=== PATIENT | female | born 1955 | race Caucasian/White ===

== ENCOUNTER → 2019-12-06 14:28 | Outpatient (CLI) | payer MEDICARE, MEDICAID, SELFPAY ==
--- NOTE | ~2019-12-06 | XR_ITS ---
XR lumbar spine 6V w bending DATE: 12/06/2019 15:03 INDICATION: Lower back pain. Muscle strain. TECHNIQUE: Neutral, flexion and extension lateral views. AP, bilateral oblique and coned lateral lumb osacral views. COMPARISON: None FINDINGS: Diffuse osteopenia. Surgical clips, right upper quadrant, consistent with cholecystectomy. There is rotatory dextroscoliosis of the lumbar spine. Left lateral plate and screws, posterior screws and interbody fusion with cage devices at L2-3. Anterior plate and screws and interbody cage devices at L3-4 and L4-5. No fracture or spondylolisthesis is evident. No instability is evident on flexion or extension. The sacroiliac joints appear normal. IMPRESSION: Extensive postoperative changes of the lumbar spine No fracture or spondylolisthesis or flexion/extension instability is demonstrated Rotatory dextroscoliosis Osteopenia Reviewed, dictated and finalized at location B. 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
== END ==
PROVIDERS: PCP Family Medicine; Visit Provider Family Medicine
DX: S39.012A Strain of muscle, fascia and tendon of lower back, initial encounter (principal); X58.XXXA Exposure to other specified factors, initial encounter; M85.88 Other specified disorders of bone density and structure, other site
CPT/HCPCS: 72114

== ENCOUNTER 2020-05-31 16:02 | Emergency (ER) | payer OTHER, MEDICAID, SELFPAY ==
--- NOTE | ~2020-05-31 | XR_ITS ---
XR chest 2V DATE: 05/31/2020 16:39 INDICATION: Cough. History of pneumonia. TECHNIQUE: 2 views COMPARISON: 03/18/2019 2 view chest 03/31/2019 CT pulmonary scan FINDINGS: Bilateral hyperinflation consistent with COPD. No pulmonary infiltrate or consolidation, pl eural effusion or pulmonary vascular congestion or pneumothorax. Cardiomegaly. Aortic calcification and unfolding. No hilar or mediastinal enlargement. Surgical clips overlie the upper right quadrant, consistent with cholecystectomy. Status post lower anterior cervical spine surgical fusion. There is evidence of surgical lumbar spine fusion as well. IMPRESSION: Bilateral hyperinflation suggesting COPD Cardiomegaly Aortic atherosclerosis No active pulmonary disease Reviewed, dictated and finalized at location A.
[2020-05-31 16:16] VITALS: BP 155/88; PULSE 53; RESP 16; TEMP 36.6; O2SAT 98
--- NOTE | 2020-05-31 16:21 | ED.URI ---
HPI - URI/Sore Throat General Chief Complaint: Upper Respiratory Infection Stated Complaint: poss pnuemonia Time Seen by Provider: 05/31/20 16:40 Source: patient and RN notes reviewed Mode of arrival: ambulatory Limitations: no limitations History of Present Illness HPI Narrative: 65-year-old female presents with concern for productive cough, posterior and anterior chest wall pain with coughing. Reports history of emphysema, is a current smoker. Reports 3 days ago she may have coughed up blood, had blood on her pillow when she woke up. Has not had any incidence of haemoptysis since that time. Reports body aches, fatigue, tactile fever. Reports similar symptoms with prior pneumonia. Denies known sick exposures MD elicited complaint: cough Related Data Home Medications Medication Instructions Recorded Confirmed aspirin 81 mg tablet,delayed 81 mg PO DAILY 09/28/19 05/31/20 release cholecalciferol (vitamin D3) 1,250 50,000 unit PO MONTHLY tablet 09/28/19 05/31/20 mcg (50,000 unit) tablet dicyclomine 20 mg tablet 20 mg PO TID 09/28/19 05/31/20 fentanyl 50 mcg/hr transdermal 1 patch TRANSDERM Q72H 09/28/19 05/31/20 patch hydralazine 25 mg tablet 25 mg PO TID 09/28/19 05/31/20 mecobalamin (vitamin B12) 1,000 1,000 mcg SUBLINGUAL DAILY 09/28/19 05/31/20 mcg disintegrating tablet,sublingual metoprolol tartrate 25 mg tablet 25 mg PO BID tablet 09/28/19 05/31/20 nitroglycerin 0.3 mg sublingual 0.3 mg SUBLINGUAL Q5M PRN 11/16/19 05/31/20 tablet gabapentin 300 mg PO QID 05/31/20 05/31/20 hydrocodone-acetaminophen 2 tablet PO Q6H PRN 05/31/20 05/31/20 linaclotide [Linzess] 145 mcg PO DAILY 05/31/20 05/31/20 ondansetron HCl [Zofran] 8 mg PO Q8H PRN 05/31/20 05/31/20 pantoprazole 40 mg PO QAM 05/31/20 05/31/20 Allergies Allergy/AdvReac Type Severity Reaction Status Date / Time dexamethasone Allergy Mild SICK AND Verified 05/31/20 16:38 WEAK atenolol Allergy Unknown DROPPED Verified 05/31/20 16:38 OUT MY HEART RATE clonidine Allergy Unknown LOOKED Verified 05/31/20 16:38 LIKE A LOBSTER TURN RED lisinopril Allergy Unknown LOOK LIKE Verified 05/31/20 16:38 A LOBSTER TURN RED NSAIDS (Non-Steroidal Allergy Unknown STATES Verified 05/31/20 16:38 Anti-Inflamma MAKES HER BLEED prednisone Allergy Unknown COULDN'T Verified 05/31/20 16:38 BREATH ticagrelor Allergy Unknown Dyspnea / Verified 05/31/20 16:38 SOB chlorzoxazone AdvReac Unknown Nausea and Verified 05/31/20 16:38 Vomiting oxymorphone AdvReac Unknown NAUSEA AND Verified 05/31/20 16:38 VOMITING Sulfa (Sulfonamide AdvReac Unknown GIVES PT A Verified 05/31/20 16:38 Antibiotics) YEAST INFECTION tramadol AdvReac Unknown NAUSEA AND Verified 05/31/20 16:38 VOMITING AMLODIPINE BESYLATE Allergy Unknown LOOKED Uncoded 05/31/20 16:38 LIKE A LOBSTER TURNED RED AMOXICILLIN TRIHYDRATE AdvReac Unknown GIVES ME Uncoded 05/31/20 16:38 YEAST INFECTION AND BLEEDS VAGINALLY POTASSIUM CLAVULANATE AdvReac Unknown YEAST Uncoded 05/31/20 16:38 INFECTION Review of Systems Review of Systems: Narrative: CONSTITUTIONAL: Reports malaise, chills, tactile fever. Denies sweats. EYES: Denies visual changes, redness, or discharge. ENT: Reports rhinorrhea. Denies congestion, sinus pain, otalgia and sore throat. CARDIOVASCULAR: Denies chest pain, palpitations, or edema. RESPIRATORY: Reports cough, productive cough, chest wall pain with coughing. Denies dyspnea. GASTROINTESTINAL: Denies abdominal pain, nausea, vomiting, diarrhea SKIN: Denies rash or itching. MUSCULOSKELETAL: Denies myalgia. NEUROLOGIC: Denies headache. All systems reviewed & are unremarkable except as noted in HPI and below PMFSH Social History Social History Smoking packs per day: 0.5 Smoking cigarettes per day: 10.0 Years smoked: 40
== END 2020-05-31 17:02 | disposition home or self-care (01) ==
PROVIDERS: Emergency Provider Nurse Practitioner; PCP Family Medicine
DX: R05 Cough (principal); J43.9 Emphysema, unspecified; F17.210 Nicotine dependence, cigarettes, uncomplicated; I10 Essential (primary) hypertension; G62.9 Polyneuropathy, unspecified
CPT/HCPCS: 71046; 99213; G0463

== ENCOUNTER 2020-11-23 13:39 | Outpatient (CLI) | payer OTHER, MEDICAID, SELFPAY ==
--- NOTE | ~2020-11-23 | XR_ITS ---
XR_[id number]_CR DATE: 11/23/2020 14:09 INDICATION: Fall. Right mid to lower right chest pain TECHNIQUE: PA chest. Multiple views of left and right ribs. COMPARISON: 05/31/2022 view chest FINDINGS: Status post anterior cervical spine surgical fusion at C6-7. There is extensive hardware at the lumbar spine. Diffuse osteopenia. There is a left cervical rib. No left or right rib fracture or bone destruction is evident. Cardiomegaly. Aortic calcification and unfolding. There is mild discoid scarring in the right lung base, present on 05/31/2020. There is minimal atelect asis or scarring at the left lung base. No pulmonary consolidation is evident. No pleural effusion, p ulmonary vascular congestion or pneumothorax. IMPRESSION: Diffuse osteopenia; no apparent left or right rib fracture Left cervical rib Ranjana magna, aortic atherosclerosis Postoperative change of the cervical and lumbar spine Reviewed, dictated and finalized at Location A. Reviewed, dictated and finalized at location B. PRESIDENT OF RECRUITING
--- NOTE | ~2020-11-23 | XR_ITS ---
XR hip RT 1V w AP pelvis DATE: 11/23/2020 14:09 INDICATION: Right hip pain TECHNIQUE: AP pelvis. Lateral view of right hip. COMPARISON: None FINDINGS: There is diffuse osteopenia. There is dextroscoliosis of the lumbar spine. There is extensive hardware of the lumbar spine. The pubic symphysis and sacral iliac joints are intact. No pelvic fracture or bone destruction is ángel dent. No fracture or dislocation, avascular necrosis or bone destruction of the right hip is detected. Righ t hip joint space is symmetric with the left, relatively preserved. IMPRESSION: Dextro scoliosis and extensive postoperative change of the lumbar spine Diffuse osteopenia No pelvic or right hip fracture or dislocation Reviewed, dictated and finalized at location B. 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
== END 2020-11-23 13:40 | disposition home or self-care (01) ==
LOC: ANHBWCIMG 13:43
PROVIDERS: PCP Family Medicine; Visit Provider Family Medicine
DX: M25.551 Pain in right hip (principal); R26.89 Other abnormalities of gait and mobility; R07.89 Other chest pain; W19.XXXA Unspecified fall, initial encounter; Z91.81 History of falling; M85.89 Other specified disorders of bone density and structure, multiple sites; Q76.5 Cervical rib; I70.0 Atherosclerosis of aorta; Z98.890 Other specified postprocedural states; M41.86 Other forms of scoliosis, lumbar region
CPT/HCPCS: 71111; 73501

== ENCOUNTER 2020-12-12 17:34 | Emergency (ER) | payer OTHER, MEDICAID, SELFPAY ==
[2020-12-12 17:45] VITALS: BP 195/101; PULSE 57; RESP 20; TEMP 36.6; O2SAT 100
--- NOTE | 2020-12-12 18:10 | ED.ABDPAIN ---
HPI - Abdominal Pain General Chief Complaint: Abdominal Pain Stated Complaint: L Abdominal Pain Time Seen by Provider: 12/12/20 17:45 Source: patient and RN notes reviewed Mode of arrival: ambulatory Limitations: no limitations History of Present Illness HPI narrative: Patient presents today complaining of 3-day history of sudden onset left-sided abdominal pain and nausea as well as a 2-week history of decreased appetite. States her pain is horrendous . She had much difficulty walking in to express care from her car due to severe pain. History of diverticulitis and diverticulosis. She currently rates her pain 10/10. She has been applying ice and heat. She uses fentanyl and Vicodin for her chronic back pain, which she states helps for short periods for her current abdominal pain, which she states is constant with intermittent spasms. She believes her pain may be due to pulling a muscle while she slept, but is unsure. Denies any specific known injury or trauma. Patient was seen in the ER at [facility] 2 weeks ago for left sided abdominal pain. States CT scan was done at that time and she was placed on Flagyl and an antibiotic which she has finished. She has had a decreased appetite since that time. She has a follow-up appointment with her protein purification scientist in 2 days. Related Data Home Medications Medication Instructions Recorded Confirmed aspirin 81 mg tablet,delayed 81 mg PO DAILY 09/28/19 12/12/20 release cholecalciferol (vitamin D3) 1,250 50,000 unit PO MONTHLY tablet 09/28/19 12/12/20 mcg (50,000 unit) tablet dicyclomine 20 mg tablet 20 mg PO TID 09/28/19 12/12/20 fentanyl 50 mcg/hr transdermal 1 patch TRANSDERM Q72H 09/28/19 12/12/20 patch hydralazine 25 mg tablet 25 mg PO TID 09/28/19 12/12/20 mecobalamin (vitamin B12) 1,000 1,000 mcg SUBLINGUAL DAILY 09/28/19 12/12/20 mcg disintegrating tablet,sublingual metoprolol tartrate 25 mg tablet 25 mg PO BID tablet 09/28/19 12/12/20 nitroglycerin 0.3 mg sublingual 0.3 mg SUBLINGUAL Q5M PRN 11/16/19 12/12/20 tablet gabapentin 600 mg PO TID 05/31/20 12/12/20 linaclotide [Linzess] 145 mcg PO DAILY 05/31/20 12/12/20 pantoprazole 40 mg PO QAM 05/31/20 12/12/20 atorvastatin 20 mg PO DAILY 12/12/20 12/12/20 Allergies Allergy/AdvReac Type Severity Reaction Status Date / Time dexamethasone Allergy Mild SICK AND Verified 12/12/20 17:54 WEAK atenolol Allergy Unknown DROPPED Verified 12/12/20 17:54 OUT MY HEART RATE clonidine Allergy Unknown LOOKED Verified 12/12/20 17:54 LIKE A LOBSTER TURN RED lisinopril Allergy Unknown LOOK LIKE Verified 12/12/20 17:54 A LOBSTER TURN RED NSAIDS (Non-Steroidal Allergy Unknown STATES Verified 12/12/20 17:54 Anti-Inflamma MAKES HER BLEED prednisone Allergy Unknown COULDN'T Verified 12/12/20 17:54 BREATH ticagrelor Allergy Unknown Dyspnea / Verified 12/12/20 17:54 SOB chlorzoxazone AdvReac Unknown Nausea and Verified 12/12/20 17:54 Vomiting oxymorphone AdvReac Unknown NAUSEA AND Verified 12/12/20 17:54 VOMITING Sulfa (Sulfonamide AdvReac Unknown GIVES PT A Verified 12/12/20 17:54 Antibiotics) YEAST INFECTION tramadol AdvReac Unknown NAUSEA AND Verified 12/12/20 17:54 VOMITING AMLODIPINE BESYLATE Allergy Unknown LOOKED Uncoded 12/12/20 17:54 LIKE A LOBSTER TURNED RED AMOXICILLIN TRIHYDRATE AdvReac Unknown GIVES ME Uncoded 12/12/20 17:54 YEAST INFECTION AND BLEEDS VAGINALLY POTASSIUM CLAVULANATE AdvReac Unknown YEAST Uncoded 12/12/20 17:54 INFECTION Review of Systems Review of Systems: Narrative: CONSTITUTIONAL: Denies body aches, fever, chills, or sweats. EYES: Denies visual changes, redness, or discharge. ENT: Denies rhinorrhea, congestion, sore throat, or otalgia. CARDIOVASCULAR: Denies chest pain, palpitations, or edema. RESPIRATORY: Denies cough or dyspnea. GASTROINTESTINAL
[2020-12-12 18:13] VITALS: BP 180/98
== END 2020-12-12 18:19 | disposition left against medical advice (07) ==
PROVIDERS: Emergency Provider Nurse Practitioner; PCP Family Medicine
DX: R10.12 Left upper quadrant pain (principal); F17.210 Nicotine dependence, cigarettes, uncomplicated; M48.00 Spinal stenosis, site unspecified; Z79.82 Long term (current) use of aspirin
CPT/HCPCS: 99211; G0463

== ENCOUNTER 2021-02-08 13:59 | Outpatient (CLI) | payer OTHER, MEDICAID, SELFPAY ==
[2021-02-08 20:18] LABS: Basophils Absolute Auto 0.1 K/mm3 (0.0-0.1); Basophils Percent Auto 1.1 % (0.2-1.2); Eosinophils Absolute Auto 0.2 K/mm3 (0-0.3); Eosinophils Percent Auto 2.9 % (0-4.4); Hematocrit 45.7 % (37.0-47.0); Hemoglobin 14.3 g/dL (12.0-15.0); Immature Granulocyte Absolute 0.01 K/mm3 (0.00-0.031); Immature Granulocyte Percent A 0.1 % (0-0.5); Lymphocytes Absolute Auto 3.36 K/mm3 (0.9-3.2); Lymphocytes Percent Auto 40.3 % (18.3-44.2); Mean Corpuscular HGB Conc 31.3 g/dl (32-36); Mean Corpuscular Volume 99.1 fl (80-100); Mean Platelet Volume 10.1 fl (7.4-10.4); Monocytes Absolute Auto 0.7 K/mm3 (0.1-0.6); Monocytes Percent Auto 7.8 % (2.6-8.5); Neutrophils Percent Auto 47.8 % (45.5-73.1); Platelet Count Result 253 k/mm3 (150-375); Red Blood Count 4.61 M/mm3 (4.2-5.4); Red Cell Distribution Width 13.5 % (11.5-14.5); White Blood Count 8.3 K/mm3 (4.5-10.0)
[2021-02-08 20:25] LABS: Add Urine Microscopic? YES; Appearance Urine Clear (Clear); Bilirubin Urine Negative (Negative); Blood Urine Negative (Negative); Color Urine Amber (Yellow); Glucose Urine UA Negative (Negative); Ketones Urine Negative (Negative); Leukocyte Esterase Ur Negative LEU/UL (NEGATIVE); Nitrate Urine Positive (Negative); Protein Urine 1+ mg/dL (Negative); Specific Grav Ur 1.013 (1.001-1.035); Squamous Epithelial Cell Urine Many /hpf (Few); WBC Urine 0-3 /hpf (0-3)
[2021-02-08 20:28] LABS: Alanine Aminotransferase 10 U/L (4-35); Albumin Level 3.8 g/dL (3.5-5.1); Alkaline Phosphatase 84 U/L (38-126); Anion Gap 4 mmol/L (8-16); Aspartate Amino Transferase 19 U/L (14-36); Bilirubin,Total 0.4 mg/dL (0.2-1.3); Blood Urea Nitrogen 13 mg/dL (7-17); CRP < 0.5 mg/dL (<1.0); Calcium 9.1 mg/dL (8.4-10.2); Carbon Dioxide 34 mmol/L (22-30); Chloride 102 mmol/L (98-107); Estimated Glomerular Filt Rate > 60; Glucose 97 mg/dL (65-105); Potassium 4.2 mmol/L (3.4-5.0); Sodium 140 mmol/L (137-145)
[2021-02-08 20:43] LABS: Vitamin D 25 Hydroxy 32.3 ng/mL
[2021-02-08 21:32] LABS: Folic Acid 4.3 ng/mL (2.76->20)
== END 2021-02-08 14:00 | disposition home or self-care (01) ==
LOC: ANHBWCLAB 14:01
PROVIDERS: PCP Family Medicine; Visit Provider Family Medicine
DX: R10.11 Right upper quadrant pain (principal); R32 Unspecified urinary incontinence; R79.89 Other specified abnormal findings of blood chemistry; Z79.899 Other long term (current) drug therapy; Z92.29 Personal history of other drug therapy; R53.83 Other fatigue
CPT/HCPCS: 36415; 80053; 81001; 82306; 82607; 82746; 85025; 86140; 87086

== ENCOUNTER 2021-03-08 17:30 | Emergency (ER) | payer OTHER, MEDICAID, SELFPAY ==
[2021-03-08 17:36] VITALS: BP 160/82; PULSE 60; RESP 20; TEMP 36.4; O2SAT 98
--- NOTE | 2021-03-08 17:42 | ED.SKABFB ---
HPI - Skin/Abscess/Foreign Bdy General Chief complaint: Skin/Abscess/Foreign Body Stated complaint: Skin Complaint Source: patient Mode of arrival: ambulatory Limitations: no limitations History of Present Illness HPI narrative: Patient is a 65 year old female with complaints of poison surendra . Patient reports pruritic rash x 3 days to bilateral upper extremities. She reports that she completed yard work on Friday. She denies use of new soaps, lotions or detergents. Patient reports using over the counter medications without relief. MD complaint: rash Related Data Home Medications Medication Instructions Recorded Confirmed aspirin 81 mg tablet,delayed 81 mg PO DAILY 09/28/19 03/08/21 release hydralazine 25 mg tablet 25 mg PO TID 09/28/19 03/08/21 mecobalamin (vitamin B12) 1,000 1,000 mcg SUBLINGUAL DAILY 09/28/19 03/08/21 mcg disintegrating tablet,sublingual nitroglycerin 0.3 mg sublingual 0.3 mg SUBLINGUAL Q5M PRN 11/16/19 03/08/21 tablet linaclotide [Linzess] 145 mcg PO DAILY 05/31/20 03/08/21 pantoprazole 40 mg PO QAM 05/31/20 03/08/21 atorvastatin 20 mg PO DAILY 12/12/20 03/08/21 Allergies Allergy/AdvReac Type Severity Reaction Status Date / Time dexamethasone Allergy Mild SICK AND Verified 03/08/21 17:46 WEAK atenolol Allergy Unknown DROPPED Verified 03/08/21 17:46 OUT MY HEART RATE clonidine Allergy Unknown LOOKED Verified 03/08/21 17:46 LIKE A LOBSTER TURN RED lisinopril Allergy Unknown LOOK LIKE Verified 03/08/21 17:46 A LOBSTER TURN RED NSAIDS (Non-Steroidal Allergy Unknown STATES Verified 03/08/21 17:46 Anti-Inflamma MAKES HER BLEED prednisone Allergy Unknown COULDN'T Verified 03/08/21 17:46 BREATH ticagrelor Allergy Unknown Dyspnea / Verified 03/08/21 17:46 SOB chlorzoxazone AdvReac Unknown Nausea and Verified 03/08/21 17:46 Vomiting oxymorphone AdvReac Unknown NAUSEA AND Verified 03/08/21 17:46 VOMITING Sulfa (Sulfonamide AdvReac Unknown GIVES PT A Verified 03/08/21 17:46 Antibiotics) YEAST INFECTION tramadol AdvReac Unknown NAUSEA AND Verified 03/08/21 17:46 VOMITING AMLODIPINE BESYLATE Allergy Unknown LOOKED Uncoded 02/08/21 13:12 LIKE A LOBSTER TURNED RED AMOXICILLIN TRIHYDRATE AdvReac Unknown GIVES ME Uncoded 02/08/21 13:12 YEAST INFECTION AND BLEEDS VAGINALLY POTASSIUM CLAVULANATE AdvReac Unknown YEAST Uncoded 02/08/21 13:12 INFECTION Review of Systems Review of Systems: Narrative: CONSTITUTIONAL: Denies fever, chills, or sweats. EYES: Denies visual changes, redness, or discharge. ENT: Denies rhinorrhea, congestion, sore throat, or otalgia. CARDIOVASCULAR: Denies chest pain, palpitations, or edema. RESPIRATORY: Denies cough or dyspnea. GASTROINTESTINAL: Denies abdominal pain, nausea, vomiting, or diarrhea. GENITOURINARY: Denies dysuria or hematuria. SKIN: Rash to bilateral arms MUSCULOSKELETAL: Denies back pain, joint pain, or myalgia. NEUROLOGIC: Denies headache, numbness, dizziness, or weakness. PSYCHIATRIC: Denies anxiety or depression. [facility] Past Medical History Medical History Diverticulitis Diverticulosis FH: cholecystectomy Knee pain Low back pain Spinal stenosis Family History Family History Father Family history of kidney disease Grandparent Family history of obesity Cerebrovascular accident Family history of coronary artery disease Mother Family history of malignant neoplasm of breast in first degree relative Family history of malignant neoplasm Other Family history of allergic disorder Social History Social History Smoking packs per day: 0.5 Smoking cigarettes per day: 10.0 Years smoked: 40 Smoking pack-years: 20.00 Smoking status: Current every
[2021-03-08 17:48] VITALS: BP 160/82; PULSE 60; RESP 20; TEMP 36.4; O2SAT 98
== END 2021-03-08 18:05 | disposition home or self-care (01) ==
PROVIDERS: Emergency Provider Nurse Practitioner; PCP Family Medicine
DX: L23.7 Allergic contact dermatitis due to plants, except food (principal); F17.210 Nicotine dependence, cigarettes, uncomplicated; M48.00 Spinal stenosis, site unspecified
CPT/HCPCS: 99213; G0463

== ENCOUNTER 2021-05-30 15:30 | Outpatient (CLI) | payer OTHER, MEDICAID, SELFPAY ==
[2021-05-30 19:06] LABS: Hematocrit 47.6 % (37.0-47.0); Hemoglobin 15.5 g/dL (12.0-15.0); Mean Corpuscular HGB Conc 32.6 g/dl (32-36); Mean Corpuscular Volume 98.3 fl (80-100); Mean Platelet Volume 10.3 fl (7.4-10.4); Platelet Count Result 272 k/mm3 (150-375); Red Blood Count 4.84 M/mm3 (4.2-5.4); Red Cell Distribution Width 13.9 % (11.5-14.5); White Blood Count 9.4 K/mm3 (4.5-10.0)
[2021-05-30 19:27] LABS: Anion Gap 9 mmol/L (8-16); Blood Urea Nitrogen 12 mg/dL (7-17); Calcium 9.5 mg/dL (8.4-10.2); Carbon Dioxide 28 mmol/L (22-30); Chloride 103 mmol/L (98-107); Estimated Glomerular Filt Rate > 60; Glucose 97 mg/dL (65-105); Potassium 4.3 mmol/L (3.4-5.0); Sodium 140 mmol/L (137-145)
== END 2021-05-30 15:31 | disposition home or self-care (01) ==
LOC: ANHBWCIMG 15:34 → ANHBWCLAB 15:37
PROVIDERS: PCP Family Medicine
DX: I10 Essential (primary) hypertension (principal); I25.10 Atherosclerotic heart disease of native coronary artery without angina pectoris; I25.118 Atherosclerotic heart disease of native coronary artery with other forms of angina pectoris; I47.1 Supraventricular tachycardia
CPT/HCPCS: 36415; 80048; 85027

== ENCOUNTER 2021-06-18 15:34 | Outpatient (CLI) | payer OTHER, MEDICAID, SELFPAY ==
[2021-06-18 20:19] LABS: Add Urine Microscopic? NO; Appearance Urine Clear (Clear); Bilirubin Urine Negative (Negative); Blood Urine Negative (Negative); Color Urine Yellow (Yellow); Glucose Urine UA Negative (Negative); Ketones Urine Negative (Negative); Leukocyte Esterase Ur Negative LEU/UL (NEGATIVE); Nitrate Urine Negative (Negative); Protein Urine Negative (Negative); Specific Grav Ur 1.014 (1.001-1.035); Urobilinogen Urine Negative mg/dL (<2.0)
== END 2021-06-18 15:35 | disposition home or self-care (01) ==
PROVIDERS: PCP Family Medicine; Visit Provider Family Medicine
DX: R32 Unspecified urinary incontinence (principal)
CPT/HCPCS: 81003; 87086; 87088

== ENCOUNTER 2021-09-18 15:12 | Outpatient (CLI) | payer OTHER, MEDICAID, SELFPAY ==
--- NOTE | ~2021-09-18 | XR_ITS ---
EXAMINATION: XR abdomen obstructive series DATE: 09/18/2021 15:37 INDICATION: Personal history of other diseases of the digestive tract TECHNIQUE: Upright and supine views of the abdomen were obtained. COMPARISON: 05/06/2019 FINDINGS: There is no free intraperitoneal gas or evidence of bowel obstruction. A moderate volume of colonic stool is present. Surgical clips in the right upper quadrant are likely from prior cholecyst ectomy. There is lumbar dextroscoliosis with changes of anterior posterior lumbar fusion. A surgical clip is present in the right pelvis. The visualized lung bases are clear. IMPRESSION: 1. Nonobstructive bowel gas pattern. 2. Constipation. Reviewed, dictated and finalized at location B.
[2021-09-18 18:38] LABS: Basophils Absolute Auto 0.1 K/mm3 (0.0-0.1); Eosinophils Absolute Auto 0.2 K/mm3 (0-0.3); Eosinophils Percent Auto 2.4 % (0-4.4); Hematocrit 43.3 % (37.0-47.0); Hemoglobin 13.9 g/dL (12.0-15.0); Immature Granulocyte Absolute 0.04 K/mm3 (0.00-0.031); Immature Granulocyte Percent A 0.4 % (0-0.5); Lymphocytes Absolute Auto 2.68 K/mm3 (0.9-3.2); Lymphocytes Percent Auto 28.6 % (18.3-44.2); Mean Corpuscular HGB Conc 32.1 g/dl (32-36); Mean Corpuscular Hemoglobin 32.9 pg (26-34); Mean Corpuscular Volume 102.4 fl (80-100); Mean Platelet Volume 10.3 fl (7.4-10.4); Monocytes Absolute Auto 0.7 K/mm3 (0.1-0.6); Monocytes Percent Auto 7.7 % (2.6-8.5); Neutrophils Absolute Auto 5.6 K/mm3 (1.3-6.7); Neutrophils Percent Auto 59.9 % (45.5-73.1); Platelet Count Result 255 k/mm3 (150-375); Red Blood Count 4.23 M/mm3 (4.2-5.4); Red Cell Distribution Width 14.4 % (11.5-14.5); White Blood Count 9.4 K/mm3 (4.5-10.0)
[2021-09-18 18:59] LABS: Lipase 54 U/L (23-300)
== END 2021-09-18 15:13 | disposition home or self-care (01) ==
PROVIDERS: PCP Family Medicine; Visit Provider Family Medicine
DX: R10.31 Right lower quadrant pain (principal); Z87.19 Personal history of other diseases of the digestive system; K59.00 Constipation, unspecified
CPT/HCPCS: 36415; 74019; 83690; 85025

== ENCOUNTER 2022-04-17 18:48 | Emergency (ER) | payer OTHER, MEDICAID, SELFPAY ==
--- NOTE | ~2022-04-17 | XR_ITS ---
EXAMINATION: XR chest 2V DATE: 04/17/2022 19:29 INDICATION: Cough TECHNIQUE: PA and lateral views of the chest are obtained. COMPARISON: 05/31/2020 FINDINGS: The lungs are free of acute opacities. There is no pleural effusion or pneumothorax. The ca rdiomediastinal silhouette is normal. There is moderate thoracic spondylosis. There are surgical brush ges in the lower cervical and upper lumbar lateral spine. Surgical clips in the upper abdomen on the lateral view are likely from prior cholecystectomy. IMPRESSION: 1. No acute cardiopulmonary abnormality. Reviewed, dictated and finalized at location F.
[2022-04-17 18:52] VITALS: BP 136/77; PULSE 86; RESP 20; TEMP 36.6; O2SAT 96
--- NOTE | 2022-04-17 19:11 | ED.URI ---
HPI - URI/Sore Throat General Chief Complaint: Upper Respiratory Infection Stated Complaint: Chest Congestion/Shortness of Breath Time Seen by Provider: 04/17/22 19:31 Source: patient and RN notes reviewed Mode of arrival: ambulatory Limitations: no limitations History of Present Illness HPI Narrative: 67-year-old female presents with concern for 2-week history of chest congestion, cough, shortness of breath, nasal congestion, rhinorrhea. Reports productive cough. Reports history of pneumonia. She reports fatigue. She reports feeling feverish, has not taken her temperature. She reports several sick contacts. MD elicited complaint: cough, rhinorrhea and nasal congestion Related Data Home Medications Medication Instructions Recorded Confirmed aspirin 81 mg tablet,delayed 81 mg PO DAILY 09/28/19 04/17/22 release (Adult Low Dose Aspirin) mecobalamin (vitamin B12) 1,000 1,000 mcg sublingual DAILY 09/28/19 04/17/22 mcg disintegrating tablet,sublingual nitroglycerin 0.3 mg sublingual 0.3 mg sublingual Q5M PRN Chest 11/16/19 04/17/22 tablet Pain linaclotide 145 mcg capsule 145 mcg PO DAILY 05/31/20 04/17/22 (Linzess) pantoprazole 40 mg tablet,delayed 40 mg PO QAM 05/31/20 04/17/22 release atorvastatin 40 mg tablet 40 mg PO DAILY 07/04/21 04/17/22 Allergies Allergy/AdvReac Type Severity Reaction Status Date / Time dexamethasone Allergy Mild SICK AND Verified 04/17/22 19:09 WEAK atenolol Allergy Unknown DROPPED Verified 04/17/22 19:09 OUT MY HEART RATE clonidine Allergy Unknown LOOKED Verified 04/17/22 19:09 LIKE A LOBSTER TURN RED lisinopril Allergy Unknown LOOK LIKE Verified 04/17/22 19:09 A LOBSTER TURN RED NSAIDS (Non-Steroidal Allergy Unknown STATES Verified 04/17/22 19:09 Anti-Inflamma MAKES HER BLEED prednisone Allergy Unknown COULDN'T Verified 04/17/22 19:09 BREATH ticagrelor Allergy Unknown Dyspnea / Verified 04/17/22 19:09 SOB amlodipine [From [facility]] Allergy Unknown Verified 04/17/22 19:09 pseudoephedrine Allergy Unknown Verified 04/17/22 19:09 chlorzoxazone AdvReac Unknown Nausea and Verified 04/17/22 19:09 Vomiting oxymorphone AdvReac Unknown NAUSEA AND Verified 04/17/22 19:09 VOMITING Sulfa (Sulfonamide AdvReac Unknown GIVES PT A Verified 04/17/22 19:09 Antibiotics) YEAST INFECTION tramadol AdvReac Unknown NAUSEA AND Verified 04/17/22 19:09 VOMITING AMLODIPINE BESYLATE Allergy Unknown LOOKED Uncoded 04/17/22 19:09 LIKE A LOBSTER TURNED RED AMOXICILLIN TRIHYDRATE AdvReac Unknown GIVES ME Uncoded 04/17/22 19:09 YEAST INFECTION AND BLEEDS VAGINALLY POTASSIUM CLAVULANATE AdvReac Unknown YEAST Uncoded 04/17/22 19:09 INFECTION Review of Systems Review of Systems: CONSTITUTIONAL: Report malaise, chills, fatigue. Denies sweats, or fever. EYES: Denies visual changes, redness, or discharge. ENT: Reports rhinorrhea, congestion. Denies sinus pain, otalgia and sore throat. CARDIOVASCULAR: Denies chest pain, palpitations, or edema. RESPIRATORY: Reports cough, dyspnea. GASTROINTESTINAL: Denies abdominal pain, nausea, vomiting, diarrhea SKIN: Denies rash or itching. MUSCULOSKELETAL: Reports myalgia. NEUROLOGIC: Denies headache. All systems reviewed & are unremarkable except as noted in HPI and below PMFSH Past Medical History Medical History Diverticulitis Diverticulosis FH: cholecystectomy Knee pain Low back pain Spinal stenosis Surgical History Surgical History History of cardiac cath Family History Family History Father Family history of kidney disease Grandparent Family history of obesity Cerebrovascular accident Family history of coronary artery disease Mother Family history of m
== END 2022-04-17 20:00 | disposition home or self-care (01) ==
PROVIDERS: Emergency Provider Nurse Practitioner
DX: J06.9 Acute upper respiratory infection, unspecified (principal); R05.9 Cough, unspecified; M48.00 Spinal stenosis, site unspecified
CPT/HCPCS: 71046; 99213; G0463

== ENCOUNTER 2022-05-07 15:18 | Emergency (ER) | payer OTHER, MEDICAID, SELFPAY ==
--- NOTE | ~2022-05-07 | XR_ITS ---
XR chest 2V DATE: 05/07/2022 15:50 INDICATION: Cough. Posterior chest pain. TECHNIQUE: PA and lateral views COMPARISON: 04/17/2022 2 view chest FINDINGS: There is bilateral hyperinflation suggesting obstructive airways disease. No pulmonary infi ltrate or consolidation, pleural effusion or pulmonary vascular congestion or pneumothorax. Borderline heart size. Aortic calcification and unfolding. Status post lower anterior cervical spine surgical fusion. Osteopenia. IMPRESSION: Bilateral hyperinflation suggesting COPD Borderline heart size Aortic atherosclerosis No active pulmonary disease Reviewed, dictated and finalized at location A.
[2022-05-07 15:23] VITALS: BP 191/100; PULSE 55; RESP 18; TEMP 36; O2SAT 99
--- NOTE | 2022-05-07 15:23 | ED.URI ---
HPI - URI/Sore Throat General Chief Complaint: Upper Respiratory Infection Stated Complaint: Cough/Back Pain Time Seen by Provider: 05/07/22 15:23 History of Present Illness HPI Narrative: Patient is a 67-year-old female who presents the urgent care with complaints of persistent cough for the last 8 or 9 weeks. Patient has been on azithromycin and doxycycline in the last month. Patient states she has now developed severe right back pain especially with deep breathing. Patient denies any fevers, nausea or vomiting. Denies of any ill exposures but states that several people in her home have had the upper respiratory symptoms. States that she has had negative COVID test. No other acute complaints. No acute distress noted. Patient aware of the plan of care. Some parts of this dictation were generated by voice recognition software and may contain typographical and/or grammatical inaccuracies. Related Data Home Medications Medication Instructions Recorded Confirmed aspirin 81 mg tablet,delayed 81 mg PO DAILY 09/28/19 05/07/22 release (Adult Low Dose Aspirin) mecobalamin (vitamin B12) 1,000 1,000 mcg sublingual DAILY 09/28/19 05/07/22 mcg disintegrating tablet,sublingual nitroglycerin 0.3 mg sublingual 0.3 mg sublingual Q5M PRN Chest 11/16/19 05/07/22 tablet Pain linaclotide 145 mcg capsule 145 mcg PO DAILY 05/31/20 05/07/22 (Linzess) pantoprazole 40 mg tablet,delayed 40 mg PO QAM 05/31/20 05/07/22 release atorvastatin 40 mg tablet 40 mg PO DAILY 07/04/21 05/07/22 Allergies Allergy/AdvReac Type Severity Reaction Status Date / Time dexamethasone Allergy Mild SICK AND Verified 05/07/22 15:35 WEAK atenolol Allergy Unknown DROPPED Verified 05/07/22 15:35 OUT MY HEART RATE clonidine Allergy Unknown LOOKED Verified 05/07/22 15:35 LIKE A LOBSTER TURN RED lisinopril Allergy Unknown LOOK LIKE Verified 05/07/22 15:35 A LOBSTER TURN RED NSAIDS (Non-Steroidal Allergy Unknown STATES Verified 05/07/22 15:35 Anti-Inflamma MAKES HER BLEED prednisone Allergy Unknown COULDN'T Verified 05/07/22 15:35 BREATH ticagrelor Allergy Unknown Dyspnea / Verified 05/07/22 15:35 SOB amlodipine [From [facility]] Allergy Unknown Verified 05/07/22 15:35 pseudoephedrine Allergy Unknown Verified 05/07/22 15:35 chlorzoxazone AdvReac Unknown Nausea and Verified 05/07/22 15:35 Vomiting oxymorphone AdvReac Unknown NAUSEA AND Verified 04/17/22 19:09 VOMITING Sulfa (Sulfonamide AdvReac Unknown GIVES PT A Verified 04/17/22 19:09 Antibiotics) YEAST INFECTION tramadol AdvReac Unknown NAUSEA AND Verified 04/17/22 19:09 VOMITING AMLODIPINE BESYLATE Allergy Unknown LOOKED Uncoded 04/17/22 19:09 LIKE A LOBSTER TURNED RED AMOXICILLIN TRIHYDRATE AdvReac Unknown GIVES ME Uncoded 04/17/22 19:09 YEAST INFECTION AND BLEEDS VAGINALLY POTASSIUM CLAVULANATE AdvReac Unknown YEAST Uncoded 04/17/22 19:09 INFECTION Review of Systems Review of Systems: CONSTITUTIONAL: Denies fever, chills, or sweats. EYES: Denies visual changes, redness, or discharge. ENT: Denies rhinorrhea, congestion, sore throat, or otalgia. CARDIOVASCULAR: Denies chest pain, palpitations, or edema. RESPIRATORY: Reports of nonproductive cough with intermittent dyspnea GASTROINTESTINAL: Denies abdominal pain, nausea, vomiting, or diarrhea. GENITOURINARY: Denies dysuria or hematuria. SKIN: Denies rash or itching. MUSCULOSKELETAL: Denies back pain, joint pain, or myalgia. NEUROLOGIC: Denies headache, numbness, or weakness. All other systems reviewed are negative, except as documented in HPI. [facility] Past Medical History Medical History Diverticulitis Diverticulosis FH: cholecystectomy Knee pain Low back pain Spinal stenosis Surgical History Surgical History (Reviewed 10/16/21 @ 15:22 by Slime Rodney
[2022-05-07 15:30] VITALS: BP 150/90
== END 2022-05-07 16:15 | disposition home or self-care (01) ==
PROVIDERS: Emergency Provider Nurse Practitioner Family
DX: J44.9 Chronic obstructive pulmonary disease, unspecified (principal); M48.00 Spinal stenosis, site unspecified
CPT/HCPCS: 71046; 99213; G0463

== ENCOUNTER 2023-01-02 17:38 | Emergency (ER) | payer OTHER, MEDICAID, SELFPAY ==
[2023-01-02 17:48] VITALS: BP 135/78; PULSE 59; RESP 16; TEMP 36.9; O2SAT 96
--- NOTE | 2023-01-02 18:14 | ED.ABDPAIN ---
HPI - Abdominal Pain General Chief Complaint: Urogenital-Female Stated Complaint: poss kidney infect Source: patient and RN notes reviewed History of Present Illness HPI narrative: 67 yo F presents to ED with complaints of mid to lower back pain, incontinence of urine, and for abdominal pain x1 week. Patient reports ?not feeling well and some dizziness. patient denies any dysuria fevers, chills, chest pain, shortness of breath. 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 Denies any saddle anesthesia or weakness. Denies stool incontinence. patient took a generic Pyridium with minimal relief. Some parts of this dictation were generated by voice recognition software and may contain typographical and/or grammatical inaccuracies. Related Data Home Medications Medication Instructions Recorded Confirmed mecobalamin (vitamin B12) 1,000 1,000 mcg sublingual DAILY 09/28/19 05/07/22 mcg disintegrating tablet,sublingual nitroglycerin 0.3 mg sublingual 0.3 mg sublingual Q5M PRN Chest 11/16/19 05/07/22 tablet Pain linaclotide 145 mcg capsule 145 mcg PO DAILY 05/31/20 05/07/22 (Linzess) diazepam 10 mg tablet mg 01/02/23 dicyclomine 20 mg tablet mg 01/02/23 fentanyl 50 mcg/hr transdermal 01/02/23 patch gabapentin 300 mg capsule mg 01/02/23 hydralazine 25 mg tablet mg 01/02/23 hydrocodone 10 mg-acetaminophen tablet 01/02/23 325 mg tablet isosorbide mononitrate 30 mg mg PO 01/02/23 tablet,extended release 24 hr pantoprazole 40 mg tablet,delayed mg PO 01/02/23 release Allergies Allergy/AdvReac Type Severity Reaction Status Date / Time dexamethasone Allergy Mild SICK AND Verified 05/07/22 15:35 WEAK atenolol Allergy Unknown DROPPED Verified 05/07/22 15:35 OUT MY HEART RATE clonidine Allergy Unknown LOOKED Verified 05/07/22 15:35 LIKE A LOBSTER TURN RED lisinopril Allergy Unknown LOOK LIKE Verified 05/07/22 15:35 A LOBSTER TURN RED NSAIDS (Non-Steroidal Allergy Unknown STATES Verified 05/07/22 15:35 Anti-Inflamma MAKES HER BLEED prednisone Allergy Unknown COULDN'T Verified 05/07/22 15:35 BREATH ticagrelor Allergy Unknown Dyspnea / Verified 05/07/22 15:35 SOB amlodipine [From [facility]] Allergy Unknown Verified 05/07/22 15:35 pseudoephedrine Allergy Unknown Verified 05/07/22 15:35 chlorzoxazone AdvReac Unknown Nausea and Verified 05/07/22 15:35 Vomiting oxymorphone AdvReac Unknown NAUSEA AND Verified 04/17/22 19:09 VOMITING Sulfa (Sulfonamide AdvReac Unknown GIVES PT A Verified 04/17/22 19:09 Antibiotics) YEAST INFECTION tramadol AdvReac Unknown NAUSEA AND Verified 04/17/22 19:09 VOMITING AMLODIPINE BESYLATE Allergy Unknown LOOKED Uncoded 04/17/22 19:09 LIKE A LOBSTER TURNED RED AMOXICILLIN TRIHYDRATE AdvReac Unknown GIVES ME Uncoded 04/17/22 19:09 YEAST INFECTION AND BLEEDS VAGINALLY POTASSIUM CLAVULANATE AdvReac Unknown YEAST Uncoded 04/17/22 19:09 INFECTION Review of Systems Review of Systems: CONSTITUTIONAL: Denies fever, chills, or sweats. EYES: Denies visual changes, redness, or discharge. ENT: Denies otalgia and sore throat CARDIOVASCULAR: Denies chest pain, palpitations, or edema. RESPIRATORY: Denies cough or dyspnea. GASTROINTESTINAL: Reports lower abdominal pain GENITOURINARY: Denies dysuria or hematuria. Reports urinary incontinence SKIN: Denies rash or itching. MUSCULOSKELETAL: Reports lower back pain NEUROLOGIC: Denies headache, numbness, or weakness. [facility] Past Medical History Medical History Diverticulitis Diverticulosis FH: cholecystectomy Knee pain Low back pain Spinal stenosis Surgical History Surgical History History of cardiac cath Family History Family History (Reviewed 10/16/21 @
== END 2023-01-02 18:40 | disposition left against medical advice (07) ==
PROVIDERS: Emergency Provider Nurse Practitioner Family
DX: R32 Unspecified urinary incontinence (principal); R10.9 Unspecified abdominal pain; Z87.891 Personal history of nicotine dependence; M48.00 Spinal stenosis, site unspecified
CPT/HCPCS: 81003; 99212; G0463

== ENCOUNTER 2023-01-22 15:15 | Outpatient (CLI) | payer OTHER, MEDICAID, SELFPAY ==
--- NOTE | ~2023-01-22 | XR_ITS ---
XR chest 2V DATE: 01/22/2023 15:36 INDICATION: Chronic cough TECHNIQUE: PA and lateral views COMPARISON: 05/07/2022 PA and lateral chest FINDINGS: Moderate bilateral hyperinflation. No pulmonary infiltrate or consolidation, pleural effusi on or pulmonary vascular congestion or pneumothorax. Heart size is within normal range. Is aortic hannah cification and unfolding. No hilar or mediastinal enlargement. Status post lower anterior cervical spine surgical fusion. Diffuse osteopenia. Plate and screws are noted in the upper lumbar area the lower margin of the radiograph. Status post cholecystectomy. IMPRESSION: Moderate bilateral hyperinflation suggesting obstructive airways disease Aortic atherosclerosis Postoperative changes of the lower cervical spine and lumbar spine Osteopenia Reviewed, dictated and finalized at location B. STRIPPER IMPRESSION: Moderate bilateral hyperinflation suggesting obstructive airways di sease Aortic atherosclerosis Postoperative changes of the lower cervical spine and lumbar spine Osteopenia
== END 2023-01-22 15:16 | disposition home or self-care (01) ==
LOC: ANHBWCLAB 15:21 → ANHBWCIMG 15:29
PROVIDERS: PCP Internal Medicine; Visit Provider Internal Medicine
DX: R05.3 Chronic cough (principal); Z79.891 Long term (current) use of opiate analgesic; R91.8 Other nonspecific abnormal finding of lung field; I70.0 Atherosclerosis of aorta; M85.88 Other specified disorders of bone density and structure, other site
CPT/HCPCS: 71046

== ENCOUNTER 2023-05-15 19:14 | Emergency (ER) | payer OTHER, MEDICAID, SELFPAY ==
[2023-05-15 19:30] VITALS: BP 180/108; PULSE 70; RESP 16; TEMP 36.8; O2SAT 98
--- NOTE | 2023-05-15 19:50 | ED.CHESTPAIN ---
HPI - Chest Pain General Chief Complaint: Chest Pain Stated Complaint: Rib Pain Source: patient and RN notes reviewed Limitations: no limitations History of Present Illness HPI narrative: Patient is a 68-year-old female who presents to the [facility] with complaints of left rib pain. Patient states that the pain started at 1 a.m. this morning. Patient states that she is unable to say how she injured her ribs. When asked a 2nd time, she continued to refuse. patient reports constant aching and sharp pain to the left-sided ribs. States that the pain worsens with breathing. She reports some mild shortness of breath due to the pain. Her respirations are unlabored. Related Data Home Medications Medication Instructions Recorded Confirmed mecobalamin (vitamin B12) 1,000 1,000 mcg sublingual DAILY 09/28/19 05/07/22 mcg disintegrating tablet,sublingual nitroglycerin 0.3 mg sublingual 0.3 mg sublingual Q5M PRN Chest 11/16/19 05/07/22 tablet Pain linaclotide 145 mcg capsule 145 mcg PO DAILY 05/31/20 05/07/22 (Linzess) diazepam 10 mg tablet 10 mg PO BID 01/02/23 dicyclomine 20 mg tablet 20 mg PO DAILY 01/02/23 fentanyl 50 mcg/hr transdermal 01/02/23 patch gabapentin 300 mg capsule mg 01/02/23 hydralazine 25 mg tablet mg 01/02/23 hydrocodone 10 mg-acetaminophen tablet 01/02/23 325 mg tablet isosorbide mononitrate 30 mg mg PO 01/02/23 tablet,extended release 24 hr pantoprazole 40 mg tablet,delayed mg PO 01/02/23 release atorvastatin 40 mg tablet mg 05/15/23 ondansetron 4 mg disintegrating 4 mg PO Q6-8H PRN Nausea 05/15/23 05/15/23 tablet Allergies Allergy/AdvReac Type Severity Reaction Status Date / Time dexamethasone Allergy Mild SICK AND Verified 05/15/23 19:30 WEAK atenolol Allergy Unknown DROPPED Verified 05/15/23 19:30 OUT MY HEART RATE clonidine Allergy Unknown LOOKED Verified 05/15/23 19:30 LIKE A LOBSTER TURN RED lisinopril Allergy Unknown LOOK LIKE Verified 05/15/23 19:30 A LOBSTER TURN RED NSAIDS (Non-Steroidal Allergy Unknown STATES Verified 05/15/23 19:30 Anti-Inflamma MAKES HER BLEED prednisone Allergy Unknown COULDN'T Verified 05/15/23 19:30 BREATH ticagrelor Allergy Unknown Dyspnea / Verified 05/15/23 19:30 SOB amlodipine [From [facility]] Allergy Unknown Verified 05/15/23 19:30 pseudoephedrine Allergy Unknown Verified 05/15/23 19:30 chlorzoxazone AdvReac Unknown Nausea and Verified 05/15/23 19:30 Vomiting oxymorphone AdvReac Unknown NAUSEA AND Verified 05/15/23 19:30 VOMITING Sulfa (Sulfonamide AdvReac Unknown GIVES PT A Verified 05/15/23 19:30 Antibiotics) YEAST INFECTION tramadol AdvReac Unknown NAUSEA AND Verified 05/15/23 19:30 VOMITING AMLODIPINE BESYLATE Allergy Unknown LOOKED Uncoded 05/15/23 19:30 LIKE A LOBSTER TURNED RED AMOXICILLIN TRIHYDRATE AdvReac Unknown GIVES ME Uncoded 05/15/23 19:30 YEAST INFECTION AND BLEEDS VAGINALLY POTASSIUM CLAVULANATE AdvReac Unknown YEAST Uncoded 05/15/23 19:30 INFECTION Review of Systems Review of Systems: CONSTITUTIONAL: Denies fever, chills, or sweats. EYES: Denies visual changes, redness, or discharge. ENT: Denies otalgia and sore throat CARDIOVASCULAR: Reports left rib pain. Denies palpitations or edema. RESPIRATORY: Denies cough but reports dyspnea. GASTROINTESTINAL: Denies abdominal pain, nausea, vomiting, or diarrhea. GENITOURINARY: Denies dysuria or hematuria. SKIN: Denies rash or itching. MUSCULOSKELETAL: Denies back pain, joint pain, or myalgia. NEUROLOGIC: Denies headache, numbness, or weakness. Pertinent positives per HPI. [facility] Past Medical History Medical History Diverticulitis Diverticulosis FH: cholecystectomy Knee pain Low back pain Spinal stenosis Surgical History Surgical History (Reviewed 05/15/23 @
== END 2023-05-15 19:43 | disposition short-term general hospital (02) ==
PROVIDERS: Emergency Provider Nurse Practitioner; PCP Hospitalist
DX: R07.81 Pleurodynia (principal); Z87.891 Personal history of nicotine dependence; M48.00 Spinal stenosis, site unspecified
CPT/HCPCS: 99212; G0463

== ENCOUNTER 2023-06-24 15:46 | Emergency (ER) | payer OTHER, MEDICAID, SELFPAY ==
--- NOTE | ~2023-06-24 | XR_ITS ---
EXAMINATION: XR chest 2V DATE: 06/24/2023 16:59 INDICATION: Cough. Smoker. TECHNIQUE: Frontal and lateral views of the chest were obtained. COMPARISON: Chest 2 views 01/22/2023, chest CT 03/31/2019 FINDINGS: There are lucencies in the lungs, consistent with emphysema. Calcified right lung nodules a nd calcified right hilar lymph nodes are consistent with old granulomatous disease. No pleural effusi on or pneumothorax. The heart size is normal. There are prominent paracardial fat pads. There are arnol nges of anterior fusion procedure in cervical spine. IMPRESSION: 1. Emphysema. Reviewed, dictated and finalized at location A. IMPRESSION: 1. Emphysema.
[2023-06-24 15:58] VITALS: BP 150/83; PULSE 70; RESP 16; TEMP 36.8; O2SAT 97
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
== END 2023-06-24 17:18 | disposition home or self-care (01) ==
PROVIDERS: Emergency Provider Nurse Practitioner Family; PCP Hospitalist
DX: R07.81 Pleurodynia (principal); Z87.891 Personal history of nicotine dependence; M48.00 Spinal stenosis, site unspecified
CPT/HCPCS: 71046; 99213; G0463

== ENCOUNTER 2025-01-04 13:01 | Outpatient (CLI) | payer OTHER, MEDICAID, SELFPAY ==
--- NOTE | ~2025-01-04 | XR_ITS ---
EXAMINATION: XR_RIBSBI DATE: 01/04/2025 13:30 INDICATION: Chest pain after fall. TECHNIQUE: 2 views of the right ribs on 3 radiographs and 2 views of the left ribs on 3 radiographs w ere obtained. COMPARISON: Chest 2 views 06/24/2023 FINDINGS: There is mild atelectasis at left lung base. Calcified right lung nodules and calcified rig ht hilar lymph nodes are consistent with old granulomatous disease. No pleural effusion or pneumothor ax. Cardiomegaly is noted. There are changes of anterior fusion procedure in cervical spine. There ar e old healed bilateral clavicle fractures. There is an old healed fracture of left fourth rib. There are changes of anterior fusion procedures in lumbar spine. IMPRESSION: 1. No acute rib fracture. 2. Mild atelectasis at left lung base. 3. Cardiomegaly. Reviewed, dictated and finalized at location A. TABLE ATTENDANT
--- OUTSIDE RECORDS SUMMARY | 2025-01-04 13:14 | XMS_ITS | Clinical Summary ---
Author Organization [facility] Address [address] [place] [address] Phone Care Team Providers Care Biomedical Instrument Technician Name Role Phone CHAU PETERS Primary Care Provider [phone] Reason for Visit and Chief Complaint [facility] CENTER CHECK UP Problems Includes: Problems addressed during this encounter and other active Problems All Visits Onset Date Resolved Date Provider Condition S tatus Chronic Obstructive Pulmonary Disease 05/09/2014 CATALINO QUIÑONES MD Active Last Documented On 4 2:47PM ; [facility] Chronic Pain 01/01/2012 CATALINO QUIÑONES MD A ctive Last Documented On 2 10:57PM ; [facility] Depression 02/15/2011 CATALINO QUIÑONES MD Act horacio Last Documented On 1 3:25PM ; [facility] Adrenal Neoplasm 04/09/2010 CATALINO QUIÑONES MD Active Last Documented On 0 11:06PM ; [facility] Note: Unchanged Lumbago 04/09/2010 CATALINO QUIÑONES MD Act horacio Last Documented On 0 3:39PM ; [facility] Backache 12/14/2009 CATALINO QUIÑONES MD Act horacio Last Documented On 1 4:28PM ; [facility] Essential Hypertension Benign 12/14/2009 CATALINO QUIÑONES MD Active Last Documented On 1 11:14PM ; [facility] Peripheral Neuropathy 12/14/2009 CATALINO FRANKEL MD Active Last Documented On 0 12:48PM ; [facility] Note: Unchanged Smoking Cigarettes 12/14/2009 CATALINO Pineda MD Active Last Documented On 0 12:48PM ; [facility] Note: Unchanged Parox Atrial Tachycardia 03/10/2009 CATALINO MENA MD Active Last Documented On 9 1:03PM ; [facility] Plan of Treatment No Plan of Treatment Recorded Assessments Includes: Assessments from this encounter No Assessments Recorded Medical Equipment - Implanted Devices Includes: Current Devices No Medical Equipment Recorded Medications Includes: Medications discussed during this encounter and other current Medications Current Medications (continue as prescribed) Valium 5 MG Oral Tablet 09/28/2020 Provider: Diagnosis: Last Documented On 0 2:46PM By SEBAS JOHNSON ; [facility] Linzess 145 MCG Oral Capsule 09/28/2020 Provider: Diagnosis: Last Documented On 0 2:42PM By SEBAS JOHNSON ; [facility] Aspirin 81 MG Oral Tablet Delayed Release 09/28/2020 Provider: Diagnosis: Last Documented On 0 2:43PM By SEBAS JOHNSON ; [facility] Suspended Medications Robaxin-750 750 MG Tablet 02/15/2015 - 04/16/2015 Prov ider: CATALINO QUIÑONES MD Diagnosis: One tablet four times a day [phone] Last Documented On 5 12:54PM By ONEL NATARAJAN PA-C ; [facility] Medications Administered Includes: Administered Medications from this encounter No Administered Medications Recorded Results Includes: Results discussed during this encounter No Results Recorded For Specified Dates History of Present Illness Includes: History of Present Illness from this encounter No History of Present Illness Recorded Social History No Social History Recorded - Smoking Status Unknown Medical History Includes: Medical History addressed during this encounter No Medical History Recorded Family History Includes: Family History addressed during this encounter No Family History Recorded Review of Systems Includes: Review of Systems from this encounter No Review of Systems Recorded Mental Status Includes: Mental Status from this encounter No Mental Status Recorded Functional Status Includes: Functional Status from this encounter No Functional Status Recorded Physical Exam Includes: Physical Exam from this encounter No Physical Exam Recorded Allergies Includes: Active Allergies Substance Type Reaction Onset Date Resolved Date Statu s Sulfa Antibiotics Allergy 03/10/2009 A ctive Last Documented On 5 4:12PM ; [facility] predniSONE Allergy 03/10/2009 Active Last Documented On 03/16/2015 4:12PM ; [facility] Note: JUST PILLS NOT SHOT Norvasc Allergy Skin Rashes / Er uption of skin, Hives / Urticaria 09/17/2011 Active Last Documented On 5 4:12PM ; [facility] Lyrica Allergy SWELLING AND NAUSEA 11/19/2010 Active Last Documented On 5 4:12PM ; [facility] Lisinopril Allergy 03/10/2009 Active Last Documented On 5 4:12PM ; [facility] Clonidine Allergy Skin Rashes / Er uption of skin, Hives / Urticaria 09/17/2011 Active Last Documented On 5 4:12PM ; [facility] Benzodiazepines Allergy 03/10/2009 Act horacio Last Documented On 5 4:12PM ; [facility] Amitriptyline HCl Allergy BRAIN FOGGY 01/01/2012 Active Last Documented On 5 4:12PM ; [facility] Encounters Encounter Provider Location Date Check-In Time Check- Out Time Diagnosis HEART CENTER CHECK UP VU MARAVILLA MD [facility] 4 2:31PM 3:12PM Insurance Includes: Active Insurance Policies Plan Name Member ID Group # Subscriber Relationship Effect horacio Dates 1 - [facility]/MEDICARE ADV/AARP [id number] RASHEED Tijerina 2 - MED[place] MEDICARE SECOND [id number] RASHEED Tijerina Clinical Notes Includes: Clinical Notes from this encounter No Clinical Notes Recorded
--- OUTSIDE RECORDS SUMMARY | 2025-01-04 13:14 | XMS_ITS | Clinical Summary ---
Author Organization [facility] Address [address] [place] [address] Phone Care Team Providers Care Board Turner Name Role Phone CHAU PETERS Primary Care Provider [phone] Reason for Visit and Chief Complaint HOLTOR MONITOR Problems Includes: Problems addressed during this encounter and other active Problems All Visits Onset Date Resolved Date Provider Condition S tatus Chronic Obstructive Pulmonary Disease 05/09/2014 CATALINO QUIÑONES MD Active Last Documented On 4 2:47PM ; [facility] Chronic Pain 01/01/2012 CATALINO QUIÑONES MD A ctive Last Documented On 2 10:57PM ; [facility] Depression 02/15/2011 CATALINO QUIÑONES MD Act horacio Last Documented On 1 3:25PM ; [facility] Adrenal Neoplasm 04/09/2010 CATALINO QUIÑONES MD Active Last Documented On 0 11:06PM ; [facility] Note: Unchanged Lumbago 04/09/2010 CATALINO QUIÑONES MD Act horacio Last Documented On 0 3:39PM ; [facility] Backache 12/14/2009 CATALINO QUIÑONES MD Act horacio Last Documented On 1 4:28PM ; [facility] Essential Hypertension Benign 12/14/2009 CATALINO QUIÑONES MD Active Last Documented On 1 11:14PM ; [facility] Peripheral Neuropathy 12/14/2009 CATALINO FRANKEL MD Active Last Documented On 0 12:48PM ; [facility] Note: Unchanged Smoking Cigarettes 12/14/2009 CATALINO Pineda MD Active Last Documented On 0 12:48PM ; [facility] Note: Unchanged Parox Atrial Tachycardia 03/10/2009 CATALINO MENA MD Active Last Documented On 9 1:03PM ; [facility] Plan of Treatment No Plan of Treatment Recorded Assessments Includes: Assessments from this encounter No Assessments Recorded Medical Equipment - Implanted Devices Includes: Current Devices No Medical Equipment Recorded Medications Includes: Medications discussed during this encounter and other current Medications Current Medications (continue as prescribed) Valium 5 MG Oral Tablet 09/28/2020 Provider: Diagnosis: Last Documented On 0 2:46PM By SEBAS JOHNSON ; [facility] Linzess 145 MCG Oral Capsule 09/28/2020 Provider: Diagnosis: Last Documented On 0 2:42PM By SEBAS JOHNSON ; [facility] Aspirin 81 MG Oral Tablet Delayed Release 09/28/2020 Provider: Diagnosis: Last Documented On 0 2:43PM By SEBAS JOHNSON ; [facility] Suspended Medications Robaxin-750 750 MG Tablet 02/15/2015 - 04/16/2015 Prov ider: CATALINO QUIÑONES MD Diagnosis: One tablet four times a day [phone] Last Documented On 5 12:54PM By ONEL NATARAJAN PA-C ; [facility] Medications Administered Includes: Administered Medications from this [...] ctive Last Documented On 5 4:12PM ; [facility] predniSONE Allergy 03/10/2009 Active Last Documented On 03/16/2015 4:12PM ; [facility] Note: JUST PILLS NOT SHOT Norvasc Allergy Skin Rashes / Er uption of skin, Hives / Urticaria 09/17/2011 Active Last Documented On 5 4:12PM ; [facility] Lyrica Allergy SWELLING AND NAUSEA 11/19/2010 Active Last Documented On 5 4:12PM ; [facility] Lisinopril Allergy 03/10/2009 Active Last Documented On 5 4:12PM ; [facility] Clonidine Allergy Skin Rashes / Er uption of skin, Hives / Urticaria 09/17/2011 Active Last Documented On 5 4:12PM ; [facility] Benzodiazepines Allergy 03/10/2009 Act horacio Last Documented On 5 4:12PM ; [facility] Amitriptyline HCl Allergy BRAIN FOGGY 01/01/2012 Active Last Documented On 5 4:12PM ; [facility] Encounters Encounter Provider Location Date Check-In Time Check-Out Time Diagnosis HOLTOR MONITOR [facility] 05/05/2024 3:30PM 3:31PM Insurance Includes: Active Insurance Policies Plan Name Member ID Group # Subscriber Relationship Effect horacio Dates 1 - [facility]/MEDICARE ADV/AARP [id number] RASHEED Tijerina 2 - [place] MEDICARE SECOND [id number] RASHEED Tijerina Clinical Notes Includes: Clinical Notes from this encounter No Clinical Notes Recorded
--- OUTSIDE RECORDS SUMMARY | 2025-01-04 13:14 | XMS_ITS | Clinical Summary ---
Author Organization [facility] Address [address] [place] [address] Phone Care Team Providers Care Insurance Claims Processor Name Role Phone JUANCHAU DOZIER Primary Care Provider [phone] Reason for Visit and Chief Complaint [facility] C[facility] FOLLOW UP Problems Includes: Problems addressed during this encounter and other active Problems All Visits Onset Date Resolved Date Provider Condition S tatus Chronic Obstructive Pulmonary Disease 05/09/2014 CATALINO QUIÑONES MD Active Last Documented On 4 2:47PM ; [facility] Chronic Pain 01/01/2012 CATALINO QUIÑONES MD A ctive Last Documented On 2 10:57PM ; [facility] Depression 02/15/2011 CATALINO QUIÑONES MD Act horacio Last Documented On 1 3:25PM ; [facility] Adrenal Neoplasm 04/09/2010 CATALINO QUIÑONES MD Active Last Documented On 0 11:06PM ; [facility] Note: Unchanged Lumbago 04/09/2010 CATALINO QUIÑONES MD Act horacio Last Documented On 0 3:39PM ; [facility] Backache 12/14/2009 CATALINO QUIÑONES MD Act horacio Last Documented On 1 4:28PM ; [facility] Essential Hypertension Benign 12/14/2009 CATALINO QUIÑONES MD Active Last Documented On 1 11:14PM ; [facility] Peripheral Neuropathy 12/14/2009 CATALINO FRANKEL MD Active Last Documented On 0 12:48PM ; [facility] Note: Unchanged Smoking Cigarettes 12/14/2009 CATALINO Pineda MD Active Last Documented On 0 12:48PM ; [facility] Note: Unchanged Parox Atrial Tachycardia 03/10/2009 CATALINO MENA MD Active Last Documented On 9 1:03PM ; [facility] Plan of Treatment No Plan of Treatment Recorded Assessments Includes: Assessments from this encounter No Assessments Recorded Medical Equipment - Implanted Devices Includes: Current Devices No Medical Equipment Recorded Medications Includes: Medications discussed during this encounter and other current Medications Current Medications (continue as prescribed) Valium 5 MG Oral Tablet 09/28/2020 Provider: Diagnosis: Last Documented On 0 2:46PM By SEBAS JOHNSON ; [facility] Linzess 145 MCG Oral Capsule 09/28/2020 Provider: Diagnosis: Last Documented On 0 2:42PM By SEBAS JOHNSON ; [facility] Aspirin 81 MG Oral Tablet Delayed Release 09/28/2020 Provider: Diagnosis: Last Documented On 0 2:43PM By SEBAS JOHNSON ; [facility] Suspended Medications Robaxin-750 750 MG Tablet 02/15/2015 - 04/16/2015 Prov ider: CATALINO QUIÑONES MD Diagnosis: One tablet four times a day [phone] Last Documented On 5 12:54PM By ONEL NATARAJAN PA-C ; [facility] Medications Administered Includes: Administered Medications from this encounter No Administered Medications Recorded Results Includes: Results discussed during this encounter No Results Recorded For Specified Dates History of Present Illness Includes: History of Present Illness from this encounter No History of Present Illness Recorded Social History No Social History Recorded - Smoking Status Unknown Procedures and Surgical History Includes: Procedures from this encounter Procedures Code Diagnosis Performing Provider Service Location Service Date ELECTROCARDIAGRAM READING FEE (EKG) 93758 [place] heart disease [place] coronary artery w/o ang pctrs VINICIUS LAUREN MD [facility] 01/29/2024 Last Documented On 4 1:17PM ; [facility] FEE (Signi/Sep Eval & Man) G0367 [place] heart disease of [place] coronary artery w/o ang pctrs, Unspecified atrial fibrillation, Mixed hyperlipidemia, Essential (primary) hypertension YOUSEF TASHI CRESPOBI MD [facility] 01/29/2024 Last Documented On 4 1:18PM ; [facility] ELECTROCARDIOGRAM TRACING 18843 Athscl heart disease [place] coronary artery w/o ang pctrs VINICIUS LAUREN MD [facility] 01/29/2024 Last Documented On 4 1:18PM ; [facility] Medical History Includes: Medical History addressed during [...] ctive Last Documented On 5 4:12PM ; [facility] predniSONE Allergy 03/10/2009 Active Last Documented On 03/16/2015 4:12PM ; [facility] Note: JUST PILLS NOT SHOT Norvasc Allergy Skin Rashes / Er uption of skin, Hives / Urticaria 09/17/2011 Active Last Documented On 5 4:12PM ; [facility] Lyrica Allergy SWELLING AND NAUSEA 11/19/2010 Active Last Documented On 5 4:12PM ; [facility] Lisinopril Allergy 03/10/2009 Active Last Documented On 5 4:12PM ; [facility] Clonidine Allergy Skin Rashes / Er uption of skin, Hives / Urticaria 09/17/2011 Active Last Documented On 5 4:12PM ; [facility] Benzodiazepines Allergy 03/10/2009 Act horacio Last Documented On 5 4:12PM ; [facility] Amitriptyline HCl Allergy BRAIN FOGGY 01/01/2012 Active Last Documented On 5 4:12PM ; [facility] Encounters Encounter Provider Location Date Check-In Time Check-Out Time Diagnosis [facility] CENTER FOLLOW UP VINICIUS LAUREN MD [facility] 4 1:56PM 3:10PM Insurance Includes: Active Insurance Policies Plan Name Member ID Group # Subscriber Relationship Effect horacio Dates 1 - [facility]/MEDICARE ADV/AARP [id number] RASHEED Tijerina 2 - [place] MED[place] SECOND [id number] RASHEED Tijerina Clinical Notes Includes: Clinical Notes from this encounter No Clinical Notes Recorded
--- OUTSIDE RECORDS SUMMARY | 2025-01-04 13:14 | XMS_ITS | Clinical Summary ---
Author Organization [facility] Address [address] [place] [address] Phone Care Team Providers Care Hog Scalder Name Role Phone ShahbazSurendra altamirano Primary Care Provider [phone] Allergies Active Allergy Reactions Criticality Noted Date Comments Amitriptyline Other (see Comments) 01/02/2017 makes brain go Ticagrelor Anaphylaxis High 12/11/2018 Chlorzoxazone Vomiting 08/13/2019 Clonidine Anaphylaxis,Swelling High 01/02/2017 Iodinated Contrast Media Hives,Swelling High 02/03/2019 made my legs swell up Dexamethasone Nausea,Vomiting 12/11/2018 Ibuprofen Other (see Comments) 02/03/2019 Causes bleeding Lisinopril Other (see Comments) 01/22/2019 flushing Pregabalin Swelling 02/03/2019 Legs swell Methadone Vomiting 02/03/2019 Amlodipine Besylate Swelling 01/02/2017 and flushing, heart dr said to not take Oxymorphone Hcl Nausea 01/02/2017 Prednisone Anaphylaxis 12/11/2018 Pills only Atenolol Other (see Comments) 01/22/2019 Drops heart rate Tramadol Nausea,Vomiting 01/07/2018 Medications HYDROcodone-acet aminophen (NORCO) 10-325 MG Tablet Take 2 Tabs by mouth every 6 hours. Active gabapentin (NEURONTIN) 600 MG Tablet Take 600 mg by mouth 4 times daily. Active hydrALAZINE 25 MG Tablet Take 25 mg by mouth 2 times daily. Active promethazine (PHENERGAN) 25 MG Tablet Take 25 mg by mouth every 6 hours as needed for Nausea. Active isosorbide mononitrate (IMDUR) 30 MG TABLET SR 24 HR Take 30 mg by mouth every morning. Active atorvastatin (LIPITOR) 10 MG Tablet Take 10 mg by mouth nightly. Active Aspirin 81 MG Tablet Take 81 mg by mouth every morning. Active fentaNYL (DURAGESIC) 75 MCG/HR PATCH 72 HR 1 Patch by Transdermal route every 72 hours. Upon removal, safely discard used patch by immediately folding the sticky sides together and flushing patch down the toilet. Active ondansetron (ZOFRAN-ODT) 4 MG TABLET DISPERSIBLE Take 1 Tab by mouth every 6 hours as needed. 10 Tab 8 Active metoprolol tartrate (LOPRESSOR) 25 MG Tablet Take 0.5 Tabs by mouth 2 times daily. 180 Tab 8 Active Additional Information Patient taking differently:12.5 mg OralDAILY, Reported on 07/28/2019 diphenhydrAMINE HCl (BENADRYL PO) Take 25 mg by mouth as needed. Active rivaroxaban (XARELTO) 20 MG Tablet Take 20 mg by mouth daily (with dinner). Take with food. Active Cyanocobalamin (VITAMIN B 12 PO) Take 1 Tab by mouth every morning. Active ACETAMINOPHEN PO Take 500 mg by mouth Daily as needed. Active ALBUTEROL IN take 2 Puffs by inhalation as needed (Rescue inhaler). Active Cholecalciferol (VITAMIN D3) 40390 units Tablet Take 1 Tab by mouth every 30 days. Active furosemide (LASIX) 20 MG Tablet Take 20 mg by mouth Daily as needed. Active omeprazole (PRILOSEC) 20 MG CAPSULE DELAYED RELEASE Take 1 Cap by mouth 2 times daily. 90 Cap 3 9 Active ondansetron (ZOFRAN) 4 MG Tablet Take 1 Tab by mouth every 8 hours as needed for Nausea - 1st line. 15 Tab 9 Active Additional Information Patient not taking.Reported on 01/19/2020 hyoscyamine (LEVSIN) 0.125 MG Tablet Take 1 Tab by mouth 3 times daily. 120 Tab 3 9 Active lactulose (CHRONULAC) 10 GM/15ML Solution TAKE 30ML BY MOUTH THREE TIMES A DAY 946 mL 3 0 Active Active Problems Problem Noted Date Diagnosed Date Sepsis 01/07/2018 Diverticulitis 01/07/2018 UTI (urinary tract infection) 01/07/2018 GI bleed 01/07/2018 Coronary artery disease 01/07/2018 Family History Medical History Relation Name Comments Cancer Daughter cervical Heart Disease Daughter Hypertension Father Renal Failure Father Cancer Mother breast Relation Name Status Comments Daughter Alive Father Mother Alive Social History Tobacco Use Types Packs/Day Years Used Date Smoking Tobacco: Every Day Cigarettes 0.3 35 Smokeless Tobacco: Never Tobacco Cessation:Ready to Q uit: Yes Alcohol Use Standard Drinks/Week Comments No 0 (1 standard drink = 0.6 oz pur e alcohol) Sexually Active Control Partners Comments Not Currently Comments No Sex and Gender Information Value Date Recorded Sex Assigned at Not on file Legal Sex Female 9:12 PM CDT Gender Identity Not on file Sexual Orientation Not on file Occupation Industry Job Start Date Job End Date disabled Not on file Not on file 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 file Not on file Not on file Last Filed Vital Signs Vital Sign Reading Time Taken Comments Blood Pressure 155/88 09/19/2019 10:03 PM 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 Pulse 60 09/19/2019 10:03 PM 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 Temperature 36.8 C (98.3 F) 09/19/2019 10:03 PM 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 Respiratory Rate 16 09/19/2019 10:03 PM 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 Oxygen Saturation 97% 09/19/2019 10:03 PM 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 Inhaled Oxygen Concentration - - Weight 90.7 kg (200 lb) 01/19/2020 1:00 PM 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 Height 170.2 cm (5' 7 ) 01/19/2020 1:00 PM 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 Body Mass Index 31.32 01/19/2020 1:00 PM 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 Plan of Treatment Health Maintenance Due Date Last Done Comments DEXA Bone Density 1955 Hepatitis C Virus (HCV) Screening 1955 Colonoscopy 2001 Cologuard 2006 Mammogram 2006 Zoster Immunization (1 of 2) 2006 Respiratory Syncytial Virus (RSV) Immunization (Adult) (1 - Risk 60-74 years 1-dose series) 2016 Colorectal Cancer Screening 01/08/2018 Pneumococcal Immunization (5 0+ years) (2 of 2 - PPSV23) 11/17/2018 11/17/2017 Immunochemical Fecal Occult Blood 01/07/2019 01/07/2018 Influenza Immunization (#1) 2024 SARS-COV-2 Immunization ( season) 2024 DTaP/Tdap/Td Immunization Discontinued 2014, 07/11/2000 TdaP Immunization Completed 05/02/2015 Pneumococcal Immunization Combined Discontinued 11/17/2017 Hepatitis B Immunization Aged Out No longer eligible based on patient's age to complete this topic Meningococcal Immunization (ACWY) Aged Out No longer eligible based on patient's age to complete this topic Rotavirus Immunization Aged Out No lo nger eligible based on patient's age to complete this topic Procedures Procedure Name Priority Date/Time Associated Diagnosis Comments STOOL, OCCULT BLOOD, DIAGNOSTIC, VIA GUAIAC STAT 01/07/2018 12:11 AM 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 from Last 3 Months or Most Recently Relevant to Health Maintenance Results * (ABNORMAL) Stool Occult Blood - Diagnostic (01/07/2018 12:11 AM 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) OCCULT BLOOD DIAG, GI BLEED Positive(A ) Negative 01/07/2018 12:44 AM 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 [facility] Stool specimen (specimen) Non-Phlebotomy Collection / Unknown 01/07/2018 12:11 AM 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 01/07/2018 12:29 AM 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 Tommie Alcantar MD BODY FLUIDS & STOOLS ORDER BELINDA Final Result [facility] [address] [place] [address] from Last 3 Months or Most Recently Relevant to Health Maintenance Insurance [place] MEDICARE C [facility] [place] Advance Directives Documents on File Type Date Recorded Patient Mri Manager Expl anation Power of Reel Hooker for Health Care 01/15/2018 1:21 PM POA-HC Power of Reel Hooker for Health Care 01/12/2018 11:37 AM POA-HC Power of Reel Hooker for Health Care 01/12/2018 11:37 AM MIKEL Power of Reel Hooker for Health Care 01/12/2018 11:35 AM POA-HC Power of Reel Hooker for Health Care 01/12/2018 11:35 AM POA Other Advance Directive 01/12/2018 11:27 AM MIKEL Power of Reel Hooker for Health Care 01/12/2018 11:27 AM POA-HC Power of Reel Hooker for Health Care 01/12/2018 11:27 AM POA * Full Code (Latest Code Status on File) Date Activated Date Inactivated Comments 01/07/2018 11:41 AM 01/12/2018 8:02 PM CPR-Full Tr eatment: FULL ARREST: Attempt Resuscitation/CPR wit intubation and mechanical ventilation. PRE-ARREST: Use entire range of life support measures to stabilize the patient. Care Teams Hog Scalder Relationship Specialty Start Date End Date Surendra Burton DO [address] [place] [address] PCP - General Family Medicine 12/19/17
--- OUTSIDE RECORDS SUMMARY | 2025-01-04 13:14 | XMS_ITS | Patient Health Record ---
Author Organization [employer] Address [address] [place]. [address] [place] [address] Support Name Relationship Address Phone Ashia Muñoz Emergency Contact [address] [place] [address] Roberta Bruner Guarantor Unknown Allergies Allergen (clinical drug ingredient) Drug/Non Drug Allergy documented on EMR Reaction Allergy Type Onset Date Status Dye Dye (uncoded) Unknown Allergy Active amlodipine Norvasc Unknown Drug Allergy Active atenolol Tenormin Unknown Drug Allergy Active rivaroxaban Xarelto Unknown Drug Allergy Activ e prednisone Prednisone Unknown Drug Allergy Activ e dexamethasone Dexamethasone Unknown Drug Allergy Active Reason For Referral No Information Medications Medication SIG (Take, Route, Fr equency, Duration) Notes Start Date End Date Status fentaNYL 25 MCG/HR 1 patch to skin Transdermal Active Valium 5 MG 1 tablet as needed O rally Once a day Active OTC/Vitamins Vit B12 Active Vicodin Active Levaquin 500 MG 1 tablet Orally Once a day for 7 days 11/08/2021 Active Dicyclomine HCl 20 MG TAKE 1 TABLET BY M OUTH THREE TIMES A DAY FOR 30 DAYS for 90 R10.11 Active metroNIDAZOLE 500 MG 1 tablet Orally Thr ee times a day for 7 days 11/08/2021 Active Hydralazine-HCTZ Act horacio Social History Tobacco Use: Social History Observation Description Date Details (start date - stop date) Current Smoker NA - NA Tobacco Use/Smoking Question Answer Notes Are you a current smoker Problems Problem Type SNOMED Code ICD Code Onset Dates Problem Status W/U Status Risk Notes Problem [id number] Generalized abdominal pain (R10.84) Active confirmed Plan Of Treatment Pending Test Test Name Order Date Upper Endoscopy 01/30/2022 LIPASE 01/15/2022 LIPASE 01/30/2022 CMP: COMPLETE METABOLIC PANEL 01/30/2022 CMP: COMPLETE METABOLIC PANEL 01/15/2022 CBC With Differential/Platelet 2 CBC With Differential/Platelet 2 CRP 01/30/2022 CRP 01/15/2022 Insurance Providers Payer Name Payer Address Payer Phone Subscriber Number Group Number Insured Name Patient Relationship to Insured Coverage Start Date Coverage End Date [facility] [address] [place] [address] [id number] Roberta Bruner Self - patient is the insured Medical (General) History Medical History History ICD Code Colon Polyps Diverticulosis Pernicious Anemia Abdominal Aoritc Aneurysm Hypertension Asthma Chronic Pain Surgical History Surgery Date(Month/Year) Endoscopy 02/2022 Colonoscopy 2020 Cholecystectomy ERCP Back x3 Cages x4 Appendectomy Ankle Hospitalization History Reason Date(Month/Year) GI Bleed Diverticulitis
--- OUTSIDE RECORDS SUMMARY | 2025-01-04 13:14 | XMS_ITS | Clinical Summary ---
Author Organization [facility] Address [address] [place] [address] Phone Care Team Providers Care Crop Or Grain Farmworker Name Role Phone JUANCHAU DOZIER Primary Care Provider [phone] Reason for Visit and Chief Complaint [facility] CENTER FOLLOW UP Problems Includes: Problems addressed during this encounter and other active Problems All Visits Onset Date Resolved Date Provider Condition S tatus Chronic Obstructive Pulmonary Disease 05/09/2014 CATALINO QUIÑONES MD Active Last Documented On 4 2:47PM ; [facility] Chronic Pain 01/01/2012 CATALINO QUIÑONES MD A ctive Last Documented On 2 10:57PM ; [facility] Depression 02/15/2011 CATALINO QUIÑONES MD Act horacio Last Documented On 1 3:25PM ; [facility] Adrenal Neoplasm 04/09/2010 CATALINO QUIÑONES MD Active Last Documented On 0 11:06PM ; [facility] Note: Unchanged Lumbago 04/09/2010 CATALINO QUIÑONES MD Act horacio Last Documented On 0 3:39PM ; [facility] Backache 12/14/2009 CATALINO QUIÑONES MD Act horacio Last Documented On 1 4:28PM ; [facility] Essential Hypertension Benign 12/14/2009 CATALINO QUIÑONES MD Active Last Documented On 1 11:14PM ; [facility] Peripheral Neuropathy 12/14/2009 CATALINO FRANKEL MD Active Last Documented On 0 12:48PM ; [facility] Note: Unchanged Smoking Cigarettes 12/14/2009 CATALINO Pineda MD Active Last Documented On 0 12:48PM ; [facility] Note: Unchanged Parox Atrial Tachycardia 03/10/2009 CATALINO MENA MD Active Last Documented On 9 1:03PM ; [facility] Plan of Treatment No Plan of Treatment Recorded Assessments Includes: Assessments from this encounter No Assessments Recorded Medical Equipment - Implanted Devices Includes: Current Devices No Medical Equipment Recorded Medications Includes: Medications discussed during this encounter and other current Medications Current Medications (continue as prescribed) Valium 5 MG Oral Tablet 09/28/2020 Provider: Diagnosis: Last Documented On 0 2:46PM By SEBAS JOHNSON ; [facility] Linzess 145 MCG Oral Capsule 09/28/2020 Provider: Diagnosis: Last Documented On 0 2:42PM By SEBAS JOHNSON ; [facility] Aspirin 81 MG Oral Tablet Delayed Release 09/28/2020 Provider: Diagnosis: Last Documented On 0 2:43PM By SEBAS JOHNSON ; [facility] Suspended Medications Robaxin-750 750 MG Tablet 02/15/2015 - 04/16/2015 Prov ider: CATALINO QUIÑONES MD Diagnosis: One tablet four times a day [phone] Last Documented On 5 12:54PM By ONEL NATARAJAN PA-C ; [facility] Medications Administered Includes: Administered Medications from this [...] ctive Last Documented On 5 4:12PM ; [facility] predniSONE Allergy 03/10/2009 Active Last Documented On 03/16/2015 4:12PM ; [facility] Note: JUST PILLS NOT SHOT Norvasc Allergy Skin Rashes / Er uption of skin, Hives / Urticaria 09/17/2011 Active Last Documented On 5 4:12PM ; [facility] Lyrica Allergy SWELLING AND NAUSEA 11/19/2010 Active Last Documented On 5 4:12PM ; [facility] Lisinopril Allergy 03/10/2009 Active Last Documented On 5 4:12PM ; [facility] Clonidine Allergy Skin Rashes / Er uption of skin, Hives / Urticaria 09/17/2011 Active Last Documented On 5 4:12PM ; [facility] Benzodiazepines Allergy 03/10/2009 Act horacio Last Documented On 5 4:12PM ; [facility] Amitriptyline HCl Allergy BRAIN FOGGY 01/01/2012 Active Last Documented On 5 4:12PM ; [facility] Insurance Includes: Active Insurance Policies Plan Name Member ID Group # Subscriber Relationship Effect horacio Dates 1 - [facility]/MEDICARE ADV/AARP [id number] RASHEED LEYVA Self 2 - MED[place] MEDICARE SECOND [id number] RASHEED LEYVA Self Clinical Notes Includes: Clinical Notes from this encounter No Clinical Notes Recorded
--- OUTSIDE RECORDS SUMMARY | 2025-01-04 13:14 | XMS_ITS | Clinical Summary ---
Author Organization [facility] Address [address] [place] [address] Phone Care Team Providers Care Upper Shaper Name Role Phone Surendra Burton DO Primary Care Provider Hailey vailable Medications No known medications Active Problems Problem Noted Date Diagnosed Date Postlaminectomy syndrome, lumbar region 02/08/20 21 Cigarette smoker 02/07/2021 Other spondylosis with radiculopathy, lumbar reg ion 02/07/2021 Social History Tobacco Use Types Packs/Day Years Used Date Smoking Tobacco: Never Assessed Comments Unknown Sex and Gender Information Value Date Recorded Sex Assigned at Not on file Legal Sex Female 5:58 AM 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 Gender Identity Not on file Sexual Orientation Not on file Plan of Treatment Health Maintenance Due Date Last Done Comments BREAST CANCER SCREENING 1996 COLORECTAL SCREENING 2001 Colorectal Cancer Screening 2001 FIT-DNA Q 3 years 2001 FIT/FOBT Q 1 year 2001 Flex Sig/CT Colonography Q 5 years 2001 ZOSTER VACCINE (1 of 2) 2006 RSV VACCINE (60+ or ) (1 - Risk 60-74 years 1-dose series) 2016 PNEUMOCOCCAL VACCINE 65+ YEARS (2 of 2 - PPSV23) 01/1211/17/2017 OSTEOPOROSIS SCREENING 2021 INFLUENZA VACCINE (#1) 2024 DTAP/TDAP/TD VACCINES (2 - Td or Tdap) 05/02/2025 Insurance [facility] MCR Care Teams Upper Shaper Relationship Specialty Start Date End Date Surendra Burton DO NO ADDRESS ON FILE PCP - General Family Practice 08/22/20
--- OUTSIDE RECORDS SUMMARY | 2025-01-04 13:15 | XMS_ITS ---
Author Organization [facility] Address [address] [place] [address] Phone Care Team Providers Care Database Engineer Name Role Phone CHAU PETERS Primary Care Provider [phone] Problems Includes: Active, inactive, and resolved Problems All Visits Onset Date Resolved Date Provider Condition S tatus Chronic Obstructive Pulmonary Disease 05/09/2014 CATALINO QUIÑONES MD Active Last Documented On 4 2:47PM ; [facility] Chronic Pain 01/01/2012 CATALINO QUIÑONES MD A ctive Last Documented On 2 10:57PM ; [facility] Depression 02/15/2011 CATALINO QUIÑONES MD Act horacio Last Documented On 1 3:25PM ; [facility] Adrenal Neoplasm 04/09/2010 CATALINO QUIÑONES MD Active Last Documented On 0 11:06PM ; [facility] Note: Unchanged Lumbago 04/09/2010 CATALINO QUIÑONES MD Act horacio Last Documented On 0 3:39PM ; [facility] Backache 12/14/2009 CATALINO QUIÑONES MD Act horacio Last Documented On 1 4:28PM ; [facility] Essential Hypertension Benign 12/14/2009 CATALINO QUIÑONES MD Active Last Documented On 1 11:14PM ; [facility] Peripheral Neuropathy 12/14/2009 CATALINO FRANKEL MD Active Last Documented On 0 12:48PM ; [facility] Note: Unchanged Smoking Cigarettes 12/14/2009 CATALINO Pineda MD Active Last Documented On 0 12:48PM ; [facility] Note: Unchanged Parox Atrial Tachycardia 03/10/2009 CATALINO MENA MD Active Last Documented On 9 1:03PM ; [facility] Plan of Treatment Findings Encounter Date Trigger point injection with steroid. PROCEDURE: A mixture of 1ml of depomedrol (80mg) with 4ml of 2% lidocaine with epinephrine and 5ml of 0.5% bupivicaine without epinephrine is used to inject the area that the paitient identifies as tender. This relieved the pain and she was grateful. Will return if the pain returns CONSULTATION with RASHEEDA LAO DO 09/28/2020 Last Documented On 0 3:31PM ; [facility] Ordered Clinical summary pro vided to patient . Plan discussed and patient/parent/caregiver states understanding 1 MONTH CHECK with ONEL NATARAJAN PA-C 04/12/2015 Last Documented On 5 8:50AM ; [facility] Ordered follow-up visit as n eeded with an office visit. Continue current meds. Local ice/heat--whichever feels better. Muscle creams, TENS unit. Call if symptoms worsen 1 MONTH CHECK with ONEL NATARAJAN PA-C 04/12/2015 Last Documented On 5 8:50AM ; [facility] Ordered Clinical summary pro vided to patient . Plan discussed and patient/parent/caregiver states understanding PROBLEM VISIT with ONEL NATARAJAN PA-C 03/16/2015 Last Documented On 5 5:03PM ; [facility] Ordered follow-up visit in 3 weeks with an office visit (appt already established). Start daily Eligen Oral b12 (#25 given). Transfer Rxs to [place] Can to Depo Medrol injections monthly. Call sooner if symptoms worsen PROBLEM VISIT with ONEL NATARAJAN PA-C 03/16/2015 Last Documented On 5 5:03PM ; [facility] Ordered Clinical summary pro vided to patient . Plan discussed and patient/parent/caregiver states understanding PROBLEM VISIT with OENL NATARAJAN PA-C 03/08/2015 Last Documented On 5 11:53AM ; [facility] Ordered follow-up visit in 3 weeks with an office visit with PCP. Labs today. Written Rx for #[id number] Hendricks 10-325 given ([facility] would only pay for 180 tabs and needing Rx to get rest of Rx) Restart B12 after labs done. Low dose cymbalta to avoid GI upset. Get pelvic U/S to check fibroids. Call sooner if needed PROBLEM VISIT with ONEL NATARAJAN PA-C 03/08/2015 Last Documented On 5 11:53AM ; [facility] Ordered Clinical summary pro vided to patient . Plan discussed and patient/parent/caregiver states understanding SICK VISIT with ONEL NATARAJAN PA-C 02/18/2015 Last Documented On 5 11:23AM ; [facility] Ordered follow-up visit as n eeded with an office visit. Recommended making appt with PCP within the next few weeks for checkup--KWAME w/ PCP 04/2014. Push fluids, hot steamy showers, vicks. Salt water gargles, throat lozenges. Claritin or zyrtec as needed. Needs to follow up with PCP to discuss pain meds and blood pressure meds. Patient states she has seen [place] in Jul--no records in chart. Also has not been diagnosed with DM or hypoglyemia--pt has diagnosed herself SICK VISIT with ONEL NATARAJAN PA-C 02/18/2015 Last Documented On 5 11:23AM ; [facility] Ordered Clinical summary pro vided to patient . Plan discussed and patient/parent/caregiver states understanding PROBLEM VISIT with ONEL NATARAJAN PA-C 2014 Last Documented On 4 1:06PM ; [facility] Ordered follow-up visit as n eeded with an office visit. GET LABS TODAY. WILL TRY STERIOD SHOT AND SEE IF THAT HELPS. CALL IF SYMPTOMS WORSEN/PERSIST. SPENT 30MIN FTF WITH THIS PATIENT PROBLEM VISIT with ONEL NATARAJAN PA-C 2014 Last Documented On 4 1:06PM ; [facility] Ordered Clinical summary pro vided to patient . Plan discussed and patient understands CHECK UP with ONEL NATARAJAN PA-C 09/17/2013 Last Documented On 3 2:44PM ; [facility] Ordered follow-up visit as n eeded with an office visit. Get fasting labs and will fill rest of paperwork out and fax. CHECK UP with ONEL NATARAJAN PA-C 09/17/2013 Last Documented On 3 2:44PM ; [facility] Ordered moist heat USE HER T ENS UNIT 1 MONTH CHECK with CATALINO QUIÑONES MD 01/01/2012 Last Documented On 2 11:02PM ; [facility] Ordered follow-up visit as n eeded with an office visit.. Encouraged patient to report Friday if sx are not improving. Consider ultrasound on Friday if sx are not improving. Patientt encouraged to get mammogram, but patient refuses at this time (has never had one). If lump persists in 2 weeks then ultrasound recommended it still refuses mammogram HOSPITAL FOLLOW UP EXAM with ELDA MCLEAN PA-C 10/31/2010 Last Documented On 0 12:15PM ; [facility] Referrals To Diagnosis Orthopedic [facility] [address] [facility] [address] [place] [id number] - Note: NOT DSURE IF SHE NEEDS NEUROSURG OR ORTHO, WHOULD START WITH ORTHO AND SHE NEEDS TO GO TO [place], SEE NOTE WITH THIS NOTE...MAY HAVE TO WORK ON THIS ONE NEXT WEEK Last Documented On 0 3:22PM ; [facility] General Surgery Note: PT HAD ADRENAL TUMOR A ND MAY NEED IT OUT, WE SENT HER TO [facility] WHO SAID SHE NEEDS ENDOCRINE, ENDOCRINE DOES NOT DUE SURGERY, SO MAYBE HE MEANSA SURGEON WHO SPECIALIZES IN ENDOCRINE SURGERY..SO THIS IS THE LADY WHO NEEDS THE MRI SO BE LOOKING FOR SURGEON SINCE THAT WILL BE NEXT PROBABLY AFTER WE GET THE MRI Last Documented On 0 11:05AM ; [facility] General Surgery MITCH SAMPSON M.D. ABDMNAL PAIN LT LWR QUAD Note: DR BLAKE SHE HAS SEE N HIM BEFORE A LONG TIME AGO Last Documented On 0 9:42AM ; [facility] General Surgery Note: DR SHERMAN, LEFT LQ PAIN ... Last Documented On 0 9:05AM ; [facility] ENT Specialist DIZZINESS AND GI DDINESS Note: ENT IN [place] SET UP FO R NO EARLIER THAN THE MIDDLE OF NOVEMBER Last Documented On 1 8:59AM ; [facility] Pain Management [facility] [place] [id number] BACKACHE NOS Note: DR DELCID Last Documented On 2 9:30AM ; [facility] Neurologist CATALINO QUIÑONES MD Headache Note: NEEL MORTENSEN Last Documented On 4 9:42AM ; [facility] Back Tender Fourdrinier MIN STOREY M.D. POSTMENOPAUSA L BLEEDING Note: 04/05/15 @ 2:15 Last Documented On 6 2:19PM ; [facility] Instructions to patient Return to the clinic if cond ition worsens or new symptoms arise Last Documented On 2 12:53AM ; [facility] Return to the clinic if cond ition worsens or new symptoms arise Last Documented On 1 11:21PM ; [facility] Return to the clinic if cond ition worsens or new symptoms arise Last Documented On 1 11:06PM ; [facility] Return to the clinic if cond ition worsens or new symptoms arise Last Documented On 1 10:54PM ; [facility] Return to the clinic if cond ition worsens or new symptoms arise Last Documented On 1 11:03PM ; [facility] Return to the clinic if cond ition worsens or new symptoms arise Last Documented On 1 10:38PM ; [facility] Return to the clinic if cond ition worsens or new symptoms arise Last Documented On 0 9:31PM ; [facility] Education and Decision Aids were provided during visit for: Parent education about medic ation use Last Documented On 0 11:05PM ; [facility] Parent education about medic ation use SAVELLA Last Documented On 0 11:04PM ; [facility] Parent education about medic ation use Last Documented On 0 9:31PM ; [facility] Assessments Includes: Assessments for all patient encounters Findings Encounter Date POST OP VISIT s/p injection of a subcostal nerve. Relief for a short period of time but the pain returned. Wants to have it done again. Discussed a pain clinic referral. The painful spot was identified and marked. The skin was cleansed. A syringe was filled with 3ml of 0.5% marcaine plain, 2ml of 2% lidocaine with epinephrine and 0.5ml of depomedrol (20mg). The area was injected and the patient expressed that the injection helped. Will F/U: PRN PROBLEM VISIT with RASHEEDA LAO DO 10/18/2020 Last Documented On 0 2:54PM ; [facility] Nerve entrapment/hypersensitivity CONSULTATION w antoinette RASHEEDA LAO DO 09/28/2020 Last Documented On 0 3:31PM ; [facility] Lumbago 1 MONTH CHECK with ONEL E JENK INS PA-C 04/12/2015 Last Documented On 5 8:50AM ; [facility] Postmenopausal bleeding [Patient Encounter] with ONEL Marcos NATARAJAN PA-C 03/21/2015 Last Documented On 5 1:51PM ; [facility] Chronic pain PROBLEM VISIT with ONEL E JENK INS PA-C 03/16/2015 Last Documented On 5 5:03PM ; [facility] Fatigue PROBLEM VISIT with ONEL E JENK INS PA-C 03/16/2015 Last Documented On 5 5:03PM ; [facility] Vitamin B12 deficiency PROBLEM VISIT with ONEL E NATARAJAN PA-C 03/16/2015 Last Documented On 5 5:03PM ; [facility] Backache PROBLEM VISIT with ONEL E JENK INS PA-C 03/08/2015 Last Documented On 5 11:53AM ; [facility] Chronic pain PROBLEM VISIT with ONEL E JENK INS PA-C 03/08/2015 Last Documented On 5 11:53AM ; [facility] Depression PROBLEM VISIT with ONEL E JENK INS PA-C 03/08/2015 Last Documented On 5 11:53AM ; [facility] Fatigue PROBLEM VISIT with ONEL E JENK INS PA-C 03/08/2015 Last Documented On 5 11:53AM ; [facility] Hypoglycemia ? PROBLEM VISIT with ONEL E JENK INS PA-C 03/08/2015 Last Documented On 5 11:53AM ; [facility] Postmenopausal bleeding PROBLEM VISIT with YSABEL ROBERTSON-C 03/08/2015 Last Documented On 5 11:53AM ; [facility] Acute sinusitis SICK VISIT with ONEL ROBERTSON-C 02/18/2015 Last Documented On 5 11:23AM ; [facility] Chronic obstructive pulmonary disease SI CK VISIT with ONEL ROBERTSON-C 02/18/2015 Last Documented On 5 11:23AM ; [facility] Asthma HOSPITAL FOLLOW UP EXAM with RYAN QUIÑONES MD 05/09/2014 Last Documented On 4 6:23PM ; [facility] Chronic obstructive pulmonary disease HO SPITAL FOLLOW UP EXAM with CATALINO QUIÑONES MD 05/09/2014 Last Documented On 4 6:23PM ; [facility] Oral thrush HOSPITAL FOLLOW UP EXAM with RYAN QUIÑONES MD 05/09/2014 Last Documented On 4 6:23PM ; [facility] Sinus bradycardia HOSPITAL FOLLOW UP EXAM with Ashly QUIÑONES MD 05/09/2014 Last Documented On 4 6:23PM ; [facility] Chronic pain PROBLEM VISIT with ONEL ROBERTSON-C 2014 Last Documented On 4 1:06PM ; [facility] Lumbago PROBLEM VISIT with ONEL ROBERTSON-C 2014 Last Documented On 4 1:06PM ; [facility] Myalgia and myositis PROBLEM VISIT with ONEL ROBERTSON-C 2014 Last Documented On 4 1:06PM ; [facility] Backache 1 MONTH CHECK with CATALINO VAIL MD 11/01/2013 Last Documented On 3 11:03PM ; [facility] Benign essential hypertension 1 MONTH CHECK with CATALINO QUIÑONES MD 11/01/2013 Last Documented On 3 11:03PM ; [facility] Chronic pain 1 MONTH CHECK with CATALINO VAIL MD 11/01/2013 Last Documented On 3 11:03PM ; [facility] Chronic pain EMERGENCY ROOM FOLLOW UP with JOURDAN QUIÑONES MD 10/12/2013 Last Documented On 3 7:36AM ; [facility] Headache syndromes EMERGENCY ROOM FOLLOW UP with CATALINO QUIÑONES MD 10/12/2013 Last Documented On 3 7:36AM ; [facility] Lumbago EMERGENCY ROOM FOLLOW UP with JOURDAN QUIÑONES MD 10/12/2013 Last Documented On 3 7:36AM ; [facility] Trapezius muscle strain EMERGENCY ROOM F OLLOW UP with CATALINO QUIÑONES MD 10/12/2013 Last Documented On 3 7:36AM ; [facility] Assessment of cough CHECK UP with ONEL ROBERTSON-Ashly 09/17/2013 Last Documented On 3 2:44PM ; [facility] Hyperlipidemia CHECK UP with ONEL Schwartz-Ashly 09/17/2013 Last Documented On 3 2:44PM ; [facility] Work Physical --preventative exam for insurance CHECK UP with ONEL NATARAJAN PA-C 09/17/2013 Last Documented On 3 2:44PM ; [facility] Assessment of cigarette smoking MED CHECK with Ashyl QUIÑONES MD 06/01/2013 Last Documented On 3 10:29PM ; [facility] Backache MED CHECK with CATALINO Pineda MD 06/01/2013 Last Documented On 3 10:29PM ; [facility] Benign essential hypertension MED CHECK with RYAN QUIÑONES MD 06/01/2013 Last Documented On 3 10:29PM ; [facility] Chronic pain MED CHECK with CATALINO Pineda MD 06/01/2013 Last Documented On 3 10:29PM ; [facility] Edema MED CHECK with CATALINO Pineda MD 06/01/2013 Last Documented On 3 10:29PM ; [facility] Paroxysmal atrial tachycardia MED CHECK with RYAN QUIÑONES MD 06/01/2013 Last Documented On 3 10:29PM ; [facility] Peripheral neuropathy MED CHECK with CATALINO MENA MD 06/01/2013 Last Documented On 3 10:29PM ; [facility] Chronic pain HOSPITAL FOLLOW UP EXAM with RYAN QUIÑONES MD 02/11/2013 Last Documented On 3 7:56PM ; [facility] Depression HOSPITAL FOLLOW UP EXAM with RYAN QUIÑONES MD 02/11/2013 Last Documented On 3 7:56PM ; [facility] Menopause HOSPITAL FOLLOW UP EXAM with RYAN QUIÑONES MD 02/11/2013 Last Documented On 3 7:56PM ; [facility] Backache CHECK UP with CATALINO QUIÑONES MD 09/09/2012 Last Documented On 2 8:50AM ; [facility] Postmenopausal bleeding CHECK UP with CATALINO BOX MD 09/09/2012 Last Documented On 2 8:50AM ; [facility] 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 RT CHECK UP with CATALINO QUIÑONES MD 09/09/2012 Last Documented On 2 8:50AM ; [facility] Upper respiratory infection CHECK UP with CATALINO QUIÑONES MD 09/09/2012 Last Documented On 2 8:50AM ; [facility] Backache GENERAL OFFICE VISIT with CATALINO QUIÑONES MD 06/08/2012 Last Documented On 2 9:11PM ; [facility] Chronic pain GENERAL OFFICE VISIT with CATALINO QUIÑONES MD 06/08/2012 Last Documented On 2 9:11PM ; [facility] Acute bronchitis CHECK UP with CATALINO Pineda MD 04/01/2012 Last Documented On 2 12:33AM ; [facility] Benign essential hypertension CHECK UP with RORY QUIÑONES MD 04/01/2012 Last Documented On 2 12:33AM ; [facility] Chronic pain CHECK UP with CATALINO QUIÑONES MD 04/01/2012 Last Documented On 2 12:33AM ; [facility] Backache 1 MONTH CHECK with CATALINO VAIL MD 02/05/2012 Last Documented On 2 9:29PM ; [facility] Backache 1 MONTH CHECK with CATALINO VAIL MD 01/01/2012 Last Documented On 2 11:02PM ; [facility] Benign essential hypertension 1 MONTH CHECK with CATALINO QUIÑONES MD 01/01/2012 Last Documented On 2 11:02PM ; [facility] Chronic pain 1 MONTH CHECK with CATALINO VAIL MD 01/01/2012 Last Documented On 2 11:02PM ; [facility] Depression 1 MONTH CHECK with CATALINO VAIL MD 01/01/2012 Last Documented On 2 11:02PM ; [facility] Acute rhinitis 1 MONTH CHECK with CATALINO VAIL MD 12/04/2011 Last Documented On 2 12:54AM ; [facility] Backache 1 MONTH CHECK with CATALINO VAIL MD 12/04/2011 Last Documented On 2 12:54AM ; [facility] Depression 1 MONTH CHECK with CATALINO VAIL MD 12/04/2011 Last Documented On 2 12:54AM ; [facility] Backache 1 MONTH CHECK with CATALINO VAIL MD 10/30/2011 Last Documented On 1 11:25PM ; [facility] Benign essential hypertension 1 MONTH CHECK with CATALINO QUIÑONES MD 10/30/2011 Last Documented On 1 11:25PM ; [facility] Vertigo 1 MONTH CHECK with CATALINO VAIL MD 10/30/2011 Last Documented On 1 11:25PM ; [facility] Pain in limb 1 MONTH CHECK with CATALINO VAIL MD 09/17/2011 Last Documented On 1 11:07PM ; [facility] Vertigo 1 MONTH CHECK with CATALINO VAIL MD 09/17/2011 Last Documented On 1 11:07PM ; [facility] Arthralgias in multiple sites 3 WK CK-UP with JOURDAN QUIÑONES MD 08/19/2011 Last Documented On 1 10:57PM ; [facility] Backache 3 WK CK-UP with CATALINO MCKEON MD 08/19/2011 Last Documented On 1 10:57PM ; [facility] Malaise 3 WK CK-UP with CATALINO MCKEON MD 08/19/2011 Last Documented On 1 10:57PM ; [facility] Myalgia and myositis 3 WK CK-UP with CATALINO MENA MD 08/19/2011 Last Documented On 1 10:57PM ; [facility] Backache 1 MONTH CHECK with CATALINO VAIL MD 07/15/2011 Last Documented On 1 10:32PM ; [facility] Colitis 1 MONTH CHECK with CATALINO VAIL MD 07/15/2011 Last Documented On 1 10:32PM ; [facility] Primary insomnia 1 MONTH CHECK with CATALINO KHAN MD 07/15/2011 Last Documented On 1 10:32PM ; [facility] Depression 1 MONTH CHECK with CATALINO VAIL MD 03/15/2011 Last Documented On 1 11:16PM ; [facility] Pain in limb 1 MONTH CHECK with CATALINO VAIL MD 03/15/2011 Last Documented On 1 11:16PM ; [facility] Backache GENERAL OFFICE VISIT with CATALINO QUIÑONES MD 02/15/2011 Last Documented On 1 11:28PM ; [facility] Depression GENERAL OFFICE VISIT with CATALINO QUIÑONES MD 02/15/2011 Last Documented On 1 11:28PM ; [facility] Dysuria GENERAL OFFICE VISIT with CATALINO QUIÑONES MD 02/15/2011 Last Documented On 1 11:28PM ; [facility] Peripheral neuropathy GENERAL OFFICE VISIT with CATALINO QUIÑONES MD 02/15/2011 Last Documented On 1 11:28PM ; [facility] Acute sinusitis 1 MONTH CHECK with CATALINO VAIL MD 12/31/2010 Last Documented On 1 10:38PM ; [facility] Backache 1 MONTH CHECK with CATALINO VAIL MD 12/31/2010 Last Documented On 1 10:38PM ; [facility] Abdominal pain--LLQ 1 MONTH CHECK with CATALINO GALAN MD 11/19/2010 Last Documented On 1 10:10PM ; [facility] Lumbago 1 MONTH CHECK with CATALINO VAIL MD 11/19/2010 Last Documented On 1 10:10PM ; [facility] Peripheral neuropathy 1 MONTH CHECK with CATALINO QUIÑONES MD 11/19/2010 Last Documented On 1 10:10PM ; [facility] Cellulitis R breast HOSPITAL FOLLOW UP EXAM with ELDA MCLEAN PA-C 10/31/2010 Last Documented On 0 12:15PM ; [facility] Depression HOSPITAL FOLLOW UP EXAM with JOHN MCLEAN PA-C 10/31/2010 Last Documented On 0 12:15PM ; [facility] Vitamin B12 deficiency HOSPITAL FOLLOW UP EXAM w ith ELDA MCLEAN PA-C 10/31/2010 Last Documented On 0 12:15PM ; [facility] Abdominal pain--LLQ PROBLEM VISIT with CATALINO GALAN MD 10/02/2010 Last Documented On 0 11:07PM ; [facility] Anemia PROBLEM VISIT with CATALINO VAIL MD 10/02/2010 Last Documented On 0 11:07PM ; [facility] Assessment of headache PROBLEM VISIT with CATALINO QUIÑONES MD 10/02/2010 Last Documented On 0 11:07PM ; [facility] Lumbago PROBLEM VISIT with CATALINO VAIL MD 10/02/2010 Last Documented On 0 11:07PM ; [facility] Nausea PROBLEM VISIT with CATALINO VAIL MD 10/02/2010 Last Documented On 0 11:07PM ; [facility] Abdominal pain--LLQ 1 MONTH CHECK with CATALINO GALAN MD 07/02/2010 Last Documented On 0 12:26AM ; [facility] Assessment of headache 1 MONTH CHECK with CATALINO QUIÑONES MD 07/02/2010 Last Documented On 0 12:26AM ; [facility] Peripheral neuropathy 1 MONTH CHECK with CATALINO QUIÑONES MD 07/02/2010 Last Documented On 0 12:26AM ; [facility] Abdominal pain--LLQ PROBLEM VISIT with CATALINO GALAN MD 06/04/2010 Last Documented On 0 3:37PM ; [facility] Anemia PROBLEM VISIT with CATALINO VAIL MD 06/04/2010 Last Documented On 0 3:37PM ; [facility] Backache PROBLEM VISIT with CATALINO VAIL MD 06/04/2010 Last Documented On 0 3:37PM ; [facility] Benign skin neoplasm PROBLEM VISIT with CATALINO SANTOS MD 06/04/2010 Last Documented On 0 3:37PM ; [facility] Urinary tract infection PROBLEM VISIT with FABRIZIO QUIÑONES MD 06/04/2010 Last Documented On 0 3:37PM ; [facility] Abdominal pain--LLQ PROBLEM VISIT with KAILYN CONN PA-C 05/03/2010 Last Documented On 0 4:47PM ; [facility] Peripheral neuropathy PROBLEM VISIT with KAILYN MCKEON PA-C 05/03/2010 Last Documented On 0 4:47PM ; [facility] Backache 3 WK CK-UP with CATALINO MCKEON MD 04/09/2010 Last Documented On 0 11:06PM ; [facility] Neoplasm of the adrenal gland 3 WK CK-UP with JOURDAN QUIÑONES MD 04/09/2010 Last Documented On 0 11:06PM ; [facility] Peripheral neuropathy 3 WK CK-UP with CATALINO BOX MD 04/09/2010 Last Documented On 0 11:06PM ; [facility] Abdominal pain--LLQ 3 WK CK-UP with CATALINO KHAN MD 03/12/2010 Last Documented On 0 9:34PM ; [facility] Depression 3 WK CK-UP with CATALINO MCKEON MD 03/12/2010 Last Documented On 0 9:34PM ; [facility] Iliac crest spur 3 WK CK-UP with CATALINO VILLA MD 03/12/2010 Last Documented On 0 9:34PM ; [facility] Peripheral neuropathy 3 WK CK-UP with CATALINO BOX MD 03/12/2010 Last Documented On 0 9:34PM ; [facility] Abdominal pain--LLQ 1 MONTH CHECK with CATALINO GALAN MD 02/19/2010 Last Documented On 0 10:23PM ; [facility] Iliac crest spur 1 MONTH CHECK with CATALINO KHAN MD 02/19/2010 Last Documented On 0 10:23PM ; [facility] Peripheral neuropathy 1 MONTH CHECK with CATALINO QUIÑONES MD 02/19/2010 Last Documented On 0 10:23PM ; [facility] Backache 1 MONTH CHECK with CATALINO VAIL MD 01/15/2010 Last Documented On 0 6:59PM ; [facility] Peripheral neuropathy 1 MONTH CHECK with CATALINO QUIÑONES MD 01/15/2010 Last Documented On 0 6:59PM ; [facility] Backache RECHECK with CATALINO QUIÑONES MD 12/14/2009 Last Documented On 0 12:52PM ; [facility] Benign essential hypertension RECHECK with FABRIZIO QUIÑONES MD 12/14/2009 Last Documented On 0 12:52PM ; [facility] Peripheral neuropathy RECHECK with CATALINO VAIL MD 12/14/2009 Last Documented On 0 12:52PM ; [facility] Abdominal pain PROBLEM VISIT with CATALINO VAIL MD 11/14/2009 Last Documented On 9 9:27PM ; [facility] Backache PROBLEM VISIT with CATALINO VAIL MD 11/14/2009 Last Documented On 9 9:27PM ; [facility] Constipation PROBLEM VISIT with CATALINO VAIL MD 11/14/2009 Last Documented On 9 9:27PM ; [facility] Nausea PROBLEM VISIT with CATALINO VAIL MD 11/14/2009 Last Documented On 9 9:27PM ; [facility] Contusion with intact skin surface PREOP EXAM wi th CATALINO QUIÑONES MD 07/17/2009 Last Documented On 9 7:44PM ; [facility] Herniated lumbar disc PREOP EXAM with CATALINO BOX MD 07/17/2009 Last Documented On 9 7:44PM ; [facility] Depression CHECK UP with CATALINO QUIÑONES MD 05/08/2009 Last Documented On 9 8:37PM ; [facility] Low back pain CHECK UP with CATALINO QUIÑONES MD 05/08/2009 Last Documented On 9 8:37PM ; [facility] Myalgia and myositis CHECK UP with CATALINO VAIL MD 05/08/2009 Last Documented On 9 8:37PM ; [facility] Nausea CHECK UP with CATALINO QUIÑONES MD 05/08/2009 Last Documented On 9 8:37PM ; [facility] Instructions Includes: Instructions for all patient encounters Instructions to patient Return to the clinic if cond ition worsens or new symptoms arise Last Documented On 2 12:53AM ; [facility] Return to the clinic if cond ition worsens or new symptoms arise Last Documented On 1 11:21PM ; [facility] Return to the clinic if cond ition worsens or new symptoms arise Last Documented On 1 11:06PM ; [facility] Return to the clinic if cond ition worsens or new symptoms arise Last Documented On 1 10:54PM ; [facility] Return to the clinic if cond ition worsens or new symptoms arise Last Documented On 1 11:03PM ; [facility] Return to the clinic if cond ition worsens or new symptoms arise Last Documented On 1 10:38PM ; [facility] Return to the clinic if cond ition worsens or new symptoms arise Last Documented On 0 9:31PM ; [facility] Education and Decision Aids were provided during visit for: Parent education about medic ation use Last Documented On 0 11:05PM ; [facility] Parent education about medic ation use ONELIALLA Last Documented On 0 11:04PM ; [facility] Parent education about medic ation use Last Documented On 0 9:31PM ; [facility] Medical Equipment - Implanted Devices Includes: Current and historical Devices No Medical Equipment Recorded Medications Includes: Current and historical Medications Current Medications (continue as prescribed) Valium 5 MG Oral Tablet 09/28/2020 Provider: Diagnosis: Last Documented On 0 2:46PM By SEBAS JOHNSON ; [facility] Linzess 145 MCG Oral Capsule 09/28/2020 Provider: Diagnosis: Last Documented On 0 2:42PM By SEBAS JOHNSON ; [facility] Aspirin 81 MG Oral Tablet Delayed Release 09/28/2020 Provider: Diagnosis: Last Documented On 0 2:43PM By SEBAS JOHNSON ; [facility] Suspended Medications Robaxin-750 750 MG Tablet 02/15/2015 - 04/16/2015 Prov ider: CATALINO QUIÑONES MD Diagnosis: One tablet four times a day [phone] Last Documented On 5 12:54PM By ONEL NATARAJAN PA-C ; [facility] Past Medications on file Vitamin B 12 500 MCG Oral Tablet 09/28/2020 - 10/28/20 20 Provider: Diagnosis: two qd Last Documented On 0 2:43PM By SEBAS JOHNSON ; [facility] Isosorbide Dinitrate 30 MG Oral Tablet 09/28/2020 - Provider: Diagnosis: Last Documented On 0 2:44PM By SEBAS JOHNSON ; [facility] hydrALAZINE HCl 25 MG Oral Tablet 09/28/2020 - 020 Provider: Diagnosis: Last Documented On 0 2:44PM By SEBAS JOHNSON ; [facility] HYDROcodone-Acetaminophen 10-325 MG Oral Tablet 09/28/2020 - 10/28/2020 Provider: Diagnosis: q 6 hours Last Documented On 0 2:41PM By SEBAS JOHNSON ; [facility] fentaNYL 50 MCG/HR Transdermal Patch 72 Hour 0 - 10/01/2020 Provider: Diagnosis: Last Documented On 0 2:42PM By SEBAS JOHNSON ; [facility] Diazepam 5 MG Tablet 04/24/2015 - 09/28/2020 Provider: ONEL NATARAJAN PA-C Diagnosis: One tablet four times a day PRN FILL WHEN DUE WM Last Documented On 0 2:30PM By SEBAS JOHNSON ; [facility] FentaNYL 75 MCG/HR Patch 72 Hour 04/14/2015 - 09/28/2020 Provider: ONEL NATARAJAN PA-C Diagnosis: Chronic Pain NEC CHANGE EVERY 72 HOURS Last Documented On 0 2:39PM By SEBAS JOHNSON ; [facility] Cymbalta 30 MG Capsule, delayed-release particles 04/14/2015 - 09/28/2020 Provider: ONEL NATARAJAN PA-C Diagnosis: DEPRESSIVE DISOR ANTHONY NEC 1 cap PO qd x 4 days then in crease to 2 caps qd. Generic. Last Documented On 0 2:39PM By SEBAS JOHNSON ; [facility] Hydrocodone-Acetaminophen 10 -325 MG Tablet 04/14/2015 - 09/28/2020 Provider: ONEL NATARAJAN PA-C Diagnosis: 1-2 Q 6 HRS PRN MAX 8 PER DAY. Last Documented On 0 2:39PM By SEBAS JOHNSON ; [facility] Cymbalta 30 MG Capsule, delayed-release particles 03/16/2015 - 04/12/2015 Provider: ONEL NATARAJAN PA-C Diagnosis: DEPRESSIVE DISOR ANTHONY NEC 1 cap PO qd x 4 days then in crease to 2 caps qd. Generic. Last Documented On 5 8:48AM By ONEL NATARAJAN PA-C ; [facility] Diazepam 5 MG Tablet 03/16/2015 - 04/24/2015 Provider: ONEL NATARAJAN PA-C Diagnosis: One tablet four times a day PRN FILL WHEN DUE MUST LAST 30 DAYS WM Last Documented On 5 4:58PM By ONEL NATARAJAN PA-C ; [facility] Robaxin-750 750 MG Tablet 03/16/2015 - 09/28/2020 Prov ider: ONEL NATARAJAN PA-C Diagnosis: 1 tab QID and 2 tabs q HS. Fill when due. WM Last Documented On 0 2:39PM By SEBAS JOHNSON ; [facility] Vitamin D (Ergocalciferol) 47269 UNIT Capsule, conventional 03/16/2015 - 09/28/2020 Provider: ONEL NATARAJAN PA-C Diagnosis: as directed 1 Q WEEK X 6 WEEKS THEN 1 Q OTHER WE EK Last Documented On 0 2:39PM By SEBAS JOHNSON ; [facility] Hydrocodone-Acetaminophen 10 -325 MG Tablet 03/16/2015 - 04/14/2015 Provider: ONEL NATARAJAN PA-C Diagnosis: 1-2 Q 6 HRS PRN MAX 8 PER DAY. Last Documented On 5 8:49AM By ONEL NATARAJAN PA-C ; [facility] FentaNYL 75 MCG/HR Patch 72 Hour 03/16/2015 - 04/14/2015 Provider: ONEL NATARAJAN PA-C Diagnosis: Chronic Pain NEC CHANGE EVERY 72 HOURS Last Documented On 5 8:49AM By ONEL NATARAJAN PA-C ; [facility] Cymbalta 30 MG Capsule, delayed-release particles 03/08/2015 - 03/16/2015 Provider: ONEL NATARAJAN PA-C Diagnosis: DEPRESSIVE DISOR ANTHONY NEC 1 cap PO qd x 4 days then in crease to 2 caps qd. Generic. Last Documented On 5 4:26PM By ONEL NATARAJAN PA-C ; [facility] vitamin B12 1000mcg/ml Injection (not specified) 03/08/2015 - 09/28/2020 Provider: ONEL NATARAJAN PA-C Diagnosis: MALAISE AND FATI ALEJANDRA NEC 1 injection IM q wk x 4 wks then 1 injection monthly. Please include syringes and needles. Rx shop Last Documented On 0 2:39PM By SEBAS JOHNSON ; [facility] Hydrocodone-Acetaminophen 10 -325 MG Tablet 03/08/2015 - 03/16/2015 Provider: ONEL NATARAJAN PA-C Diagnosis: 1-2 Q 6 HRS PRN MAX 8 PER DA Y; pharmacy only give #180 of #240 that [employer] covered. Last Documented On 5 4:35PM By ONEL NATARAJAN PA-C ; [facility] Lasix 40 MG Tablet 02/18/2015 - 03/08/2015 Provider: ONEL NATARAJAN PA-C Diagnosis: MENIERE'S DISEAS E NOS One tablet daily PRN swelling. Last Documented On 5 9:39AM By ONEL NATARAJAN PA-C ; [facility] Amoxicillin 500 MG Capsule, conventional 02/18/2015 - 09/28/2020 Provider: ONEL NATARAJAN PA-C Diagnosis: ACUTE SINUSITIS NOS three times a day Last Documented On 0 2:39PM By SEBAS JOHNSON ; [facility] Lasix 40 MG Tablet 02/18/2015 - 09/28/2020 Provider: ONEL NATARAJAN PA-C Diagnosis: MENIERE'S DISEAS E NOS 1 daily PRN SWELLING Last Documented On 0 2:39PM By SEBAS JOHNSON ; [facility] Symbicort 160-4.5 MCG/ACT Aerosol 02/18/2015 - 09/28/2020 Provider: ONEL NATARAJAN PA-C Diagnosis: COPD 1 puff BID. Last Documented On 0 2:39PM By SEBAS JOHNSON ; [facility] Robaxin-750 750 MG Tablet 02/16/2015 - 03/16/2015 Prov ider: CATALINO QUIÑONES MD Diagnosis: One tablet four times a day Last Documented On 5 4:31PM By ONEL NATARAJAN PA-C ; [facility] Hydrocodone-Acetaminophen 10 -325 MG Tablet 02/15/2015 - 03/08/2015 Provider: CATALINO QUIÑONES MD Diagnosis: 1-2 Q 6 HRS PRN MAX 8 PER DAY Last Documented On 5 12:04PM By ONEL NATARAJAN PA-C ; [facility] Phenergan 25 mg Tablet 02/15/2015 - 09/28/2020 Provide r: CATALINO QUIÑONES MD Diagnosis: 1 every 4 - 6 hours as needed med shop Last Documented On 0 2:39PM By SEBAS JOHNSON ; [facility] Vitamin D (Ergocalciferol) 43171 UNIT Capsule, conventional 02/15/2015 - 03/16/2015 Provider: CATALINO MCKEON MD Diagnosis: as directed 1 Q WEEK X 6 WEEKS THEN 1 Q OTHER WE EK Last Documented On 5 4:33PM By ONEL NATARAJAN PA-C ; [facility] Diazepam 5 MG Tablet 01/23/2015 - 03/16/2015 Provider: CATALINO QUIÑONES MD Diagnosis: One tablet four times a day PRN FILL WHEN DUE MUST LAST 30 DAYS MED SHOP Last Documented On 5 4:29PM By ONEL NATARAJAN PA-C ; [facility] fentaNYL 75 MCG/HR TD PT72 01/20/2015 - 03/16/2015 Provider: CATALINO MCKEON MD Diagnosis: Chronic Pain NEC Last Documented On 5 4:38PM By ONEL NATARAJAN PA-C ; [facility] HYDROcodone-Acetaminophen 10 -325 MG OR TABS 01/11/2015 - 02/15/2015 Provider: CATALINO QUIÑONES MD Diagnosis: 1-2 Q 6 HRS PRN MAX 8 PER DAY Last Documented On 02/15/2015 2:36PM By Wanda JOHNSON ; [facility] diazePAM 5 MG OR TABS 12/27/2014 - 01/23/2015 Provider : CATALINO QUIÑONES MD Diagnosis: PRN FILL WHEN DUE MUST LAST 30 DAYS MED SHOP Last Documented On 01/23/2015 2:42PM By Wanda JOHNSON ; [facility] HYDROcodone-Acetaminophen 10 -325 MG OR TABS 12/23/2014 - 12/26/2014 Provider: CATALINO QUIÑONES MD Diagnosis: 1-2 Q 6 HOURS MAX 8 A DAY FILL DATE THE 5TH Last Documented On 5 8:04AM By CATALINO QUIÑONES MD ; [facility] diazePAM 5 MG OR TABS 12/23/2014 - 12/27/2014 Provider : CATALINO QUIÑONES MD Diagnosis: PRN FILL WHEN DUE MUST LAST 30 DAYS ASHLEY Last Documented On 12/27/2014 4:58PM By Wanda JOHNSON ; [facility] fentaNYL 75 MCG/HR TD PT72 12/23/2014 - 01/20/2015 Provider: CATALINO MCKEON MD Diagnosis: Chronic Pain NEC Last Documented On 01/20/2015 2:16PM By Wanda JOHNSON ; [facility] HYDROcodone-Acetaminophen 10 -325 MG OR TABS 11/21/2014 - 12/23/2014 Provider: CATALINO QUIÑONES MD Diagnosis: 1-2 Q 6 HOURS MAX 8 A DAY FILL DATE THE 5TH Last Documented On 12/23/2014 9:02AM By Wanda JOHNSON ; [facility] fentaNYL 75 MCG/HR TD PT72 11/21/2014 - 12/23/2014 Provider: CATALINO MCKEON MD Diagnosis: Chronic Pain NEC Last Documented On 12/23/2014 9:02AM By Wanda JOHNSON ; [facility] diazePAM 5 MG OR TABS 11/21/2014 - 12/23/2014 Provider : CATALINO QUIÑONES MD Diagnosis: PRN FILL WHEN DUE MUST LAST 30 DAYS ASHLEY Last Documented On 12/23/2014 9:01AM By Wanda JOHNSON ; [facility] Robaxin-750 750 MG OR TABS 10/25/2014 - 02/15/2015 Pro vider: CATALINO QUIÑONES MD Diagnosis: [phone] Last Documented On 5 11:47AM By ONEL NATARAJAN PA-C ; [facility] fentaNYL 75 MCG/HR TD PT72 10/21/2014 - 11/21/2014 Provider: CATALINO MCKEON MD Diagnosis: Chronic Pain NEC Last Documented On 11/21/2014 1:34PM By Wanda JOHNSON ; [facility] HYDROcodone-Acetaminophen 10 -325 MG OR TABS 10/21/2014 - 11/21/2014 Provider: CATALINO QUIÑONES MD Diagnosis: 1-2 Q 6 HOURS MAX 8 A DAY FILL DATE THE 5TH Last Documented On 11/21/2014 1:35PM By Wanda JOHNSON ; [facility] Phenergan 25 mg OR TABS 10/21/2014 - 02/15/2015 Provid er: CATALINO QUIÑONES MD Diagnosis: med shop Last Documented On 5 11:53AM By ONEL NATARAJAN PA-C ; [facility] diazePAM 5 MG OR TABS 10/19/2014 - 11/21/2014 Provider : CATALINO QUIÑONES MD Diagnosis: PRN FILL WHEN DUE MUST LAST 30 DAYS ASHLEY Last Documented On 11/21/2014 1:34PM By Wanda JOHNSON ; [facility] HYDROcodone-Acetaminophen 10 -325 MG OR TABS 09/21/2014 - 10/21/2014 Provider: CATALINO QUIÑONES MD Diagnosis: 1-2 Q 6 HOURS MAX 8 A DAY FILL DATE THE 5TH Last Documented On 10/21/2014 11:00AM By Wanda JOHNSON ; [facility] fentaNYL 75 MCG/HR TD PT72 09/21/2014 - 10/21/2014 Provider: CATALINO MCKEON MD Diagnosis: Chronic Pain NEC Last Documented On 10/21/2014 11:00AM By Wanda JOHNSON ; [facility] fentaNYL 75 MCG/HR TD PT72 08/23/2014 - 09/21/2014 Provider: CATALINO MCKEON MD Diagnosis: Chronic Pain NEC Last Documented On 09/21/2014 2:48PM By Wanda JOHNSON ; [facility] Robaxin-750 750 MG OR TABS 08/23/2014 - 10/25/2014 Pro vider: CATALINO QUIÑONES MD Diagnosis: [phone] Last Documented On 10/25/2014 12:08PM By Wanda JOHNSON ; [facility] fentaNYL 75 MCG/HR TD PT72 07/25/2014 - 08/23/2014 Provider: CATALINO MCKEON MD Diagnosis: Chronic Pain NEC Last Documented On 08/23/2014 1:59PM By Wanda JONHSON ; [facility] HYDROcodone-Acetaminophen 10 -325 MG OR TABS 06/17/2014 - 09/21/2014 Provider: CATALINO QUIÑONES MD Diagnosis: 1-2 Q 6 HOURS MAX [address] LAST 30 DAYS FILL WHEN DUE ASHLEY Last Documented On 09/21/2014 2:48PM By Wanda JOHNSON ; [facility] fentaNYL 75 MCG/HR TD PT72 06/17/2014 - 07/25/2014 Provider: CATALINO MCKEON MD Diagnosis: Chronic Pain NEC Last Documented On 07/25/2014 1:34PM By Wanda JOHNSON ; [facility] Robaxin-750 750 MG OR TABS 05/17/2014 - 08/23/2014 Pro vider: CATALINO QUIÑONES MD Diagnosis: [phone] Last Documented On 08/23/2014 1:59PM By Wanda JOHNSON ; [facility] Gabapentin 300 MG OR CAPS 05/13/2014 - 09/28/2020 Prov ider: CATALINO QUIÑONES MD Diagnosis: TAKE 2 CAPSULES BY MOUTH FOUR TIMES DAILY Last Documented On 0 2:40PM By SEBAS JOHNSON ; [facility] diazePAM 5 MG OR TABS 05/12/2014 - 10/19/2014 Provider : CATALINO QUIÑONES MD Diagnosis: PRN FILL WHEN DUE MUST LAST 30 DAYS ASHLEY Last Documented On 10/19/2014 4:38PM By Wanda JOHNSON ; [facility] Nystatin [id number] UNIT/ML MT SUSP 05/09/2014 - 09/28/2020 Provider: CATALINO MCKEON MD Diagnosis: 5 ML SWISH AND SWALLOW QID UNTIL GONE Last Documented On 0 2:40PM By SEBAS JOHNSON ; [facility] Diflucan 150 MG OR TABS 05/09/2014 - 09/28/2020 Provid er: CATALINO QUIÑONES MD Diagnosis: 1 NOW AND 1 IN 3 DAYS Last Documented On 0 2:40PM By SEBAS JOHNSON ; [facility] fentaNYL 75 MCG/HR TD PT72 05/09/2014 - 06/17/2014 Provider: CATALINO MCKEON MD Diagnosis: Chronic Pain NEC Last Documented On 4 1:43PM By CATALINO QUIÑONES MD ; [facility] Amoxicillin 500 MG OR TABS 04/27/2014 - 09/28/2020 Pro vider: CATALINO QUIÑONES MD Diagnosis: Last Documented On 0 2:40PM By SEBAS JOHNSON ; [facility] fentaNYL 75 MCG/HR TD PT72 04/18/2014 - 05/09/2014 Provider: MAHENDRA WADDELL D.O. Diagnosis: Chronic Pain NEC Last Documented On 05/09/2014 3:08PM By Wanda JOHNSON ; [facility] diazePAM 5 MG OR TABS 04/15/2014 - 05/12/2014 Provider : CATALINO QUIÑONES MD Diagnosis: PRN FILL WHEN DUE MUST LAST 30 DAYS ASHLEY Last Documented On 05/12/2014 8:39AM By Wanda JOHNSON ; [facility] HYDROcodone-Acetaminophen 10 -325 MG OR TABS 04/15/2014 - 06/17/2014 Provider: CATALINO QUIÑONES MD Diagnosis: 1-2 Q 6 HOURS MAX [address] LAST 30 DAYS FILL WHEN DUE ASHLEY Last Documented On 06/17/2014 2:13PM By Wanda JOHNSON ; [facility] Vitamin D (Ergocalciferol) 1.25 MG (31884 UT) OR CAPS 03/25/2014 - 02/15/2015 Provider: CATALINO GALAN MD Diagnosis: 1 Q WEEK X 6 WEEKS THEN 1 Q OTHER WEEK Last Documented On 11:38AM By ONEL NATARAJAN PA-C ; [facility] fentaNYL 75 MCG/HR TD PT72 2014 - 04/18/2014 Provider: CATALINO MCKEON MD Diagnosis: Chronic Pain NEC Last Documented On 04/18/2014 4:54PM By MAHENDRA WADDELL DO ; [facility] diazePAM 5 MG OR TABS 03/17/2014 - 04/15/2014 Provider : CATALINO QUIÑONES MD Diagnosis: PRN FILL WHEN DUE ASHLEY Last Documented On 04/15/2014 10:23AM By Wanda JOHNSON ; [facility] fentaNYL 50 MCG/HR TD PT72 02/18/2014 - 04/18/2014 Pro vider: CATALINO QUIÑONES MD Diagnosis: Last Documented On 04/18/2014 3:31PM By Wanda JOHNSON ; [facility] HYDROcodone-Acetaminophen 10 -325 MG OR TABS 02/18/2014 - 04/15/2014 Provider: CATALINO QUIÑONES MD Diagnosis: 1-2 Q 6 HOURS MAX 8 A DAY ASHLEY Last Documented On 04/15/2014 10:23AM By Wanda JOHNSON ; [facility] fentaNYL 75 MCG/HR TD PT72 01/26/2014 - 2014 Provider: CATALINO MCKEON MD Diagnosis: Chronic Pain NEC Last Documented On 2014 3:40PM By Wanda JOHNSON ; [facility] diazePAM 5 MG OR TABS 01/14/2014 - 03/17/2014 Provider : CATALINO QUIÑONES MD Diagnosis: PRN FILL WHEN DUE ASHLEY Last Documented On 03/17/2014 3:34PM By Wanda JOHNSON ; [facility] Phenergan 25 mg OR TABS 01/12/2014 - 10/21/2014 Provid er: CATALINO QUIÑONES MD Diagnosis: AHSLEY Last Documented On 10/21/2014 4:39PM By Wanda JOHNSON ; [facility] Metoprolol Tartrate 50 MG OR TABS 01/12/2014 - 02/18/2015 Provider: CATALINO MCKEON MD Diagnosis: Last Documented On 11:03AM By ONEL NATARAJAN PA-C ; [facility] Robaxin-750 750 MG OR TABS 01/10/2014 - 05/17/2014 Pro vider: CATALINO QUIÑONES MD Diagnosis: [phone] Last Documented On 05/17/2014 11:38AM By Wanda JOHNSON ; [facility] diazePAM 5 MG OR TABS 12/20/2013 - 01/14/2014 Provider : ONEL NATARAJAN PA-C Diagnosis: PRN ASHLEY Last Documented On 01/14/2014 10:16AM By Wanda JOHNSON ; [facility] HYDROcodone-Acetaminophen 10 -325 MG OR TABS 12/20/2013 - 02/18/2014 Provider: ONEL NATARAJAN PA-C Diagnosis: 1-2 Q 6 HOURS MAX 8 A DAY ASHLEY Last Documented On 02/18/2014 11:59AM By Wanda JOHNSON ; [facility] fentaNYL 75 MCG/HR TD PT72 12/15/2013 - 01/26/2014 Provider: CATALINO MCKEON MD Diagnosis: Chronic Pain NEC Last Documented On 01/26/2014 1:33PM By Wanda JOHNSON ; [facility] fentaNYL 75 MCG/HR TD PT72 11/19/2013 - 12/15/2013 Provider: CATALINO MCKEON MD Diagnosis: Chronic Pain NEC Last Documented On 12/15/2013 1:15PM By Wanda JOHNSON ; [facility] diazePAM 5 MG OR TABS 11/18/2013 - 12/20/2013 Provider : CATALINO QUIÑONES MD Diagnosis: SUSANA RAMIREZ Last Documented On 12/20/2013 11:52AM By Wanda JOHNSON ; [facility] Cymbalta 60 MG OR CPEP 11/02/2013 - 03/17/2014 Provide r: CATALINO QUIÑONES MD Diagnosis: Last Documented On 4 11:27AM By HAYLIE DEVINE MA ; [facility] Cymbalta 30 MG OR CPEP 11/02/2013 - 03/16/2014 Provide r: CATALINO QUIÑONES MD Diagnosis: 2 ONCE A DAY FOR 60MG Last Documented On 03/16/2014 4:15PM By HAYLIE DEVINE MA ; [facility] Symbicort 160-4.5 MCG/ACT IN AERO 11/02/2013 - 03/17/2014 Provider: CATALINO MCKEON MD Diagnosis: Last Documented On 4 11:27AM By HAYLIE DEVINE MA ; [facility] HYDROcodone-Acetaminophen 10 -325 MG OR TABS 10/19/2013 - 12/20/2013 Provider: CATALINO QUIÑONES MD Diagnosis: 1-2 Q 6 HOURS MAX 8 A DAY ASHLEY Last Documented On 12/20/2013 11:52AM By Wanda JOHNSON ; [facility] [facility] Cymbalta 60 MG OR CPEP 10/12/2013 - 11/02/2013 Provide r: CATALINO QUIÑONES MD Diagnosis: Last Documented On 11/02/2013 8:15AM By Wanda JOHNSON ; [facility] fentaNYL 75 MCG/HR TD PT72 10/12/2013 - 11/19/2013 Provider: CATALINO MCKEON MD Diagnosis: Chronic Pain NEC Last Documented On 11/19/2013 8:45AM By Wanda JOHNSON ; [facility] fentaNYL 50 MCG/HR TD PT72 09/20/2013 - 11/01/2013 Pro vider: CATALINO QUIÑONES MD Diagnosis: Last Documented On 3 3:45PM By BRIDGER JOHNSON ; [facility] Metoprolol Tartrate 50 MG OR TABS 09/17/2013 - 01/12/2014 Provider: CATALINO MCKEON MD Diagnosis: Last Documented On 01/12/2014 4:29PM By Wanda JOHNSON ; [facility] diazePAM 5 MG OR TABS 09/06/2013 - 11/18/2013 Provider : CATALINO QUIÑONES MD Diagnosis: PRJay RAMIREZ Last Documented On 11/18/2013 1:56PM By Wanda JOHNSON ; [facility] fentaNYL 50 MCG/HR TD PT72 08/25/2013 - 09/20/2013 Pro vider: CATALINO QUIÑONES MD Diagnosis: Last Documented On 09/20/2013 10:11AM By Wanda JOHNSON ; [facility] HYDROcodone-Acetaminophen 10 -325 MG OR TABS 08/16/2013 - 10/19/2013 Provider: CATALINO QUIÑONES MD Diagnosis: 1-2 Q 6 HOURS MAX 8 A DAY ASHLEY Last Documented On 10/19/2013 11:17AM By Wanda JOHNSON ; [facility] diazePAM 5 MG OR TABS 07/29/2013 - 09/06/2013 Provider : CATALINO QUIÑONES MD Diagnosis: PRJay RAMIREZ Last Documented On 09/06/2013 4:14PM By Wanda JOHNSON ; [facility] Robaxin-750 750 MG OR TABS 07/25/2013 - 01/10/2014 Pro vider: CATALINO QUIÑONES MD Diagnosis: [phone] Last Documented On 01/10/2014 1:18PM By Wanda JOHNSON ; [facility] HYDROcodone-Acetaminophen 10 -325 MG OR TABS 06/11/2013 - 08/16/2013 Provider: CATALINO QUIÑONES MD Diagnosis: 1-2 Q 6 HOURS MAX 8 A DAY ASHLEY Last Documented On 08/16/2013 5:32PM By Wanda JOHNSON ; [facility] Gabapentin 300 MG OR CAPS 06/03/2013 - 05/13/2014 Prov ider: CATALINO QUIÑONES MD Diagnosis: TAKE 2 CAPSULES BY MOUTH FOUR TIMES DAILY Last Documented On 05/13/2014 2:09PM By Wanda JOHNSON ; [facility] diazePAM 5 MG OR TABS 06/02/2013 - 07/29/2013 Provider : CATALINO QUIÑONES MD Diagnosis: PRN ASHLEY Last Documented On 07/29/2013 2:10PM By HAYLIE DEVINE MA ; [facility] fentaNYL 50 MCG/HR TD PT72 06/01/2013 - 08/25/2013 Pro vider: CATALINO QUIÑONES MD Diagnosis: Last Documented On 08/25/2013 9:37AM By HAYLIE DEVINE MA ; [facility] Robaxin-750 750 MG OR TABS 06/01/2013 - 10/12/2013 Pro vider: Diagnosis: [phone] Last Documented On 3 2:49PM By BRIDGER LAROSE Efren ; [facility] diazePAM 5 MG OR TABS 06/01/2013 - 09/17/2013 Provider : Diagnosis: PRN Last Documented On 09/17/2013 8:23AM By HAYLIE DEVINE MA ; [facility] Potassium Chloride 20 MEQ OR PACK 06/01/2013 - 09/28/2020 Provider: CATALINO MCKEON MD Diagnosis: BACKACHE NOS 1-2 QD PRN Last Documented On 0 2:40PM By SEBAS JOHNSON ; [facility] Lasix 40 MG OR TABS 06/01/2013 - 02/18/2015 Provider: CATALINO QUIÑONES MD Diagnosis: BACKACHE NOS PRN SWELLING Last Documented On 5 11:03AM By ONEL NATARAJAN PA-C ; [facility] fentaNYL 50 MCG/HR TD PT72 05/10/2013 - 06/01/2013 Pro vider: CATALINO QUIÑONES MD Diagnosis: Last Documented On 3 3:59PM By CATALINO QUIÑONES MD ; [facility] HYDROcodone-Acetaminophen 10 -325 MG OR TABS 04/14/2013 - 06/11/2013 Provider: CATALINO QUIÑONES MD Diagnosis: 1-2 Q 6 HOURS MAX 8 A DAY ASHLEY Last Documented On 06/11/2013 10:55AM By Wanda JOHNSON ; [facility] HYDROcodone-Acetaminophen 10 -325 MG OR TABS 04/13/2013 - 04/14/2013 Provider: CATALINO QUIÑONES MD Diagnosis: 1-2 Q 6 HOURS MAX 8 A DAY ASHLEY Last Documented On 04/14/2013 3:39PM By Wanda JOHNSON ; [facility] fentaNYL 50 MCG/HR TD PT72 03/12/2013 - 05/10/2013 Pro vider: CATALINO QUIÑONES MD Diagnosis: Last Documented On 05/10/2013 5:10PM By Wanda OJHNSON ; [facility] Amoxicillin 500 MG OR TABS 03/01/2013 - 04/13/2013 Pro vider: CATALINO QUIÑONES MD Diagnosis: Last Documented On 3 11:50AM By HAYLIE DEVINE MA ; [facility] Robaxin-750 750 MG OR TABS 02/18/2013 - 10/12/2013 Pro vider: CATALINO QUIÑONES MD Diagnosis: [phone] Last Documented On 3 2:49PM By BRIDGER JOHNSON ; [facility] CeleXA 20 MG OR TABS 02/18/2013 - 06/01/2013 Provider: CATALINO QUIÑONES MD Diagnosis: Sympt Fem [place] WITH THE CYMBAL[place] FOR HOT FLASHES Last Documented On 06/01/2013 3:01PM By Wanda JOHNSON ; [facility] fentaNYL 50 MCG/HR TD PT72 02/08/2013 - 03/12/2013 Pro vider: CATALINO QUIÑONES MD Diagnosis: Last Documented On 03/12/2013 2:06PM By Wanda JOHNSON ; [facility] Metoprolol Tartrate 50 MG OR TABS 02/05/2013 - 09/17/2013 Provider: CATALINO MCKEON MD Diagnosis: Last Documented On 09/17/2013 1:45PM By Wanda JOHNSON ; [facility] Metoprolol Tartrate 50 MG OR TABS 01/11/2013 - 02/05/2013 Provider: ONEL NATARAJAN PA-C Diagnosis: Last Documented On 02/05/2013 4:52PM By Wanda JOHNSON ; [facility] Keflex 250 MG OR CAPS 12/25/2012 - 02/09/2013 Provider : CATALINO QUIÑONES MD Diagnosis: Last Documented On 3 11:36AM By HAYLIE DEVINE MA ; [facility] HYDROcodone-Acetaminophen 10 -325 MG OR TABS 12/18/2012 - 04/13/2013 Provider: CATALINO QUIÑONES MD Diagnosis: 1-2 Q 6 HOURS MAX 8 A DAY ASHLEY Last Documented On 04/13/2013 12:00PM By Wanda JOHNSON ; [facility] fentaNYL 50 MCG/HR TD PT72 12/02/2012 - 02/08/2013 Pro vider: CATALINO QUIÑONES MD Diagnosis: Last Documented On 3 10:51AM By HAYLIE DEVINE MA ; [facility] Dilaudid 2 MG OR TABS 10/13/2012 - 09/17/2013 Provider : CATALINO QUIÑONES MD Diagnosis: FOR PAIN UNTIL YOU CAN GET PATCHES AGAIN Last Documented On 09/17/2013 8:23AM By HAYLIE DEVINE MA ; [facility] Cymbalta 60 MG OR CPEP 10/05/2012 - 10/12/2013 Provide r: CATALINO QUIÑONES MD Diagnosis: 1 TAB QD ALONG WITH 30MG Last Documented On 10/12/2013 3:37PM By Wanda JOHNSON ; [facility] Cymbalta 30 MG OR CPEP 10/05/2012 - 11/01/2013 Provide r: CATALINO QUIÑONES MD Diagnosis: ALONG WITH 60MG 1 QD Last Documented On 3 3:46PM By BRIDGER JOHNSON ; [facility] Gabapentin 300 MG OR CAPS 10/05/2012 - 06/03/2013 Prov ider: CATALINO QUIÑONES MD Diagnosis: TAKE 2 CAPSULES BY MOUTH FOUR TIMES DAILY Last Documented On 06/03/2013 10:04AM By Wanda JOHNSON ; [facility] Cymbalta 30 MG OR CPEP 10/05/2012 - 10/05/2012 Provide r: CATALINO QUIÑONES MD Diagnosis: ALONG WITH 60MG 1 QD Last Documented On 10/05/2012 5:26PM By HAYLIE DEVINE MA ; [facility] Cymbalta 60 MG OR CPEP 10/05/2012 - 10/05/2012 Provide r: CATALINO QUIÑONES MD Diagnosis: 1 TAB QD ALONG WITH 30MG Last Documented On 10/05/2012 5:27PM By HAYLIE DEVINE MA ; [facility] Dilaudid 2 MG OR TABS 10/05/2012 - 10/13/2012 Provider : CATALINO QUIÑONES MD Diagnosis: FOR PAIN UNTIL YOU CAN GET PATCHES AGAIN Last Documented On 10/13/2012 4:45PM By HAYLIE DEVINE MA ; [facility] Dilaudid 2 MG OR TABS 10/05/2012 - 10/05/2012 Provider : CATALINO QUIÑONES MD Diagnosis: FOR PAIN UNTIL YOU CAN GET PATCHES AGAIN Last Documented On 10/05/2012 8:23AM By HAYLIE DEVINE MA ; [facility] HYDROcodone-Acetaminophen 10 -325 MG OR TABS 09/30/2012 - 12/18/2012 Provider: CATAILNO QUIÑONES MD Diagnosis: 1-2 Q 6 HOURS MAX 8 A DAY BRIGHTONDUE 10/02/12 Last Documented On 12/18/2012 3:46PM By Wanda JOHNSON ; [facility] diazePAM 5 MG OR TABS 09/28/2012 - 10/12/2013 Provider : CATALINO QUIÑONES MD Diagnosis: PRN FILL WHEN DUE, MUST LAST 30 DAYS, NO EARLY F ILLS. Last Documented On 3 2:48PM By BRIDGER JOHNSON ; [facility] fentaNYL 50 MCG/HR TD PT72 09/09/2012 - 12/02/2012 Pro vider: CATALINO QUIÑONES MD Diagnosis: Last Documented On 12/02/2012 3:51PM By HAYLIE DEVINE MA ; [facility] Triston Low Dose 81 MG OR TBEC 09/09/2012 - 03/16/2014 Provider: CATALINO MCKEON MD Diagnosis: ACUTE URI NOS Last Documented On 03/16/2014 4:16PM By HAYLIE DEVINE MA ; [facility] Suprax 400 MG OR TABS 09/09/2012 - 02/11/2013 Provider : CATALINO QUIÑONES MD Diagnosis: ACUTE URI NOS Last Documented On 3 3:11PM By CATALINO QUIÑONES MD ; [facility] Cymbalta 60 MG OR CPEP 09/09/2012 - 10/05/2012 Provide r: CATALINO QUIÑONES MD Diagnosis: 1 TAB QD ALONG WITH 30MG Last Documented On 10/05/2012 5:04PM By HAYLIE DEVINE MA ; [facility] Cymbalta 30 MG OR CPEP 09/09/2012 - 10/05/2012 Provide r: CATALINO QUIÑONES MD Diagnosis: ALONG WITH 60MG 1 QD Last Documented On 10/05/2012 5:06PM By HAYLIE DEVINE MA ; [facility] Cymbalta 30 MG OR CPEP 09/09/2012 - 09/09/2012 Provide r: Diagnosis: ALONG WITH 60MG 1 QD Last Documented On 2 4:31PM By CATALINO QUIÑONES MD ; [facility] Cymbalta 60 MG OR CPEP 09/09/2012 - 09/09/2012 Provide r: Diagnosis: 1 TAB QD ALONG WITH 30MG Last Documented On 2 4:31PM By CATALINO QUIÑONES MD ; [facility] HYDROcodone-Acetaminophen 10 -325 MG OR TABS 08/03/2012 - 09/30/2012 Provider: CATALINO QUIÑONES MD Diagnosis: 1-2 Q 6 HOURS MAX 8 A DAY ASHLEY Last Documented On 2 10:34AM By HAYLIE DEVINE MA ; [facility] Amoxicillin 500 MG OR CAPS 07/15/2012 - 09/09/2012 Pro vider: CATALINO UQIÑONES MD Diagnosis: Last Documented On 2 4:18PM By CATALINO QUIÑONES MD ; [facility] Vimovo 500-20 MG OR TBEC 06/08/2012 - 02/11/2013 Provi anthony: CATALINO QUIÑONES MD Diagnosis: BACKACHE NOS Last Documented On 3 3:11PM By CATALINO QUIÑONES MD ; [facility] fentaNYL 50 MCG/HR TD PT72 06/08/2012 - 09/09/2012 Pro vider: CATALINO QUIÑONES MD Diagnosis: Last Documented On 2 4:34PM By CATALINO QUIÑONES MD ; [facility] HYDROcodone-Acetaminophen 10 -325 MG OR TABS 06/03/2012 - 08/03/2012 Provider: CATALINO QUIÑONES MD Diagnosis: 1-2 Q 6 HOURS MAX 8 A DAY ASHLEY Last Documented On 08/03/2012 6:02PM By HAYLIE DEVINE MA ; [facility] Amoxicillin 500 MG OR CAPS 04/29/2012 - 06/08/2012 Provider: CATALINO QUIÑONES MD Diagnosis: ACUTE SINUSITIS NOS Last Documented On 2 5:41PM By CATALINO QUIÑONES MD ; [facility] Levaquin 500 MG OR TABS 04/01/2012 - 06/08/2012 Provider: CATALINO MCKEON MD Diagnosis: Chronic Pain NEC TO REPLACVE AVELOX Last Documented On 2 5:41PM By CATALINO QUIÑONES MD ; [facility] diazePAM 5 MG OR TABS 04/01/2012 - 09/28/2012 Provider : CATALINO QUIÑONES MD Diagnosis: PRN FILL WHEN DUE, MUST LAST 30 DAYS, NO EARLY F ILLS. Last Documented On 09/28/2012 1:03PM By HAYLIE DEVINE MA ; [facility] fentaNYL 50 MCG/HR TD PT72 04/01/2012 - 06/08/2012 Pro vider: CATALINO QUIÑONES MD Diagnosis: Last Documented On 06/08/2012 6:39PM By Wanda JOHNSON ; [facility] Avelox 400 MG OR TABS 04/01/2012 - 06/08/2012 Provider : CATALINO QUIÑONES MD Diagnosis: Chronic Pain NEC Last Documented On 2 5:41PM By CATALINO QUIÑONES MD ; [facility] CeleBREX 200 MG OR CAPS 04/01/2012 - 09/09/2012 Provider: CATALINO MCKEON MD Diagnosis: Chronic Pain NEC PRN Last Documented On 09/09/2012 3:53PM By HAYLIE DEVINE MA ; [facility] Avelox 400 MG OR TABS 04/01/2012 - 06/08/2012 Provider : CATALINO QUIÑONES MD Diagnosis: Last Documented On 2 5:41PM By CATALINO QUIÑONES MD ; [facility] Metoprolol Tartrate 50 MG OR TABS 04/01/2012 - 09/17/2013 Provider: CATALINO MCKEON MD Diagnosis: TAKE ONE TABLET BY MOUTH TWICE DAILY Last Documented On 09/17/2013 8:23AM By HAYLIE DEVINE MA ; [facility] Gabapentin 300 MG OR CAPS 04/01/2012 - 10/05/2012 Prov ider: CATALINO QUIÑONES MD Diagnosis: TAKE 2 CAPSULES BY MOUTH FOUR TIMES DAILY Last Documented On 10/05/2012 5:07PM By HAYLIE DEVINE MA ; [facility] Lidoderm 5% EX PTCH 03/31/2012 - 09/09/2012 Provider: CATALINO QUIÑONES MD Diagnosis: BACKACHE NOS Last Documented On 09/09/2012 3:53PM By HAYLIE DEVINE MA ; [facility] Lidoderm 5% EX PTCH 03/10/2012 - 03/31/2012 Provider: CATALINO QUIÑONES MD Diagnosis: BACKACHE NOS Last Documented On 03/31/2012 4:22PM By Wanda JOHNSON ; [facility] fentaNYL 50 MCG/HR TD PT72 03/05/2012 - 04/01/2012 Pro vider: CATALINO QUIÑONES MD Diagnosis: Last Documented On 2 2:12PM By CATALINO QUIÑONES MD ; [facility] HYDROcodone-Acetaminophen 10 -325 MG OR TABS 03/04/2012 - 06/03/2012 Provider: CATALINO QUIÑONES MD Diagnosis: 1-2 Q 6 HOURS MAX 8 A DAY ASHLEY Last Documented On 06/03/2012 4:19PM By HAYLIE DEVINE MA ; [facility] Lasix 20 MG OR TABS 03/04/2012 - 09/02/2012 Provider: CATALINO MCKEON MD Diagnosis: DIZZINESS AND GIDDINESS Last Documented On 2 11:33AM By HAYLIE DEVINE MA ; [facility] Gabapentin 300 MG OR CAPS 03/04/2012 - 04/01/2012 Prov ider: CATALINO QUIÑONES MD Diagnosis: TAKE 2 CAPSULES BY MOUTH FOUR TIMES DAILY Last Documented On 2 2:12PM By CATALINO QUIÑONES MD ; [facility] CeleBREX 200 MG OR CAPS 02/12/2012 - 06/08/2012 Provid er: CATALINO QUIÑONES MD Diagnosis: BACKACHE NOS Last Documented On 2 5:41PM By CATALINO QUIÑONES MD ; [facility] Lidoderm 5% EX PTCH 02/05/2012 - 03/10/2012 Provider: CATALINO QUIÑONES MD Diagnosis: BACKACHE NOS Last Documented On 03/10/2012 4:23PM By Wanda JOHNSON ; [facility] diazePAM 5 MG OR TABS 02/05/2012 - 04/01/2012 Provider : CATALINO QUIÑONES MD Diagnosis: PRN FILL WHEN DUE, MUST LAST 30 DAYS, NO EARLY F ILLS. Last Documented On 2 2:12PM By CATALINO QUIÑONES MD ; [facility] fentaNYL 50 MCG/HR TD PT72 02/05/2012 - 03/05/2012 Pro vider: CATALINO QUIÑONES MD Diagnosis: Last Documented On 03/05/2012 11:25AM By Wanda JOHNSON ; [facility] CeleBREX 200 MG OR CAPS 02/05/2012 - 02/12/2012 Provid er: CATALINO QUIÑONES MD Diagnosis: BACKACHE NOS Last Documented On 02/12/2012 4:29PM By Wanda JOHNSON ; [facility] Cymbalta 60 MG OR CPEP 01/01/2012 - 09/02/2012 Provider: CATALINO QUIÑONES MD Diagnosis: DEPRESSIVE DISOR ANTHONY NEC Last Documented On 2 11:33AM By HAYLIE DEVINE MA ; [facility] diazePAM 5 MG OR TABS 01/01/2012 - 02/05/2012 Provider : CATALINO QUIÑONES MD Diagnosis: PRN FILL WHEN DUE, MUST LAST 30 DAYS, NO EARLY F ILLS. Last Documented On 2 4:30PM By CATALINO QUIÑONES MD ; [facility] HYDROcodone-Acetaminophen 10 -325 MG OR TABS 01/01/2012 - 03/04/2012 Provider: CATALINO QUIÑONES MD Diagnosis: 1-2 Q 6 HOURS MAX 8 A DAY Last Documented On 03/04/2012 4:35PM By Wanda JOHNSON ; [facility] fentaNYL 50 MCG/HR TD PT72 01/01/2012 - 02/05/2012 Pro vider: CATALINO QUIÑONES MD Diagnosis: Last Documented On 2 4:30PM By CATALINO QUIÑONES MD ; [facility] Cymbalta 30 MG OR CPEP 12/04/2011 - 09/02/2012 Provide r: CATALINO QUIÑONES MD Diagnosis: TAKE WITH THE 60MG TAB Last Documented On 2 11:33AM By HAYLIE DEVINE MA ; [facility] HYDROcodone-Acetaminophen 10 -325 MG OR TABS 12/04/2011 - 01/01/2012 Provider: CATALINO QUIÑONES MD Diagnosis: 1-2 Q 6 HOURS MAX 8 A DAY WG Last Documented On 2 4:43PM By CATALINO QUIÑONES MD ; [facility] fentaNYL 50 MCG/HR TD PT72 12/04/2011 - 01/01/2012 Pro vider: CATALINO QUIÑONES MD Diagnosis: Last Documented On 2 4:43PM By CATALINO QIUÑONES MD ; [facility] Metoprolol Tartrate 50 MG OR TABS 10/31/2011 - 04/01/2012 Provider: CATALINO MCKEON MD Diagnosis: TAKE ONE TABLET BY MOUTH TWICE DAILY Last Documented On 2 2:12PM By CATALINO QUIÑONES MD ; [facility] Triston Aspirin EC Low Dose 81 MG OR TBEC 10/31/2011 - 09/02/2012 Provider: CATALINO MCKEON MD Diagnosis: Last Documented On 2 11:33AM By HAYLIE DEVINE MA ; [facility] Cymbalta 60 MG OR CPEP 10/31/2011 - 01/01/2012 Provider: CATALINO QUIÑONES MD Diagnosis: DEPRESSIVE DISOR ANTHONY NEC Last Documented On 2 11:01PM By CATALINO QUIÑONES MD ; [facility] Lasix 20 MG OR TABS 10/30/2011 - 03/04/2012 Provider: CATALINO MCKEON MD Diagnosis: DIZZINESS AND GIDDINESS Last Documented On 03/04/2012 4:28PM By Wanda JOHNSON ; [facility] Potassium Chloride 20 MEQ OR PACK 10/30/2011 - 09/02/2012 Provider: CATALINO QUIÑONES MD Diagnosis: DIZZINESS AND GIDDINESS WITH LASIX Last Documented On 2 11:34AM By HAYLIE DEVINE MA ; [facility] Robaxin-750 750 MG OR TABS 10/30/2011 - 09/02/2012 Pro vider: CATALINO QUIÑONES MD Diagnosis: TAKE 1 TABLET BY MOUTH FOUR TIMES DAILY NEEDED. FILL WHEN DUE WG JV Last Documented On 2 11:34AM By HAYLIE DEVINE MA ; [facility] diazePAM 5 MG OR TABS 10/30/2011 - 01/01/2012 Provider : CATALINO QUIÑONES MD Diagnosis: PRN FILL WHEN DUE, MUST LAST 30 DAYS, NO EARLY FILLS. WG JV Last Documented On 01/01/2012 4:57PM By Wanda JOHNSON ; [facility] Hydrocodone-Acetaminophen 10 -500 MG OR TABS 10/30/2011 - 09/02/2012 Provider: CATALINO QUIÑONES MD Diagnosis: MAX IS 8 TABS A DAY, MUST LAST 30 DAYS WG JV Last Documented On 2 11:34AM By HAYLIE DEVINE MA ; [facility] fentaNYL 25 MCG/HR TD PT72 10/30/2011 - 09/02/2012 Pro vider: CATALINO QUIÑONES MD Diagnosis: Last Documented On 2 11:34AM By HAYLIE DEVINE MA ; [facility] Meclizine HCl 25 MG OR TABS 10/09/2011 - 09/02/2012 Pr ovider: CATALINO QUIÑONES MD Diagnosis: TAKE 1 TABLET BY MOUTH EVERY 6 HOURS NEEDED Last Documented On 2 11:34AM By HAYLIE DEVINE MA ; [facility] Meclizine HCl 25 MG OR TABS 09/30/2011 - 10/09/2011 Pr ovider: CATALINO QUIÑONES MD Diagnosis: TAKE 1 TABLET BY MOUTH EVERY 6 HOURS NEEDED Last Documented On 1 4:35PM By CATALINO QUIÑONES MD ; [facility] fentaNYL 25 MCG/HR TD PT72 09/17/2011 - 10/30/2011 Pro vider: CATALINO QUIÑONES MD Diagnosis: Last Documented On 1 5:03PM By CATALINO QUIÑONES MD ; [facility] Phenylephrine HCl 10 MG OR TABS 09/17/2011 - 09/02/2012 Provider: CATALINO QUIÑONES MD Diagnosis: DIZZINESS AND GIDDINESS 4 WEEKS Last Documented On 2 11:34AM By HAYLIE DEVINE MA ; [facility] Avelox 400 MG OR TABS 09/17/2011 - 09/02/2012 Provider: CATALINO MCKEON MD Diagnosis: DIZZINESS AND GIDDINESS Last Documented On 2 11:34AM By HAYLIE DEVINE MA ; [facility] Zithromax Z-Gómez 250 MG OR TABS 08/29/2011 - 09/02/2012 Provider: KAILYN MCKEON PA-C Diagnosis: Last Documented On 2 11:34AM By HAYLIE DEVINE MA ; [facility] Meclizine HCl 25 MG OR TABS 08/29/2011 - 09/30/2011 Pr ovider: KAILYN MCKEON PA-C Diagnosis: for dizziness Last Documented On 09/30/2011 4:35PM By KAILYN MCKEON PA-C ; [facility] Gabapentin 300 MG OR CAPS 08/22/2011 - 03/04/2012 Prov ider: CATALINO QUIÑONES MD Diagnosis: TAKE 2 CAPSULES BY MOUTH FOUR TIMES DAILY Last Documented On 03/04/2012 4:28PM By Wanda JOHNSON ; [facility] Cymbalta 60 MG OR CPEP 08/20/2011 - 10/31/2011 Provider: CATALINO QUIÑONES MD Diagnosis: DEPRESSIVE DISOR ANTHONY NEC Last Documented On 10/31/2011 8:26AM By Wanda JOHNSON ; [facility] Triston Aspirin EC Low Dose 81 MG OR TBEC 08/20/2011 - 10/31/2011 Provider: CATALINO MCKEON MD Diagnosis: Last Documented On 10/31/2011 8:27AM By Wanda JOHNSON ; [facility] Hydrocodone-Acetaminophen 10 -500 MG OR TABS 08/19/2011 - 10/30/2011 Provider: CATALINO QUIÑONES MD Diagnosis: THIS IS AN INCREASED AMOUNT OF ACETAMINOPHEN, MAX IS 8 TABS A DAY, MUST LAST 30 DAYS WG JV Last Documented On 1 5:02PM By CATALINO QUIÑONES MD ; [facility] hydroCHLOROthiazide 25 MG TABS 1 - 09/17/2013 Provider: CATALINO QUIÑONES MD Diagnosis: Last Documented On 09/17/2013 8:23AM By HAYLIE DEVINE MA ; [facility] fentaNYL 25 MCG/HR TD PT72 08/19/2011 - 09/17/2011 Pro vider: CATALINO QUIÑONES MD Diagnosis: Last Documented On 1 3:08PM By CATALINO QUIÑONES MD ; [facility] Lasix 40 MG OR TABS 08/19/2011 - 09/02/2012 Provider: CATALINO QUIÑONES MD Diagnosis: PRN FOR SWELLING Last Documented On 2 11:35AM By HAYLIE DEVINE MA ; [facility] Neurontin 300 MG OR CAPS 08/19/2011 - 04/01/2012 Provi anthony: Diagnosis: 2 TABS QID Last Documented On 2 2:03PM By CATALINO QUIÑONES MD ; [facility] Robaxin-750 750 MG OR TABS 08/19/2011 - 10/30/2011 Pro vider: CATALINO QUIÑONES MD Diagnosis: TAKE 1 TABLET BY MOUTH FOUR TIMES DAILY NEEDED. FILL WHEN DUE WG JV Last Documented On 1 5:02PM By CATALINO QUIÑONES MD ; [facility] diazePAM 5 MG OR TABS 08/19/2011 - 10/30/2011 Provider : CATALINO QUIÑONES MD Diagnosis: PRN FILL WHEN DUE, MUST LAST 30 DAYS, NO EARLY FILLS. WG JV THIS IS AN INCREASE Last Documented On 1 5:02PM By CATALINO QUIÑONES MD ; [facility] hydroCHLOROthiazide 25 MG TABS 07/15/2011 - 08/19/2011 Provider: Diagnosis: Last Documented On 1 5:11PM By CATALINO QUIÑONES MD ; [facility] Vistaril 25 MG OR CAPS 07/15/2011 - 09/02/2012 Provider: CATALINO QUIÑONES MD Diagnosis: PERSISTENT INSOM CLARA Last Documented On 2 11:34AM By HAYLIE DEVINE MA ; [facility] Bentyl 10 MG OR CAPS 07/15/2011 - 09/02/2012 Provider: CATALINO QUIÑONES MD Diagnosis: NONINF GASTROENT ERIT NEC AC AND HS Last Documented On 2 11:34AM By HAYLIE DEVINE MA ; [facility] Valium 5 MG OR TABS 07/12/2011 - 09/02/2012 Provider: CATALINO QUIÑONES MD Diagnosis: MYALGIA AND MYOS ITIS NOS WG Last Documented On 2 11:34AM By HAYLIE DEVINE MA ; [facility] Hydrocodone-Acetaminophen 10 -500 MG OR TABS 07/12/2011 - 08/19/2011 Provider: CATALINO QUIÑONES MD Diagnosis: THIS IS AN INCREASED AMOUNT OF ACETAMINOPHEN, MAX IS 8 TABS A DAY, MUST LAST 30 DAYS WG Last Documented On 1 5:18PM By CATALINO QUIÑONES MD ; [facility] Phenergan 25 MG/ML IJ SOLN 07/11/2011 - 09/02/2012 Provider: CATALINO QUIÑONES MD Diagnosis: MYALGIA AND MYOS ITIS NOS TABLETS Last Documented On 2 11:34AM By HAYLIE DEVINE MA ; [facility] Neurontin 600 MG OR TABS 07/11/2011 - 08/19/2011 Provi anthony: CATALINO QUIÑONES MD Diagnosis: Last Documented On 1 5:16PM By CATALINO QUIÑONES MD ; [facility] Robaxin-750 750 MG OR TABS 07/11/2011 - 08/19/2011 Pro vider: CATALINO QUIÑONES MD Diagnosis: TAKE 1 TABLET BY MOUTH FOUR TIMES DAILY NEEDED. FILL WHEN DUE Last Documented On 1 5:15PM By CATALINO QUIÑONES MD ; [facility] Cymbalta 60 MG OR CPEP 06/28/2011 - 08/20/2011 Provider: CATALINO QUIÑONES MD Diagnosis: DEPRESSIVE DISOR ANTHONY NEC Last Documented On 08/20/2011 5:35PM By Wanda JOHNSON ; [facility] Neurontin 600 MG OR TABS 06/10/2011 - 07/11/2011 Provi anthony: CATALINO QUIÑONES MD Diagnosis: Last Documented On 07/11/2011 4:53PM By Wanda JOHNSON ; [facility] Robaxin-750 750 MG OR TABS 06/10/2011 - 07/11/2011 Pro vider: CATALINO QUIÑONES MD Diagnosis: TAKE 1 TABLET BY MOUTH FOUR TIMES DAILY NEEDED. FILL WHEN DUE Last Documented On 07/11/2011 4:53PM By Wanda JOHNSON ; [facility] Valium 5 MG OR TABS 06/10/2011 - 07/12/2011 Provider: CATALINO QUIÑONES MD Diagnosis: MYALGIA AND MYOS ITIS NOS WG Last Documented On 07/12/2011 5:21PM By Wanda JOHNSON ; [facility] Hydrocodone-Acetaminophen 10 -500 MG OR TABS 06/10/2011 - 07/12/2011 Provider: CATALINO QUIÑONES MD Diagnosis: THIS IS AN INCREASED AMOUNT OF ACETAMINOPHEN, MAX IS 8 TABS A DAY, MUST LAST 30 DAYS WG Last Documented On 07/12/2011 5:21PM By Wanda JOHNSON ; [facility] Hydrocodone-Acetaminophen 10 -500 MG OR TABS 05/09/2011 - 06/10/2011 Provider: CATALINO QUIÑONES MD Diagnosis: THIS IS AN INCREASED AMOUNT OF ACETAMINOPHEN SO MAX IS 8 TABS A DAY, MUST LAST 30 DAYS Last Documented On 06/10/2011 2:03PM By Wanda JOHNSON ; [facility] HYDROcodone-Acetaminophen 10 -325 MG OR TABS 04/19/2011 - 12/04/2011 Provider: CATALINO QUIÑONES MD Diagnosis: 1-2 Q 6 HOURS MAX 8 A DAY WG Last Documented On 2 4:41PM By CATALINO QUIÑONES MD ; [facility] Valium 5 MG OR TABS 03/28/2011 - 06/10/2011 Provider: CATALINO QUIÑONES MD Diagnosis: MYALGIA AND MYOS ITIS NOS Last Documented On 06/10/2011 2:02PM By Wanda JOHNSON ; [facility] Robaxin-750 750 MG OR TABS 03/28/2011 - 06/10/2011 Pro vider: CATALINO QUIÑONES MD Diagnosis: TAKE 1 TABLET BY MOUTH FOUR TIMES DAILY NEEDED. FILL WHEN DUE Last Documented On 06/10/2011 2:02PM By Wanda JOHNSON ; [facility] Neurontin 600 MG OR TABS 03/28/2011 - 06/10/2011 Provi anthony: CATALINO QUIÑONES MD Diagnosis: Last Documented On 06/10/2011 2:02PM By Wanda JOHNSON ; [facility] Cymbalta 60 MG OR CPEP 03/15/2011 - 06/28/2011 Provider: CATALINO QUIÑONES MD Diagnosis: DEPRESSIVE DISOR ANTHONY NEC Last Documented On 06/28/2011 5:16PM By Wanda JOHNSON ; [facility] Cymbalta 30 MG OR CPEP 03/13/2011 - 06/28/2011 Provider: CATALINO QUIÑONES MD Diagnosis: DEPRESSIVE DISOR ANTHONY NEC WITH 60 MG FOR TOTAL OF 90 MG Last Documented On 06/28/2011 5:15PM By Wanda JOHNSON ; [facility] Gabapentin 300 MG OR CAPS 01/30/2011 - 08/22/2011 Prov ider: CATALINO QUIÑONES MD Diagnosis: TAKE 2 CAPSULES BY MOUTH THREE TIMES DAILY Last Documented On 08/22/2011 9:32AM By Wanda JOHNSON ; [facility] fentaNYL 25 MCG/HR TD PT72 01/24/2011 - 07/15/2011 Pro vider: Diagnosis: RX BY DR WINTERS ONLY!!! Last Documented On 1 3:43PM By CATALINO QUIÑONES MD ; [facility] Percocet 5-325 MG OR TABS 01/24/2011 - 07/15/2011 Prov ider: Diagnosis: RX BY DR WINTERS ONLY!!! Last Documented On 1 3:45PM By CATALINO QUIÑONES MD ; [facility] Methocarbamol 750 MG OR TABS 01/09/2011 - 09/02/2012 Ronel ponceder: CATALINO FRANKEL MD Diagnosis: TAKE ONE TABLET BY MOUTH FOUR TIMES DAILY NEE DED Last Documented On 2 11:34AM By HAYLIE DEVINE MA ; [facility] Promethazine HCl 25 MG OR TABS 01/09/2011 - 09/02/2012 Provider: CATALINO MCKEON MD Diagnosis: TAKE 1 TABLET BY MOUTH EVERY 4 TO 6 HOURS NEE DED Last Documented On 2 11:34AM By HAYLIE DEVINE MA ; [facility] Cipro 250 MG OR TABS 01/01/2011 - 09/02/2012 Provider: CATALINO QUIÑONES MD Diagnosis: Last Documented On 2 11:34AM By HAYLIE DEVINE MA ; [facility] Cymbalta 60 MG OR CPEP 12/31/2010 - 09/02/2012 Provide r: CATALINO QUIÑONES MD Diagnosis: BACKACHE NOS Last Documented On 2 11:34AM By HAYLIE DEVINE MA ; [facility] Symbicort 160-4.5 MCG/ACT IN AERO 12/31/2010 - 09/02/2012 Provider: CATALINO QUIÑONES MD Diagnosis: ACUTE SINUSITIS NOS Last Documented On 2 11:34AM By HAYLIE DEVINE MA ; [facility] Proventil HFA 108 (90 Base) MCG/ACT IN AERS 12/31/2010 - 09/17/2013 Provider: CATALINO MCKEON MD Diagnosis: Last Documented On 09/17/2013 8:23AM By HAYLIE DEVINE MA ; [facility] Amoxicillin 500 MG OR CAPS 12/31/2010 - 04/28/2012 Provider: CATALINO QUIÑONES MD Diagnosis: ACUTE SINUSITIS NOS Last Documented On 2 11:06PM By CATALINO QUIÑONES MD ; [facility] diazePAM 5 MG OR TABS 12/11/2010 - 08/19/2011 Provider : CATALINO QUIÑONES MD Diagnosis: PRN FILL WHEN DUE, MUST LAST 30 DAYS, NO EARLY FILLS. [place] [phone] Last Documented On 1 5:14PM By CATALINO QUIÑONES MD ; [facility] Promethazine HCl 25 MG OR TABS 11/27/2010 - 01/09/2011 Provider: CATALINO MCKEON MD Diagnosis: TAKE 1 TABLET BY MOUTH EVERY 4 TO 6 HOURS NEE DED Last Documented On 01/09/2011 10:46AM By Wanda JOHNSON ; [facility] Cymbalta 60 MG OR CPEP 11/20/2010 - 03/15/2011 Provider: CATALINO QUIÑONES MD Diagnosis: DEPRESSIVE DISOR ANTHONY NEC Last Documented On 1 11:05PM By CATALINO QUIÑONES MD ; [facility] Robaxin-750 750 MG OR TABS 11/19/2010 - 03/28/2011 Pro vider: CATALINO QUIÑONES MD Diagnosis: TAKE 1 TABLET BY MOUTH FOUR TIMES DAILY NEEDED. FILL WHEN DUE Last Documented On 03/28/2011 8:37AM By Wanda JOHNSON ; [facility] Neurontin 600 MG OR TABS 11/19/2010 - 07/15/2011 Provi anthony: Diagnosis: Last Documented On 1 3:45PM By CATALINO QUIÑONES MD ; [facility] Cymbalta 60 MG OR CPEP 10/31/2010 - 11/20/2010 Provider: ELDA Limon Diagnosis: DEPRESSIVE DISOR ANTHONY NEC Last Documented On 11/20/2010 8:59AM By Wanda JOHNSON ; [facility] Cymbalta 30 MG OR CPEP 10/31/2010 - 03/13/2011 Provider: ELDA Limon Diagnosis: DEPRESSIVE DISOR ANTHONY NEC one tablet po QD x 1week Last Documented On 03/13/2011 11:42AM By Wanda JOHNSON ; [facility] Clindamycin HCl 300 MG OR CAPS 10/31/2010 - 09/02/2012 Provider: ELDA Limon Diagnosis: Cellulitis NOS Last Documented On 2 11:34AM By HAYLIE DEVINE MA ; [facility] Robaxin-750 750 MG OR TABS 10/25/2010 - 11/19/2010 Pro vider: CATALINO QUIÑONES MD Diagnosis: TAKE 1 TABLET BY MOUTH FOUR TIMES DAILY NEEDED. FILL WHEN DUE Last Documented On 1 4:06PM By CATALINO QUIÑONES MD ; [facility] HYDROcodone-Acetaminophen 10 -325 MG OR TABS 10/02/2010 - 01/24/2011 Provider: CATALINO QUIÑONES MD Diagnosis: 1-2 Q 6 HRS PRN WG Last Documented On 01/24/2011 2:42PM By Wanda JOHNSON ; [facility] Metoprolol Tartrate 50 MG OR TABS 10/02/2010 - 012 Provider: BILLY ELIZONDO MD Diagnosis: Last Documented On 09/09/2012 3:52PM By HAYLIE DEVINE MA ; [facility] diazePAM 5 MG OR TABS 09/19/2010 - 12/11/2010 Provider : CATALINO QUIÑONES MD Diagnosis: PRN WG ORESTES [phone] Last Documented On 12/11/2010 3:11PM By Wanda JOHNSON ; [facility] Promethazine HCl 25 MG OR TABS 09/19/2010 - 11/27/2010 Provider: CATALINO MCKEON MD Diagnosis: TAKE 1 TABLET BY MOUTH EVERY 4 TO 6 HOURS NEE DED Last Documented On 11/27/2010 3:00PM By Wanda JOHNSON ; [facility] Amoxicillin 500 MG OR CAPS 09/14/2010 - 12/31/2010 Pro vider: CATALINO QUIÑONES MD Diagnosis: Last Documented On 1 4:28PM By CATALINO QUIÑONES MD ; [facility] Cymbalta 60 MG OR CPEP 09/07/2010 - 09/02/2012 Provider: CATALINO QUIÑONES MD Diagnosis: Idio Periph Neur pthy NOS Last Documented On 2 11:34AM By HAYLIE DEVINE MA ; [facility] Robaxin-750 750 MG OR TABS 08/29/2010 - 10/25/2010 Pro vider: CATALINO QUIÑONES MD Diagnosis: TAKE 1 TABLET BY MOUTH FOUR TIMES DAILY NEEDE D Last Documented On 0 3:07PM By CATALINO QUIÑONES MD ; [facility] Cymbalta 60 MG OR CPEP 07/30/2010 - 09/07/2010 Provider: CATALINO QUIÑONES MD Diagnosis: Idio Periph Neur pthy NOS Last Documented On 09/07/2010 5:05PM By Wanad JOHNSON ; [facility] HYDROcodone-Acetaminophen 10 -325 MG OR TABS 07/02/2010 - 10/02/2010 Provider: CATALINO QUIÑONES MD Diagnosis: 1-2 Q 6 HRS PRN Last Documented On 0 4:16PM By CATALINO QUIÑONES MD ; [facility] Promethazine HCl 25 MG OR TABS 06/18/2010 - 09/19/2010 Provider: CATALINO MCKEON MD Diagnosis: TAKE 1 TABLET BY MOUTH EVERY 4 TO 6 HOURS NEE DED Last Documented On 0 5:45PM By CATALINO QUIÑONES MD ; [facility] Levaquin 250 MG OR TABS 06/04/2010 - 09/02/2012 Provider: CATALINO QUIÑONES MD Diagnosis: URIN TRACT INFEC TION NOS Last Documented On 2 11:34AM By HAYLIE DEVINE MA ; [facility] Phenergan 25 MG/ML IJ SOLN 06/04/2010 - 07/11/2011 Provider: CATALINO QUIÑONES MD Diagnosis: MYALGIA AND MYOS ITIS NOS TABLETS Last Documented On 07/11/2011 4:53PM By Wanda JOHNSON ; [facility] Robaxin-750 750 MG OR TABS 06/04/2010 - 08/29/2010 Pro vider: CATALINO QUIÑONES MD Diagnosis: Last Documented On 0 6:11PM By CATALINO QUIÑONES MD ; [facility] HYDROcodone-Acetaminophen 10 -325 MG OR TABS 06/04/2010 - 07/02/2010 Provider: CATALINO QUIÑONES MD Diagnosis: 1-2 Q 6 HRS PRN Last Documented On 0 5:05PM By CATALINO QUIÑONES MD ; [facility] Nystatin [id number] UNIT/GM EX POWD 06/04/2010 - 06/01/2013 Provider: CATALINO MCKEON MD Diagnosis: Last Documented On 06/01/2013 3:01PM By Wanda JOHNSON ; [facility] diazePAM 5 MG OR TABS 05/15/2010 - 09/19/2010 Provider : CATALINO QUIÑONES MD Diagnosis: PRN Last Documented On 09/19/2010 6:04PM By Wanda JOHNSON ; [facility] Methocarbamol 750 MG OR TABS 05/15/2010 - 09/02/2012 P rovider: CATALINO FRANKEL MD Diagnosis: TAKE 1 TABLET BY MOUTH FOUR TIMES DAILY PRN Last Documented On 2 11:35AM By HAYLIE DEVINE MA ; [facility] Savella 50 MG OR TABS 05/03/2010 - 09/02/2012 Provider : KAILYN MCKEON PA-C Diagnosis: ABDMNAL PAIN LT LWR QUAD 2 tabs po bid Last Documented On 2 11:35AM By HAYLIE DEVINE MA ; [facility] Cymbalta 60 MG OR CPEP 05/03/2010 - 07/30/2010 Provide r: KAILYN MCKEON PA-C Diagnosis: Idio Periph Neur pthy NOS Last Documented On 07/30/2010 4:05PM By Wanda JOHNSON ; [facility] Robaxin-750 750 MG OR TABS 05/03/2010 - 06/04/2010 Pro vider: KAILYN MCKEON PA-C Diagnosis: Last Documented On 0 2:45PM By CATALINO QUIÑONES MD ; [facility] Cymbalta 60 MG OR CPEP 04/09/2010 - 09/02/2012 Provider: CATALINO QUIÑONES MD Diagnosis: DEPRESSIVE DISOR ANTHONY NEC Last Documented On 2 11:35AM By HAYLIE DEVINE MA ; [facility] Savella Titration Pack 12.5 & 25 & 50 MG OR MISC 04/09/2010 - 09/02/2012 Provider: CATALINO BOX MD Diagnosis: BACKACHE NOS 2 PK GIVEN Last Documented On 2 11:35AM By HAYLIE DEVINE MA ; [facility] HYDROcodone-Acetaminophen 10 -325 MG OR TABS 03/28/2010 - 06/04/2010 Provider: CATALINO QUIÑONES MD Diagnosis: 1-2 Q 6 HRS PRN Last Documented On 0 2:45PM By CATALINO QUIÑONES MD ; [facility] Promethazine HCl 25 MG OR TABS 03/28/2010 - 09/02/2012 Provider: CATALINO MCKEON MD Diagnosis: 1 Q 4-6 HRS PRN Last Documented On 2 11:35AM By HAYLIE DEVINE MA ; [facility] Valium 5 MG OR TABS 03/26/2010 - 03/28/2011 Provider: CATALINO QUIÑONES MD Diagnosis: MYALGIA AND MYOS ITIS NOS Last Documented On 03/28/2011 2:56PM By Wanda JOHNSON ; [facility] Cymbalta 30 MG OR CPEP 03/12/2010 - 09/02/2012 Provider: CATALINO QUIÑONES MD Diagnosis: DEPRESSIVE DISOR ANTHONY NEC Last Documented On 2 11:35AM By HAYLIE DEVINE MA ; [facility] Cymbalta 60 MG OR CPEP 03/12/2010 - 04/09/2010 Provider: CATALINO QUIÑONES MD Diagnosis: DEPRESSIVE DISOR ANTHONY NEC AFTER FINISH THE 30MG Last Documented On 04/09/2010 11:38AM By Wanda JOHNSON ; [facility] Lexapro 10 MG OR TABS 02/19/2010 - 04/09/2010 Provider : CATALINO JUAREZ M.D. Diagnosis: Last Documented On 04/09/2010 11:38AM By Wanda JOHNSON ; [facility] Robaxin-750 750 MG OR TABS 02/19/2010 - 05/03/2010 Pro vider: CATALINO QUIÑONES MD Diagnosis: Last Documented On 05/03/2010 1:50PM By KAILYN MCKEON PA-C ; [facility] Valium 5 MG OR TABS 02/19/2010 - 03/26/2010 Provider: CATALINO QUIÑONES MD Diagnosis: MYALGIA AND MYOS ITIS NOS Last Documented On 0 10:46PM By CATALINO QUIÑONES MD ; [facility] Tessalon Perles 100 MG OR CAPS 02/12/2010 - 09/02/2012 Provider: ELDA MCLEAN PA-C Diagnosis: Last Documented On 2 11:35AM By HAYLIE DEVINE MA ; [facility] Amoxicillin 500 MG OR CAPS 02/08/2010 - 09/14/2010 Pro vider: CATALINO QUIÑONES MD Diagnosis: Last Documented On 0 6:15PM By CATALINO QUIÑONES MD ; [facility] Phenergan 25 MG/ML IJ SOLN 01/15/2010 - 06/04/2010 Provider: CATALINO QUIÑONES MD Diagnosis: MYALGIA AND MYOS ITIS NOS TABLETS Last Documented On 0 2:46PM By CATALINO QUIÑONES MD ; [facility] Neurontin 600 MG OR TABS 01/15/2010 - 11/19/2010 Provi anthony: CATALINO QUIÑONES MD Diagnosis: Last Documented On 1 4:02PM By CATALINO QUIÑONES MD ; [facility] Doxepin HCl 25 MG OR CAPS 01/15/2010 - 09/02/2012 Provider: CATALINO QUIÑONES MD Diagnosis: Idio Periph Neur pthy NOS Last Documented On 2 11:35AM By HAYLIE DEVINE MA ; [facility] Hendricks 10-325 MG OR TABS 01/15/2010 - 03/28/2011 Provid er: CATALINO QUIÑONES MD Diagnosis: BACKACHE NOS 1-2 Q 6 HOURS PRN Last Documented On 03/28/2011 8:37AM By Wanda JOHNSON ; [facility] Valium 5 MG OR TABS 01/15/2010 - 02/19/2010 Provider: CATALINO QUIÑONES MD Diagnosis: MYALGIA AND MYOS ITIS NOS Last Documented On 0 5:00PM By CATALINO QUIÑONES MD ; [facility] Tessalon Perles 100 MG OR CAPS 01/15/2010 - 02/12/2010 Provider: CATALINO MCKEON MD Diagnosis: Last Documented On 02/12/2010 5:06PM By ELDA MCLEAN PA-C ; [facility] Lexapro 10 MG OR TABS 01/15/2010 - 09/02/2012 Provider : CATALINO QUIÑONES MD Diagnosis: Last Documented On 2 11:35AM By HAYILE DEVINE MA ; [facility] Valium 5 MG OR TABS 12/14/2009 - 01/15/2010 Provider: CATALINO QUIÑONES MD Diagnosis: MYALGIA AND MYOS ITIS NOS Last Documented On 0 3:23PM By CATALINO QUIÑONES MD ; [facility] Lortab 10-500 MG OR TABS 12/14/2009 - 09/02/2012 Provi anthony: CATALINO QUIÑONES MD Diagnosis: Last Documented On 2 11:35AM By HAYLIE DEVINE MA ; [facility] Robaxin-750 750 MG OR TABS 12/14/2009 - 02/19/2010 Pro vider: CATALINO QUIÑONES MD Diagnosis: Last Documented On 0 5:00PM By CATALINO QUIÑONES MD ; [facility] Lexapro 10 MG OR TABS 12/14/2009 - 01/15/2010 Provider : CATALINO QUIÑONES MD Diagnosis: Last Documented On 0 3:35PM By CATALINO QUIÑONES MD ; [facility] Phenergan 25 MG/ML IJ SOLN 12/14/2009 - 01/15/2010 Provider: CATALINO QUIÑONES MD Diagnosis: MYALGIA AND MYOS ITIS NOS TABLETS Last Documented On 0 3:24PM By CATALINO QUIÑONES MD ; [facility] Phenergan 25 MG/ML IJ SOLN 11/14/2009 - 12/14/2009 Provider: CATALINO QUIÑONES MD Diagnosis: MYALGIA AND MYOS ITIS NOS TABLETS Last Documented On 0 12:22PM By CATALINO QUIÑONES MD ; [facility] Lortab 10-500 MG OR TABS 11/14/2009 - 12/14/2009 Provi anthony: CATALINO QUIÑONES MD Diagnosis: Last Documented On 0 12:10PM By CATALINO QUIÑONES MD ; [facility] Robaxin-750 750 MG OR TABS 11/14/2009 - 12/14/2009 Pro vider: CATALINO QUIÑONES MD Diagnosis: Last Documented On 0 12:10PM By CATALINO QUIÑONES MD ; [facility] Valium 5 MG OR TABS 11/14/2009 - 12/14/2009 Provider: CATALINO QUIÑONES MD Diagnosis: MYALGIA AND MYOS ITIS NOS Last Documented On 0 12:10PM By CATALINO QUIÑONES MD ; [facility] Lexapro 10 MG OR TABS 11/14/2009 - 12/14/2009 Provider : CATALINO QUIÑONES MD Diagnosis: Last Documented On 0 12:52PM By CATALINO QUIÑONES MD ; [facility] MiraLax 17 GM OR PACK 11/14/2009 - 02/19/2010 Provider : CATALINO QUIÑONES MD Diagnosis: CONSTIPATION NOS one qd Last Documented On 02/19/2010 3:50PM By Wanda JOHNSON ; [facility] Tessalon Perles 100 MG OR CAPS 10/06/2009 - 01/15/2010 Provider: CATALINO MCKEON MD Diagnosis: Last Documented On 0 3:25PM By CATALINO QUIÑONES MD ; [facility] Lexapro 10 MG OR TABS 10/02/2009 - 11/14/2009 Provider : ELDA MCLEAN PA-C Diagnosis: Last Documented On 9 3:02PM By CATALINO QUIÑONES MD ; [facility] Phenergan 25 MG/ML IJ SOLN 09/28/2009 - 11/14/2009 Provider: CATALINO QUIÑONES MD Diagnosis: MYALGIA AND MYOS ITIS NOS TABLETS Last Documented On 9 3:01PM By CATALINO QUIÑONES MD ; [facility] Valium 5 MG OR TABS 09/28/2009 - 11/14/2009 Provider: CATALINO QUIÑONES MD Diagnosis: MYALGIA AND MYOS ITIS NOS Last Documented On 9 2:59PM By CATALINO QUIÑONES MD ; [facility] Opana 10 MG OR TABS 09/15/2009 - 02/19/2010 Provider: CATALINO QUIÑONES MD Diagnosis: LUMBAR DISC DISP LACEMENT Last Documented On 02/19/2010 3:50PM By Wanda JOHNSON ; [facility] Nystatin [id number] UNIT/ML MT SUSP 08/25/2009 - 02/19/2010 Provider: CATALINO MCKEON MD Diagnosis: SWISH AND SWALLOW 5ML QID Last Documented On 02/19/2010 3:50PM By Wanda JOHNSON ; [facility] Valium 5 MG OR TABS 08/23/2009 - 09/28/2009 Provider: CATALINO QUIÑONES MD Diagnosis: MYALGIA AND MYOS ITIS NOS Last Documented On 9 10:55PM By CATALINO QUIÑONES MD ; [facility] Proventil HFA 108 (90 Base) MCG/ACT IN AERS 08/16/2009 - 12/31/2010 Provider: CATALINO CMKEON MD Diagnosis: Last Documented On 1 4:33PM By CATALINO QUIÑONES MD ; [facility] Proventil HFA 108 (90 Base) MCG/ACT IN AERS 08/09/2009 - 08/16/2009 Provider: CATALINO MCKEON MD Diagnosis: Last Documented On 9 5:30PM By CATALINO QUIÑONES MD ; [facility] Tessalon Perles 100 MG OR CAPS 08/09/2009 - 10/06/2009 Provider: CATALINO MCKEON MD Diagnosis: Last Documented On 9 8:19AM By CATALINO QUIÑONES MD ; [facility] Opana 10 MG OR TABS 07/17/2009 - 07/17/2009 Provider: Diagnosis: Last Documented On 9 3:57PM By CATALINO QUIÑONES MD ; [facility] Opana 10 MG OR TABS 07/17/2009 - 07/17/2009 Provider: Diagnosis: Last Documented On 9 3:56PM By CATALINO QUIÑONES MD ; [facility] Lexapro 10 MG OR TABS 07/17/2009 - 02/19/2010 Provider : CATALINO JUAREZ M.D. Diagnosis: Last Documented On 02/19/2010 3:50PM By Wanda JOHNSON ; [facility] Robaxin-750 750 MG OR TABS 07/17/2009 - 11/14/2009 Pro vider: CATALINO JUAREZ M.D. Diagnosis: Last Documented On 9 2:59PM By CATALINO QUIÑONES MD ; [facility] Opana ER 20 MG OR TB12 07/17/2009 - 07/17/2009 Provide r: CATALINO JUAREZ M.D. Diagnosis: Last Documented On 9 3:56PM By CATALINO QUIÑONES MD ; [facility] Opana ER 10 MG OR TB12 07/17/2009 - 07/17/2009 Provide r: CATALINO JUAREZ M.D. Diagnosis: Last Documented On 9 3:55PM By CATALINO QUIÑONES MD ; [facility] Opana 10 MG OR TABS 07/17/2009 - 09/15/2009 Provider: CATALINO QUIÑONES MD Diagnosis: LUMBAR DISC DISP LACEMENT Last Documented On 9 12:53PM By CATALINO QUIÑONES MD ; [facility] Opana ER 20 MG OR TB12 07/17/2009 - 02/19/2010 Provider: CATALINO QUIÑONES MD Diagnosis: LUMBAR DISC DISP LACEMENT Last Documented On 02/19/2010 3:50PM By Wanda JOHNSON ; [facility] Valium 5 MG OR TABS 06/22/2009 - 08/23/2009 Provider: CATALINO QUIÑONES MD Diagnosis: MYALGIA AND MYOS ITIS NOS Last Documented On 9 3:34PM By CATALINO QUIÑONES MD ; [facility] Lexapro 10 MG OR TABS 05/08/2009 - 02/19/2010 Provider : CATALINO QUIÑONES MD Diagnosis: Last Documented On 02/19/2010 3:50PM By Wanda JOHNSON ; [facility] Valium 5 MG OR TABS 05/08/2009 - 06/22/2009 Provider: CATALINO QUIÑONES MD Diagnosis: MYALGIA AND MYOS ITIS NOS Last Documented On 9 3:04AM By CATALINO QUIÑONES MD ; [facility] Phenergan 25 MG/ML IJ SOLN 05/08/2009 - 09/28/2009 Provider: CATALINO QUIÑONES MD Diagnosis: MYALGIA AND MYOS ITIS NOS TABLETS Last Documented On 9 10:55PM By CATALINO QUIÑONES MD ; [facility] Robaxin-750 750 MG OR TABS 05/08/2009 - 07/17/2009 Pro vider: Diagnosis: Last Documented On 07/17/2009 3:03PM By Wanda JOHNSON ; [facility] Vicodin HP 10-660 MG OR TABS 05/08/2009 - 07/17/2009 P rovider: Diagnosis: Last Documented On 07/17/2009 3:05PM By Wanda JOHNSON ; [facility] Neurontin 600 MG OR TABS 05/08/2009 - 01/15/2010 Provi anthony: Diagnosis: Last Documented On 0 3:24PM By CATALINO QUIÑONES MD ; [facility] Lexapro 10 MG OR TABS 05/08/2009 - 05/08/2009 Provider : Diagnosis: Last Documented On 9 6:32PM By CATALINO QUIÑONES MD ; [facility] Savella starter pack OR TABS 05/08/2009 - 02/19/2010 Provider: CATALINO QUIÑONES MD Diagnosis: MYALGIA AND MYOS ITIS NOS Last Documented On 02/19/2010 3:50PM By Wanda JOHNSON ; [facility] Hydralazine-HCTZ 25-25 MG OR CAPS 03/13/2009 - 07/15/2011 Provider: CATALINO MCKEON MD Diagnosis: Last Documented On 1 3:25PM By CATALINO QUIÑONES MD ; [facility] Lexapro 10 MG OR TABS 03/10/2009 - 05/08/2009 Provider : Diagnosis: Last Documented On 9 6:08PM By CATALINO QUIÑONES MD ; [facility] Xanax 0.25 MG OR TABS 02/27/2009 - 07/17/2009 Provider : Diagnosis: Last Documented On 07/17/2009 3:05PM By Wanda JOHNSON ; [facility] Hydralazine-HCTZ 25-25 MG OR CAPS 02/09/2009 - 010 Provider: Diagnosis: Last Documented On 02/19/2010 3:50PM By Wanda JOHNSON ; [facility] Naproxen 500 MG OR TABS 02/09/2009 - 05/08/2009 Provid er: Diagnosis: Last Documented On 9 6:10PM By CAATLINO QUIÑONES MD ; [facility] Medications Administered Includes: Administered Medications in patient's chart Medications Administered Diagnosis Date Pro vider Ketorolac Tromethamine 30 MG/ML IJ SOLN 1 12/12/2012 CATALINO QUIÑONES MD Last Documented On 3 3:28PM By BRIDGER JOHNSON ; [facility] Cyanocobalamin 1000 MCG/ML IJ SOLN 2009 Last Documented On 0 2:17PM By SEBAS JOHNSON ; [facility] DEPO-Medrol 80 MG/ML IJ SUSP 04/12/2015 ONEL NATARAJAN PA-C Trigger point injection in LT paraspinus near L2/L3 Last Documented On 5 3:15PM By ONEL NATARAJAN PA-C ; [facility] Ketorolac Tromethamine 30 MG/ML IM SOLN 0 03/16/2015 ONEL NATARAJAN PA-C Last Documented On 5 4:49PM By LILLIE GARCIA MA ; [facility] Ketorolac Tromethamine 30 MG/ML IM SOLN 0 03/08/2015 ONEL NATARAJAN PA-C Last Documented On 5 11:12AM By LILLIE GARCIA MA ; [facility] Results Includes: Results from 01/04/2024 through 01/04/2025 No Results Recorded For Specified Dates History of Present Illness History of Present Illness not supported for this document type No History of Present Illness Recorded Social History Description Last Updated Non-smoker 10/18/2020 Last Documented On 0 2:54PM ; [facility] Smoking status : Current everyday smoker 02/18/2015 Last Documented On 5 11:23AM ; [facility] 09-14-08 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 YUKO [place]PA[place] 05/09/2014 Last Documented On 4 6:23PM ; [facility] Procedures and Surgical History Includes: Procedures from 01/04/2024 through 01/04/2025 Procedures Code Diagnosis Performing Provider Service Location Service Date ELECTROCARDIAGRAM READING FEE (EKG) 30525 [place]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 YOUJOS LAUREN MD [facility] 01/29/2024 Last Documented On 4 1:17PM ; [facility] FEE (Signi/Sep Eval & Man) 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, Unspecified atrial fibrillation, Mixed hyperlipidemia, Essential (primary) hypertension YOUJOS LAUREN MD [facility] 01/29/2024 Last Documented On 4 1:18PM ; [facility] ELECTROCARDIOGRAM TRACING 22962 [place]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 YOUJOS LAUREN MD [facility]- HRT 01/29/2024 Last Documented On 4 1:18PM ; [facility] Medical History Includes: Medical History in patient's chart Description Last Updated Home blood sugar check performed 015 Last Documented On 5 11:53AM ; [facility] Surgery 1999 NECK / METAL PL ATES ~LAMINECTOMY 02-17-08 ~LAMI 07-26 THEN BOLT 08-25 ~GI BLEED 10-23 ~RT ANKLE FX, 3 PLACES 01-10-11 02/15/2011 Last Documented On 1 11:28PM ; [facility] Family History Includes: Family History in patient's chart Description Last Updated Paternal history of father HEAR T FAILURE 03/08/2015 Last Documented On 5 11:53AM ; [facility] Father HEART FAILURE 03/10/2009 Last Documented On 9 1:05PM ; [facility] Review of Systems Review of Systems not supported for this document type No Review of Systems Recorded Mental Status No Mental Status Recorded Functional Status No Functional Status Recorded Physical Exam Physical Exam not supported for this document type No Physical Exam Recorded Allergies Includes: Active, inactive, and resolved Allergies Substance Type Reaction Onset Date Resolved Date Statu s Sulfa Antibiotics Allergy 03/10/2009 A ctive Last Documented On 5 4:12PM ; [facility] predniSONE Allergy 03/10/2009 Active Last Documented On 03/16/2015 4:12PM ; [facility] Note: JUST PILLS NOT SHOT Norvasc Allergy Skin Rashes / Er uption of skin, Hives / Urticaria 09/17/2011 Active Last Documented On 5 4:12PM ; [facility] Lyrica Allergy SWELLING AND NAUSEA 11/19/2010 Active Last Documented On 5 4:12PM ; [facility] Lisinopril Allergy 03/10/2009 Active Last Documented On 5 4:12PM ; [facility] Clonidine Allergy Skin Rashes / Er uption of skin, Hives / Urticaria 09/17/2011 Active Last Documented On 5 4:12PM ; [facility] Benzodiazepines Allergy 03/10/2009 Act horacio Last Documented On 5 4:12PM ; [facility] Amitriptyline HCl Allergy BRAIN FOGGY 01/01/2012 Active Last Documented On 5 4:12PM ; [facility] Encounters Includes: Encounters from 01/04/2024 through 01/04/2025 Encounter Provider Location Date Check-In Time Check-Out Time Diagnosis HOLTOR MONITOR [facility]- 4 3:30PM 3:31PM HEART [facility] CHECK UP VU MARAVILLA MD [facility]- 4 2:31PM 3:12PM HEART CENTER FOLLOW UP VINICIUS LAUREN MD [facility]- 4 1:56PM 3:10PM Insurance Includes: Active Insurance Policies Plan Name Member ID Group # Subscriber Relationship Effect horacio Dates 1 - [facility]/MEDICARE ADV/[employer] [id number] RASHEED Tijerina 2 - MEDICA[employer] OF [place] MEDICARE SECOND [id number] RASHEED Tijerina Clinical Notes Includes: Signed Clinical Notes starting from 12/06/2022 No Clinical Notes Recorded
--- OUTSIDE RECORDS SUMMARY | 2025-01-04 13:15 | XMS_ITS ---
Care Plan - [facility] Created on: January 04, 2025 RASHEED LEYVA : 1955 Sex: Female Author Organization [facility] Address [address] [place] [address] Phone Care Team Providers Care Straw Baler Name Role Phone CHAU PETERS Primary Care Provider [phone]
--- OUTSIDE RECORDS SUMMARY | 2025-01-04 13:16 | XMS_ITS | Clinical Summary ---
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 all the time, needed after RSV infection Continue oxygen therapy as needed Continue to work complete cessation Continue DuoNebs and Breztri Aerosphere Assessment & Plan (10/17/2024 4:23 PM ASSOCIATE PROFESSOR): No major improvement in breathing, continues to work on smoking cessation Continue albuterol p.r.n., Breztri Aerosphere; DuoNebs p.r.n. Assessment & Plan (07/08/2024 4:27 PM CDT): Reason for hospitalization after oxygen equipment failure. Resolved. Recent follow up with pulmonology. Appreciate recommendations. Plan: Recommend smoking cessation. Continue O2 with ambulation. Wean O2 as tolerated. Continue follow up with pulmonology. Continue Breztri 2 puffs b.i.d.. Continue p.r.n. Albuterol and p.r.n. DuoNebs. Assessment & Plan (05/19/2024 3:24 PM CDT): Chronic Currently on oxygen when performing ADLs Oxygen at 2L via [place] Pulmonology appt upcoming Assessment & Plan (02/23/2024 12:18 PM CDT): Chronic, generally controlled Continues to smoke Upcoming appt with Pulmonology 04/01 Continue Duo-neb and albuterol as needed Assessment & Plan (01/26/2024 3:58 PM CDT): Stable, generally controlled She is cutting back on smoking Appt with pulmonology in March Assessment & Plan (12/18/2023 4:47 PM ASSOCIATE PROFESSOR): Stable, generally well controlled, no dyspnea; continues to have cough Patient is stops smoking Lungs are clear to auscultation Continue DuoNebs p.r.n. Assessment & Plan (11/14/2023 4:22 PM ASSOCIATE PROFESSOR): Not currently well controlled Duoneb nebulizers as needed Assessment & Plan (08/06/2023 11:32 AM CDT): Currently stable Albuterol inhaler prn Chronic pain 01/01/2012 Depression 02/15/2011 Adrenal neoplasm 04/09/2010 Overview (08/08/2022): Note: Unchanged Lumbago 04/09/2010 Primary hypertension 12/14/2009 Assessment & Plan (11/02/2024 4:18 PM ASSOCIATE PROFESSOR): Stable, well controlled, blood pressure at goal Continue carvedilol 6.25 mg b.i.d. Assessment & Plan (07/08/2024 4:36 PM CDT): Chronic. Blood pressure well controlled today. Plan: Continue spironolactone 50 mg daily. Assessment & Plan (05/19/2024 3:18 PM CDT): Chronic, stable, well controlled BP at goal at visit; 104/68 Assessment & Plan (06/30/2023 4:49 PM CDT): Hydralazine 50 mg t.i.d. Monitor blood pressures at home, log given Follow up in 1 month Patient was only taking hydralazine once daily rather than t.i.d. Discussed need to follow medication regimen due to hypertension BP at appointment today 164/102 Cigarette smoker 12/14/2009 Assessment & Plan (07/08/2024 4:28 PM CDT): Minimal use. Chronic. Plan: Recommend cessation. Assessment & Plan (05/19/2024 3:22 PM CDT): Continues to smoke 1 cigarette per day Discussed importance of complete smoking cessation Patient on oxygen Assessment & Plan (03/25/2023 2:16 PM CDT): Not well controlled, continues to smoke about 1/2 pack per day; patient reports previous attempts to quit, but having increased stress due to changing pain medication Will continue to manage pain, then address tobacco use Peripheral neuropathy 12/14/2009 Paroxysmal supraventricular tachycardia 03/10/20 09 Resolved Problems Problem Noted Date Diagnosed Date Resolved Date Acute cystitis 11/13/2024 11/15/2024 Pneumonia due to infectious organism, unspecified laterality, unspecified part of lung 11/12/2024 11/15/2024 Mild malnutrition 12/11/2023 03/15/2024 Right upper quadrant pain 09/20/2020 Overview (09/20/2020): Added automatically from request for surgery [id number] BMI 33.0-33.9,adult 04/24/2020 05/19/20 24 Sepsis 01/07/2018 01/02/2024 UTI (urinary tract infection) 01/07/2018 01/02/2024 Well adult 04/24/2015 01/02/2024 Overview (02/20/2017): Healthy adult Encounters Date Type Department Care Team Description 01/04/2025 11:15 AM ASSOCIATE PROFESSOR Office Visit [facility] [address] [phone] Sekou Trevino MD Rib pain on left side (Primary Dx); Anxiety; Chronic back pain greater than 3 months duration; Postlaminectomy syndrome, lumbar; Radiculopathy, lumbosacral region; Spinal stenosis of lumbar region with neurogenic claudication 12/29/2024 Telephone [facility] [address] [phone] Sekou Trevino MD Med Refill 12/23/2024 5:45 PM ASSOCIATE PROFESSOR Office Visit [facility] [address] [place] [phone] Cristela Doll NP COPD exacerbation (HCC) (Primary Dx); Viral URI with cough 12/23/2024 Nurse Triage [facility] [address] [phone] Sekou Treivno MD 12/22/2024 1:00 PM ASSOCIATE PROFESSOR Therapy [facility] [address] [place] [address] Jose Loco, PT Recurrent falls; Muscular deconditioning 12/22/2024 Plan of Care Documentation [facility] [place] [address] [place] [address] 12/01/2024 Telephone [facility] [address] [phone] Sekou Trevino MD Appointment (Care Strain Technician contacted patient regarding recent ED visit at [facility] on 11/29 for COPD exacerbation.) 12/01/2024 [facility] ED Outreach [facility] Care Organization [address] [place] [address] Elizabeth Ortiz MA 11/30/2024 Telephone [facility] [address] [phone] Sekou Trevino MD Appointment Request 11/29/2024 7:56 PM ASSOCIATE PROFESSOR - 11/30/2024 12:32 AM ASSOCIATE PROFESSOR Emergency [facility] Emergency Department [address] [place] [address] COPD exacerbation (HCC) (Primary Dx) Discharge Disposition: Discharge to home or self care 11/29/2024 Telephone [facility] [address] [phone] Sekou Trevino MD 11/25/2024 2:30 PM ASSOCIATE PROFESSOR Office Visit [facility] [address] [phone] Sekou Trevino MD Chronic respiratory failure with hypoxia (CMS/HCC) (HCC) (Primary Dx); Recurrent falls; Muscular deconditioning; Chest pain, unspecified type; Paroxysmal atrial fibrillation (CMS/HCC) (HCC); Atypical chest pain 11/18/2024 Telephone [facility] [address] [phone] Sekou Trevino MD 11/16/2024 Telephone [facility] [address] [phone] Sekou Trevino MD 11/12/2024 11:12 AM ASSOCIATE PROFESSOR - 11/16/2024 4:04 PM ASSOCIATE PROFESSOR Hospital Encounter [facility] IMU [address] [place] [address] Pancho Javier MD Nations, DO Teresa Guzman John Albert Jr., MD Bross, Enedina Khan MD Pneumonia due to infectious organism, unspecified laterality, unspecified part of lung (Primary Dx); COPD exacerbation (HCC); Acute respiratory failure with hypoxia and hypercarbia (CMS/HCC) (HCC); Atypical chest pain; Chronic diastolic CHF (congestive heart failure) (CMS/HCC) (HCC); Persistent atrial fibrillation (HCC); Coronary artery disease involving [place] coronary artery of [place] heart without angina pectoris; Primary hypertension; Anxiety; Mixed hyperlipidemia; Postlaminectomy syndrome, lumbar; Chronic pain syndrome; Cigarette smoker Discharge Disposition: Discharge to home or self care 11/12/2024 11:00 AM ASSOCIATE PROFESSOR - 11/12/2024 11:59 PM ASSOCIATE PROFESSOR Hospital Encounter [facility]ILL[facility] Emergency, Room R Discharge Disposition: Discharge to home or self care 11/05/2024 [facility] ED Outreach [address] [address] Elizabeth Ortiz MA 11/04/2024 2:00 PM ASSOCIATE PROFESSOR Office Visit [facility] at [address] [place] [phone] Jarrett Marrero MD Chronic diastolic heart failure (HCC) (Primary Dx); COPD exacerbation (HCC); Pulmonary hypertension (HCC); Chronic respiratory failure with hypoxia (CMS/HCC) (HCC); Nicotine dependence, cigarettes, uncomplicated 11/03/2024 Telephone [facility] at [address] [place] [phone] Mara Reddy MA testing (PFT) 11/03/2024 [facility] Outreach [address] [address] Elizabeth Ortiz MA 11/02/2024 6:03 PM ASSOCIATE PROFESSOR - 11/02/2024 7:23 PM ASSOCIATE PROFESSOR Emergency [facility] Emergency Department [address] [place] [address] Gabriel Enciso MD COPD exacerbation (HCC) (Primary Dx) Discharge Disposition: Discharge to home or self care 11/02/2024 Home Care Visit [place] [address] [address] [place] [address] Ita Aparicio, [employer] CASE COMMUNICATION 11/02/2024 Home Care Visit [place] [address] [address] [place] [address] Sarai Hi, PT PT VIRTUAL OASIS DISCHARGE 10/31/2024 Home Care Visit [place] [address] [address] [place] [address] Angela Lorenzana, [facility] CASE COMMUNICATION 10/28/2024 Telephone [facility] [address] [phone] Sekou Trevino MD Wheelchair 10/27/2024 4:00 PM ASSOCIATE PROFESSOR Office Visit [facility] [address] [phone] Sekou Trevino MD Medicare annual wellness visit, subsequent (Primary Dx); Other spondylosis with radiculopathy, lumbar region; Impaired mobility and activities of daily living; Radiculopathy, lumbosacral region; Scoliosis of thoracolumbar spine, unspecified scoliosis type; Gastroesophageal reflux disease without esophagitis; Centrilobular emphysema (HCC); Benign essential hypertension; Persistent atrial fibrillation (HCC); Chronic idiopathic constipation 10/27/2024 12:15 PM ASSOCIATE PROFESSOR Home Care Visit [place] [address] [address] [place] [address] Sarai Hi, PT PT OASIS RESUMPTION OF CARE 10/27/2024 Plan of Care Documentation [place] [address] [address] [place] [address] 10/22/2024 Telephone [facility] [address] [phone] Shanell Mota RN Medical Question/Miscellane ous 10/20/2024 6:53 PM ASSOCIATE PROFESSOR - 10/22/2024 1:46 PM ASSOCIATE PROFESSOR Hospital Encounter [facility] Acute Medicine [address] [place] [address] Gabriel Enciso MD Petters, Ekanga Sunday, MD Kim, Eileen H., MD Abdominal pain (Primary Dx); Colitis; Acute on chronic diastolic heart failure (CMS/HCC) (HCC) Discharge Disposition: Discharge to home or self care 10/20/2024 12:00 PM ASSOCIATE PROFESSOR Home Care Visit [address] [place] [address] Angela Lorenzana LCSW [employer] INITIAL EVAL 10/20/2024 Home Care Visit [place] [address] [address] [place] [address] Angela Lorenzana LCSW [employer] PARKER DISCIPLINE DISCHARGE 10/20/2024 Home Care Visit [place] [address] [address] [place] [address] Sarai Hi, PT PT OASIS TRANSFER W/OUT DC 10/20/2024 Telephone [facility] G[facility]enterology at [address] [place] [phone] Ayla Boucher MA 10/19/2024 Home Care Visit [place] [address] [address] [place] [address] Sarai Hi, PT CARE CONFERENCE 10/18/2024 Home Care Visit [place] [address] [address] [place], [place] [id number] Grisel Garzon, [place] NURSE MED RECON FOR THERAPY 10/18/2024 Telephone [facility] G[facility] at [address] [place] [phone] Betty Lewis MA 10/16/2024 Home Care Visit [place] [address] [address] [place] [address] Grisel Garzon, [place] NURSE MED RECON FOR THERAPY 10/15/2024 2:25 PM ASSOCIATE PROFESSOR - 10/15/2024 4:47 PM ASSOCIATE PROFESSOR Emergency [facility] Emergency Department [address] [place] [address] Gabriel Enciso MD Abdominal pain (Primary Dx); Diverticulitis of large intestine without perforation or abscess without bleeding Discharge Disposition: Discharge to home or self care 10/15/2024 Home Care Visit [address] [place] [address] Gayathri Bueno RN NURSE MED RECON FOR THERAPY 10/14/2024 Home Care Visit [address] [place] [address] Lia Haddad RN NURSE MED RECON FOR THERAPY 10/14/2024 Plan of Care Documentation [address] [place] [address] 10/13/2024 1:30 PM ASSOCIATE PROFESSOR Home Care Visit [place] [address] [address] [place] [address] Ingrid Shane, PT PT OASIS START OF CARE 10/13/2024 Telephone [facility] [address] [phone] Sekou Trevino MD 10/13/2024 ACO Quality [facility] Organization [address] [place] [address] Randa Morris, [place] 10/12/2024 Nurse Triage [facility] [address] [phone] Sekou Trevino MD 10/12/2024 Home Care Visit [address] [place] [address] Ingrid Quezada, PT TELEPHONE ENCOUNTER 10/08/2024 Telephone [facility] [address] [place] [address] Antonieta Comer, RN 10/08/2024 Telephone [facility] [address] [place] [address] Antonieta Comer, RN 10/08/2024 Telephone [facility] [address] [place] [address] Antonieta Comer, RN 10/08/2024 Telephone [facility] [address] [place] [address] Antonieta Comer, RN 10/08/2024 Telephone [facility] [address] [place] [address] Antonieta Comer, RN 10/08/2024 Telephone [facility] [address] [place] [address] Antonieta Comer, RN 10/08/2024 Telephone [facility] [address] [place] [address] Antonieta Comer, RN 10/08/2024 Telephone [facility] [address] [place] [address] Antonieta Comer, RN 10/07/2024 [facility] [address] [phone] Sekou Trevino MD Medical Question/Miscellane ous 10/07/2024 Telephone [facility] [address] [place] [address] Antonieta Comer, RN 10/07/2024 Telephone [facility] [address] [place] [address] Antonieta Comer, RN 10/06/2024 Telephone [facility] [address] [place] [address] Antonieta Comer, RN 10/06/2024 Telephone [facility] [address] [place] [address] Antonieta Comer, RN 10/06/2024 Telephone [facility] [address] [place] [address] Antonieta Comer RN 10/05/2024 9:15 AM ASSOCIATE PROFESSOR Office Visit [facility] [address] [phone] Sekou Trevino MD Recurrent falls while walking (Primary Dx); Gait abnormality; COPD exacerbation (HCC); Other spondylosis with radiculopathy, lumbar region from Last 3 Months Immunizations Immunization Administration Dates Next Due Hep A, Adult 10/23/2001,04/10/2001 Influenza, Unspecified 11/25/2024(Deferr ed: Patient Refused),11/18/2024(Deferred: Patient Refused),10/27/2024(Deferred: Patient Refused),10/05/2024(Deferred: Patient Refused),02/16/2024(Deferred: Patient Refused),09/18/2023(Deferred: Patient Refused),09/12/2023(Deferred: Patient Refused),09/12/2023(Deferred: Patient Refused),08/25/2023(Deferred: Patient Refused),09/12/2022(Deferred: Patient Refused),08/17/2022(Deferred: Patient Refused),07/18/2022(Deferred: Patient Refused) MMR 05/10/2015,05/02/2015,04/10/2001 Pneumococcal Conjugate PCV 13 11/17/2017 Pneumococcal Conjugate Pcv20 05/19/2024 Pneumococcal Polysaccharide PPV23 11/27/2017 Td, adsorbed 07/11/2000 Tdap 05/02/2015 Surgical History Surgery Date Site/Laterality Comments CARDIAC STENT PLACEMENT CHOLECYSTECTOMY APPENDECTOMY SPINE SURGERY 2007, 2008, 2008 due to crushed discs NECK SURGERY ANKLE SURGERY KNEE SURGERY DILATION AND CURETTAGE, DIAGNOSTIC / THERAPEUTIC EXPLORATORY LAPAROTOMY ERCP COLONOSCOPY 11/17/2010 - 11/16/2011 CARDIAC SURGERY Medical History Medical History Date Comments Hyperlipidemia GI (gastrointestinal bleed) Hypertension Bradycardia SVT (supraventricular tachycardia) (HCC) Chronic constipation Dysphagia Coronary artery disease Asthma seasonal Aneurysm of abdominal aorta (HCC) Pulmonary emboli (HCC) GERD (gastroesophageal reflux disease) COPD (chronic obstructive pulmonary disease) (HC C) Colitis 10/2024 [facility] Family History Medical History Relation Name Comments Atrial fibrillation Daughter Cancer Daughter Diabetes Father Hypertension Father Kidney disease Father Heart disease Maternal Grandmother Cancer Mother Breast Hypertension Mother Stroke Mother Stroke Paternal Grandfather Heart disease Paternal Grandmother Asthma Son Relation Name Status Comments Daughter Alive Father Maternal Grandmother Mother Paternal Grandfather Paternal Grandmother Son Alive Social History Tobacco Use Types Packs/Day Years Used Date Smoking Tobacco: Every Day Cigarettes 0.2 53.1 Started: 1970 Smokeless Tobacco: Never Tobacco Cessation:Ready to Q uit: Not Asked; Counseling Given: Not Answered Comments:07/06/24 Smokes 1-2 cigarettes a day Alcohol Use Standard Drinks/Week Comments Not Currently 0 (1 standard drink = 0.6 oz pur e alcohol) OASIS D0700: Social Isolation Answer Da te Recorded Frequency of experiencing loneliness or isolatio n Never 11/02/2024 OASIS A1250: Transportation Answer Date Recorded Lack of Transportation (Medical) No 11/02/2024 Lack of Transportation (Non-Medical) No 11/02/2024 Patient Unable or Declines to Respond No 11/02/2024 OASIS B1300: Health Literacy Answer Anil e Recorded Frequency of needing help to read materials from doctor or pharmacy Often 11/02/2024 [facility] Utilities Answer Date Recorded In the past 12 months has [employer], gas, oil, or water [employer] threatened to shut off services in your home? No 10/21/2024 Social Connection and Isolat ion Panel [NHANES] Answer Date Recorded In a typical week, how many times do you talk on the phone with family, friends, or neighbors? Twice a week 10/21/2024 How often do you get togethe r with friends or relatives? Twice a week 10/21/2024 How often do you attend chur ch or buddhism services? More than 4 times per year 10/21/2024 Do you belong to any clubs o r organizations such as buddhism groups, unions, fraternal or athletic groups, or school groups? No 10/21/2024 How often do you attend meet ings of the clubs or organizations you belong to? Never 10/21/2024 Are you , , di vorced, , never , or living with a partner? 10/21/2024 AUDIT-C Answer Date Recorded Q1: How often do you have a drink containing alc ohol? Never 03/14/2024 Average Number of Drinks Not on file 024 Frequency of Binge Drinking Not on file 02/16 Overall Financial Resource Strain (CARDIA) Answe r Date Recorded How hard is it for you to pa y for the very basics like food, housing, medical care, and heating? Not hard at all 10/21/2024 PHQ-2 Answer Date Recorded PHQ-2 Total Score (If total score is 3 or more points, staff should administer the PHQ-9) 2 10/27/2024 Hunger Vital Sign Answer Date Recorded Within the past 12 months, y ou worried that your food would run out before you got the money to buy more. Never true 10/21/20 24 Within the past 12 months, t he food you bought just didn't last and you didn't have money to get more. Never true 10/21/2024 PRAPARE - Transportation Answer Date Re corded In the past 12 months, has l ack of transportation kept you from medical appointments or from getting medications? No 03/2024 In the past 12 months, has l ack of transportation kept you from meetings, work, or from getting things needed for daily living? No 10/21/2024 Housing Stability Vital Sign Answer Anil e Recorded In the last 12 months, was t here a time when you were not able to pay the mortgage or rent on time? No 03/15/2024 In the last 12 months, how many places have you lived? 1 03/15/2024 In the last 12 months, was t here a time when you did not have a steady place to sleep or slept in a intermediate (including now)? No 03/15/2024 Housing Stability Vital Sign Answer Anil e Recorded In the last 12 months, was t here a time when you were not able to pay the mortgage or rent on time? No 10/21/2024 In the past 12 months, how m any times have you moved where you were living? 0 10/21/2024 At any time in the past 12 m [facility], were you homeless or living in a intermediate (including now)? No 10/21/2024 Personal Safety Answer Date Recorded Have you ever been in or are you currently in a harmful physical or emotional relationship or is someone making you feel afraid or unsafe? Denies 11/29/2024 Education Answer Date Recorded What is the highest level of school you have completed or the highest degree you have received? 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 Not on file Not on file N ot on file Obstetrics History Para Term AB IAB SAB Ectopic Multiple Livin g Live Births 4 2 2 2 Date Outcome GA Total Labor Labor/2nd/3rd Weight Sex Type Anes PTL Carmen A1 A5 Name Clin Para Para SAB SAB Last Filed Vital Signs Vital Sign Reading Time Taken Comments Blood Pressure 122/74 01/04/2025 11:16 AM ASSOCIATE PROFESSOR Pulse 85 01/04/2025 11:16 AM ASSOCIATE PROFESSOR Temperature 36.5 C (97.7 F) 01/04/2025 11:16 AM ASSOCIATE PROFESSOR Respiratory Rate 24 01/04/2025 11:16 AM ASSOCIATE PROFESSOR Oxygen Saturation 98% 01/04/2025 11:16 AM ASSOCIATE PROFESSOR Inhaled Oxygen Concentration - - Weight 79.8 kg (176 lb) 01/04/2025 11:16 AM ASSOCIATE PROFESSOR Height 167.6 cm (5' 6 ) 01/04/2025 11:16 AM ASSOCIATE PROFESSOR Body Mass Index 28.41 01/04/2025 11:16 AM ASSOCIATE PROFESSOR Plan of Treatment Health Maintenance Due Date Last Done Comments Breast Cancer Screening-Mammogram 1955 Hepatitis C Screening 1955 Osteoporosis Screening-Bone Density Scan 1955 Hepatitis B Screening 1974 Influenza Vaccine (#1) 2024 Colon Cancer Screening-Colonoscopy 09/10/2024 09/10/2021 DTaP/Tdap/Td Vaccine (2 - Td or Tdap) 05/02/2025 05/02/2015, 07/11/2000 Depression Screening 10/27/2025 10/27/2024, 10/05/2024, 10/05/2024, Additional history exists Well Visit 65+ 10/27/2025 10/27/2024, 07/28/2023 Fall Risk Assessment 11/16/2025 11/16/2024, 10/27/2024, 10/05/2024, Additional history exists Zoster Vaccine (1 of 2) 11/18/2025 Post poned from 2006 (Patient declined, but will receive in the future) Colon Cancer Screening-CT Colonography Discontinued 09/10/2021, 06/12/2011 Colon Cancer Screening-DNA Stool Discontinued 09/10/2021, 06/12/2011 Colon Cancer Screening-FIT Discontinued 09/10/2021, Colon Cancer Screening-Sigmoidoscopy Discontinued 09/10/2021, 06/12/2011 Pneumococcal vaccine 65+ Completed 024, 11/27/2017, 11/17/2017 Medical Devices Explanted Type Area Echometer Engineer Device Identifier Shelf Expiration Date Model / Serial / Lot [employer] 6572 Pineda Flexi-Stent 7fr 5cm Small Pigtail Flexible .035in Stent - [id number] Implanted:Qty : 1 on 10/18/2019 by Manuel Ingram MD at [facility] Explanted:Qty : 1 on 10/20/2019 by Manuel Ingram MD at [facility] Stent N/A: Pancreas [employer] 08/16/2024 [id number] / / [id number] [employer] [id number] Welch Viabil 10mm 8.5fr 6cm 200cm Fully Covered Self Expand Pull - [id number] - [id number] Implanted:Qty : 1 on 10/18/2019 by Manuel Ingram MD at [facility] Explanted:Qty : 1 on 10/20/2019 by Manuel Ingram MD at [facility] Stent N/A: Bile Duct [employer] 06/15/2022 [id number] / [id number] / Procedures Procedure Name Priority Date/Time Associated Diagnosis Comments POCT RAPID RSV Routine 12/23/2024 4:51 PM ASSOCIATE PROFESSOR Viral URI with cough POC INFLUENZA A/B, COVID-19 ANTIGEN Routine 12/23/2024 4:51 PM ASSOCIATE PROFESSOR Viral URI with cough MT ECG ROUTINE ECG W/LEAST 12 LDS W/I&R Routine 12/02/2024 2:23 PM ASSOCIATE PROFESSOR Atypical chest pain BLOOD GAS, VENOUS STAT 11/29/2024 9:3 2 PM ASSOCIATE PROFESSOR TROPONIN T HIGH-SENSITIVITY 6-HOUR Timed 11/29/2024 9:32 PM ASSOCIATE PROFESSOR PRO B-TYPE NATRIURETIC PEPTIDE STAT 11/29/2024 8:41 PM ASSOCIATE PROFESSOR TROPONIN T HIGH-SENSITIVITY 4-HR Timed 11/29/2024 8:41 PM ASSOCIATE PROFESSOR EGFR STAT 11/29/2024 4:10 PM ASSOCIATE PROFESSOR DIFFERENTIAL AUTO STAT 11/29/2024 4:1 0 PM ASSOCIATE PROFESSOR TROPONIN T HIGH-SENSITIVITY SERIES (BASELINE, 2HR, 4HR, 6HR) STAT 11/29/2024 4:10 PM ASSOCIATE PROFESSOR CBC WITH AUTO DIFFERENTIAL STAT 11/29/2024 4:10 PM ASSOCIATE PROFESSOR COMPREHENSIVE METABOLIC PANEL STAT 11/29/2024 4:10 PM ASSOCIATE PROFESSOR INFLUENZA A/B, RSV, AND COVID-19 PCR Routine 11/29/2024 4:10 PM ASSOCIATE PROFESSOR XR CHEST 1 VIEW ED 11/29/2024 3:17 PM ASSOCIATE PROFESSOR ECG 12-LEAD STAT 11/29/2024 2:55 PM ASSOCIATE PROFESSOR ECG 12-LEAD Routine 11/25/2024 2:24 PM ASSOCIATE PROFESSOR Chest pain, unspecified type EGFR Routine 11/16/2024 9:10 AM ASSOCIATE PROFESSOR MANUAL DIFFERENTIAL Routine 11/16/2024 9 :10 AM ASSOCIATE PROFESSOR BASIC METABOLIC PANEL Routine 11/16/2024 9:10 AM ASSOCIATE PROFESSOR MAGNESIUM Routine 11/16/2024 9:10 AM ASSOCIATE PROFESSOR CBC WITH AUTO DIFFERENTIAL Routine 11/16/2024 9:10 AM ASSOCIATE PROFESSOR TROPONIN T HIGH-SENSITIVITY 6-HOUR Timed 11/15/2024 9:36 PM ASSOCIATE PROFESSOR TROPONIN T HIGH-SENSITIVITY 4-HR Timed 11/15/2024 7:53 PM ASSOCIATE PROFESSOR TROPONIN T HIGH-SENSITIVITY 2-HOUR Timed 11/15/2024 5:45 PM ASSOCIATE PROFESSOR TROPONIN T HIGH-SENSITIVITY SERIES (BASELINE, 2HR, 4HR, 6HR) STAT 11/15/2024 3:31 PM ASSOCIATE PROFESSOR ECG 12-LEAD Routine 11/15/2024 2:42 PM ASSOCIATE PROFESSOR XR CHEST 1 VIEW IP Routine 11/15/2024 2:15 PM ASSOCIATE PROFESSOR EGFR Routine 11/15/2024 7:15 AM ASSOCIATE PROFESSOR DIFFERENTIAL AUTO Routine 11/15/2024 7:1 5 AM ASSOCIATE PROFESSOR BASIC METABOLIC PANEL Routine 11/15/2024 7:15 AM ASSOCIATE PROFESSOR MAGNESIUM Routine 11/15/2024 7:15 AM ASSOCIATE PROFESSOR CBC WITH AUTO DIFFERENTIAL Routine 11/15/2024 7:15 AM ASSOCIATE PROFESSOR CARBOXYHEMOGLOBIN, VENOUS Routine 11/14/2024 11:00 AM ASSOCIATE PROFESSOR EGFR STAT 11/14/2024 8:36 AM ASSOCIATE PROFESSOR PRO B-TYPE NATRIURETIC PEPTIDE Routine 11/14/2024 8:36 AM ASSOCIATE PROFESSOR DIFFERENTIAL AUTO Routine 11/14/2024 8:3 6 AM ASSOCIATE PROFESSOR BASIC METABOLIC PANEL STAT 11/14/2024 8:36 AM ASSOCIATE PROFESSOR MAGNESIUM Routine 11/14/2024 8:36 AM ASSOCIATE PROFESSOR CBC WITH AUTO DIFFERENTIAL Routine 11/14/2024 8:36 AM ASSOCIATE PROFESSOR FENTANYL CONFIRMATION, MS URINE Routine 11/13/2024 11:48 PM ASSOCIATE PROFESSOR DRUGS OF ABUSE SCREEN, URINE WITH REFLEX CONFIRMATION Routine 11/13/2024 11:48 PM ASSOCIATE PROFESSOR TROPONIN T HIGH-SENSITIVITY Routine 11/13/2024 6:17 PM ASSOCIATE PROFESSOR XR CHEST 1 VIEW IP Routine 11/13/2024 5:09 PM ASSOCIATE PROFESSOR ECG 12-LEAD Routine 11/13/2024 4:54 PM ASSOCIATE PROFESSOR BLOOD GAS, ARTERIAL STAT 11/13/2024 4 :52 PM ASSOCIATE PROFESSOR PROCALCITONIN Routine 11/13/2024 12:36 PM ASSOCIATE PROFESSOR BLOOD CULTURE Routine 11/13/2024 8:15 AM ASSOCIATE PROFESSOR BLOOD CULTURE Routine 11/13/2024 8:14 AM ASSOCIATE PROFESSOR EGFR Routine 11/13/2024 3:50 AM ASSOCIATE PROFESSOR DIFFERENTIAL AUTO Routine 11/13/2024 3:5 0 AM ASSOCIATE PROFESSOR MAGNESIUM Routine 11/13/2024 3:50 AM ASSOCIATE PROFESSOR COMPREHENSIVE METABOLIC PANEL Routine 11/13/2024 3:50 AM ASSOCIATE PROFESSOR CBC WITH AUTO DIFFERENTIAL Routine 11/13/2024 3:50 AM ASSOCIATE PROFESSOR PROCALCITONIN Routine 11/13/2024 3:50 AM ASSOCIATE PROFESSOR LEGIONELLA ANTIGEN, URINE Routine 11/13/2024 3:25 AM ASSOCIATE PROFESSOR STREP PNEUMONIAE AG, URINE Routine 11/13/2024 3:25 AM ASSOCIATE PROFESSOR TROPONIN T HIGH-SENSITIVITY 6-HOUR Timed 11/12/2024 5:33 PM ASSOCIATE PROFESSOR TROPONIN T HIGH-SENSITIVITY 4-HR Timed 11/12/2024 3:13 PM ASSOCIATE PROFESSOR URINALYSIS, MICROSCOPIC ONLY STAT 11/12/2024 2:08 PM ASSOCIATE PROFESSOR URINE CULTURE STAT 11/12/2024 2:08 PM ASSOCIATE PROFESSOR URINALYSIS AND REFLEX TO MICROSCOPIC AND CULTURE STAT 11/12/2024 2:08 PM ASSOCIATE PROFESSOR MT CRITICAL CARE ILL/INJURED PATIENT INIT 30-74 MIN Routine 11/12/2024 1:57 PM ASSOCIATE PROFESSOR BLOOD GAS, VENOUS STAT 11/12/2024 1:1 4 PM ASSOCIATE PROFESSOR TROPONIN T HIGH-SENSITIVITY 2-HOUR Timed 11/12/2024 12:56 PM ASSOCIATE PROFESSOR BLOOD CULTURE STAT 11/12/2024 12:11 PM ASSOCIATE PROFESSOR BLOOD CULTURE STAT 11/12/2024 12:11 PM ASSOCIATE PROFESSOR XR CHEST 1 VIEW ED 11/12/2024 11:30 AM ASSOCIATE PROFESSOR EGFR STAT 11/12/2024 11:23 AM ASSOCIATE PROFESSOR DIFFERENTIAL AUTO STAT 11/12/2024 11: 23 AM ASSOCIATE PROFESSOR BLOOD GAS, VENOUS STAT 11/12/2024 11: 23 AM ASSOCIATE PROFESSOR SEPSIS LACTATE WITH REFLEX STAT 11/12/2024 11:23 AM ASSOCIATE PROFESSOR TROPONIN T HIGH-SENSITIVITY SERIES (BASELINE, 2HR, 4HR, 6HR) Routine 11/12/2024 11:23 AM ASSOCIATE PROFESSOR PROTIME-INR STAT 11/12/2024 11:23 AM ASSOCIATE PROFESSOR PRO B-TYPE NATRIURETIC PEPTIDE STAT 11/12/2024 11:23 AM ASSOCIATE PROFESSOR MAGNESIUM Routine 11/12/2024 11:23 AM ASSOCIATE PROFESSOR APTT STAT 11/12/2024 11:23 AM ASSOCIATE PROFESSOR COMPREHENSIVE METABOLIC PANEL STAT 11/12/2024 11:23 AM ASSOCIATE PROFESSOR CBC WITH AUTO DIFFERENTIAL STAT 11/12/2024 11:23 AM ASSOCIATE PROFESSOR INFLUENZA A/B, RSV, AND COVID-19 PCR Routine 11/12/2024 11:23 AM ASSOCIATE PROFESSOR ECG 12-LEAD Routine 11/12/2024 11:18 AM ASSOCIATE PROFESSOR TROPONIN T HIGH-SENSITIVITY 2-HOUR Timed 11/02/2024 6:33 PM ASSOCIATE PROFESSOR EGFR STAT 11/02/2024 4:10 PM ASSOCIATE PROFESSOR DIFFERENTIAL AUTO STAT 11/02/2024 4:1 0 PM ASSOCIATE PROFESSOR TROPONIN T HIGH-SENSITIVITY SERIES (BASELINE, 2HR, 4HR, 6HR) STAT 11/02/2024 4:10 PM ASSOCIATE PROFESSOR CBC WITH AUTO DIFFERENTIAL STAT 11/02/2024 4:10 PM ASSOCIATE PROFESSOR COMPREHENSIVE METABOLIC PANEL STAT 11/02/2024 4:10 PM ASSOCIATE PROFESSOR XR CHEST 1 VIEW ED 11/02/2024 2:48 PM ASSOCIATE PROFESSOR ECG 12-LEAD STAT 11/02/2024 2:43 PM ASSOCIATE PROFESSOR EGFR Routine 10/22/2024 3:08 AM ASSOCIATE PROFESSOR DIFFERENTIAL AUTO Routine 10/22/2024 3:0 8 AM ASSOCIATE PROFESSOR PHOSPHORUS Routine 10/22/2024 3:08 AM ASSOCIATE PROFESSOR MAGNESIUM Routine 10/22/2024 3:08 AM ASSOCIATE PROFESSOR BASIC METABOLIC PANEL Routine 10/22/2024 3:08 AM ASSOCIATE PROFESSOR CBC WITH AUTO DIFFERENTIAL Routine 10/22/2024 3:08 AM ASSOCIATE PROFESSOR EGFR Routine 10/21/2024 6:38 AM ASSOCIATE PROFESSOR DIFFERENTIAL AUTO Routine 10/21/2024 6:3 8 AM ASSOCIATE PROFESSOR CBC WITH AUTO DIFFERENTIAL Routine 10/21/2024 6:38 AM ASSOCIATE PROFESSOR BASIC METABOLIC PANEL Routine 10/21/2024 6:38 AM ASSOCIATE PROFESSOR INFLUENZA A/B, RSV, AND COVID-19 PCR Routine 10/20/2024 9:[address] ABDOMEN PELVIS WO CONTRAST ED 10/20/2024 8:06 PM ASSOCIATE PROFESSOR URINALYSIS, MICROSCOPIC ONLY STAT 10/20/2024 7:46 PM ASSOCIATE PROFESSOR URINALYSIS AND REFLEX TO MICROSCOPIC AND CULTURE STAT 10/20/2024 7:46 PM ASSOCIATE PROFESSOR EGFR STAT 10/20/2024 5:43 PM ASSOCIATE PROFESSOR DIFFERENTIAL AUTO STAT 10/20/2024 5:4 3 PM ASSOCIATE PROFESSOR LIPASE STAT 10/20/2024 5:43 PM ASSOCIATE PROFESSOR COMPREHENSIVE METABOLIC PANEL STAT 10/20/2024 5:43 PM ASSOCIATE PROFESSOR CBC WITH AUTO DIFFERENTIAL STAT 10/20/2024 5:43 PM ASSOCIATE PROFESSOR EGFR STAT 10/15/2024 3:33 PM ASSOCIATE PROFESSOR DIFFERENTIAL AUTO STAT 10/15/2024 3:3 3 PM ASSOCIATE PROFESSOR CBC WITH AUTO DIFFERENTIAL STAT 10/15/2024 3:33 PM ASSOCIATE PROFESSOR COMPREHENSIVE METABOLIC PANEL STAT 10/15/2024 3:[address] ABDOMEN PELVIS WO CONTRAST ED 10/15/2024 3:07 PM ASSOCIATE PROFESSOR COLONOSCOPY 09/10/2021 1:54 PM CDT from Last 3 Months or Most Recently Relevant to Health Maintenance Results * POC Influenza A/B, COVID-19 antigen (12/23/2024 4:51 PM ASSOCIATE PROFESSOR) [facility] Influenza A Ag, POC Negative Negative [facility] Influenza B Ag, POC Negative Negative [facility] COVID-19 Ag POC Presumptive Negative Presumptive Negative, Invalid [facility] Nasal 12/23/2024 4:51 PM ASSOCIATE PROFESSOR Cristela Doll FUR DRESSER POINT OF CARE TEST ORDERABLES Final Result Performing Organization Address City/State/[facility] Co de Phone Number [facility] [address] [place] [address] * POCT rapid RSV (12/23/2024 4:51 PM ASSOCIATE PROFESSOR) [facility] Rapid RSV, POC Negative Negative Lot Number [id number] QC Control Line Acceptable Swab 12/23/2024 4:51 PM ASSOCIATE PROFESSOR us Cristela Doll FUR DRESSER POINT OF CARE TEST ORDERABLES Final Result * MT ECG ROUTINE ECG W/LEAST 12 LDS W/I&R (12/02/2024 2:23 PM ASSOCIATE PROFESSOR) Narrative Sekou Trevino MD - 12/02/2024 2:23 PM ASSOCIATE PROFESSOR Sekou Trevino MD 12/02/2024 2:25 PM EKG 12 lead office performed Date/Time: 12/02/2024 2:23 PM Performed by: Sekou Trevino MD Authorized by: Sekou Trevino MD Procedure Type: Global Compared with previous ECG: Yes Previous ECG date: 11/15/2024 Similar to previous ECG Rhythm: atrial fibrillation Rate: normal QRS axis: Right Conduction: Normal ST Segment: Normal T Wave Inverted: V1 and V2 Other Findings: No other findings Clinical impression: abnormal ECG us Sekou Trevino MD ECG ORDERABLES Final Res ult * Troponin T high-sensitivity 6-hour (11/29/2024 9:32 PM ASSOCIATE PROFESSOR) Trop T hs 14 <=14 ng/L Comment: Interpretive Data For further hscTnT resources including the diagnostic algorithm and an aid in interpretation, copy and paste this link: https://nrl.testcatalog.org/show/hsTrop Current Interpretive Data last revised 2020. Trop T hs delta -2 ng/L [facility] ([place]) Trop T hs interp Insignificant [facility] ([place]) Blood 11/29/2024 9:32 PM ASSOCIATE PROFESSOR 11/29/2024 9:35 PM ASSOCIATE PROFESSOR us Demetris Ocampo MD LAB BLOOD ORDERABLES Final R esult [facility] ([place]) 1 [facility] [place], [place] [id number] * (ABNORMAL) Blood gas, venous (11/29/2024 9:32 PM ASSOCIATE PROFESSOR) pH, Venous 7.38 7.32 - 7.43 PCO2, Venous 51(H) 40 - 50 mmHg [facility] ([place]) PO2, Venous 41 mmHg [facility] ([place]) HCO3 Venous, Calculated 29 20 - 30 mmol/L [facility] ([place]) BE, venous 4 mmol/L [facility] ([place]) Comment: Interpretive Data No Reference Range Established Current Interpretive Data was last revised on 2018. Blood 11/29/2024 9:32 PM ASSOCIATE PROFESSOR 11/29/2024 9:35 PM ASSOCIATE PROFESSOR Alice ROBERTSON LAB BLOOD ORDERABLES Jaquelin l Result Performing Organization Address City/[facility]/ZIP Co de Phone Number ADA TREVINO ([place]) 1 [facility] [place] [address] * Troponin T high-sensitivity 4-hour (11/29/2024 8:41 PM ASSOCIATE PROFESSOR) Trop T hs 12 <=14 ng/L Comment: Interpretive Data For further hscTnT resources including the diagnostic algorithm and an aid in interpretation, copy and paste this link: https://nrl.testcatalog.org/show/hsTrop Current Interpretive Data last revised 2020. Trop T hs delta -4 ng/L [facility] ([place]) Trop T hs interp Insignificant [facility] ([place]) Blood 11/29/2024 8:41 PM ASSOCIATE PROFESSOR 11/29/2024 9:28 PM ASSOCIATE PROFESSOR us Demetris Ocampo MD LAB BLOOD ORDERABLES Final R esult Performing Organization Address [facility] Co de Phone Number ADA TRE[facility] ([place]) 1 [facility] [place] [address] * (ABNORMAL) Pro B-type natriuretic peptide (11/29/2024 8:41 PM ASSOCIATE PROFESSOR) NT-proBNP 3,550(H) <=300 pg/mL Comment: Interpretive Comments: A. Dyspnea in Acute Care Setting All Ages: < 300 pg/ml, acute heart failure unlikely. < 50 yrs: 300 - 450 pg/ml, further investigation warranted. > 450 pg/ml, acute heart failure likely. 50 - 74 yrs: 300 - 900 pg/ml, further investigation warranted. > 900 pg/ml, acute heart failure likely . > or = 75 yrs: 450 - 1800 pg/ml, further investigation warranted. > 1800 pg/ml, acute heart failure likely. B. Non-acute Setting < 75 yrs < 125 pg/ml, rules out heart failure. > or = 125 pg/ml, further investigation warranted. > or = 75 yrs < 450 pg/ml, rules out heart failure. > or = 450 pg/ml, further investigation warranted. - Knowledge of each individual patient's NT-proBNP range may be more useful than using similar cut-points for every patient. Please note that marked elevations in NT-proBNP levels may be observed in state other than Left Ventricular Congestive Failure, including: acute coronary syndromes, right heart strain/failure (including pulmonary embolism and cor pulmonale), critical illness, renal failure, as well as advanced age. - References: 1. Meyrl PARKINSON et.al. Eur Heart J. 2006:27:330-337. 2. Lonnie RW, Teresa TRUJILLO. J. AM Denisse Cardiol: Cardiovasc Imag. 2009;2: 216- 225. Interpretive Data Last Revised Date: 2018. Blood 11/29/2024 8:41 PM ASSOCIATE PROFESSOR 11/29/2024 9:28 PM ASSOCIATE PROFESSOR Alice ROBERTSON LAB BLOOD ORDERABLES Jaquelin vazquez Result [facility] [place] [facility] [place] [address] * (ABNORMAL) Troponin T high-sensitivity series (baseline, 2hr, 4hr, 6hr) (11/29/2024 4:10 PM ASSOCIATE PROFESSOR) Trop T hs 16(H) <=14 ng/L Comment: Interpretive Data For further hscTnT resources including the diagnostic algorithm and an aid in interpretation, copy and paste this link: https://nrl.testcatalog.org/show/hsTrop Current Interpretive Data last revised 2020. Blood 11/29/2024 4:10 PM ASSOCIATE PROFESSOR 11/29/2024 4:20 PM ASSOCIATE PROFESSOR Demetris Ocampo MD LAB BLOOD ORDERABLES Final R esult Performing Organization Address City/[facility]/ZIP Co de Phone Number ADA [place]ney[place]) 1 [facility] [place] [address] * Influenza A/B, RSV, and COVID-19 PCR Nasopharyngeal (11/29/2024 4:10 PM ASSOCIATE PROFESSOR) Pathologist [facility] COVID-19 RNA Negative Negative Influenza A RNA Negative Negative [facility] ([place]) Influenza B RNA Negative Negative [facility] ([place]) RSV RNA Negative Negative [facility] ([place]) Comment: Interpretive data: Testing performed by [facility]. This test is performed using the [employer] Xpert Xpress CoV-2/Flu/RSV plus assay. This is a multiplex, real- time reverse transcriptase PCR assay intended for the qualitative detection of nucleic acid from SARS-CoV-2, influenza A, influenza B, and respiratory syncytial virus. This assay has been cleared by the [place] Food and Drug administration. The performance characteristics have been verified by the [facility]. Results must be considered in the clinical context, and a negative result does not rule out infection. Interpretive Data last revised 2023 Nasopharyngeal 11/29/2024 4: 10 PM ASSOCIATE PROFESSOR 11/29/2024 4:20 PM ASSOCIATE PROFESSOR Narrative [facility] - 11/29/2024 5:11 PM ASSOCIATE PROFESSOR Is the Patient experiencing symptoms consistent with COVID?->Yes Demetris Ocampo MD LAB MICROBIOLOGY - GENERAL O RDERABLES Final Result ADA [facility]RE[facility] ([place]) 1 [facility] [place] [address] * eGFR (11/29/2024 4:10 PM ASSOCIATE PROFESSOR) [facility] eGFR >90 >=60 mL/min/1. 73 m2 Comment: Interpretive Data Reference Interval Normal >/= 90 mL/min/1.73m2 Mildly decreased* 60 - 89 mL/min/1.73m2 Mildly to moderately decreased 45 - 59 mL/min/1.73m2 Moderately to severely decreased 30 - 44 mL/min/1.73m2 Severely decreased 15 - 29 mL/min/1.73m2 Kidney Failure < 15 mL/min/1.73m2 *Relative to young adult level Estimated glomerular filtration rate is determined by the 2020 CKD-EPI equation recommended by the National Kidney Foundation (A Unifying Approach to GFR Estimation: Recommendations of the NKF-ASK Task Force on Reassessing the Inclusion of Race in Diagnosing Kidney Disease, JASN 202). The CKD-EPI equation should not be used for patients with unstable renal function and has not been validated in children and those over 70. Current interpretive data was last reviewed 2021. Blood 11/29/2024 4:10 PM ASSOCIATE PROFESSOR 11/29/2024 4:20 PM ASSOCIATE PROFESSOR us Demetris Ocampo MD LAB BLOOD ORDERABLES Final R esult [facility] ([place]) 1 [facility] [place] [address] * (ABNORMAL) Differential, auto (11/29/2024 4:10 PM ASSOCIATE PROFESSOR) Neutrophil abs 8.8(H) 1.5 - 6.5 K/cumm Imm gran abs 0.1 0.0 - 0.1 K/cumm [facility] ([place]) Lymphocyte abs 1.3 0.8 - 3.3 K/cumm [facility] ([place]) Monocyte abs 0.7 0.2 - 0.8 K/cumm [facility] ([place]) Eosinophil abs 0.1 0.0 - 0.5 K/cumm [facility] ([place]) Basophil abs 0.1 0.0 - 0.1 K/cumm [facility] ([place]) Neutrophil pct 79.6 % [facility] ([place]) Comment: Interpretive Data Percent cell count reference ranges are not reported, since discordance with absolute values may lead to misinterpretation of CBC data. Current Interpretive Data was last revised on 2018. Imm gran pct 0.5 % [facility] ([place]) Comment: Interpretive Data Percent cell count reference ranges are not reported, since discordance with absolute values may lead to misinterpretation of CBC data. Current Interpretive Data was last revised on 2018. Lymphocyte pct 11.9 % [facility] ([place]) Comment: Interpretive Data Percent cell count reference ranges are not reported, since discordance with absolute values may lead to misinterpretation of CBC data. Current Interpretive Data was last revised on 2018. Monocyte pct 6.7 % [facility] ([place]) Comment: Interpretive Data Percent cell count reference ranges are not reported, since discordance with absolute values may lead to misinterpretation of CBC data. Current Interpretive Data was last revised on 2018. Eosinophil pct 0.8 % [facility] ([place]) Comment: Interpretive Data Percent cell count reference ranges are not reported, since discordance with absolute values may lead to misinterpretation of CBC data. Current Interpretive Data was last revised on 2018. Basophil pct 0.5 % [facility] ([place]) Comment: Interpretive Data Percent cell count reference ranges are not reported, since discordance with absolute values may lead to misinterpretation of CBC data. Current Interpretive Data was last revised on 2018. Blood 11/29/2024 4:10 PM ASSOCIATE PROFESSOR 11/29/2024 4:20 PM ASSOCIATE PROFESSOR us Demetris Ocampo MD LAB BLOOD ORDERABLES Final R esult ADA [facility] ([place]) 1 [facility] [place] [address] * (ABNORMAL) CBC with auto differential (11/29/2024 4:10 PM ASSOCIATE PROFESSOR) WBC 11.1(H) 3.8 - 9.9 K/cumm Hgb 13.4 11.9 - 15.5 g/dL [facility] ([place]) Hct 42.0 35.6 - 45.5 % [facility] ([place]) Plt 242 150 - 400 K/cumm [facility] ([place]) MPV 9.4 9.1 - 12.3 fL [facility] ([place]) RBC 4.09 3.90 - 5.20 M/cumm [facility] ([place]) MCV 102.7(H) 81.3 - 96.4 fL [facility] ([place]) MCH 32.8 27.1 - 33.3 pg [facility] ([place]) MCHC 31.9(L) 32.3 - 35.7 g/dL [facility] ([place]) RDW CV 14.9 11.1 - 14.9 % [facility] ([place]) RDW SD 56.5(H) 35.7 - 48.1 fL [facility] NRBC abs 0.00 0.00 - 0.01 K/cumm [facility] ([place]) Blood 11/29/2024 4:10 PM ASSOCIATE PROFESSOR 11/29/2024 4:20 PM ASSOCIATE PROFESSOR Demetris Ocampo MD LAB BLOOD ORDERABLES Final R esult [facility] ([place] 1 [facility] [place] [address] * (ABNORMAL) Comprehensive metabolic panel (11/29/2024 4:10 PM ASSOCIATE PROFESSOR) Sodium 140 135 - 145 mmol/L Potassium, pl 4.8 3.3 - 4.9 mmol/L [facility] ([place]) Comment:Slightly Hemolyzed S pecimen. Results may be affected. Chloride 102 97 - 110 mmol/L [facility] ([place]) CO2 27 22 - 32 mmol/L [facility] ([place] Anion gap 11 2 - 15 mmol/L [facility] ([place] BUN 11 6 - 25 mg/dL [facility] ([place]) Creatinine 0.69 0.60 - 1.10 mg/dL [facility] ([place]) Glucose 97 70 - 199 mg/dL [facility] ([place]) Comment: Interpretive Data Fasting glucose >/= 126 mg/dl is diagnostic for diabetes. Fasting is defined as no caloric intake for at least 8 hours. Fasting glucose between 100 mg/dl to 125 mg/dl is diagnostic of prediabetes. In a patient with classic symptoms of hyperglycemia or hyperglycemic crisis, a random glucose >/= 200 mg/dl is diagnostic for diabetes. In the absence of unequivocal hyperglycemia, results should be confirmed by repeat testing. The classification and Diagnosis of Diabetes Diabetes Care 2021; 46: S19-S40. Current interpretive data was last revised 2022. Calcium 9.0 8.5 - 10.3 mg/dL [facility] ([place]) Bilirubin, total 0.6 0.1 - 1.2 mg/dL [facility] ([place]) Protein, pl 6.4(L) 6.5 - 8.5 g/dL [facility] ([place]) Albumin 3.6 3.5 - 5.0 g/dL [facility] ([place]) Alk phos 84 40 - 130 Units/L [facility] ([place]) ALT 14 7 - 45 Units/L [facility] ([place]) Comment:Hemolysis present. R esults may be affected. AST 18 10 - 45 Units/L [facility] ([place]) Comment: Hemolysis present. Results may be affected. Slightly Hemolyzed Specimen Blood 11/29/2024 4:10 PM ASSOCIATE PROFESSOR 11/29/2024 4:20 PM ASSOCIATE PROFESSOR us Demetris Ocampo MD LAB BLOOD ORDERABLES Final R esult ADA [facility] ([place]) 1 [facility] [place] [address] * XR Chest 1 Vw Portable (if patient condition/safety warrant portable) (11/29/2024 3:17 PM ASSOCIATE PROFESSOR) Anatomical Region Laterality Modality Body, Chest N/A Computed Radiogr aphy 11/29/2024 3:33 PM ASSOCIATE PROFESSOR Narrative 11/29/2024 3:35 PM ASSOCIATE PROFESSOR EXAM DESCRIPTION: XR CHEST 1 VIEW REASON FOR STUDY: Shortness of breath Pt has had shortness of breath since this morning. Pt on 3L NC, usually wears 2. Current smoker Hx of HTN, asthma, COPD, CAD, and SVT Hx of cardiac surgery with stent placement No hx of cancer TECHNIQUE: 1 radiographic view(s) of the chest. COMPARISON: 11/15/2024 FINDINGS: LUNGS: No focal opacity, pleural effusion, or pneumothorax. HEART/MEDIASTINUM: Cardiac silhouette is enlarged, unchanged.. Mediastinal and hilar contours appear normal. LINES/TUBES: None. BONES: No acute osseous abnormality. IMPRESSION: Stable cardiomegaly. No acute pulmonary findings. THIS IS AN ELECTRONICALLY VERIFIED FINAL REPORT 11/29/2024 3:35 PM - Electronically signed by Francis Reno M.D. KR: PINA Report ID: [id number] Reading Location: [id number] Procedure Note Francis Reno MD - 11/29/2024 EXAM DESCRIPTION: XR CHEST 1 VIEW REASON FOR STUDY: Shortness of breath Pt has had shortness of breath since this morning. Pt on 3L NC, usuallywears 2. Current smoker Hx of HTN, asthma, COPD, CAD, and SVT Hx of cardiac surgery with stent placement No hx of cancer TECHNIQUE: 1 radiographic view(s) of the chest. COMPARISON: 11/15/2024 FINDINGS: LUNGS: No focal opacity, pleural effusion, or pneumothorax. HEART/MEDIASTINUM: Cardiac silhouette is enlarged, unchanged..Mediastinal and hilar contours appear normal. LINES/TUBES: None. BONES: No acute osseous abnormality. IMPRESSION: Stable cardiomegaly. No acute pulmonary findings. THIS IS AN ELECTRONICALLY VERIFIED FINAL REPORT 11/29/2024 3:35 PM - Electronically signed by Francis Reno M.D. KR: PINA Report ID: [id number] Reading Location: [place] [address] Demetris Ocampo MD IMG XR PROCEDURES Final Resu lt * ECG 12 lead (11/29/2024 2:55 PM ASSOCIATE PROFESSOR) 11/29/2024 2:55 PM ASSOCIATE PROFESSOR Narrative [facility] - 11/29/2024 3:30 PM ASSOCIATE PROFESSOR Vent Rate: 66 bpm RR Interval: 900 msec MT Interval: 0 msec QRS Duration: 77 msec QT Interval: 371 msec QTC Interval: 385 msec P-R-T [place]: [id number] - 79 - 36 degrees IMPRESSION: ATRIAL FIBRILLATION ANTEROSEPTAL MYOCARDIAL INFARCTION , OF INDETERMINATE AGE [40+ ms Q WAVE IN V1- V4] ABNORMAL ECG NO CHANGE FROM PREVIOUS TRACING NOTED Electronically Signed By: Myles Madrigal MD us Demetris Ocampo MD ECG ORDERABLES Final Result Performing Organization Address City/State/[facility] Co de Phone Number [facility] * ECG 12 lead (11/25/2024 2:24 PM ASSOCIATE PROFESSOR) us Sekou Trevino MD ECG ORDERABLES Final Res ult * eGFR (11/16/2024 9:10 AM ASSOCIATE PROFESSOR) eGFR >90 >=60 mL/min/1. 73 m2 Comment: Interpretive Data Reference Interval Normal >/= 90 mL/min/1.73m2 Mildly decreased* 60 - 89 mL/min/1.73m2 Mildly to moderately decreased 45 - 59 mL/min/1.73m2 Moderately to severely decreased 30 - 44 mL/min/1.73m2 Severely decreased 15 - 29 mL/min/1.73m2 Kidney Failure < 15 mL/min/1.73m2 *Relative to young adult level Estimated glomerular filtration rate is determined by the 2020 CKD-EPI equation recommended by the National Kidney Foundation (A Unifying Approach to GFR Estimation: Recommendations of the NKF-ASK Task Force on Reassessing the Inclusion of Race in Diagnosing Kidney Disease, JASN 2020). The CKD-EPI equation should not be used for patients with unstable renal function and has not been validated in children and those over 70. Current interpretive data was last reviewed 2021. Blood 11/16/2024 9:10 AM ASSOCIATE PROFESSOR 11/16/2024 10:13 AM ASSOCIATE PROFESSOR us Rahul Moore Jr., MD LAB BLOOD ORDERABLE S Final Result ADA [facility] ([place]) 1 [facility] [place] [address] * (ABNORMAL) CBC with auto differential (11/16/2024 9:10 AM ASSOCIATE PROFESSOR) [facility] WBC 16.2(H) 3.8 - 9.9 K/cumm Hgb 16.4(H) 11.9 - 15.5 g/dL [facility] Hct 49.6(H) 35.6 - 45.5 % [facility] Plt 275 150 - 400 K/cumm [facility] MPV 9.9 9.1 - 12.3 fL [facility]) RBC 5.07 3.90 - 5.20 M/cumm [facility]) MCV 97.8(H) 81.3 - 96.4 fL [facility] MCH 32.3 27.1 - 33.3 pg [facility]) MCHC 33.1 32.3 - 35.7 g/dL [facility]) RDW CV 13.6 11.1 - 14.9 % [facility] RDW SD 49.2(H) 35.7 - 48.1 fL [facility]) NRBC abs 0.00 0.00 - 0.01 K/cumm [facility] ([place]) Blood 11/16/2024 9:10 AM ASSOCIATE PROFESSOR 11/16/2024 10:13 AM ASSOCIATE PROFESSOR us Luis Cho MD LAB BLOOD ORDERABLES Final Resu lt [facility] ([place]) 1 [facility] [place] [address] * (ABNORMAL) Manual Differential (11/16/2024 9:10 AM ASSOCIATE PROFESSOR) [facility] Differential Manual Cells Counted 100 [facility] ([place]) Neutrophil abs 13.0(H) 1.5 - 6.5 K/cumm [facility]) Lymphocyte abs 1.5 0.8 - 3.3 K/cumm [facility]) Monocyte abs 1.6(H) 0.2 - 0.8 K/cumm [facility]) Eosinophil abs 0.2 0.0 - 0.5 K/cumm [facility]) Neutrophil pct 78.0 % [facility] ([place]) Comment: Interpretive Data Percent cell count reference ranges are not reported, since discordance with absolute values may lead to misinterpretation of CBC data. Current Interpretive Data was last revised on 2018. Lymphocyte pct 4.0 % [facility] ([place]) Comment: Interpretive Data Percent cell count reference ranges are not reported, since discordance with absolute values may lead to misinterpretation of CBC data. Current Interpretive Data was last revised on 2018. Monocyte pct 10.0 % [facility] ([place]) Comment: Interpretive Data Percent cell count reference ranges are not reported, since discordance with absolute values may lead to misinterpretation of CBC data. Current Interpretive Data was last revised on 2018. Eosinophil pct 1.0 % [facility] ([place]) Comment: Interpretive Data Percent cell count reference ranges are not reported, since discordance with absolute values may lead to misinterpretation of CBC data. Current Interpretive Data was last revised on 2018. Band Neutrophil pct 2.0 0.0 - 5.0 % [facility]) Variant lymph pct 5.0(H) 0.0 - 0.0 % [facility] RBC morphology Consistent with RBC Indicies [facility]) Platelet estimate Adequate [facility] ([place]) Blood 11/16/2024 9:10 AM ASSOCIATE PROFESSOR 11/16/2024 10:13 AM ASSOCIATE PROFESSOR us Luis Cho MD LAB BLOOD ORDERABLES Final Resu lt [facility] ([place]) 1 [facility] [place] [address] * Magnesium (11/16/2024 9:10 AM ASSOCIATE PROFESSOR) Magnesium 2.3 1.4 - 2.5 mg/dL Blood 11/16/2024 9:10 AM ASSOCIATE PROFESSOR 11/16/2024 10:13 AM ASSOCIATE PROFESSOR us Luis Cho MD LAB BLOOD ORDERABLES Final Resu lt ADA [facility]RE[facility] ([place]) 1 [facility] [place] [address] * (ABNORMAL) Basic metabolic panel (11/16/2024 9:10 AM ASSOCIATE PROFESSOR) Sodium 136 135 - 145 mmol/L Potassium, pl 4.2 3.3 - 4.9 mmol/L [facility]) Chloride 93(L) 97 - 110 mmol/L [facility]) CO2 30 22 - 32 mmol/L [facility]) Anion gap 13 2 - 15 mmol/L [facility]) BUN 21 6 - 25 mg/dL [facility]) Creatinine 0.72 0.60 - 1.10 mg/dL [facility]) Glucose 189 70 - 199 mg/dL [facility]) Comment: Interpretive Data Fasting glucose >/= 126 mg/dl is diagnostic for diabetes. Fasting is defined as no caloric intake for at least 8 hours. Fasting glucose between 100 mg/dl to 125 mg/dl is diagnostic of prediabetes. In a patient with classic symptoms of hyperglycemia or hyperglycemic crisis, a random glucose >/= 200 mg/dl is diagnostic for diabetes. In the absence of unequivocal hyperglycemia, results should be confirmed by repeat testing. The classification and Diagnosis of Diabetes Diabetes Care 202; 46: S19-S40. Current interpretive data was last revised 2022. Calcium 8.9 8.5 - 10.3 mg/dL [facility]) Blood 11/16/2024 9:10 AM ASSOCIATE PROFESSOR 11/16/2024 10:13 AM ASSOCIATE PROFESSOR us Rahul Moore Jr., MD LAB BLOOD ORDERABLE S Final Result ADA [facility] ([place]) 1 [facility] [place] [address] * Troponin T high-sensitivity 6-hour (11/15/2024 9:36 PM ASSOCIATE PROFESSOR) Trop T hs 14 <=14 ng/L Comment: Interpretive Data For further hscTnT resources including the diagnostic algorithm and an aid in interpretation, copy and paste this link: https://nrl.LOFTY.org/show/hsTrop Current Interpretive Data last revised 2020. Trop T hs delta -3 ng/L [facility] ([place]) Trop T hs interp Insignificant [facility] ([place]) Blood 11/15/2024 9:36 PM ASSOCIATE PROFESSOR 11/15/2024 9:38 PM ASSOCIATE PROFESSOR us Rahul Moore Jr., MD LAB BLOOD ORDERABLE S Final Result Performing Organization Address [facility] Co de Phone Number ADA [facility] ([place]) [address] [place] [address] [place] [address] * Troponin T high-sensitivity 4-hour (11/15/2024 7:53 PM ASSOCIATE PROFESSOR) Trop T hs 13 <=14 ng/L Comment: Interpretive Data For further hscTnT resources including the diagnostic algorithm and an aid in interpretation, copy and paste this link: https://nrl.LOFTY.org/show/hsTrop Current Interpretive Data last revised 2020. Trop T hs delta -4 ng/L [facility] ([place]) Trop T hs interp Insignificant [facility] ([place]) Blood 11/15/2024 7:53 PM ASSOCIATE PROFESSOR 11/15/2024 8:01 PM ASSOCIATE PROFESSOR us Rahul Moore Jr., MD LAB BLOOD ORDERABLE S Final Result Performing Organization Address City/[facility]/ZIP Co de Phone Number ADA [facility] ([place]) 1 [facility] [place] [address] * (ABNORMAL) Troponin T high-sensitivity 2-hour (11/15/2024 5:45 PM ASSOCIATE PROFESSOR) Trop T hs 15(H) <=14 ng/L Comment: Interpretive Data For further hscTnT resources including the diagnostic algorithm and an aid in interpretation, copy and paste this link: https://nrl.LOFTY.org/show/hsTrop Current Interpretive Data last revised 2020. Trop T hs delta -2 ng/L [facility]) Trop T hs interp Insignificant [facility] ([place]) Blood 11/15/2024 5:45 PM ASSOCIATE PROFESSOR 11/15/2024 7:13 PM ASSOCIATE PROFESSOR us Rahul Moore Jr., MD LAB BLOOD ORDERABLE S Final Result Performing Organization Address [facility] Co de Phone Number ADA [facility]RE[facility] ([place]) 1 [facility] [place] [address] * (ABNORMAL) Troponin T high-sensitivity series (baseline, 2hr, 4hr, 6hr) (11/15/2024 3:31 PM ASSOCIATE PROFESSOR) Trop T hs 17(H) <=14 ng/L Comment: Interpretive Data For further hscTnT resources including the diagnostic algorithm and an aid in interpretation, copy and paste this link: https://nrl.LOFTY.org/show/hsTrop Current Interpretive Data last revised 2020. Blood 11/15/2024 3:31 PM ASSOCIATE PROFESSOR 11/15/2024 4:29 PM ASSOCIATE PROFESSOR us Rahul Moore Jr., MD LAB BLOOD ORDERABLE S Final Result Performing Organization Address City/[facility]/ZIP Co de Phone Number ADA [facility] ([place]) 1 [facility] [place] [address] * ECG 12 lead (11/15/2024 2:42 PM ASSOCIATE PROFESSOR) 11/15/2024 2:42 PM ASSOCIATE PROFESSOR Narrative [facility] - 11/15/2024 3:51 PM ASSOCIATE PROFESSOR Vent Rate: 69 bpm RR Interval: 864 msec MT Interval: 0 msec QRS Duration: 101 msec QT Interval: 391 msec QTC Interval: 410 msec P-R-T [place]: [id number] - 69 - 26 degrees IMPRESSION: ATRIAL FIBRILLATION ABNORMAL RHYTHM ECG NO CHANGE FROM PREVIOUS TRACING NOTED Electronically Signed By: Myles Madrigal MD Rahul Moore Jr., MD ECG ORDERABLES Fin al Result [facility] * XR CHEST 1 VIEW PORTABLE (11/15/2024 2:15 PM ASSOCIATE PROFESSOR) Anatomical Region Laterality Modality Body, Chest N/A Computed Radiogr aphy 11/15/2024 4:50 PM ASSOCIATE PROFESSOR Narrative 11/15/2024 4:53 PM ASSOCIATE PROFESSOR EXAM DESCRIPTION: XR CHEST 1 VIEW REASON FOR STUDY: pain SOB, pain TECHNIQUE: 1 radiographic view(s) of the chest. COMPARISON: 11/13/2024 FINDINGS: LUNGS: Bandlike atelectasis in the right lung base. No focal consolidation. No pneumothorax or pleural effusion. HEART/MEDIASTINUM: Cardiac silhouette is enlarged, unchanged. Mediastinal and hilar contours appear normal. LINES/TUBES: None. BONES: No acute osseous abnormality. IMPRESSION: No acute cardiopulmonary abnormality. THIS IS AN ELECTRONICALLY VERIFIED FINAL REPORT 11/15/2024 4:53 PM - Electronically signed by Francis Reno M.D. KR: KR Report ID: [id number] Reading Location: [id number] Procedure Note Francis Reno MD - 11/15/2024 EXAM DESCRIPTION: XR CHEST 1 VIEW REASON FOR STUDY: pain SOB, pain TECHNIQUE: 1 radiographic view(s) of the chest. COMPARISON: 11/13/2024 FINDINGS: LUNGS: Bandlike atelectasis in the right lung base. No focalconsolidation. No pneumothorax or pleural effusion. HEART/MEDIASTINUM: Cardiac silhouette is enlarged, unchanged.Mediastinal and hilar contours appear normal. LINES/TUBES: None. BONES: No acute osseous abnormality. IMPRESSION: No acute cardiopulmonary abnormality. THIS IS AN ELECTRONICALLY VERIFIED FINAL REPORT 11/15/2024 4:53 PM - Electronically signed by Francis Reno M.D. KR: KR Report ID: [id number] Reading Location: [place] [address] us Rahul Moore Jr., MD IMG XR PROCEDURES F inal Result * eGFR (11/15/2024 7:15 AM ASSOCIATE PROFESSOR) eGFR >90 >=60 mL/min/1. 73 m2 Comment: Interpretive Data Reference Interval Normal >/= 90 mL/min/1.73m2 Mildly decreased* 60 - 89 mL/min/1.73m2 Mildly to moderately decreased 45 - 59 mL/min/1.73m2 Moderately to severely decreased 30 - 44 mL/min/1.73m2 Severely decreased 15 - 29 mL/min/1.73m2 Kidney Failure < 15 mL/min/1.73m2 *Relative to young adult level Estimated glomerular filtration rate is determined by the 2020 CKD-EPI equation recommended by the National Kidney Foundation (A Unifying Approach to GFR Estimation: Recommendations of the NKF-ASK Task Force on Reassessing the Inclusion of Race in Diagnosing Kidney Disease, JASN 2020). The CKD-EPI equation should not be used for patients with unstable renal function and has not been validated in children and those over 70. Current interpretive data was last reviewed 2021. Blood 11/15/2024 7:15 AM ASSOCIATE PROFESSOR 11/15/2024 8:13 AM ASSOCIATE PROFESSOR us Rahul Moore Jr., MD LAB BLOOD ORDERABLE S Final Result [facility] [place]) 1 [facility] [place] [address] * (ABNORMAL) Differential, auto (11/15/2024 7:15 AM ASSOCIATE PROFESSOR) Neutrophil abs 18.0(H) 1.5 - 6.5 K/cumm Imm gran abs 0.2(H) 0.0 - 0.1 K/cumm [facility] ([place]) Lymphocyte abs 1.6 0.8 - 3.3 K/cumm [facility] ([place]) Monocyte abs 0.9(H) 0.2 - 0.8 K/cumm [facility] ([place]) Eosinophil abs 0.0 0.0 - 0.5 K/cumm [facility] ([place]) Basophil abs 0.0 0.0 - 0.1 K/cumm [facility] ([place]) Neutrophil pct 87.1 % [facility] ([place]) Comment: Interpretive Data Percent cell count reference ranges are not reported, since discordance with absolute values may lead to misinterpretation of CBC data. Current Interpretive Data was last revised on 2018. Imm gran pct 0.9 % [facility] ([place]) Comment: Interpretive Data Percent cell count reference ranges are not reported, since discordance with absolute values may lead to misinterpretation of CBC data. Current Interpretive Data was last revised on 2018. Lymphocyte pct 7.7 % [facility] ([place]) Comment: Interpretive Data Percent cell count reference ranges are not reported, since discordance with absolute values may lead to misinterpretation of CBC data. Current Interpretive Data was last revised on 2018. Monocyte pct 4.2 % [facility] ([place]) Comment: Interpretive Data Percent cell count reference ranges are not reported, since discordance with absolute values may lead to misinterpretation of CBC data. Current Interpretive Data was last revised on 2018. Eosinophil pct 0.0 % [facility] ([place]) Comment: Interpretive Data Percent cell count reference ranges are not reported, since discordance with absolute values may lead to misinterpretation of CBC data. Current Interpretive Data was last revised on 2018. Basophil pct 0.1 % [facility] ([place]) Comment: Interpretive Data Percent cell count reference ranges are not reported, since discordance with absolute values may lead to misinterpretation of CBC data. Current Interpretive Data was last revised on 2018. Blood 11/15/2024 7:15 AM ASSOCIATE PROFESSOR 11/15/2024 8:13 AM ASSOCIATE PROFESSOR Luis Cho MD LAB BLOOD ORDERABLES Final Resu lt [facility] ([place]) 1 [facility] [place] [address] * (ABNORMAL) CBC with auto differential (11/15/2024 7:15 AM ASSOCIATE PROFESSOR) WBC 20.7(H) 3.8 - 9.9 K/cumm Hgb 15.8(H) 11.9 - 15.5 g/dL [facility] ([place]) Hct 48.6(H) 35.6 - 45.5 % [facility] ([place]) Plt 300 150 - 400 K/cumm [facility] ([place]) MPV 10.0 9.1 - 12.3 fL [facility]) RBC 4.92 3.90 - 5.20 M/cumm [facility] ([place]) MCV 98.8(H) 81.3 - 96.4 fL [facility] ([place]) MCH 32.1 27.1 - 33.3 pg [facility] ([place]) MCHC 32.5 32.3 - 35.7 g/dL [facility] ([place]) RDW CV 14.1 11.1 - 14.9 % [facility] ([place]) RDW SD 51.5(H) 35.7 - 48.1 fL [facility] ([place]) NRBC abs 0.00 0.00 - 0.01 K/cumm [facility] ([place]) Blood 11/15/2024 7:15 AM ASSOCIATE PROFESSOR 11/15/2024 8:13 AM ASSOCIATE PROFESSOR Luis Cho MD LAB BLOOD ORDERABLES Final Resu lt [facility] ([place]) 1 [facility] [place] [address] * Magnesium (11/15/2024 7:15 AM ASSOCIATE PROFESSOR) Magnesium 2.2 1.4 - 2.5 mg/dL Blood 11/15/2024 7:15 AM ASSOCIATE PROFESSOR 11/15/2024 8:13 AM ASSOCIATE PROFESSOR us Luis Cho MD LAB BLOOD ORDERABLES Final Resu lt [facility] ([place]) 1 [facility] [place] [id number] * (ABNORMAL) Basic metabolic panel (11/15/2024 7:15 AM ASSOCIATE PROFESSOR) Sodium 136 135 - 145 mmol/L Potassium, pl 4.0 3.3 - 4.9 mmol/L [facility] ([place]) Chloride 94(L) 97 - 110 mmol/L [facility]) CO2 30 22 - 32 mmol/L [facility]) Anion gap 12 2 - 15 mmol/L [facility] ([place]) BUN 22 6 - 25 mg/dL [facility]) Creatinine 0.71 0.60 - 1.10 mg/dL [facility] ([place]) Glucose 131 70 - 199 mg/dL [facility] ([place]) Comment: Interpretive Data Fasting glucose >/= 126 mg/dl is diagnostic for diabetes. Fasting is defined as no caloric intake for at least 8 hours. Fasting glucose between 100 mg/dl to 125 mg/dl is diagnostic of prediabetes. In a patient with classic symptoms of hyperglycemia or hyperglycemic crisis, a random glucose >/= 200 mg/dl is diagnostic for diabetes. In the absence of unequivocal hyperglycemia, results should be confirmed by repeat testing. The classification and Diagnosis of Diabetes Diabetes Care 202; 46: S19-S40. Current interpretive data was last revised 2022. Calcium 9.0 8.5 - 10.3 mg/dL [facility] ([place]) Blood 11/15/2024 7:15 AM ASSOCIATE PROFESSOR 11/15/2024 8:13 AM ASSOCIATE PROFESSOR us Rahul Moore Jr., MD LAB BLOOD ORDERABLE S Final Result ADA [facility]INO [place]) 1 [facility] [place] [address] * Carboxyhemoglobin, venous (11/14/2024 11:00 AM ASSOCIATE PROFESSOR) Carboxyhemoglob in, venous 2.0 0.0 - 2.9 % Comment:Non-Smokers: <3.0%; Smokers <9.0% Blood 11/14/2024 11:0 0 AM ASSOCIATE PROFESSOR 11/14/2024 11:15 AM ASSOCIATE PROFESSOR us Rahul Moore Jr., MD LAB BLOOD ORDERABLE S Final Result Performing Organization Address City/[facility] Co de Phone Number ADA [facility] ([place]) 1 [facility] [place] [address] * eGFR (11/14/2024 8:36 AM ASSOCIATE PROFESSOR) eGFR >90 >=60 mL/min/1. 73 m2 Comment: Interpretive Data Reference Interval Normal >/= 90 mL/min/1.73m2 Mildly decreased* 60 - 89 mL/min/1.73m2 Mildly to moderately decreased 45 - 59 mL/min/1.73m2 Moderately to severely decreased 30 - 44 mL/min/1.73m2 Severely decreased 15 - 29 mL/min/1.73m2 Kidney Failure < 15 mL/min/1.73m2 *Relative to young adult level Estimated glomerular filtration rate is determined by the 2020 CKD-EPI equation recommended by the National Kidney Foundation (A Unifying Approach to GFR Estimation: Recommendations of the NKF-ASK Task Force on Reassessing the Inclusion of Race in Diagnosing Kidney Disease, JASN 2020). The CKD-EPI equation should not be used for patients with unstable renal function and has not been validated in children and those over 70. Current interpretive data was last reviewed 2021. Blood 11/14/2024 8:36 AM ASSOCIATE PROFESSOR 11/14/2024 9:23 AM ASSOCIATE PROFESSOR us Rahul Moore Jr., MD LAB BLOOD ORDERABLE S Final Result ADA [facility] ([place]) 1 [facility] [place] [address] * (ABNORMAL) Differential, auto (11/14/2024 8:36 AM ASSOCIATE PROFESSOR) Neutrophil abs 20.1(H) 1.5 - 6.5 K/cumm Imm gran abs 0.1 0.0 - 0.1 K/cumm [facility] ([place]) Lymphocyte abs 1.3 0.8 - 3.3 K/cumm [facility] ([place]) Monocyte abs 0.7 0.2 - 0.8 K/cumm [facility] ([place]) Eosinophil abs 0.0 0.0 - 0.5 K/cumm [facility] ([place]) Basophil abs 0.0 0.0 - 0.1 K/cumm [facility] ([place]) Neutrophil pct 90.6 % [facility] ([place]) Comment: Interpretive Data Percent cell count reference ranges are not reported, since discordance with absolute values may lead to misinterpretation of CBC data. Current Interpretive Data was last revised on 2018. Imm gran pct 0.6 % [facility] ([place]) Comment: Interpretive Data Percent cell count reference ranges are not reported, since discordance with absolute values may lead to misinterpretation of CBC data. Current Interpretive Data was last revised on 2018. Lymphocyte pct 5.7 % [facility] ([place]) Comment: Interpretive Data Percent cell count reference ranges are not reported, since discordance with absolute values may lead to misinterpretation of CBC data. Current Interpretive Data was last revised on 2018. Monocyte pct 3.0 % [facility] ([place]) Comment: Interpretive Data Percent cell count reference ranges are not reported, since discordance with absolute values may lead to misinterpretation of CBC data. Current Interpretive Data was last revised on 2018. Eosinophil pct 0.0 % [facility] ([place]) Comment: Interpretive Data Percent cell count reference ranges are not reported, since discordance with absolute values may lead to misinterpretation of CBC data. Current Interpretive Data was last revised on 2018. Basophil pct 0.1 % [facility] ([place]) Comment: Interpretive Data Percent cell count reference ranges are not reported, since discordance with absolute values may lead to misinterpretation of CBC data. Current Interpretive Data was last revised on 2018. Blood 11/14/2024 8:36 AM ASSOCIATE PROFESSOR 11/14/2024 9:23 AM ASSOCIATE PROFESSOR us Luis Cho MD LAB BLOOD ORDERABLES Final Resu lt ADA [facility] ([place]) 1 [facility] [place] [address] * (ABNORMAL) Pro B-type natriuretic peptide (11/14/2024 8:36 AM ASSOCIATE PROFESSOR) NT-proBNP 4,002(H) <=300 pg/mL Comment: Interpretive Comments: A. Dyspnea in Acute Care Setting All Ages: < 300 pg/ml, acute heart failure unlikely. < 50 yrs: 300 - 450 pg/ml, further investigation warranted. > 450 pg/ml, acute heart failure likely. 50 - 74 yrs: 300 - 900 pg/ml, further investigation warranted. > 900 pg/ml, acute heart failure likely . > or = 75 yrs: 450 - 1800 pg/ml, further investigation warranted. > 1800 pg/ml, acute heart failure likely. B. Non-acute Setting < 75 yrs < 125 pg/ml, rules out heart failure. > or = 125 pg/ml, further investigation warranted. > or = 75 yrs < 450 pg/ml, rules out heart failure. > or = 450 pg/ml, further investigation warranted. - Knowledge of each individual patient's NT-proBNP range may be more useful than using similar cut-points for every patient. Please note that marked elevations in NT-proBNP levels may be observed in state other than Left Ventricular Congestive Failure, including: acute coronary syndromes, right heart strain/failure (including pulmonary embolism and cor pulmonale), critical illness, renal failure, as well as advanced age. - References: 1. Meryl PARKINSON et.al. Eur Heart J. 2006:27:330-337. 2. Lonnie RW, Teresa AM. J. AM Denisse Cardiol: Cardiovasc Imag. 2009;2: 216- 225. Interpretive Data Last Revised Date: 2018. Blood 11/14/2024 8:36 AM ASSOCIATE PROFESSOR 11/14/2024 10:33 AM ASSOCIATE PROFESSOR us Rahul Moore Jr., MD LAB BLOOD ORDERABLE S Final Result [facility] ([place]) 1 [facility] [place] [address] * (ABNORMAL) CBC with auto differential (11/14/2024 8:36 AM ASSOCIATE PROFESSOR) WBC 22.2(H) 3.8 - 9.9 K/cumm Hgb 14.7 11.9 - 15.5 g/dL [facility] ([place]) Hct 44.1 35.6 - 45.5 % [facility] ([place]) Plt 281 150 - 400 K/cumm [facility] ([place]) MPV 10.0 9.1 - 12.3 fL [facility] ([place]) RBC 4.50 3.90 - 5.20 M/cumm [facility] ([place]) MCV 98.0(H) 81.3 - 96.4 fL [facility] ([place]) MCH 32.7 27.1 - 33.3 pg [facility] ([place]) MCHC 33.3 32.3 - 35.7 g/dL [facility] ([place]) RDW CV 14.2 11.1 - 14.9 % [facility] ([place]) RDW SD 51.6(H) 35.7 - 48.1 fL [facility] ([place]) NRBC abs 0.00 0.00 - 0.01 K/cumm [facility] ([place]) Blood 11/14/2024 8:36 AM ASSOCIATE PROFESSOR 11/14/2024 9:23 AM ASSOCIATE PROFESSOR us Luis Cho MD LAB BLOOD ORDERABLES Final Resu lt [facility] ([place]) 1 [facility] [place] [address] * Magnesium (11/14/2024 8:36 AM ASSOCIATE PROFESSOR) Magnesium 2.2 1.4 - 2.5 mg/dL Blood 11/14/2024 8:36 AM ASSOCIATE PROFESSOR 11/14/2024 9:23 AM ASSOCIATE PROFESSOR us Luis Cho MD LAB BLOOD ORDERABLES Final Resu lt [facility] ([place]) 1 [facility] [place] [address] * Basic metabolic panel (11/14/2024 8:36 AM ASSOCIATE PROFESSOR) Sodium 138 135 - 145 mmol/L Potassium, pl 3.7 3.3 - 4.9 mmol/L [facility] ([place]) Chloride 97 97 - 110 mmol/L [facility] ([place]) CO2 30 22 - 32 mmol/L [facility] ([place]) Anion gap 11 2 - 15 mmol/L [facility]) BUN 20 6 - 25 mg/[facility] Creatinine 0.69 0.60 - 1.10 mg/dL [facility] ([place]) Glucose 148 70 - 199 mg/dL [facility] ([place] Comment: Interpretive Data Fasting glucose >/= 126 mg/dl is diagnostic for diabetes. Fasting is defined as no caloric intake for at least 8 hours. Fasting glucose between 100 mg/dl to 125 mg/dl is diagnostic of prediabetes. In a patient with classic symptoms of hyperglycemia or hyperglycemic crisis, a random glucose >/= 200 mg/dl is diagnostic for diabetes. In the absence of unequivocal hyperglycemia, results should be confirmed by repeat testing. The classification and Diagnosis of Diabetes Diabetes Care 202; 46: S19-S40. Current interpretive data was last revised 2022. Calcium 9.1 8.5 - 10.3 mg/dL [facility] ([place]) Blood 11/14/2024 8:36 AM ASSOCIATE PROFESSOR 11/14/2024 9:23 AM ASSOCIATE PROFESSOR us Rahul Moore Jr., MD LAB BLOOD ORDERABLE S Final Result [facility] ([place]) 1 [facility] [place] [address] * (ABNORMAL) Fentanyl Confirmation, Urine (11/13/2024 11:48 PM ASSOCIATE PROFESSOR) Fentanyl Conf, Ur Confirmed Positive(A) Cutoff 0.3ng/mL Comment:Testing performed by : [facility], [address] [place]., [address] Acetylfentanyl Conf, Ur Does Not Confirm Cutoff 1 ng/mL [facility] ([place]) Comment:Testing performed by : [facility], [address] [place]., [address] Acrylfentanyl Conf, Ur Does Not Confirm Cutoff 1 ng/mL [facility] ([place]) Comment:Testing performed by : [facility], [address] [place]., [address] Furanylfentanyl Conf, Ur Does Not Confirm Cutoff 1 ng/mL [facility] ([place]) Comment:Testing performed by : [facility], [address] [place]., [address] Fentanyl Metabolite (Norfentanyl) Conf, Ur Confirmed Positive(A) CutOff 5 ng/mL [facility] ([place]) Comment:Testing performed by : [facility], [address] [place]., [address] Xylazine MS Does Not Confirm Cutoff 1 ng/mL [facility] ([place]) Comment: Interpretive Data This test detects the presence or absence of drug compounds using LC Tandem mass spectrometry and is not intended to assess compliance with prescribed medications. While this test is highly specific, false positive and false negative results may occur in very rare circumstances. Contact the laboratory for consultation, if needed. Performance characteristics were determined by the [facility] in a manner consistent with CLIA requirement and has not been cleared or approved by the U.S. Food and Drug Administration. Current interpretive data was last revised 2021. Testing performed by: [facility], [address] [facility], [place]., [address] Urine 11/13/2024 11:4 8 PM ASSOCIATE PROFESSOR 11/14/2024 7:45 PM ASSOCIATE PROFESSOR us Rahul Moore Jr., MD LAB URINE ORDERABLE S Final Result [facility] ([place]) 1 [facility] [place] [address] * (ABNORMAL) Drugs of Abuse Screen, Urine with Reflex Confirmation (11/13/2024 11:48 PM ASSOCIATE PROFESSOR) Amphetamine, ur Not Detected CutOff 500ng/mL Comment: Interpretive Data - Amphetamines: Samples containing greater than 500 ng/mL d-methamphetamine or other cross-reacting amphetamine compounds are reported as positive. Amphetamine immunoassays are subject to significant false positive rates due to cross-reactivity of non-amphetamine drugs. Confirmatory testing required for definitive results. Current Interpretive Data was last reviewed 2023. Barbiturates, ur Not Detected CutOff 200ng/mL [facility] ([place]) Comment: Interpretive Data - Barbiturates: Samples containing greater than 200 ng/mL secobarbital or other cross-reacting barbiturate compounds are reported as positive. False positive and false negative results are possible. Confirmatory testing required for definitive results. Current Interpretive Data was last reviewed 2023. Benzodiazepines, ur Screen Positive, presumptive (A) CutOff 100ng/mL [facility] ([place]) Comment: Interpretive Data - Benzodiazepines: Samples containing greater than 100 ng/mL nordiazepam or other cross-reacting compounds are reported as positive. False positive and false negative results are possible. Confirmatory testing required for definitive results. Current Interpretive Data was last reviewed 2023. Cannabinoids, ur Not Detected CutOff 50 ng/mL [facility] ([place]) Comment: Interpretive Data - Cannabinoids: Samples containing greater than 50 ng/mL delta-9 THC -COOH or other cross- reacting compounds are reported as positive. False positive and false negative results are possible. Confirmatory testing required for definitive results. Current Interpretive Data was last reviewed 2023. Cocaine, ur Not Detected CutOff 150ng/mL [facility] ([place]) Comment: Interpretive Data - Cocaine: Samples containing greater than 150 ng/mL benzoylecgonine or other cross- reacting compounds are reported as positive. False positive and false negative results are possible. Confirmatory testing required for definitive results. Current Interpretive Data was last reviewed 2023. Fentanyl, Ur Screen Positive, presumptive (A) CutOff 5 ng/mL [facility] ([place]) Comment: Interpretive Data - Fentanyl: Samples containing greater than 5 ng/mL norfentanyl, fentanyl, or other cross-reacting fentanyl compounds are reported as positive. False positive and false negative results are possible. Confirmatory testing required for definitive results. Current Interpretive Data was last reviewed 2023. Methadone, ur Not Detected CutOff 300ng/mL [facility] ([place]) Comment: Interpretive Data - Methadone: Samples containing greater than 300 ng/mL d,l-methadone or other cross-reacting compounds are reported as positive. False positive and false negative results are possible. Confirmatory testing required for definitive results. Current Interpretive Data was last reviewed 2023. Opiates, ur Not Detected CutOff 300ng/mL [facility] ([place]) Comment: Interpretive Data - Opiates: Samples containing greater than 300 ng/mL morphine or other cross-reacting compounds are reported as positive. False positive and false negative results are possible. Confirmatory testing required for definitive results. Current Interpretive Data was last reviewed 2023. Oxycodone, ur Not Detected CutOff 100ng/mL [facility] ([place]) Comment: Interpretive Data - Oxycodone: Samples containing greater than 100 ng/mL oxycodone or other cross-reacting compounds are reported as positive. False positive and false negative results are possible. Confirmatory testing required for definitive results. Current Interpretive Data was last reviewed 2023. Phencyclidine, ur Not Detected CutOff 25 ng/mL [facility] ([place]) Comment: Interpretive Data - Phencyclidine: Samples containing greater than 25 ng/mL phencyclidine or other cross-reacting compounds are reported as positive. False positive and false negative results are possible. Confirmatory testing required for definitive results. Current Interpretive Data was last reviewed 2023. Urine Creatinine 18 mg/dL [facility] ([place]) Comment: Interpretive Data Urine Creatinine: < 10 mg/dL is extremely dilute = or > 10 but < 20 mg/dL is dilute = or > 20 mg/dL is normal Current Interpretive Data was last revised on 2018. Urine 11/13/2024 11:4 8 PM ASSOCIATE PROFESSOR 11/14/2024 12:08 AM ASSOCIATE PROFESSOR Narrative ADA [facility] ([place]) - 11/14/2024 12:29 AM ASSOCIATE PROFESSOR Drug of Abuse screening is performed by immunoassay for medical purposes only. This is not to be used for Pain Management purposes. If Detected, confirmation testing will be performed for Amphetamines, Cocaine, Fentanyl, Methadone, Opiates, Oxycodone or Phencyclidine. Rahul Moore Jr., MD LAB URINE ORDERABLE S Final Result Performing Organization Address City/[facility]/ZIP Co de Phone Number [facility] ([place]) 1 [facility] [place] [address] * (ABNORMAL) Troponin T high-sensitivity (11/13/2024 6:17 PM ASSOCIATE PROFESSOR) Trop T hs 16(H) <=14 ng/L Comment: Interpretive Data For further hscTnT resources including the diagnostic algorithm and an aid in interpretation, copy and paste this link: https://nrl.testcatalog.org/show/hsTrop Current Interpretive Data last revised 2020. Blood 11/13/2024 6:17 PM ASSOCIATE PROFESSOR 11/13/2024 7:15 PM ASSOCIATE PROFESSOR us Rahul Moore Jr., MD LAB BLOOD ORDERABLE S Final Result Performing Organization Address City/[facility]/ZIP Co de Phone Number [facility] ([place]) 1 [facility] [place] [address] * XR CHEST 1 VIEW PORTABLE (11/13/2024 5:09 PM ASSOCIATE PROFESSOR) Anatomical Region Laterality Modality Body, Chest N/A Computed Radiogr aphy 11/13/2024 6:58 PM ASSOCIATE PROFESSOR Narrative 11/13/2024 7:00 PM ASSOCIATE PROFESSOR EXAM DESCRIPTION: XR CHEST 1 VIEW REASON FOR STUDY: sob SOB Tonight. Smoker TECHNIQUE: 1 radiographic view(s) of the chest. COMPARISON: 11/12/2024 FINDINGS: LUNGS: No focal opacity, pleural effusion, or pneumothorax. Emphysema. Discoid atelectasis right lung base. HEART/MEDIASTINUM: Stable cardiomegaly. Thoracic aorta is minimally calcified and ectatic. LINES/TUBES: None. BONES: No acute osseous abnormality. Postoperative changes of prior fusion in the visualized lower cervical spine. IMPRESSION: No acute cardiopulmonary abnormality. THIS IS AN ELECTRONICALLY VERIFIED FINAL REPORT 11/13/2024 7:00 PM - Electronically signed by Francis Deleon M.D. KT: MENG Report ID: [id number] Reading Location: [place] [address] Procedure Note Francis Deleon MD - 11/13/2024 EXAM DESCRIPTION: XR CHEST 1 VIEW REASON FOR STUDY: sob SOB Tonight. Smoker TECHNIQUE: 1 radiographic view(s) of the chest. COMPARISON: 11/12/2024 FINDINGS: LUNGS: No focal opacity, pleural effusion, or pneumothorax. Emphysema. Discoid atelectasis right lung base. HEART/MEDIASTINUM: Stable cardiomegaly. Thoracic aorta is minimally calcified and ectatic. LINES/TUBES: None. BONES: No acute osseous abnormality. Postoperative changes of priorfusion in the visualized lower cervical spine. IMPRESSION: No acute cardiopulmonary abnormality. THIS IS AN ELECTRONICALLY VERIFIED FINAL REPORT 11/13/2024 7:00 PM - Electronically signed by Francis Deleon M.D. KT: MENG Report ID: [id number] Reading Location: [place] [address] Rahul Moore Jr., MD IM XR PROCEDURES F inal Result * ECG 12 lead (11/13/2024 4:54 PM ASSOCIATE PROFESSOR) 11/13/2024 4:54 PM ASSOCIATE PROFESSOR Narrative [facility] - 11/15/2024 10:04 AM ASSOCIATE PROFESSOR Vent Rate: 87 bpm RR Interval: 687 msec MT Interval: 0 msec QRS Duration: 108 msec QT Interval: 387 msec QTC Interval: 431 msec P-R-T [place]: [id number] - 36 - 33 degrees IMPRESSION: ATRIAL FIBRILLATION ABNORMAL RHYTHM ECG Compared to prior EKG heart rate decreased Electronically Signed By: Soren Strickland MD [facility] Rahul Moore Jr., MD ECG ORDERABLES Fin al Result Performing Organization Address [facility] de Phone Number [facility] [employer] [facility] * (ABNORMAL) Blood gas, arterial (11/13/2024 4:52 PM ASSOCIATE PROFESSOR) pH, Art 7.51(H) 7.35 - 7.45 PCO2, Arterial 40 35 - 45 mmHg [facility] ([place]) PO2, Arterial 71(L) 83 - 108 mmHg [facility] ([place]) HCO3 Art (Calculated) 32(H) 20 - 30 mmol/L [facility] ([place]) BE, art 8 mmol/L [facility] ([place]) Comment: Interpretive Data No Reference Range Established Current Interpretive Data was last revised on 2017 O2 Sat Art (Measured) 95 90 - 95 % [facility] ([place]) Blood 11/13/2024 4:52 PM ASSOCIATE PROFESSOR 11/13/2024 4:57 PM ASSOCIATE PROFESSOR Devika Mullins MD LAB BLOOD ORDERABLES Jaquelin l Result Performing Organization Address [facility] Co de Phone Number [facility] ([place]) 1 [facility] [place] [address] * Procalcitonin (11/13/2024 12:36 PM ASSOCIATE PROFESSOR) Procalcitonin 0.05 <=0.25 ng/mL Comment:Testing performed by : [facility], [facility] [facility], [place]., [address] Blood 11/13/2024 12:3 6 PM ASSOCIATE PROFESSOR 11/13/2024 7:33 PM ASSOCIATE PROFESSOR us Rahul Moore Jr., MD LAB BLOOD ORDERABLE S Final Result [facility] ([place]) 1 [facility] [place] [address] * Blood culture Blood (11/13/2024 8:15 AM ASSOCIATE PROFESSOR) Report Final Report: No growth Comment:Testing performed by : [facility], [address] [facility], [place]., [address] Blood 11/13/2024 8:15 AM ASSOCIATE PROFESSOR 11/13/2024 12:31 PM ASSOCIATE PROFESSOR Narrative [facility] ([place]) - 11/17/2024 4:00 PM ASSOCIATE PROFESSOR From a different site than #1. Collection->Peripheral 1. Blood cultures are incubated for 4 days on a continuously monitored blood culture system. The first report of a negative culture is issued within 24 hours of receipt of the specimen in the laboratory. 2. Positive culture results are reported as soon as they are detected. 3. The most important factor for detection of microbes in the setting of bloodstream infection is the volume of blood submitted for culture. Failure to collect an optimal blood volume can result in false negative blood cultures. 4. For pediatric patients, the recommended blood volume to collect follows a weight based strategy. See the electronic test catalog for collection instructions. 5. For positive blood cultures, a rapid molecular test may be performed for organism identification using the michael ePlex blood culture identification panel for gram positive (BCID-GP) and gram negative (BCID-GN) organisms. This nucleic acid amplification test detects microbial DNA in positive blood culture broth. This assay has been cleared by the [place] Food and Drug Administration and its performance characteristics have been verified by the [facility]. For questions about this culture, contact the Microbiology Laboratory at [phone]. Interpretive data was last revised on 24. us Luis Cho MD LAB MICROBIOLOGY - GENERAL [place] Final Result [facility] ([place]) 1 [facility] [place] [address] * Blood culture Blood (11/13/2024 8:14 AM ASSOCIATE PROFESSOR) Report Final Report: No growth Comment:Testing performed by : [facility], [address] [facility], [place]., [address] Blood 11/13/2024 8:14 AM ASSOCIATE PROFESSOR 11/13/2024 12:31 PM ASSOCIATE PROFESSOR Narrative [facility] ([place]) - 11/17/2024 4:00 PM ASSOCIATE PROFESSOR Collection->Peripheral 1. Blood cultures are incubated for 4 days on a continuously monitored blood culture system. The first report of a negative culture is issued within 24 hours of receipt of the specimen in the laboratory. 2. Positive culture results are reported as soon as they are detected. 3. The most important factor for detection of microbes in the setting of bloodstream infection is the volume of blood submitted for culture. Failure to collect an optimal blood volume can result in false negative blood cultures. 4. For pediatric patients, the recommended blood volume to collect follows a weight based strategy. See the electronic test catalog for collection instructions. 5. For positive blood cultures, a rapid molecular test may be performed for organism identification using the michael ePlex blood culture identification panel for gram positive (BCID-GP) and gram negative (BCID-GN) organisms. This nucleic acid amplification test detects microbial DNA in positive blood culture broth. This assay has been cleared by the [place] Food and Drug Administration and its performance characteristics have been verified by the [facility]. For questions about this culture, contact the Microbiology Laboratory at [phone]. Interpretive data was last revised on 24. Luis Cho MD LAB MICROBIOLOGY - GENERAL [place] Final Result [facility] ([place]) 1 [facility] [place] [address] * eGFR (11/13/2024 3:50 AM ASSOCIATE PROFESSOR) eGFR >90 >=60 mL/min/1. 73 m2 Comment: Interpretive Data Reference Interval Normal >/= 90 mL/min/1.73m2 Mildly decreased* 60 - 89 mL/min/1.73m2 Mildly to moderately decreased 45 - 59 mL/min/1.73m2 Moderately to severely decreased 30 - 44 mL/min/1.73m2 Severely decreased 15 - 29 mL/min/1.73m2 Kidney Failure < 15 mL/min/1.73m2 *Relative to young adult level Estimated glomerular filtration rate is determined by the 2020 CKD-EPI equation recommended by the National Kidney Foundation (A Unifying Approach to GFR Estimation: Recommendations of the NKF-ASK Task Force on Reassessing the Inclusion of Race in Diagnosing Kidney Disease, JASN 2020). The CKD-EPI equation should not be used for patients with unstable renal function and has not been validated in children and those over 70. Current interpretive data was last reviewed 2021. Blood 11/13/2024 3:50 AM ASSOCIATE PROFESSOR 11/13/2024 6:17 AM ASSOCIATE PROFESSOR us Luis Cho MD LAB BLOOD ORDERABLES Final Resu lt [facility] ([place]) 1 [facility] [place] [address] * (ABNORMAL) Differential, auto (11/13/2024 3:50 AM ASSOCIATE PROFESSOR) Neutrophil abs 16.1(H) 1.5 - 6.5 K/cumm Imm gran abs 0.1 0.0 - 0.1 K/cumm [facility] ([place]) Lymphocyte abs 1.4 0.8 - 3.3 K/cumm [facility] ([place]) Monocyte abs 0.3 0.2 - 0.8 K/cumm [facility] ([place]) Eosinophil abs 0.0 0.0 - 0.5 K/cumm [facility] ([place]) Basophil abs 0.0 0.0 - 0.1 K/cumm [facility] ([place]) Neutrophil pct 89.9 % [facility] ([place]) Comment: Interpretive Data Percent cell count reference ranges are not reported, since discordance with absolute values may lead to misinterpretation of CBC data. Current Interpretive Data was last revised on 2018. Imm gran pct 0.6 % [facility] ([place]) Comment: Interpretive Data Percent cell count reference ranges are not reported, since discordance with absolute values may lead to misinterpretation of CBC data. Current Interpretive Data was last revised on 2018. Lymphocyte pct 7.8 % [facility] ([place]) Comment: Interpretive Data Percent cell count reference ranges are not reported, since discordance with absolute values may lead to misinterpretation of CBC data. Current Interpretive Data was last revised on 2018. Monocyte pct 1.6 % [facility] ([place]) Comment: Interpretive Data Percent cell count reference ranges are not reported, since discordance with absolute values may lead to misinterpretation of CBC data. Current Interpretive Data was last revised on 2018. Eosinophil pct 0.0 % [facility] ([place]) Comment: Interpretive Data Percent cell count reference ranges are not reported, since discordance with absolute values may lead to misinterpretation of CBC data. Current Interpretive Data was last revised on 2018. Basophil pct 0.1 % [facility] ([place]) Comment: Interpretive Data Percent cell count reference ranges are not reported, since discordance with absolute values may lead to misinterpretation of CBC data. Current Interpretive Data was last revised on 2018. Blood 11/13/2024 3:50 AM ASSOCIATE PROFESSOR 11/13/2024 6:17 AM ASSOCIATE PROFESSOR Luis Cho MD LAB BLOOD ORDERABLES Final Resu lt [facility] ([place]) 1 [facility] of [facility] [place], [place] [id number] * Procalcitonin (11/13/2024 3:50 AM ASSOCIATE PROFESSOR) Procalcitonin <0.05 <=0.25 ng/mL Comment:Testing performed by : [facility], [address], [place]., [address] Blood 11/13/2024 3:50 AM ASSOCIATE PROFESSOR 11/13/2024 2:52 PM ASSOCIATE PROFESSOR us Luis Cho MD LAB BLOOD ORDERABLES Final Resu lt [facility] ([place]) 1 [facility] [place] [address] * (ABNORMAL) CBC with auto differential (11/13/2024 3:50 AM ASSOCIATE PROFESSOR) WBC 17.9(H) 3.8 - 9.9 K/cumm Hgb 15.0 11.9 - 15.5 g/dL [facility] ([place]) Hct 45.8(H) 35.6 - 45.5 % [facility] ([place]) Plt 253 150 - 400 K/cumm [facility] ([place]) MPV 10.3 9.1 - 12.3 fL [facility] ([place]) RBC 4.59 3.90 - 5.20 M/cumm [facility] ([place]) MCV 99.8(H) 81.3 - 96.4 fL [facility] ([place]) MCH 32.7 27.1 - 33.3 pg [facility] ([place]) MCHC 32.8 32.3 - 35.7 g/dL [facility] ([place]) RDW CV 14.6 11.1 - 14.9 % [facility] ([place]) RDW SD 53.9(H) 35.7 - 48.1 fL [facility] ([place]) NRBC abs 0.00 0.00 - 0.01 K/cumm [facility] ([place]) Blood 11/13/2024 3:50 AM ASSOCIATE PROFESSOR 11/13/2024 6:17 AM ASSOCIATE PROFESSOR us Luis Cho MD LAB BLOOD ORDERABLES Final Resu lt [facility] ([place]) 1 [facility] [place] [address] * Magnesium (11/13/2024 3:50 AM ASSOCIATE PROFESSOR) Magnesium 2.3 1.4 - 2.5 mg/dL Blood 11/13/2024 3:50 AM ASSOCIATE PROFESSOR 11/13/2024 6:17 AM ASSOCIATE PROFESSOR us Luis Cho MD LAB BLOOD ORDERABLES Final Resu lt [facility] ([place]) 1 [facility] [place] [address] * Comprehensive metabolic panel (11/13/2024 3:50 AM ASSOCIATE PROFESSOR) Sodium 140 135 - 145 mmol/L Potassium, pl 3.9 3.3 - 4.9 mmol/L [facility] ([place]) Chloride 100 97 - 110 mmol/L [facility] ([place]) CO2 27 22 - 32 mmol/L [facility] ([place]) Anion gap 13 2 - 15 mmol/L [facility] ([place]) BUN 11 6 - 25 mg/dL [facility] ([place]) Creatinine 0.63 0.60 - 1.10 mg/dL [facility] ([place]) Glucose 114 70 - 199 mg/dL [facility] ([place] Comment: Interpretive Data Fasting glucose >/= 126 mg/dl is diagnostic for diabetes. Fasting is defined as no caloric intake for at least 8 hours. Fasting glucose between 100 mg/dl to 125 mg/dl is diagnostic of prediabetes. In a patient with classic symptoms of hyperglycemia or hyperglycemic crisis, a random glucose >/= 200 mg/dl is diagnostic for diabetes. In the absence of unequivocal hyperglycemia, results should be confirmed by repeat testing. The classification and Diagnosis of Diabetes Diabetes Care 202; 46: S19-S40. Current interpretive data was last revised 2022. Calcium 9.1 8.5 - 10.3 mg/dL [facility] ([place]) Bilirubin, total 0.4 0.1 - 1.2 mg/dL [facility] ([place]) Protein, pl 6.5 6.5 - 8.5 g/dL [facility] ([place]) Albumin 3.7 3.5 - 5.0 g/dL [facility] ([place]) Alk phos 93 40 - 130 Units/L [facility] ([place]) ALT 14 7 - 45 Units/L [facility] ([place]) AST 18 10 - 45 Units/L [facility] ([place]) Blood 11/13/2024 3:50 AM ASSOCIATE PROFESSOR 11/13/2024 6:17 AM ASSOCIATE PROFESSOR Luis Cho MD LAB BLOOD ORDERABLES Final Resu lt Performing Organization Address [facility] de Phone Number ADA [facility] ([place]) 1 [facility] [place] [address] * Strep pneumoniae antigen, urine Urine (11/13/2024 3:25 AM ASSOCIATE PROFESSOR) S. pneumoniae Ag Negative Negative Comment: Interpretive Data A positive result is indicative of pneumococcal pneumonia in patients with severe CAP. Cross-reactivity with closely related Streptococcus bacteria may occur. A negative result suggests no current or recent pneumococcal infection but cannot rule out infection with S. pneumoniae. The results of this testing should be used in conjunction with clinical findings and other diagnostic testing, including microbiologic culture. Current Interpretive Data was last revised on 2023 Testing performed by: [address] [address] Urine 11/13/2024 3:25 AM ASSOCIATE PROFESSOR 11/16/2024 9:45 AM ASSOCIATE PROFESSOR Luis Cho MD LAB MICROBIOLOGY - GENERAL ORDE RABLES Final Result Performing Organization Address [facility] Co de Phone Number [facility] ([place]) 1 [facility] [place] [address] * Legionella antigen Urine (11/13/2024 3:25 AM ASSOCIATE PROFESSOR) Legionella Ag Negative Negative Comment: Interpretive Data This test detects only Legionella pneumophila serogroup 1 antigen. Current interpretive data was last revised on 2020. Testing performed by: [address] [place] [address] Urine 11/13/2024 3:25 AM ASSOCIATE PROFESSOR 11/13/2024 1:21 PM ASSOCIATE PROFESSOR us Luis Cho MD LAB MICROBIOLOGY - GENERAL ORDE RABLES Final Result Performing Organization Address [facility] Co de Phone Number ADA TREVINO ([place]) 1 [facility] [place] [address] * (ABNORMAL) Troponin T high-sensitivity 6-hour (11/12/2024 5:33 PM ASSOCIATE PROFESSOR) Trop T hs 21(H) <=14 ng/L Comment: Interpretive Data For further hscTnT resources including the diagnostic algorithm and an aid in interpretation, copy and paste this link: https://nrl.testSt. Vibes.org/show/hsTrop Current Interpretive Data last revised 2020. Trop T hs delta 5 ng/L [facility] ([place]) Trop T hs interp Equivocal [facility] ([place]) Blood 11/12/2024 5:33 PM ASSOCIATE PROFESSOR 11/12/2024 5:54 PM ASSOCIATE PROFESSOR us Pancho Javier MD LAB BLOOD ORDERABLES Final R esult Performing Organization Address [facility]/ZIP Co de Phone Number ADA TREVINO ([place]) 1 [facility] [place] [address] * (ABNORMAL) Troponin T high-sensitivity 4-hour (11/12/2024 3:13 PM ASSOCIATE PROFESSOR) Trop T hs 23(H) <=14 ng/L Comment: Interpretive Data For further hscTnT resources including the diagnostic algorithm and an aid in interpretation, copy and paste this link: https://nrl.testSt. Vibes.org/show/hsTrop Current Interpretive Data last revised 2020. Trop T hs delta 7 ng/L [facility] ([place]) Trop T hs interp Equivocal [facility] ([place]) Blood 11/12/2024 3:13 PM ASSOCIATE PROFESSOR 11/12/2024 3:18 PM ASSOCIATE PROFESSOR Pancho Javier MD LAB BLOOD ORDERABLES Final R esult Performing Organization Address City/[facility]/ZIP Co de Phone Number ADA TREVINO ([place]) 1 [facility] Department [place] [address] * (ABNORMAL) Urinalysis reflex to microscopic and culture Urine (11/12/2024 2:08 PM ASSOCIATE PROFESSOR) Color, ur Straw Yellow Clarity, ur Turbid(A) Clear [facility] ([place]) Specific gravity, ur 1.010 1.003 - 1.030 [facility] ([place]) pH, urine 6.0 [facility] ([place]) Comment: Interpretive Data U rine pH is affected by diet, medications, systemic acid-base disturbances, and renal tubular function. pH may affect urinary stone formation. For example, urine pH below 6.0 may help reduce the tendency for calcium phosphate stones and pH greater than 6.0 may reduce the tendency for uric acid stone formation. Source: [facility] Current Interpretive Data was last revised on 2017 Protein, ur ql 3+(A) Negative [facility] ([place]) Glucose, ur ql 4+(A) Negative [facility] ([place]) Ketones, ur Negative Negative [facility] ([place]) Bilirubin, ur Negative Negative [facility] ([place]) Blood, ur 1+(A) Negative [facility] ([place]) Urobilinogen, ur <2.0 <2.0 mg/dL [facility] ([place]) Nitrite, ur Negative Negative [facility] ([place]) Leukocyte esterase, ur Negative Negative [facility] ([place]) UA reflex comment Reflex to microscopic UA will be performed. [facility] ([place]) Urine 11/12/2024 2:08 PM ASSOCIATE PROFESSOR 11/12/2024 2:12 PM ASSOCIATE PROFESSOR Narrative [facility] ([place]) - 11/12/2024 2:19 PM ASSOCIATE PROFESSOR If patient unable to urinate, straight cath Pancho Javier MD LAB MICROBIOLOGY - GENERAL O RDERABLES Final Result ADA TREVINO ([place]) 1 [facility] [place] [address] * (ABNORMAL) Urinalysis, microscopic only (11/12/2024 2:08 PM ASSOCIATE PROFESSOR) WBC, ur 11-20(A) 0 - 5 /HPF RBC, ur 0-2 0 - 2 /HPF [facility] ([place]) Epithelial cells, squamous, ur 1-5 0 - 5 /HPF [facility] ([place]) Bacteria, ur 2+(A) [facility] ([place]) Mucous, ur Present(A) CERNER A ([place]) Culture Reflex Comment Reflex to urine culture will be performed. ADA [facility] ([place]) Urine 11/12/2024 2:08 PM ASSOCIATE PROFESSOR 11/12/2024 2:12 PM ASSOCIATE PROFESSOR Pancho Javier MD LAB URINE ORDERABLES Final R esult Performing Organization Address City/[facility]/ZIP Co de Phone Number [facility] ([place]) 1 [place] [address] * Urine culture Urine (11/12/2024 2:08 PM ASSOCIATE PROFESSOR) Report Final Report: Less than 100,000 colonies/mL (clinically insignificant growth based on current clinical standards) Comment:Testing performed by : [facility], 1 [facility] [place]., [address] Organism (CLINICALLY INSIGNIFICANT GROWTH [facility] ([place]) Urine 11/12/2024 2:08 PM ASSOCIATE PROFESSOR 11/12/2024 8:03 PM ASSOCIATE PROFESSOR Narrative [facility] ([place]) - 11/13/2024 9:39 PM ASSOCIATE PROFESSOR Urine culture reflexed based upon urinalysis results. Testing performed by [facility] ([phone]) Pancho Javier MD LAB MICROBIOLOGY - GENERAL O RDERABLES Final Result ADA [facility] ([place]) 1 [place] [address] * MT CRITICAL CARE ILL/INJURED PATIENT INIT 30-74 MIN (11/12/2024 1:57 PM ASSOCIATE PROFESSOR) Narrative Pancho Javier MD - 11/12/2024 1:57 PM ASSOCIATE PROFESSOR Pancho Javier MD 11/12/2024 1:57 PM Critical Care Performed by: Pancho Javier MD Authorized by: Pancho Javier MD Critical care provider statement: As reflected in the history, physical exam, orders, notes, and/or MDM, I was personally present while the patient was critically ill and provided critical care services for 30 minutes, excluding time involved in separately billable procedures. Critical care was necessary to treat or prevent imminent or life-threatening deterioration of the following condition(s): hypercarbic respiratory failure Critical care was time spent by me providing the following: non-invasive positive pressure ventilator management I provided emergent necessary critical care medicine services to this patient. I ordered and reviewed test results and/or imaging studies. I spent time discussing the management of this critically ill patient with consultants and the medical staff. us Pancho Javier MD IN CLINIC/BEDSIDE ORDERABLES Final Result * (ABNORMAL) Blood gas, venous (11/12/2024 1:14 PM ASSOCIATE PROFESSOR) pH, Venous 7.37 7.32 - 7.43 PCO2, Venous 52(H) 40 - 50 mmHg [facility] ([place]) PO2, Venous 56 mmHg [facility] ([place]) Comment: Interpretive Data No reference range established. Current interpretive data was last revised 2018. HCO3 Venous, Calculated 30 20 - 30 mmol/L [facility] ([place]) BE, venous 4 mmol/L [facility] ([place]) Comment: Interpretive Data No Reference Range Established Current Interpretive Data was last revised on 2018. Blood 11/12/2024 1:14 PM ASSOCIATE PROFESSOR 11/12/2024 1:18 PM ASSOCIATE PROFESSOR Pancho Javier MD LAB BLOOD ORDERABLES Final R esult ADA TREVINO ([place]) [address] [place] [address] * (ABNORMAL) Troponin T high-sensitivity 2-hour (11/12/2024 12:56 PM ASSOCIATE PROFESSOR) Trop T hs 24(H) <=14 ng/L Comment: Interpretive Data For further hscTnT resources including the diagnostic algorithm and an aid in interpretation, copy and paste this link: https://nrl.testcatalog.org/show/hsTrop Current Interpretive Data last revised 2020. Trop T hs delta 8 ng/L [facility] ([place]) Trop T hs interp Equivocal [facility] ([place]) Blood 11/12/2024 12:5 6 PM ASSOCIATE PROFESSOR 11/12/2024 1:01 PM ASSOCIATE PROFESSOR Pancho Javier MD LAB BLOOD ORDERABLES Final R esult ADA TREVINO ([place]) 1 [facility] [place] [address] * Blood culture Blood (11/12/2024 12:11 PM ASSOCIATE PROFESSOR) Report Final Report: No growth Comment:Testing performed by : [facility], 1 [facility] [place]., [address] Blood 11/12/2024 12:1 1 PM ASSOCIATE PROFESSOR 11/12/2024 2:36 PM ASSOCIATE PROFESSOR Narrative ADA URILE ([place]) - 11/16/2024 4:00 PM ASSOCIATE PROFESSOR Received only aerobic blood culture bottle 1. Blood cultures are incubated for 4 days on a continuously monitored blood culture system. The first report of a negative culture is issued within 24 hours of receipt of the specimen in the laboratory. 2. Positive culture results are reported as soon as they are detected. 3. The most important factor for detection of microbes in the setting of bloodstream infection is the volume of blood submitted for culture. Failure to collect an optimal blood volume can result in false negative blood cultures. 4. For pediatric patients, the recommended blood volume to collect follows a weight based strategy. See the electronic test catalog for collection instructions. 5. For positive blood cultures, a rapid molecular test may be performed for organism identification using the michael ePlex blood culture identification panel for gram positive (BCID-GP) and gram negative (BCID-GN) organisms. This nucleic acid amplification test detects microbial DNA in positive blood culture broth. This assay has been cleared by the [place] Food and Drug Administration and its performance characteristics have been verified by the [facility]. For questions about this culture, contact the Microbiology Laboratory at [phone]. Interpretive data was last revised on 24. us Pancho Javier MD LAB MICROBIOLOGY - GENERAL O RDERABLES Final Result ADA TREVINO ([place]) 1 [facility] Department [place] [address] * (ABNORMAL) Blood culture Blood (11/12/2024 12:11 PM ASSOCIATE PROFESSOR) Direct Specimen Exam Molecular Analysis: Staphylococcus species detected by the michael eplex BCID-GP panel. Single positive culture may represent contamination. This is most suggestive of a coagulase-negative Staphylococcus species. Please refer to final culture-based result for confirmation. This test does not exclude the possibility of a mixed bacterial infection. Notification of: Staphylococcus species called to and read back by: Angeli Bautista MT, on 11/13/2024 08:17:27 by: Korina Castelan MLT Comment:Testing performed by : [facility], [address] [place] [address], [place] [address] Direct Specimen Exam Stain: Gram Positive Cocci in clusters Time to culture positivity (aerobic media): 14.1 hours Notification of: Gram Positive Cocci in clusters called to and read back by: Yasmin Doan MLT [phone] on 11/13/2024 06:08:56 by: Awilda Oden MT Test result called to and read back by Angeli Yi on 11/13/2024 06:14:00 by Yasmin TREVINO ([place]) Comment:Testing performed by : [facility], 1 [place]., [address] Report Final Report: Staphylococcus hominis Single blood culture positive for this microorganism. Isolate is a possible contaminant. If a similar isolate is recovered from a second blood culture collected within 3 days of this culture, both will be evaluated and, if determined to be the same species, antimicrobial susceptibility testing will be performed. (.) ADA TREVINO ([place]) Comment:Testing performed by : [facility], [address] [place]., [address] Organism STAPHYLOCOCCUS HOMINIS ADA TREVINO ([place]) Blood 11/12/2024 12:1 1 PM ASSOCIATE PROFESSOR 11/12/2024 2:36 PM ASSOCIATE PROFESSOR Narrative ADA TREVINO ([place]) - 11/18/2024 11:56 AM ASSOCIATE PROFESSOR 1. Blood cultures are incubated for 4 days on a continuously monitored blood culture system. The first report of a negative culture is issued within 24 hours of receipt of the specimen in the laboratory. 2. Positive culture results are reported as soon as they are detected. 3. The most important factor for detection of microbes in the setting of bloodstream infection is the volume of blood submitted for culture. Failure to collect an optimal blood volume can result in false negative blood cultures. 4. For pediatric patients, the recommended blood volume to collect follows a weight based strategy. See the electronic test catalog for collection instructions. 5. For positive blood cultures, a rapid molecular test may be performed for organism identification using the michael ePlex blood culture identification panel for gram positive (BCID-GP) and gram negative (BCID-GN) organisms. This nucleic acid amplification test detects microbial DNA in positive blood culture broth. This assay has been cleared by the [place] Food and Drug Administration and its performance characteristics have been verified by the [facility]. For questions about this culture, contact the Microbiology Laboratory at [phone]. Interpretive data was last revised on 24. Pancho Javier MD LAB MICROBIOLOGY - GENERAL O RDERABLES Final Result ADA TREVINO ([place]) 1 [facility] [place] [address] * XR Chest 1 Vw Portable (if patient condition/safety warrant portable) (11/12/2024 11:30 AM ASSOCIATE PROFESSOR) Anatomical Region Laterality Modality Body, Chest N/A Computed Radiogr aphy 11/12/2024 11:5 6 AM ASSOCIATE PROFESSOR Narrative 11/12/2024 11:57 AM ASSOCIATE PROFESSOR EXAM DESCRIPTION: XR CHEST 1 VIEW REASON FOR STUDY: Other (type), SOB Pt arrives by EMS from home for complaints of Shortness of Breath. Pt has a hx of COPD and Asthma. Pt wears 3L of home O2 and when EMS arrived she was 87%. Fire department upped her to 8L with duoneb where she was 90%. Pt receive solumedrol, 2 duonebs, 2G of mag, 1 nitropaste, 4 baby asprin in route. TECHNIQUE: Single radiographic view(s) of the chest. COMPARISON: Prior exam 11/02/2024, 09/14/2024 and 05/29/2024 FINDINGS: LUNGS: There is hazy increased opacity of the right lung base. Milder change left lung base. Infiltrate including pneumonia is a consideration. Vascularity appears normal. HEART/MEDIASTINUM: Senescent change of the aorta. Otherwise, normal cardiomediastinal silhouette. LINES/TUBES: None. BONES: No acute osseous abnormality. IMPRESSION: There is hazy increased opacity of the right lung base with milder change left lung base. Infiltrate including pneumonia is a consideration. Follow-up recommended in 4-6 weeks to ensure resolution. THIS IS AN ELECTRONICALLY VERIFIED FINAL REPORT 11/12/2024 11:57 AM - Electronically signed by Richard Posadas M.D. MJ: VEL Report ID: [id number] Reading Location: [id number] Procedure Note Richard Posadas MD - 11/12/2024 EXAM DESCRIPTION: XR CHEST 1 VIEW REASON FOR STUDY: Other (type), SOB Pt arrives by EMS from home for complaints of Shortness of Breath. Pt hasa hx of COPD and Asthma. Pt wears 3L of home O2 and when EMS arrived she was87%. Fire department upped her to 8L with duoneb where she was 90%. Pt receive solumedrol, 2 duonebs, 2G of mag, 1 nitropaste, 4 baby asprin in route. TECHNIQUE: Single radiographic view(s) of the chest. COMPARISON: Prior exam 11/02/2024, 09/14/2024 and 05/29/2024 FINDINGS: LUNGS: There is hazy increased opacity of the right lung base. Milderchange left lung base. Infiltrate including pneumonia is a consideration. Vascularity appears normal. HEART/MEDIASTINUM: Senescent change of the aorta. Otherwise, normal cardiomediastinal silhouette. LINES/TUBES: None. BONES: No acute osseous abnormality. IMPRESSION: There is hazy increased opacity of the right lung base with milder changeleft lung base. Infiltrate including pneumonia is a consideration. Follow-up recommended in 4-6 weeks to ensure resolution. THIS IS AN ELECTRONICALLY VERIFIED FINAL REPORT 11/12/2024 11:57 AM - Electronically signed by Richard Posadas M.D. MJ: VEL Report ID: [id number] Reading Location: [place] [address] Pancho Javier MD IMG XR PROCEDURES Final Resu lt * (ABNORMAL) Troponin T high-sensitivity series (baseline, 2hr, 4hr, 6hr) (11/12/2024 11:23 AM ASSOCIATE PROFESSOR) Trop T hs 16(H) <=14 ng/L Comment: Interpretive Data For further hscTnT resources including the diagnostic algorithm and an aid in interpretation, copy and paste this link: https://nrl.testcatalog.org/show/hsTrop Current Interpretive Data last revised 2020. Blood 11/12/2024 11:2 3 AM ASSOCIATE PROFESSOR 11/12/2024 11:27 AM ASSOCIATE PROFESSOR Pancho Javier MD LAB BLOOD ORDERABLES Final R esult ADA [place]) 1 [facility] [place] [address] * Influenza A/B, RSV, and COVID-19 PCR Nasopharyngeal (11/12/2024 11:23 AM ASSOCIATE PROFESSOR) Pathologist [facility] COVID-19 RNA Negative Negative Influenza A RNA Negative Negative CERN ER [facility] ([place]) Influenza B RNA Negative Negative CER ER [facility] ([place]) RSV RNA Negative Negative [facility] ([place]) Comment: Interpretive data: Testing performed by [facility]. This test is performed using the Logisticare Xpert Xpress CoV-2/Flu/RSV plus assay. This is a multiplex, real- time reverse transcriptase PCR assay intended for the qualitative detection of nucleic acid from SARS-CoV-2, influenza A, influenza B, and respiratory syncytial virus. This assay has been cleared by the [place] Food and Drug administration. The performance characteristics have been verified by the [facility]. Results must be considered in the clinical context, and a negative result does not rule out infection. Interpretive Data last revised 2023 Nasopharyngeal 11/12/2024 11 :23 AM ASSOCIATE PROFESSOR 11/12/2024 11:27 AM ASSOCIATE PROFESSOR Narrative ADA TREVINO ([place]) - 11/12/2024 12:25 PM ASSOCIATE PROFESSOR Is the Patient experiencing symptoms consistent with COVID?->Yes Pancho Javier MD LAB MICROBIOLOGY - GENERAL O RDERABLES Final Result ADA [place]) 1 [facility] [place] [address] * Sepsis Lactate w/ Reflex (11/12/2024 11:23 AM ASSOCIATE PROFESSOR) Pathologist [facility] Sepsis Lactate 1.9 0.7 - 2.0 mmol/L Blood 11/12/2024 11:2 3 AM ASSOCIATE PROFESSOR 11/12/2024 11:29 AM ASSOCIATE PROFESSOR us Pancho Javier MD LAB BLOOD ORDERABLES Final R esult ADA TREVINO ([place]) 1 [facility] [place] [address] * eGFR (11/12/2024 11:23 AM ASSOCIATE PROFESSOR) eGFR 90 >=60 mL/min/1. 73 m2 Comment: Interpretive Data Reference Interval Normal >/= 90 mL/min/1.73m2 Mildly decreased* 60 - 89 mL/min/1.73m2 Mildly to moderately decreased 45 - 59 mL/min/1.73m2 Moderately to severely decreased 30 - 44 mL/min/1.73m2 Severely decreased 15 - 29 mL/min/1.73m2 Kidney Failure < 15 mL/min/1.73m2 *Relative to young adult level Estimated glomerular filtration rate is determined by the 2020 CKD-EPI equation recommended by the National Kidney Foundation (A Unifying Approach to GFR Estimation: Recommendations of the NKF-ASK Task Force on Reassessing the Inclusion of Race in Diagnosing Kidney Disease, JASN 2020). The CKD-EPI equation should not be used for patients with unstable renal function and has not been validated in children and those over 70. Current interpretive data was last reviewed 2021. Blood 11/12/2024 11:2 3 AM ASSOCIATE PROFESSOR 11/12/2024 11:27 AM ASSOCIATE PROFESSOR us Pancho Javier MD LAB BLOOD ORDERABLES Final R esult ADA TREVINO ([place]) 1 [facility] [place] [address] * (ABNORMAL) Differential, auto (11/12/2024 11:23 AM ASSOCIATE PROFESSOR) Neutrophil abs 12.7(H) 1.5 - 6.5 K/cumm Imm gran abs 0.2(H) 0.0 - 0.1 K/cumm [facility] ([place]) Lymphocyte abs 2.4 0.8 - 3.3 K/cumm [facility] ([place]) Monocyte abs 0.9(H) 0.2 - 0.8 K/cumm [facility] ([place]) Eosinophil abs 0.1 0.0 - 0.5 K/cumm [facility] ([place]) Basophil abs 0.1 0.0 - 0.1 K/cumm [facility] ([place]) Neutrophil pct 77.3 % [facility] ([place]) Comment: Interpretive Data Percent cell count reference ranges are not reported, since discordance with absolute values may lead to misinterpretation of CBC data. Current Interpretive Data was last revised on 2018. Imm gran pct 1.3 % [facility] ([place]) Comment: Interpretive Data Percent cell count reference ranges are not reported, since discordance with absolute values may lead to misinterpretation of CBC data. Current Interpretive Data was last revised on 2018. Lymphocyte pct 14.9 % [facility] ([place]) Comment: Interpretive Data Percent cell count reference ranges are not reported, since discordance with absolute values may lead to misinterpretation of CBC data. Current Interpretive Data was last revised on 2018. Monocyte pct 5.5 % [facility] ([place]) Comment: Interpretive Data Percent cell count reference ranges are not reported, since discordance with absolute values may lead to misinterpretation of CBC data. Current Interpretive Data was last revised on 2018. Eosinophil pct 0.6 % [facility] ([place]) Comment: Interpretive Data Percent cell count reference ranges are not reported, since discordance with absolute values may lead to misinterpretation of CBC data. Current Interpretive Data was last revised on 2018. Basophil pct 0.4 % [facility] ([place]) Comment: Interpretive Data Percent cell count reference ranges are not reported, since discordance with absolute values may lead to misinterpretation of CBC data. Current Interpretive Data was last revised on 2018. Blood 11/12/2024 11:2 3 AM ASSOCIATE PROFESSOR 11/12/2024 11:27 AM ASSOCIATE PROFESSOR us Pancho Javier MD LAB BLOOD ORDERABLES Final R esult ADA URIEL ([place]) 1 [facility] [place] [address] * (ABNORMAL) Pro B-type natriuretic peptide (11/12/2024 11:23 AM ASSOCIATE PROFESSOR) NT-proBNP 3,182(H) <=300 pg/mL Comment: Interpretive Comments: A. Dyspnea in Acute Care Setting All Ages: < 300 pg/ml, acute heart failure unlikely. < 50 yrs: 300 - 450 pg/ml, further investigation warranted. > 450 pg/ml, acute heart failure likely. 50 - 74 yrs: 300 - 900 pg/ml, further investigation warranted. > 900 pg/ml, acute heart failure likely . > or = 75 yrs: 450 - 1800 pg/ml, further investigation warranted. > 1800 pg/ml, acute heart failure likely. B. Non-acute Setting < 75 yrs < 125 pg/ml, rules out heart failure. > or = 125 pg/ml, further investigation warranted. > or = 75 yrs < 450 pg/ml, rules out heart failure. > or = 450 pg/ml, further investigation warranted. - Knowledge of each individual patient's NT-proBNP range may be more useful than using similar cut-points for every patient. Please note that marked elevations in NT-proBNP levels may be observed in state other than Left Ventricular Congestive Failure, including: acute coronary syndromes, right heart strain/failure (including pulmonary embolism and cor pulmonale), critical illness, renal failure, as well as advanced age. - References: 1. Meryl PARKINSON et.al. Eur Heart J. 2006:27:330-337. 2. Lonnie RW, Teresa TRUJILLO. J. AM Denisse Cardiol: Cardiovasc Imag. 2009;2: 216- 225. Interpretive Data Last Revised Date: 2018. Blood 11/12/2024 11:2 3 AM ASSOCIATE PROFESSOR 11/12/2024 11:27 AM ASSOCIATE PROFESSOR us Pancho Javier MD LAB BLOOD ORDERABLES Final R esult [facility] [place]) 9 [facility] [place] [address] * (ABNORMAL) CBC with auto differential (11/12/2024 11:23 AM ASSOCIATE PROFESSOR) WBC 16.4(H) 3.8 - 9.9 K/cumm Hgb 14.5 11.9 - 15.5 g/dL [facility] ([place]) Hct 45.7(H) 35.6 - 45.5 % [facility] ([place]) Plt 268 150 - 400 K/cumm [facility] ([place]) MPV 9.5 9.1 - 12.3 fL [facility] ([place]) RBC 4.46 3.90 - 5.20 M/cumm [facility] ([place]) MCV 102.5(H) 81.3 - 96.4 fL [facility] ([place]) MCH 32.5 27.1 - 33.3 pg [facility] ([place]) MCHC 31.7(L) 32.3 - 35.7 g/dL [facility] ([place]) RDW CV 14.5 11.1 - 14.9 % [facility] ([place]) RDW SD 55.1(H) 35.7 - 48.1 fL [facility] ([place]) NRBC abs 0.00 0.00 - 0.01 K/cumm [facility] ([place]) Blood 11/12/2024 11:2 3 AM ASSOCIATE PROFESSOR 11/12/2024 11:27 AM ASSOCIATE PROFESSOR Pancho Javier MD LAB BLOOD ORDERABLES Final R esult Performing Organization Address City/State/[facility] Co de Phone Number ADA MEDEIROS) 1 [facility] [place] [address] * aPTT (11/12/2024 11:23 AM ASSOCIATE PROFESSOR) aPTT 32 28 - 38 sec [facility] ([place]) Comment: Interpretive Data Heparin therapeutic range: 66.0 - 100.0 seconds. Range based on correlation with therapeutic heparin activity range of 0.3 - 0.7 Units/mL. Current interpretive data was last revised on 2023. Blood 11/12/2024 11:2 3 AM ASSOCIATE PROFESSOR 11/12/2024 11:27 AM ASSOCIATE PROFESSOR Pancho Javier MD LAB BLOOD ORDERABLES Final R esult ADA TREVINO ([place]) 1 [facility] [place] [address] * Protime-INR (11/12/2024 11:23 AM ASSOCIATE PROFESSOR) PT 12.0 9.7 - 13.0 sec JONATHONPITER URIEL ([place]) INR 1.11 0.90 - 1.20 [facility] ([place]) Comment: Interpretive data Oral anticoagulant therapeutic ranges: Venous thromboembolism prophylaxis or treatment: 2.0-3.0 CARDIOLOGY Standard range: 2.0-3.0 High-intensity range: 2.5-3.5 Refer to indication-specific guidelines for appropriate target ranges for prosthetic heart valve replacement. Current interpretive data was last revised on 2019. Blood 11/12/2024 11:2 3 AM ASSOCIATE PROFESSOR 11/12/2024 11:27 AM ASSOCIATE PROFESSOR Pancho Javier MD LAB BLOOD ORDERABLES Final R esult Performing Organization Address [facility] Co de Phone Number ADA TREVINO ([place]) 1 [facility] [place] [address] * (ABNORMAL) Magnesium (11/12/2024 11:23 AM ASSOCIATE PROFESSOR) [facility] Magnesium 2.8(H) 1.4 - 2.5 mg/dL Blood 11/12/2024 11:2 3 AM ASSOCIATE PROFESSOR 11/12/2024 11:27 AM ASSOCIATE PROFESSOR Pancho Javier MD LAB BLOOD ORDERABLES Final R esult Performing Organization Address City/[facility] Co de Phone Number ADA TRE[facility] ([place]) [address] [facility] [place] [address] * (ABNORMAL) Blood gas, venous (11/12/2024 11:23 AM ASSOCIATE PROFESSOR) pH, Venous 7.30(L) 7.32 - 7.43 PCO2, Venous 67(C) 40 - 50 mmHg ADA TRE[facility] ([place]) Comment:Critical result call ed to and read back by GUNNER BUSTILLOS (ER) on 11/12/2024 11:33:49 ASSOCIATE PROFESSOR to ANGELI LY. PO2, Venous 34 mmHg ADA Schwartz ([place]) Comment: Interpretive Data No reference range established. Current interpretive data was last revised 2018. HCO3 Venous, Calculated 31(H) 20 - 30 mmol/L [facility] ([place]) BE, venous 3 mmol/L [facility] ([place]) Comment: Interpretive Data No Reference Range Established Current Interpretive Data was last revised on 2018. Blood 11/12/2024 11:2 3 AM ASSOCIATE PROFESSOR 11/12/2024 11:31 AM ASSOCIATE PROFESSOR us Pancho Javier MD LAB BLOOD ORDERABLES Final R esult [facility] ([place]) 1 [facility] [place] [address] * (ABNORMAL) Comprehensive metabolic panel (11/12/2024 11:23 AM ASSOCIATE PROFESSOR) Sodium 135 135 - 145 mmol/L Potassium, pl 4.4 3.3 - 4.9 mmol/L [facility] ([place]) Chloride 97 97 - 110 mmol/L [facility] ([place]) CO2 29 22 - 32 mmol/L [facility] ([place]) Anion gap 9 2 - 15 mmol/L [facility] ([place]) BUN 10 6 - 25 mg/dL [facility] ([place]) Creatinine 0.73 0.60 - 1.10 mg/dL [facility] ([place]) Glucose 121 70 - 199 mg/dL [facility] ([place]) Comment: Interpretive Data Fasting glucose >/= 126 mg/dl is diagnostic for diabetes. Fasting is defined as no caloric intake for at least 8 hours. Fasting glucose between 100 mg/dl to 125 mg/dl is diagnostic of prediabetes. In a patient with classic symptoms of hyperglycemia or hyperglycemic crisis, a random glucose >/= 200 mg/dl is diagnostic for diabetes. In the absence of unequivocal hyperglycemia, results should be confirmed by repeat testing. The classification and Diagnosis of Diabetes Diabetes Care 2022; 46: S19-S40. Current interpretive data was last revised 2022. Calcium 8.8 8.5 - 10.3 mg/dL [facility] ([place]) Bilirubin, total 0.4 0.1 - 1.2 mg/dL [facility] ([place]) Protein, pl 6.4(L) 6.5 - 8.5 g/dL [facility] ([place]) Albumin 3.9 3.5 - 5.0 g/dL [facility] ([place]) Alk phos 99 40 - 130 Units/L [facility] ([place]) ALT 18 7 - 45 Units/L [facility] ([place]) AST 36 10 - 45 Units/L [facility] ([place]) Comment: Hemolysis present. Results may be affected. Slightly Hemolyzed Specimen Blood 11/12/2024 11:2 3 AM ASSOCIATE PROFESSOR 11/12/2024 11:27 AM ASSOCIATE PROFESSOR Pancho Javier MD LAB BLOOD ORDERABLES Final R esult Performing Organization Address City/[facility] Co de Phone Number ADA [facility] ([place]) 1 [facility] Department [place] [address] * ECG 12 lead (11/12/2024 11:18 AM ASSOCIATE PROFESSOR) 11/12/2024 11:1 8 AM ASSOCIATE PROFESSOR Narrative [facility] - 11/13/2024 5:38 AM ASSOCIATE PROFESSOR Vent Rate: 120 bpm RR Interval: 496 msec MT Interval: 0 msec QRS Duration: 90 msec QT Interval: 287 msec QTC Interval: 359 msec P-R-T [place]: [id number] - 82 - 25 degrees IMPRESSION: ATRIAL FIBRILLATION WITH RAPID VENTRICULAR RESPONSE ABNORMAL RHYTHM ECG NO CHANGE FROM PREVIOUS TRACING NOTED Electronically Signed By: Myles Madrigal MD Pancho Javier MD ECG ORDERABLES Final Result Performing Organization Address [facility] Co de Phone Number [facility] [employer] [facility] * (ABNORMAL) Troponin T high-sensitivity 2-hour (11/02/2024 6:33 PM ASSOCIATE PROFESSOR) Trop T hs 19(H) <=14 ng/L Comment: Interpretive Data For further hscTnT resources including the diagnostic algorithm and an aid in interpretation, copy and paste this link: https://nrl.testcatalog.org/show/hsTrop Current Interpretive Data last revised 2020. Trop T hs delta 1 ng/L [facility] ([place]) Trop T hs interp Insignificant [facility] ([place]) Blood 11/02/2024 6:33 PM ASSOCIATE PROFESSOR 11/02/2024 6:37 PM ASSOCIATE PROFESSOR us Surendra Tinajero MD LAB BLOOD ORDERABLES Final Result Performing Organization Address [facility]/ZIP Co de Phone Number ADA TREVINO ([place]) [address] [place] [address] [place] [address] * (ABNORMAL) Troponin T high-sensitivity series (baseline, 2hr, 4hr, 6hr) (11/02/2024 4:10 PM ASSOCIATE PROFESSOR) Pathologist [facility] Trop T hs 18(H) <=14 ng/L Comment: Interpretive Data For further hscTnT resources including the diagnostic algorithm and an aid in interpretation, copy and paste this link: https://nrl.testcatalog.org/show/[email or web address] Current Interpretive Data last revised 2020. Blood 11/02/2024 4:10 PM ASSOCIATE PROFESSOR 11/02/2024 4:16 PM ASSOCIATE PROFESSOR us Gabriel Enciso MD LAB BLOOD ORDERABLES Final Res ult ADA TREVINO ([place]) 1 [facility] [place] [address] * eGFR (11/02/2024 4:10 PM ASSOCIATE PROFESSOR) Pathologist [facility] eGFR 73 >=60 mL/min/1. 73 m2 Comment: Interpretive Data Reference Interval Normal >/= 90 mL/min/1.73m2 Mildly decreased* 60 - 89 mL/min/1.73m2 Mildly to moderately decreased 45 - 59 mL/min/1.73m2 Moderately to severely decreased 30 - 44 mL/min/1.73m2 Severely decreased 15 - 29 mL/min/1.73m2 Kidney Failure < 15 mL/min/1.73m2 *Relative to young adult level Estimated glomerular filtration rate is determined by the 2020 CKD-EPI equation recommended by the National Kidney Foundation (A Unifying Approach to GFR Estimation: Recommendations of the NKF-ASK Task Force on Reassessing the Inclusion of Race in Diagnosing Kidney Disease, JASN 2020). The CKD-EPI equation should not be used for patients with unstable renal function and has not been validated in children and those over 70. Current interpretive data was last reviewed 2021. Blood 11/02/2024 4:10 PM ASSOCIATE PROFESSOR 11/02/2024 4:16 PM ASSOCIATE PROFESSOR us Gabriel Enciso MD LAB BLOOD ORDERABLES Final Res ult [facility] ([place]) 1 [facility] [place] [address] * (ABNORMAL) Differential, auto (11/02/2024 4:10 PM ASSOCIATE PROFESSOR) Neutrophil abs 11.1(H) 1.5 - 6.5 K/cumm Imm gran abs 0.1 0.0 - 0.1 K/cumm [facility] ([place]) Lymphocyte abs 1.7 0.8 - 3.3 K/cumm [facility] ([place]) Monocyte abs 1.0(H) 0.2 - 0.8 K/cumm [facility] ([place]) Eosinophil abs 0.1 0.0 - 0.5 K/cumm [facility] ([place]) Basophil abs 0.1 0.0 - 0.1 K/cumm [facility] ([place]) Neutrophil pct 79.3 % [facility] ([place]) Comment: Interpretive Data Percent cell count reference ranges are not reported, since discordance with absolute values may lead to misinterpretation of CBC data. Current Interpretive Data was last revised on 2018. Imm gran pct 0.4 % [facility] ([place]) Comment: Interpretive Data Percent cell count reference ranges are not reported, since discordance with absolute values may lead to misinterpretation of CBC data. Current Interpretive Data was last revised on 2018. Lymphocyte pct 12.0 % [facility] ([place]) Comment: Interpretive Data Percent cell count reference ranges are not reported, since discordance with absolute values may lead to misinterpretation of CBC data. Current Interpretive Data was last revised on 2018. Monocyte pct 6.8 % [facility] ([place]) Comment: Interpretive Data Percent cell count reference ranges are not reported, since discordance with absolute values may lead to misinterpretation of CBC data. Current Interpretive Data was last revised on 2018. Eosinophil pct 0.9 % [facility] ([place]) Comment: Interpretive Data Percent cell count reference ranges are not reported, since discordance with absolute values may lead to misinterpretation of CBC data. Current Interpretive Data was last revised on 2018. Basophil pct 0.6 % [facility] ([place]) Comment: Interpretive Data Percent cell count reference ranges are not reported, since discordance with absolute values may lead to misinterpretation of CBC data. Current Interpretive Data was last revised on 2018. Blood 11/02/2024 4:10 PM ASSOCIATE PROFESSOR 11/02/2024 4:16 PM ASSOCIATE PROFESSOR us Gabriel Enciso MD LAB BLOOD ORDERABLES Final Res ult [facility] ([place]) 1 [facility] [place] [address] * (ABNORMAL) CBC with auto differential (11/02/2024 4:10 PM ASSOCIATE PROFESSOR) WBC 14.0(H) 3.8 - 9.9 K/cumm Hgb 14.2 11.9 - 15.5 g/dL [facility] ([place]) Hct 44.7 35.6 - 45.5 % [facility] ([place]) Plt 282 150 - 400 K/cumm [facility] ([place]) MPV 9.7 9.1 - 12.3 fL [facility] ([place]) RBC 4.34 3.90 - 5.20 M/cumm [facility] ([place]) MCV 103.0(H) 81.3 - 96.4 fL [facility] MCH 32.7 27.1 - 33.3 pg [facility] ([place]) MCHC 31.8(L) 32.3 - 35.7 g/dL [facility] ([place] RDW CV 14.4 11.1 - 14.9 % [facility] ([place]) RDW SD 55.0(H) 35.7 - 48.1 fL [facility] ([place] NRBC abs 0.00 0.00 - 0.01 K/cumm [facility] ([place]) Blood 11/02/2024 4:10 PM ASSOCIATE PROFESSOR 11/02/2024 4:16 PM ASSOCIATE PROFESSOR us Gabriel Enciso MD LAB BLOOD ORDERABLES Final Res ult [facility] ([place]) 1 [facility] [place] [address] * (ABNORMAL) Comprehensive metabolic panel (11/02/2024 4:10 PM ASSOCIATE PROFESSOR) Sodium 139 135 - 145 mmol/L Potassium, pl 4.8 3.3 - 4.9 mmol/L [facility] ([place]) Chloride 103 97 - 110 mmol/L [facility]) CO2 26 22 - 32 mmol/L [facility] ([place] Anion gap 10 2 - 15 mmol/L [facility] ([place]) BUN 12 6 - 25 mg/dL [facility] ([place]) Creatinine 0.87 0.60 - 1.10 mg/dL [facility] ([place] Glucose 107 70 - 199 mg/dL [facility] ([place]) Comment: Interpretive Data Fasting glucose >/= 126 mg/dl is diagnostic for diabetes. Fasting is defined as no caloric intake for at least 8 hours. Fasting glucose between 100 mg/dl to 125 mg/dl is diagnostic of prediabetes. In a patient with classic symptoms of hyperglycemia or hyperglycemic crisis, a random glucose >/= 200 mg/dl is diagnostic for diabetes. In the absence of unequivocal hyperglycemia, results should be confirmed by repeat testing. The classification and Diagnosis of Diabetes Diabetes Care 2021; 46: S19-S40. Current interpretive data was last revised 2022. Calcium 8.9 8.5 - 10.3 mg/dL [facility] ([place]) Bilirubin, total 0.3 0.1 - 1.2 mg/dL [facility] ([place]) Protein, pl 6.2(L) 6.5 - 8.5 g/dL [facility] ([place]) Albumin 3.6 3.5 - 5.0 g/dL [facility] ([place]) Alk phos 69 40 - 130 Units/L [facility] ([place]) ALT 5(L) 7 - 45 Units/L [facility] ([place]) AST 12 10 - 45 Units/L [facility] ([place]) Blood 11/02/2024 4:10 PM ASSOCIATE PROFESSOR 11/02/2024 4:16 PM ASSOCIATE PROFESSOR us Gabriel Enciso MD LAB BLOOD ORDERABLES Final Res ult [facility] ([place]) 1 [facility] [place] [address] * XR Chest 1 Vw Portable (if patient condition/safety warrant portable) (11/02/2024 2:48 PM ASSOCIATE PROFESSOR) Anatomical Region Laterality Modality Body, Chest N/A Computed Radiogr aphy 11/02/2024 3:23 PM ASSOCIATE PROFESSOR Narrative 11/02/2024 3:26 PM ASSOCIATE PROFESSOR EXAM DESCRIPTION: XR CHEST 1 VIEW REASON FOR STUDY: Shortness of breath Pt to ED for c/o SOB. Pt reports she is having issues with her home oxygen. Pt reports they have come out to fix it but it is still broken. Pt reports headache. Pt reports hx of COPD. TECHNIQUE: Single radiographic view(s) of the chest. COMPARISON: 09/14/2024 FINDINGS: LUNGS: No focal opacity, pleural effusion, or pneumothorax. HEART/MEDIASTINUM: Cardiac silhouette normal in size. Mediastinal and hilar contours appear normal. There is a aortic atherosclerosis. LINES/TUBES: None. BONES: No acute osseous abnormality. There is incompletely imaged ACDF hardware. IMPRESSION: No acute cardiopulmonary abnormality. THIS IS AN ELECTRONICALLY VERIFIED FINAL REPORT 11/02/2024 3:26 PM - Electronically signed by Isael Oviedo M.D. AM: AM Report ID: [id number] Reading Location: [place] [address] Procedure Note Isael Oviedo MD - 11/02/2024 EXAM DESCRIPTION: XR CHEST 1 VIEW REASON FOR STUDY: Shortness of breath Pt to ED for c/o SOB. Pt reports she is having issues with her homeoxygen. Pt reports they have come out to fix it but it is still broken. Pt reports headache. Pt reports hx of COPD. TECHNIQUE: Single radiographic view(s) of the chest. COMPARISON: 09/14/2024 FINDINGS: LUNGS: No focal opacity, pleural effusion, or pneumothorax. HEART/MEDIASTINUM: Cardiac silhouette normal in size. Mediastinal andhilar contours appear normal. There is a aortic atherosclerosis. LINES/TUBES: None. BONES: No acute osseous abnormality. There is incompletely imaged ACDF hardware. IMPRESSION: No acute cardiopulmonary abnormality. THIS IS AN ELECTRONICALLY VERIFIED FINAL REPORT 11/02/2024 3:26 PM - Electronically signed by Isael Oviedo M.D. AM: AM Report ID: [id number] Reading Location: [place] [address] Gabriel Enciso MD IMG XR PROCEDURES Final Result * ECG 12 lead (11/02/2024 2:43 PM ASSOCIATE PROFESSOR) 11/02/2024 2:43 PM ASSOCIATE PROFESSOR Narrative [facility] - 11/02/2024 3:32 PM ASSOCIATE PROFESSOR Vent Rate: 107 bpm RR Interval: 560 msec MT Interval: 0 msec QRS Duration: 75 msec QT Interval: 319 msec QTC Interval: 381 msec P-R-T [place]: [id number] - 95 - 42 degrees IMPRESSION: ATRIAL FIBRILLATION WITH RAPID VENTRICULAR RESPONSE BORDERLINE RIGHT AXIS DEVIATION [QRS AXIS > 90] LOW QRS VOLTAGE IN PRECORDIAL LEADS [QRS DEFLECTION < 1.0 mV IN CHEST LEADS] SEPTAL MYOCARDIAL INFARCTION , PROBABLY OLD [40+ ms Q WAVE IN V1/V2] ABNORMAL ECG NO CHANGE FROM PREVIOUS TRACING NOTED Electronically Signed By: Myles Madrigal MD Gabriel Enciso MD ECG ORDERABLES Final Result Performing Organization Address City/[facility]/ZIP Co de Phone Number [facility] * eGFR (10/22/2024 3:08 AM ASSOCIATE PROFESSOR) eGFR 65 >=60 mL/min/1. 73 m2 Comment: Interpretive Data Reference Interval Normal >/= 90 mL/min/1.73m2 Mildly decreased* 60 - 89 mL/min/1.73m2 Mildly to moderately decreased 45 - 59 mL/min/1.73m2 Moderately to severely decreased 30 - 44 mL/min/1.73m2 Severely decreased 15 - 29 mL/min/1.73m2 Kidney Failure < 15 mL/min/1.73m2 *Relative to young adult level Estimated glomerular filtration rate is determined by the 2020 CKD-EPI equation recommended by the National Kidney Foundation (A Unifying Approach to GFR Estimation: Recommendations of the NKF-ASK Task Force on Reassessing the Inclusion of Race in Diagnosing Kidney Disease, JASN 2020). The CKD-EPI equation should not be used for patients with unstable renal function and has not been validated in children and those over 70. Current interpretive data was last reviewed 2021. Blood 10/22/2024 3:08 AM ASSOCIATE PROFESSOR 10/22/2024 4:49 AM ASSOCIATE PROFESSOR us Caryn Bianchi MD LAB BLOOD ORDERABLES Final Resu lt ADA [facility] ([place]) 1 [facility] [place] [address] * Differential, auto (10/22/2024 3:08 AM ASSOCIATE PROFESSOR) Neutrophil abs 5.8 1.5 - 6.5 K/cumm Imm gran abs 0.0 0.0 - 0.1 K/cumm [facility] ([place]) Lymphocyte abs 2.6 0.8 - 3.3 K/cumm [facility] ([place]) Monocyte abs 0.8 0.2 - 0.8 K/cumm [facility] ([place]) Eosinophil abs 0.1 0.0 - 0.5 K/cumm [facility] ([place]) Basophil abs 0.0 0.0 - 0.1 K/cumm [facility] ([place]) Neutrophil pct 62.2 % [facility] ([place]) Comment: Interpretive Data Percent cell count reference ranges are not reported, since discordance with absolute values may lead to misinterpretation of CBC data. Current Interpretive Data was last revised on 2018. Imm gran pct 0.3 % [facility] ([place]) Comment: Interpretive Data Percent cell count reference ranges are not reported, since discordance with absolute values may lead to misinterpretation of CBC data. Current Interpretive Data was last revised on 2018. Lymphocyte pct 27.3 % [facility] ([place]) Comment: Interpretive Data Percent cell count reference ranges are not reported, since discordance with absolute values may lead to misinterpretation of CBC data. Current Interpretive Data was last revised on 2018. Monocyte pct 8.6 % [facility] ([place]) Comment: Interpretive Data Percent cell count reference ranges are not reported, since discordance with absolute values may lead to misinterpretation of CBC data. Current Interpretive Data was last revised on 2018. Eosinophil pct 1.2 % [facility] ([place]) Comment: Interpretive Data Percent cell count reference ranges are not reported, since discordance with absolute values may lead to misinterpretation of CBC data. Current Interpretive Data was last revised on 2018. Basophil pct 0.4 % [facility] ([place]) Comment: Interpretive Data Percent cell count reference ranges are not reported, since discordance with absolute values may lead to misinterpretation of CBC data. Current Interpretive Data was last revised on 2018. Blood 10/22/2024 3:08 AM ASSOCIATE PROFESSOR 10/22/2024 4:48 AM ASSOCIATE PROFESSOR us Caryn Bianchi MD LAB BLOOD ORDERABLES Final Resu lt [facility] ([place]) 1 [facility] [place] [address] * (ABNORMAL) CBC with auto differential (10/22/2024 3:08 AM ASSOCIATE PROFESSOR) WBC 9.4 3.8 - 9.9 K/cumm Hgb 12.2 11.9 - 15.5 g/dL [facility] ([place]) Hct 38.5 35.6 - 45.5 % [facility] ([place]) Plt 235 150 - 400 K/cumm [facility] ([place]) MPV 10.0 9.1 - 12.3 fL [facility] ([place]) RBC 3.73(L) 3.90 - 5.20 M/cumm [facility] ([place]) MCV 103.2(H) 81.3 - 96.4 fL [facility] ([place]) MCH 32.7 27.1 - 33.3 pg [facility] ([place]) MCHC 31.7(L) 32.3 - 35.7 g/dL [facility] ([place]) RDW CV 14.8 11.1 - 14.9 % [facility] ([place]) RDW SD 56.2(H) 35.7 - 48.1 fL [facility] ([place]) NRBC abs 0.00 0.00 - 0.01 K/cumm [facility] ([place]) Blood 10/22/2024 3:08 AM ASSOCIATE PROFESSOR 10/22/2024 4:48 AM ASSOCIATE PROFESSOR Caryn Bianchi MD LAB BLOOD ORDERABLES Final Resu lt ADA [facility] ([place]) 1 [facility] [place] [address] * Phosphorus (10/22/2024 3:08 AM ASSOCIATE PROFESSOR) Pathologist [facility] Phosphorus, pl 3.4 2.3 - 4.5 mg/dL Blood 10/22/2024 3:08 AM ASSOCIATE PROFESSOR 10/22/2024 4:49 AM ASSOCIATE PROFESSOR Caryn Bianchi MD LAB BLOOD ORDERABLES Final Resu lt [facility] ([place]) 1 [place] [address] * Magnesium (10/22/2024 3:08 AM ASSOCIATE PROFESSOR) Magnesium 2.0 1.4 - 2.5 mg/dL Blood 10/22/2024 3:08 AM ASSOCIATE PROFESSOR 10/22/2024 4:49 AM ASSOCIATE PROFESSOR Caryn Bianchi MD LAB BLOOD ORDERABLES Final Resu lt Performing Organization Address [facility] Co de Phone Number ADA [facility] ([place]) 1 [place] [address] * (ABNORMAL) Basic metabolic panel (10/22/2024 3:08 AM ASSOCIATE PROFESSOR) Pathologist [facility] Sodium 138 135 - 145 mmol/L Potassium, pl 3.6 3.3 - 4.9 mmol/L [facility] ([place]) Chloride 103 97 - 110 mmol/L [facility] ([place]) CO2 25 22 - 32 mmol/L [facility] ([place]) Anion gap 10 2 - 15 mmol/L [facility] ([place]) BUN 9 6 - 25 mg/dL [facility] ([place]) Creatinine 0.95 0.60 - 1.10 mg/dL [facility] ([place]) Glucose 81 70 - 199 mg/dL [facility] ([place]) Comment: Interpretive Data Fasting glucose >/= 126 mg/dl is diagnostic for diabetes. Fasting is defined as no caloric intake for at least 8 hours. Fasting glucose between 100 mg/dl to 125 mg/dl is diagnostic of prediabetes. In a patient with classic symptoms of hyperglycemia or hyperglycemic crisis, a random glucose >/= 200 mg/dl is diagnostic for diabetes. In the absence of unequivocal hyperglycemia, results should be confirmed by repeat testing. The classification and Diagnosis of Diabetes Diabetes Care 2021; 46: S19-S40. Current interpretive data was last revised 2022. Calcium 8.1(L) 8.5 - 10.3 mg/dL [facility] ([place]) Blood 10/22/2024 3:08 AM ASSOCIATE PROFESSOR 10/22/2024 4:49 AM ASSOCIATE PROFESSOR us Caryn iBanchi MD LAB BLOOD ORDERABLES Final Resu lt [facility] ([place]) 1 [facility] [place] [address] * eGFR (10/21/2024 6:38 AM ASSOCIATE PROFESSOR) eGFR 76 >=60 mL/min/1. 73 m2 Comment: Interpretive Data Reference Interval Normal >/= 90 mL/min/1.73m2 Mildly decreased* 60 - 89 mL/min/1.73m2 Mildly to moderately decreased 45 - 59 mL/min/1.73m2 Moderately to severely decreased 30 - 44 mL/min/1.73m2 Severely decreased 15 - 29 mL/min/1.73m2 Kidney Failure < 15 mL/min/1.73m2 *Relative to young adult level Estimated glomerular filtration rate is determined by the 2020 CKD-EPI equation recommended by the National Kidney Foundation (A Unifying Approach to GFR Estimation: Recommendations of the NKF-ASK Task Force on Reassessing the Inclusion of Race in Diagnosing Kidney Disease, JASN 2020). The CKD-EPI equation should not be used for patients with unstable renal function and has not been validated in children and those over 70. Current interpretive data was last reviewed 2021. Blood 10/21/2024 6:38 AM ASSOCIATE PROFESSOR 10/21/2024 7:15 AM ASSOCIATE PROFESSOR us Gabriel Enciso MD LAB BLOOD ORDERABLES Final Res ult [facility] ([place]) 1 [facility] [place] [address] * (ABNORMAL) Differential, auto (10/21/2024 6:38 AM ASSOCIATE PROFESSOR) Neutrophil abs 8.9(H) 1.5 - 6.5 K/cumm Imm gran abs 0.1 0.0 - 0.1 K/cumm [facility] ([place]) Lymphocyte abs 2.2 0.8 - 3.3 K/cumm [facility] ([place]) Monocyte abs 1.1(H) 0.2 - 0.8 K/cumm [facility] ([place]) Eosinophil abs 0.1 0.0 - 0.5 K/cumm [facility] ([place]) Basophil abs 0.0 0.0 - 0.1 K/cumm [facility] ([place]) Neutrophil pct 71.9 % [facility] ([place]) Comment: Interpretive Data Percent cell count reference ranges are not reported, since discordance with absolute values may lead to misinterpretation of CBC data. Current Interpretive Data was last revised on 2018. Imm gran pct 0.4 % [facility] ([place]) Comment: Interpretive Data Percent cell count reference ranges are not reported, since discordance with absolute values may lead to misinterpretation of CBC data. Current Interpretive Data was last revised on 2018. Lymphocyte pct 18.0 % [facility] ([place]) Comment: Interpretive Data Percent cell count reference ranges are not reported, since discordance with absolute values may lead to misinterpretation of CBC data. Current Interpretive Data was last revised on 2018. Monocyte pct 8.6 % [facility] ([place]) Comment: Interpretive Data Percent cell count reference ranges are not reported, since discordance with absolute values may lead to misinterpretation of CBC data. Current Interpretive Data was last revised on 2018. Eosinophil pct 0.8 % [facility] ([place]) Comment: Interpretive Data Percent cell count reference ranges are not reported, since discordance with absolute values may lead to misinterpretation of CBC data. Current Interpretive Data was last revised on 2018. Basophil pct 0.3 % [facility] ([place]) Comment: Interpretive Data Percent cell count reference ranges are not reported, since discordance with absolute values may lead to misinterpretation of CBC data. Current Interpretive Data was last revised on 2018. Blood 10/21/2024 6:38 AM ASSOCIATE PROFESSOR 10/21/2024 7:15 AM ASSOCIATE PROFESSOR Gabriel Enciso MD LAB BLOOD ORDERABLES Final Res ult [facility] ([place]) 1 [facility] [place] [address] * (ABNORMAL) CBC with auto differential (10/21/2024 6:38 AM ASSOCIATE PROFESSOR) WBC 12.4(H) 3.8 - 9.9 K/cumm Hgb 13.6 11.9 - 15.5 g/dL [facility] ([place]) Hct 42.0 35.6 - 45.5 % [facility] ([place]) Plt 241 150 - 400 K/cumm [facility] ([place]) MPV 9.8 9.1 - 12.3 fL [facility] ([place]) RBC 4.14 3.90 - 5.20 M/cumm [facility] ([place]) MCV 101.4(H) 81.3 - 96.4 fL [facility] ([place]) MCH 32.9 27.1 - 33.3 pg [facility] ([place]) MCHC 32.4 32.3 - 35.7 g/dL [facility] ([place]) RDW CV 14.4 11.1 - 14.9 % [facility] ([place]) RDW SD 54.1(H) 35.7 - 48.1 fL [facility] ([place]) NRBC abs 0.00 0.00 - 0.01 K/cumm [facility] ([place]) Blood 10/21/2024 6:38 AM ASSOCIATE PROFESSOR 10/21/2024 7:15 AM ASSOCIATE PROFESSOR Gabriel Enciso MD LAB BLOOD ORDERABLES Final Res ult [facility] ([place]) 1 [facility] [place] [address] * (ABNORMAL) Basic metabolic panel (10/21/2024 6:38 AM ASSOCIATE PROFESSOR) Pathologist [facility] Sodium 138 135 - 145 mmol/L Potassium, pl 3.3 3.3 - 4.9 mmol/L [facility] ([place]) Chloride 103 97 - 110 mmol/L [facility] ([place]) CO2 28 22 - 32 mmol/L [facility] ([place]) Anion gap 7 2 - 15 mmol/L [facility] ([place]) BUN 11 6 - 25 mg/dL [facility] ([place]) Creatinine 0.84 0.60 - 1.10 mg/dL [facility] ([place]) Glucose 122 70 - 199 mg/dL [facility] ([place]) Comment: Interpretive Data Fasting glucose >/= 126 mg/dl is diagnostic for diabetes. Fasting is defined as no caloric intake for at least 8 hours. Fasting glucose between 100 mg/dl to 125 mg/dl is diagnostic of prediabetes. In a patient with classic symptoms of hyperglycemia or hyperglycemic crisis, a random glucose >/= 200 mg/dl is diagnostic for diabetes. In the absence of unequivocal hyperglycemia, results should be confirmed by repeat testing. The classification and Diagnosis of Diabetes Diabetes Care 2021; 46: S19-S40. Current interpretive data was last revised 2022. Calcium 8.1(L) 8.5 - 10.3 mg/dL [facility] ([place]) Blood 10/21/2024 6:38 AM ASSOCIATE PROFESSOR 10/21/2024 7:15 AM ASSOCIATE PROFESSOR us Gabriel Enciso MD LAB BLOOD ORDERABLES Final Res ult [facility] ([place]) 1 [facility] [place] [address] * Influenza A/B, RSV, and COVID-19 PCR Nasopharyngeal (10/20/2024 9:52 PM ASSOCIATE PROFESSOR) COVID-19 RNA Negative Negative Influenza A RNA Negative Negative [facility] ([place]) Influenza B RNA Negative Negative [facility] ([place]) RSV RNA Negative Negative [facility] ([place]) Comment: Interpretive data: Testing performed by [facility]. This test is performed using the [employer] Xpert Xpress CoV-2/Flu/RSV plus assay. This is a multiplex, real- time reverse transcriptase PCR assay intended for the qualitative detection of nucleic acid from SARS-CoV-2, influenza A, influenza B, and respiratory syncytial virus. This assay has been cleared by the [place] Food and Drug administration. The performance characteristics have been verified by the [facility]. Results must be considered in the clinical context, and a negative result does not rule out infection. Interpretive Data last revised 2023 Nasopharyngeal 10/20/2024 9: 52 PM ASSOCIATE PROFESSOR 10/20/2024 9:58 PM ASSOCIATE PROFESSOR Narrative [facility] ([place]) - 10/20/2024 10:46 PM ASSOCIATE PROFESSOR Is the Patient experiencing symptoms consistent with COVID?->No us Susan George MD LAB MICROBIOLOGY - GENE RAL ORDERABLES Final Result [facility] ([place]) 1 [facility] [place] [address] * CT Abdomen Pelvis WO Contrast (10/20/2024 8:06 PM ASSOCIATE PROFESSOR) Anatomical Region Laterality Modality Body N/A Computed Tomogra phy 10/20/2024 8:23 PM ASSOCIATE PROFESSOR Narrative 10/20/2024 8:34 PM ASSOCIATE PROFESSOR EXAM DESCRIPTION: CT ABDOMEN PELVIS WO CONTRAST REASON FOR STUDY: LLQ abdominal pain c/o abdominal pain x 2 weeks. Pt reports she was here last Friday and diagnosed with diverticulitis. Pt reports she was started on an antibiotic but it hasn't helped. TECHNIQUE: CT scan of the abdomen and pelvis performed without intravenous and without oral contrast using helical scanning technique. Reconstructed coronal and sagittal MPR images reviewed. All images stored on PACS. Automated exposure control was used as a dose optimization technique for this examination. COMPARISON: 10/15/2024 FINDINGS: LOWER CHEST: Moderate emphysema in the lung bases. [id number] cardiomegaly with coronary artery calcification. No effusion. LIVER/BILIARY: Liver unremarkable. Biliary tree normal in caliber. GALLBLADDER: Absent. SPLEEN: Normal. PANCREAS: Moderate atrophy. ADRENAL GLANDS: Normal. KIDNEYS/URINARY TRACT: Unremarkable. GI: Stomach and small bowel appear normal. Severe wall thickening in the distal descending colon similar to the recent prior. Large amount of upstream stool. OTHER ABDOMINAL/PELVIS: Moderate diffuse atherosclerotic calcification. AAA unchanged. No enlarged lymph node or free fluid is seen. No free air. MSK: Extensive hardware. Disc disease and facet arthropathy. Mild hip and SI joint arthrosis. Scoliosis. BODY WALL: Unremarkable. IMPRESSION: Severe diffuse wall thickening in the distal colon worsened since 10/15/2024. Large amount of upstream stool unchanged. No perforation or abscess. THIS IS AN ELECTRONICALLY VERIFIED FINAL REPORT 10/20/2024 8:34 PM - Electronically signed by Cesar Pang M.D. [place]: [id number] Report ID: [id number] Reading Location: [id number] Procedure Note Cesar Pang MD - 10/20/2024 EXAM DESCRIPTION: CT ABDOMEN PELVIS WO CONTRAST REASON FOR STUDY: LLQ abdominal pain c/o abdominal pain x 2 weeks. Pt reports she was here last Friday and diagnosed with diverticulitis. Pt reports she was started on an antibioticbut it hasn't helped. TECHNIQUE: CT scan of the abdomen and pelvis performed without intravenousand without oral contrast using helical scanning technique. Reconstructed coronal and sagittal MPR images reviewed. All images stored on PACS.Automated exposure control was used as a dose optimization technique for this examination. COMPARISON: 10/15/2024 FINDINGS: LOWER CHEST: Moderate emphysema in the lung bases. [id number] cardiomegaly with coronary artery calcification. No effusion. LIVER/BILIARY: Liver unremarkable. Biliary tree normal in caliber. GALLBLADDER: Absent. SPLEEN: Normal. PANCREAS: Moderate atrophy. ADRENAL GLANDS: Normal. KIDNEYS/URINARY TRACT: Unremarkable. GI: Stomach and small bowel appear normal. Severe wall thickening in the distal descending colon similar to the recent prior. Large amount ofupstream stool. OTHER ABDOMINAL/PELVIS: Moderate diffuse atherosclerotic calcification.AAA unchanged. No enlarged lymph node or free fluid is seen. No free air. MSK: Extensive hardware. Disc disease and facet arthropathy. Mild hipand SI joint arthrosis. Scoliosis. BODY WALL: Unremarkable. IMPRESSION: Severe diffuse wall thickening in the distal colon worsened since10/15/2024. Large amount of upstream stool unchanged. No perforation or abscess. THIS IS AN ELECTRONICALLY VERIFIED FINAL REPORT 10/20/2024 8:34 PM - Electronically signed by Cesar Pang M.D. [place]: [id number] Report ID: [id number] Reading Location: [id number] Gabriel Enciso MD IMG CT PROCEDURES Final Result * (ABNORMAL) Urinalysis reflex to microscopic and culture Urine (10/20/2024 7:46 PM ASSOCIATE PROFESSOR) Color, ur Yellow Yellow Clarity, ur Clear Clear [facility] ([place]) Specific gravity, ur 1.034(H) 1.003 - 1.030 [facility] ([place]) pH, urine 5.5 [facility] ([place]) Comment: Interpretive Data U rine pH is affected by diet, medications, systemic acid-base disturbances, and renal tubular function. pH may affect urinary stone formation. For example, urine pH below 6.0 may help reduce the tendency for calcium phosphate stones and pH greater than 6.0 may reduce the tendency for uric acid stone formation. Source: [facility] deskwolf Current Interpretive Data was last revised on 2017 Protein, ur ql 1+(A) Negative [facility] ([place]) Glucose, ur ql 4+(A) Negative [facility] ([place]) Ketones, ur Negative Negative [facility] ([place]) Bilirubin, ur Negative Negative [facility] ([place]) Blood, ur 1+(A) Negative [facility] ([place]) Urobilinogen, ur <2.0 <2.0 mg/dL [facility] ([place]) Nitrite, ur Negative Negative [facility] ([place]) Leukocyte esterase, ur 1+(A) Negative [facility] ([place]) UA reflex comment Reflex to microscopic UA will be performed. [facility] ([place]) Urine 10/20/2024 7:46 PM ASSOCIATE PROFESSOR 10/20/2024 7:48 PM ASSOCIATE PROFESSOR Gabriel Enciso MD LAB MICROBIOLOGY - GENERAL ORD ERABLES Final Result [facility] ([place]) 1 [facility] [place] [address] * (ABNORMAL) Urinalysis, microscopic only (10/20/2024 7:46 PM ASSOCIATE PROFESSOR) WBC, ur 0-5 0 - 5 /HPF RBC, ur 6-10(A) 0 - 2 /HPF [facility] ([place]) Epithelial cells, squamous, ur 6-10(A) 0 - 5 /HPF [facility] ([place]) Bacteria, ur Trace(A) [facility] ([place]) Mucous, ur Present(A) [facility] ([place]) Hyaline casts, ur 1-5 0 - 10 /LPF [facility] ([place]) Culture Reflex Comment Reflex conditions for urine culture (WBC >10) not met. [facility] ([place]) Urine 10/20/2024 7:46 PM ASSOCIATE PROFESSOR 10/20/2024 7:48 PM ASSOCIATE PROFESSOR Gabriel Enciso MD LAB URINE ORDERABLES Final Res ult [facility] ([place]) 1 [facility] [place] [address] * eGFR (10/20/2024 5:43 PM ASSOCIATE PROFESSOR) eGFR 63 >=60 mL/min/1. 73 m2 Comment: Interpretive Data Reference Interval Normal >/= 90 mL/min/1.73m2 Mildly decreased* 60 - 89 mL/min/1.73m2 Mildly to moderately decreased 45 - 59 mL/min/1.73m2 Moderately to severely decreased 30 - 44 mL/min/1.73m2 Severely decreased 15 - 29 mL/min/1.73m2 Kidney Failure < 15 mL/min/1.73m2 *Relative to young adult level Estimated glomerular filtration rate is determined by the 2020 CKD-EPI equation recommended by the National Kidney Foundation (A Unifying Approach to GFR Estimation: Recommendations of the NKF-ASK Task Force on Reassessing the Inclusion of Race in Diagnosing Kidney Disease, JASN 2020). The CKD-EPI equation should not be used for patients with unstable renal function and has not been validated in children and those over 70. Current interpretive data was last reviewed 2021. Blood 10/20/2024 5:43 PM ASSOCIATE PROFESSOR 10/20/2024 5:48 PM ASSOCIATE PROFESSOR us Gabriel Enciso MD LAB BLOOD ORDERABLES Final Res ult [facility] ([place]) 1 [facility] [place] [address] * (ABNORMAL) Differential, auto (10/20/2024 5:43 PM ASSOCIATE PROFESSOR) Neutrophil abs 12.4(H) 1.5 - 6.5 K/cumm Imm gran abs 0.1 0.0 - 0.1 K/cumm [facility] ([place]) Lymphocyte abs 1.6 0.8 - 3.3 K/cumm [facility] ([place]) Monocyte abs 0.9(H) 0.2 - 0.8 K/cumm [facility] ([place]) Eosinophil abs 0.1 0.0 - 0.5 K/cumm [facility] ([place]) Basophil abs 0.1 0.0 - 0.1 K/cumm [facility] ([place]) Neutrophil pct 82.3 % [facility] ([place]) Comment: Interpretive Data Percent cell count reference ranges are not reported, since discordance with absolute values may lead to misinterpretation of CBC data. Current Interpretive Data was last revised on 2018. Imm gran pct 0.5 % [facility] ([place]) Comment: Interpretive Data Percent cell count reference ranges are not reported, since discordance with absolute values may lead to misinterpretation of CBC data. Current Interpretive Data was last revised on 2018. Lymphocyte pct 10.4 % [facility] ([place]) Comment: Interpretive Data Percent cell count reference ranges are not reported, since discordance with absolute values may lead to misinterpretation of CBC data. Current Interpretive Data was last revised on 2018. Monocyte pct 6.2 % [facility] ([place]) Comment: Interpretive Data Percent cell count reference ranges are not reported, since discordance with absolute values may lead to misinterpretation of CBC data. Current Interpretive Data was last revised on 2018. Eosinophil pct 0.3 % [facility] ([place]) Comment: Interpretive Data Percent cell count reference ranges are not reported, since discordance with absolute values may lead to misinterpretation of CBC data. Current Interpretive Data was last revised on 2018. Basophil pct 0.3 % [facility] ([place]) Comment: Interpretive Data Percent cell count reference ranges are not reported, since discordance with absolute values may lead to misinterpretation of CBC data. Current Interpretive Data was last revised on 2018. Blood 10/20/2024 5:43 PM ASSOCIATE PROFESSOR 10/20/2024 5:48 PM ASSOCIATE PROFESSOR us Gabriel Enciso MD LAB BLOOD ORDERABLES Final Res ult [facility] ([place]) 1 [facility] [place] [address] * (ABNORMAL) CBC with auto differential (10/20/2024 5:43 PM ASSOCIATE PROFESSOR) WBC 15.1(H) 3.8 - 9.9 K/cumm Hgb 15.9(H) 11.9 - 15.5 g/dL [facility] ([place]) Hct 49.8(H) 35.6 - 45.5 % [facility] ([place]) Plt 279 150 - 400 K/cumm [facility] ([place]) MPV 9.4 9.1 - 12.3 fL [facility] ([place]) RBC 4.90 3.90 - 5.20 M/cumm [facility] ([place]) MCV 101.6(H) 81.3 - 96.4 fL [facility] ([place]) MCH 32.4 27.1 - 33.3 pg [facility] ([place]) MCHC 31.9(L) 32.3 - 35.7 g/dL [facility] ([place]) RDW CV 14.6 11.1 - 14.9 % [facility] ([place]) RDW SD 55.2(H) 35.7 - 48.1 fL [facility] ([place]) NRBC abs 0.00 0.00 - 0.01 K/cumm [facility] ([place]) Blood (Blood, Venous) 10/20/2024 5:43 PM ASSOCIATE PROFESSOR 10/20/2024 5:48 PM ASSOCIATE PROFESSOR Gabriel Enciso MD LAB BLOOD ORDERABLES Final Res ult Performing Organization Address City/[facility]/ZIP Co de Phone Number [facility] ([place]) 1 [facility] [place] [address] * (ABNORMAL) Lipase (10/20/2024 5:43 PM ASSOCIATE PROFESSOR) Pathologist [facility] Lipase 8(L) 10 - 99 Units/L Blood (Blood, Venous) 10/20/2024 5:43 PM ASSOCIATE PROFESSOR 10/20/2024 5:48 PM ASSOCIATE PROFESSOR Gabriel Enciso MD LAB BLOOD ORDERABLES Final Res ult Performing Organization Address [facility] de Phone Number [facility] ([place]) 1 [facility] [place] [address] * Comprehensive metabolic panel (10/20/2024 5:43 PM ASSOCIATE PROFESSOR) Pathologist [facility] Sodium 137 135 - 145 mmol/L Potassium, pl 3.9 3.3 - 4.9 mmol/L [facility] ([place]) Chloride 97 97 - 110 mmol/L [facility] ([place] CO2 31 22 - 32 mmol/L [facility] ([place]) Anion gap 9 2 - 15 mmol/L [facility] ([place]) BUN 14 6 - 25 mg/dL [facility] ([place]) Creatinine 0.98 0.60 - 1.10 mg/dL [facility] ([place]) Glucose 104 70 - 199 mg/dL [facility] ([place]) Comment: Interpretive Data Fasting glucose >/= 126 mg/dl is diagnostic for diabetes. Fasting is defined as no caloric intake for at least 8 hours. Fasting glucose between 100 mg/dl to 125 mg/dl is diagnostic of prediabetes. In a patient with classic symptoms of hyperglycemia or hyperglycemic crisis, a random glucose >/= 200 mg/dl is diagnostic for diabetes. In the absence of unequivocal hyperglycemia, results should be confirmed by repeat testing. The classification and Diagnosis of Diabetes Diabetes Care 2021; 46: S19-S40. Current interpretive data was last revised 2022. Calcium 9.1 8.5 - 10.3 mg/dL [facility] ([place]) Bilirubin, total 0.5 0.1 - 1.2 mg/dL [facility] ([place]) Protein, pl 6.7 6.5 - 8.5 g/dL [facility] ([place]) Albumin 3.6 3.5 - 5.0 g/dL [facility] ([place]) Alk phos 71 40 - 130 Units/L [facility] ([place]) ALT 8 7 - 45 Units/L [facility] ([place]) AST 12 10 - 45 Units/L [facility] ([place]) Comment:Slightly Hemolyzed S pecimen Blood 10/20/2024 5:43 PM ASSOCIATE PROFESSOR 10/20/2024 5:48 PM ASSOCIATE PROFESSOR us Gabriel Enciso MD LAB BLOOD ORDERABLES Final Res ult [facility] ([place]) 1 [facility] [place], [place] [id number] * eGFR (10/15/2024 3:33 PM ASSOCIATE PROFESSOR) eGFR 68 >=60 mL/min/1. 73 m2 Comment: Interpretive Data Reference Interval Normal >/= 90 mL/min/1.73m2 Mildly decreased* 60 - 89 mL/min/1.73m2 Mildly to moderately decreased 45 - 59 mL/min/1.73m2 Moderately to severely decreased 30 - 44 mL/min/1.73m2 Severely decreased 15 - 29 mL/min/1.73m2 Kidney Failure < 15 mL/min/1.73m2 *Relative to young adult level Estimated glomerular filtration rate is determined by the 2020 CKD-EPI equation recommended by the National Kidney Foundation (A Unifying Approach to GFR Estimation: Recommendations of the NKF-ASK Task Force on Reassessing the Inclusion of Race in Diagnosing Kidney Disease, JASN 2020). The CKD-EPI equation should not be used for patients with unstable renal function and has not been validated in children and those over 70. Current interpretive data was last reviewed 2021. Blood 10/15/2024 3:33 PM ASSOCIATE PROFESSOR 10/15/2024 3:50 PM ASSOCIATE PROFESSOR us Gabriel Enciso MD LAB BLOOD ORDERABLES Final Res ult [facility] ([place]) 1 [facility] [place] [address] * (ABNORMAL) Differential, auto (10/15/2024 3:33 PM ASSOCIATE PROFESSOR) Neutrophil abs 6.6(H) 1.5 - 6.5 K/cumm Imm gran abs 0.1 0.0 - 0.1 K/cumm [facility] ([place]) Lymphocyte abs 2.0 0.8 - 3.3 K/cumm [facility] ([place]) Monocyte abs 0.9(H) 0.2 - 0.8 K/cumm [facility] ([place]) Eosinophil abs 0.1 0.0 - 0.5 K/cumm [facility] ([place]) Basophil abs 0.0 0.0 - 0.1 K/cumm [facility] ([place]) Neutrophil pct 68.5 % [facility] ([place]) Comment: Interpretive Data Percent cell count reference ranges are not reported, since discordance with absolute values may lead to misinterpretation of CBC data. Current Interpretive Data was last revised on 2018. Imm gran pct 0.5 % [facility] ([place]) Comment: Interpretive Data Percent cell count reference ranges are not reported, since discordance with absolute values may lead to misinterpretation of CBC data. Current Interpretive Data was last revised on 2018. Lymphocyte pct 20.6 % [facility] ([place]) Comment: Interpretive Data Percent cell count reference ranges are not reported, since discordance with absolute values may lead to misinterpretation of CBC data. Current Interpretive Data was last revised on 2018. Monocyte pct 9.2 % [facility] ([place]) Comment: Interpretive Data Percent cell count reference ranges are not reported, since discordance with absolute values may lead to misinterpretation of CBC data. Current Interpretive Data was last revised on 2018. Eosinophil pct 0.8 % [facility] ([place]) Comment: Interpretive Data Percent cell count reference ranges are not reported, since discordance with absolute values may lead to misinterpretation of CBC data. Current Interpretive Data was last revised on 2018. Basophil pct 0.4 % [facility] ([place]) Comment: Interpretive Data Percent cell count reference ranges are not reported, since discordance with absolute values may lead to misinterpretation of CBC data. Current Interpretive Data was last revised on 2018. Blood 10/15/2024 3:33 PM ASSOCIATE PROFESSOR 10/15/2024 3:50 PM ASSOCIATE PROFESSOR us Gabriel Enciso MD LAB BLOOD ORDERABLES Final Res ult [facility] ([place]) 1 [facility] [place] [address] * (ABNORMAL) CBC with auto differential (10/15/2024 3:33 PM ASSOCIATE PROFESSOR) WBC 9.6 3.8 - 9.9 K/cumm Hgb 14.7 11.9 - 15.5 g/dL [facility] ([place]) Hct 46.1(H) 35.6 - 45.5 % [facility] ([place]) Plt 279 150 - 400 K/cumm [facility] ([place]) MPV 9.7 9.1 - 12.3 fL [facility] ([place]) RBC 4.47 3.90 - 5.20 M/cumm [facility] ([place]) MCV 103.1(H) 81.3 - 96.4 fL [facility] ([place]) MCH 32.9 27.1 - 33.3 pg [facility] ([place]) MCHC 31.9(L) 32.3 - 35.7 g/dL [facility] ([place]) RDW CV 14.6 11.1 - 14.9 % [facility] ([place]) RDW SD 56.3(H) 35.7 - 48.1 fL [facility] ([place]) NRBC abs 0.00 0.00 - 0.01 K/cumm [facility] ([place]) Blood 10/15/2024 3:33 PM ASSOCIATE PROFESSOR 10/15/2024 3:50 PM ASSOCIATE PROFESSOR us Gabriel Enciso MD LAB BLOOD ORDERABLES Final Res ult [facility] ([place]) 1 [facility] [place] [address] * (ABNORMAL) Comprehensive metabolic panel (10/15/2024 3:33 PM ASSOCIATE PROFESSOR) Sodium 136 135 - 145 mmol/L Potassium, pl 4.3 3.3 - 4.9 mmol/L [facility] ([place]) Chloride 99 97 - 110 mmol/L [facility] ([place]) CO2 28 22 - 32 mmol/L [facility] ([place]) Anion gap 9 2 - 15 mmol/L [facility] ([place]) BUN 10 6 - 25 mg/dL [facility] ([place]) Creatinine 0.92 0.60 - 1.10 mg/dL [facility] ([place]) Glucose 107 70 - 199 mg/dL [facility] ([place]) Comment: Interpretive Data Fasting glucose >/= 126 mg/dl is diagnostic for diabetes. Fasting is defined as no caloric intake for at least 8 hours. Fasting glucose between 100 mg/dl to 125 mg/dl is diagnostic of prediabetes. In a patient with classic symptoms of hyperglycemia or hyperglycemic crisis, a random glucose >/= 200 mg/dl is diagnostic for diabetes. In the absence of unequivocal hyperglycemia, results should be confirmed by repeat testing. The classification and Diagnosis of Diabetes Diabetes Care 202; 46: S19-S40. Current interpretive data was last revised 2022. Calcium 9.0 8.5 - 10.3 mg/dL [facility] ([place]) Bilirubin, total 0.4 0.1 - 1.2 mg/dL [facility] ([place]) Protein, pl 6.3(L) 6.5 - 8.5 g/dL [facility] ([place]) Albumin 3.7 3.5 - 5.0 g/dL [facility] ([place]) Alk phos 77 40 - 130 Units/L [facility] ([place]) ALT <5(L) 7 - 45 Units/L [facility] ([place]) AST 15 10 - 45 Units/L [facility] ([place]) Comment:Slightly Hemolyzed S pecimen Blood 10/15/2024 3:33 PM ASSOCIATE PROFESSOR 10/15/2024 3:50 PM ASSOCIATE PROFESSOR us Gabriel Enciso MD LAB BLOOD ORDERABLES Final Res ult [facility] ([place]) 1 [facility] [place] [address] * CT Abdomen Pelvis WO Contrast (10/15/2024 3:07 PM ASSOCIATE PROFESSOR) Anatomical Region Laterality Modality Body N/A Computed Tomogra phy 10/15/2024 3:44 PM ASSOCIATE PROFESSOR Narrative 10/15/2024 3:57 PM ASSOCIATE PROFESSOR EXAM DESCRIPTION: CT ABDOMEN PELVIS WO CONTRAST REASON FOR STUDY: LLQ abdominal pain C/o abdominal pain x 4 days and nausea. Hx diverticulitis and thinks she is having a flare up. Hx of appendectomy and cholecystectomy. TECHNIQUE: CT scan of the abdomen and pelvis performed without intravenous and without oral contrast using helical scanning technique. Reconstructed coronal and sagittal MPR images reviewed. All images stored on PACS. Automated exposure control was used as a dose optimization technique for this examination. COMPARISON: Prior CT 11/30/2020. FINDINGS: The sensitivity for detection of visceral lesions is diminished without the use of intravenous contrast. LOWER CHEST: Limited view through the lung base demonstrates no confluent infiltrate or effusion. Mild emphysematous change where visualized. Atelectasis of the right middle lobe with trivial change of the right base. Mild cardiomegaly. No pericardial effusion. LIVER: The liver demonstrates a normal appearance given limitations without IV contrast. GALLBLADDER: Prior cholecystectomy. BILE DUCTS: No intrahepatic or extrahepatic ductal dilatation. SPLEEN: Normal size. No focal lesions. PANCREAS: No identified cystic or solid masses. No significant calcifications. No adjacent inflammation or peripancreatic fluid collections. Pancreatic duct not dilated. ADRENALS: Normal. KIDNEYS/URINARY TRACT: No identified significant cystic or solid masses. No stones. No hydronephrosis or hydroureter. Urinary bladder is unremarkable. GI: There numerous diverticuli of the sigmoid colon. There is more diffuse bowel wall thickening of the descending colon over a long segment. The long segment favors colitis. The colon proximal to this level demonstrates prominent stool. No definite stricture is seen, but a relative physiologic narrowing is possible secondary to the inflammatory change/follow-up thickening of the descending colon. PERITONEUM: No ascites or free air. RETROPERITONEUM: No adenopathy by size criteria. REPRODUCTIVE: No suspicious adnexal mass. VASCULATURE: There is atherosclerotic change of the abdominal aorta. Mild aneurysmal dilatation of the distal abdominal aorta measuring up to 3.6 cm. This measured 3.2 cm on the exam of 11/30/2020. MUSCULOSKELETAL: No suspicious lytic or blastic lesion. Extensive fusion of the lumbar spine L2 through L5 as was previously seen. Grade 2 retrolisthesis L1 on L2. Grade 1 anterolisthesis L5 on S1. Fairly moderate to prominent spondylosis of the visualized lower thoracic and upper lumbar spine. All of these findings are stable. OTHER: No other abnormality. IMPRESSION: There is diffuse bowel wall thickening of the descending colon over a long segment. Colitis. This may be infectious or inflammatory. There is prominent stool seen more proximally. No definite stricture, but a relative physiologic narrowing is possible as result of the inflammatory change. Numerous diverticuli are seen of the sigmoid colon. Mild diverticulitis would be a consideration, the longer segment of bowel thickening inflammatory change favors colitis. Mild aneurysmal dilatation of the distal abdominal aorta measuring up to 3.6 cm. This measured 3.2 cm on the exam of 11/30/2020. Follow-up exam recommended in 3 years as below. Fairly moderate to prominent spondylosis of the visualized thoracic and upper lumbar spine. Extensive fusion L2 through L5 as was previously seen. Grade 2 retrolisthesis L1 on L2 and grade 1 anterolisthesis L5 on S1. All of these findings are stable. Aorta recommendation: 3.0-3.9 cm Recommended surveillance imaging at 3-year intervals per Society for Vascular Surgery Guidelines: J Vasc Surgery 2008 50: s2s49; updated Nov 2017 J Vasc Surgery 67:277 THIS IS AN ELECTRONICALLY VERIFIED FINAL REPORT 10/15/2024 3:57 PM - Electronically signed by Richard Posadas M.D. MJ: VEL Report ID: [id number] Reading Location: [id number] Procedure Note Richard Posadas MD - 10/15/2024 EXAM DESCRIPTION: CT ABDOMEN PELVIS WO CONTRAST REASON FOR STUDY: LLQ abdominal pain C/o abdominal pain x 4 days and nausea. Hx diverticulitis and thinks sheis having a flare up. Hx of appendectomy and cholecystectomy. TECHNIQUE: CT scan of the abdomen and pelvis performed without intravenousand without oral contrast using helical scanning technique. Reconstructed coronal and sagittal MPR images reviewed. All images stored on PACS.Automated exposure control was used as a dose optimization technique for this examination. COMPARISON: Prior CT 11/30/2020. FINDINGS: The sensitivity for detection of visceral lesions is diminished withoutthe use of intravenous contrast. LOWER CHEST: Limited view through the lung base demonstrates noconfluent infiltrate or effusion. Mild emphysematous change where visualized. Atelectasis of the right middle lobe with trivial change of the rightbase. Mild cardiomegaly. No pericardial effusion. LIVER: The liver demonstrates a normal appearance given limitationswithout IV contrast. GALLBLADDER: Prior cholecystectomy. BILE DUCTS: No intrahepatic or extrahepatic ductal dilatation. SPLEEN: Normal size. No focal lesions. PANCREAS: No identified cystic or solid masses. No significant calcifications. No adjacent inflammation or peripancreatic fluidcollections. Pancreatic duct not dilated. ADRENALS: Normal. KIDNEYS/URINARY TRACT: No identified significant cystic or solid masses.No stones. No hydronephrosis or hydroureter. Urinary bladder isunremarkable. GI: There numerous diverticuli of the sigmoid colon. There is morediffuse bowel wall thickening of the descending colon over a long segment. Thelong segment favors colitis. The colon proximal to this level demonstrates prominent stool. No definite stricture is seen, but a relativephysiologic narrowing is possible secondary to the inflammatory change/follow-up thickening of the descending colon. PERITONEUM: No ascites or free air. RETROPERITONEUM: No adenopathy by size criteria. REPRODUCTIVE: No suspicious adnexal mass. VASCULATURE: There is atherosclerotic change of the abdominal aorta.Mild aneurysmal dilatation of the distal abdominal aorta measuring up to 3.6cm. This measured 3.2 cm on the exam of 11/30/2020. MUSCULOSKELETAL: No suspicious lytic or blastic lesion. Extensivefusion of the lumbar spine L2 through L5 as was previously seen. Grade 2retrolisthesis L1 on L2. Grade 1 anterolisthesis L5 on S1. Fairly moderate to prominent spondylosis of the visualized lower thoracic and upper lumbar spine. Allof these findings are stable. OTHER: No other abnormality. IMPRESSION: There is diffuse bowel wall thickening of the descending colon over along segment. Colitis. This may be infectious or inflammatory. There isprominent stool seen more proximally. No definite stricture, but a relativephysiologic narrowing is possible as result of the inflammatory change. Numerous diverticuli are seen of the sigmoid colon. Mild diverticulitis would be a consideration, the longer segment of bowel thickeninginflammatory change favors colitis. Mild aneurysmal dilatation of the distal abdominal aorta measuring up to3.6 cm. This measured 3.2 cm on the exam of 11/30/2020. Follow-up exam recommended in 3 years as below. Fairly moderate to prominent spondylosis of the visualized thoracic andupper lumbar spine. Extensive fusion L2 through L5 as was previously seen. Grade2 retrolisthesis L1 on L2 and grade 1 anterolisthesis L5 on S1. All of these findings are stable. Aorta recommendation: 3.0-3.9 cm Recommended surveillance imaging at3-year intervals per Society for Vascular Surgery Guidelines: J Vasc Surgery 2009Oct 50: s2s49; updated Nov 2017 J Vasc Surgery 67:277 THIS IS AN ELECTRONICALLY VERIFIED FINAL REPORT 10/15/2024 3:57 PM - Electronically signed by Richard CROWDER: VEL Report ID: [id number] Reading Location: [id number] Gabriel Enciso MD IM CT PROCEDURES Final Result * COLONOSCOPY (09/10/2021 1:54 PM CDT) Anatomical Region Laterality Modality Other Narrative Procedure Note Myron Trejo MD - 09/10/2021 1:54 PM CDT [facility] Patient Name: Roberta Bruner Procedure Date: 09/10/2021 1:54 PM Date of : 1955 Admit Type: Outpatient Age: 66 Gender: Female Attending MD: Myron Trejo M.D. Room: [facility] ENDOSCOPY ROOM 1 Note Status: Finalized Patient Profile: This is a 66 year old female. No family history of colon cancer. No previous colonoscopy according toB records. Colonoscopy for evaluation Procedure: Colonoscopy Indications: Screening for colorectal malignant neoplasm, Last colonoscopy: 2010 Referring MD: Zaid Bobby M.D. Providers: Myron Trejo M.D. Impression: - Two 6 to 9 mm polyps at the hepatic flexure,removed with a cold snare. Resected and retrieved. - One 5 mm polyp in the proximal transverse colon, removed with a jumbo cold forceps. Resected and retrieved. Clip (MR conditional) was placed. - Diverticulosis in the sigmoid colon. - Internal hemorrhoids. Recommendation: - Await pathology results. - Repeat colonoscopy in 3 years for screeningpurposes. - Continue present medications. Medicines: Monitored Anesthesia Care Complications: No immediate complications. Estimated Blood Loss: Estimated blood loss: none. Procedure: Pre-Anesthesia Assessment: - Prior to the procedure, a History and Physicalwas performed, and patient medications and allergieswere reviewed. The patient's tolerance of previous anesthesia was also reviewed. The risks andbenefits of the procedure and the sedation options and risks were discussed with the patient. All questions were answered, and informed consent was obtained. Prior Anticoagulants: The patient has taken no previous anticoagulant or antiplatelet agents. ASA Grade Assessment: III - A patient with severe systemic disease. After reviewing the risks and benefits,the patient was deemed in satisfactory condition to undergo the procedure. The benefits, risks and alternatives of theprocedure and sedation were discussed and informed consentwas obtained. All questions were answered. Please referto the signed informed consent document in the medical record. The bowel preparation used was Miralax via split dose instruction. The bowel preparation usedwas bisacodyl tablets via split dose instruction. Bowel prep was administered using a split dose. The scope was passed under direct vision. The Pediatric Colonoscope PCF-H190L [id number] was introducedthrough the anus and advanced to the the cecum, identifiedby appendiceal orifice and ileocecal valve. Thequality of the bowel preparation was good. Findings: The perianal and digital rectal examinations were normal. The cecum appeared normal. Two sessile polyps were found in the hepatic flexure. The polyps were6 to 9 mm in size. These polyps were removed with a cold snare.Resection and retrieval were complete. A 5 mm polyp was found in the proximal transverse colon. The polypwas sessile. The polyp was removed with a jumbo cold forceps. Resectionand retrieval were complete. To prevent bleeding after the polypectomy,one hemostatic clip was successfully placed (MR conditional). There wasno bleeding at the end of the procedure. The descending colon appeared normal. Many small-mouthed diverticula were found in the sigmoid colon. Internal hemorrhoids were found during retroflexion. The hemorrhoids were small. Electronically signed by Myron Trejo M.D. Myron Trejo M.D. 09/10/2021 2:47:54 PM Number of Addenda: 0 Note Initiated On: 09/10/2021 1:54 PM Procedure Code(s): --- Professional --- 90809, Colonoscopy, flexible; with removal of tumor(s), polyp(s), or other lesion(s) by snare technique 05856, 59, Colonoscopy, flexible; with biopsy, single or multiple Diagnosis Code(s): --- Professional --- K63.5, Polyp of colon Z12.11, Encounter for screening for malignant neoplasm of colon K64.8, Other hemorrhoids K57.30, Diverticulosis of large intestine without perforation orabscess without bleeding CPT copyright 2019 [employer]. All rights reserved. The codes documented in this report are preliminary and upon commercial credit analyst reviewmay be revised to meet current compliance requirements. Recognized by the [employer] for promoting quality in endoscopy Myron Trejo MD ENDOSCOPY PROCEDURES Final Result from Last 3 Months or Most Recently Relevant to Health Maintenance Insurance [facility] MEDICARE SOLUTIONS IDPA Advance Directives For more information, please contact: [phone] * Full Code (Latest Code Status on File) Date Activated Date Inactivated Comments 11/12/2024 1:52 PM 11/16/2024 8:10 PM * Full Code Date Activated Date Inactivated Comments 10/20/2024 9:10 PM 10/22/2024 5:51 PM * Full Code Date Activated Date Inactivated Comments 09/14/2024 4:02 AM 09/16/2024 6:19 PM * Full Code Date Activated Date Inactivated Comments 06/20/2024 4:24 PM 06/22/2024 8:25 PM * Full Code Date Activated Date Inactivated Comments 03/14/2024 3:46 AM 03/17/2024 9:08 PM Care Teams Golf Teacher Relationship Specialty Start Date End Date Sekou Trevino MD [address] [place] [address] PCP - General Family Medicine 03/06/23 Donis Butt MD [id number] [place] [id number] Orthopedic Surgery 10/15/17 Richard Amaral, PT Physical Therapist Physical Therapy 10/24/17
--- OUTSIDE RECORDS SUMMARY | 2025-01-04 13:16 | XMS_ITS | Referral Summary ---
Author Organization CC [facility] [address] Address [address] [place] [address] Phone Care Team Providers Care Refrigeration Service Technician Name Role Phone Donis Butt MD Unavailable [phone] Richard Amaral PT Unavailable Unavaila ble Sekou Trevino MD Primary Care Provider [phone] Encounters Date Type Department Care Team Description 01/04/2025 11:15 AM LATHER APPRENTICE Office Visit [facility] [address] [phone] Sekou Trevino MD Rib pain on left side (Primary Dx); Anxiety; Chronic back pain greater than 3 months duration; Postlaminectomy syndrome, lumbar; Radiculopathy, lumbosacral region; Spinal stenosis of lumbar region with neurogenic claudication 12/29/2024 Telephone [facility] [address] [phone] Sekou Trevino MD Med Refill 12/23/2024 5:45 PM LATHER APPRENTICE Office Visit [facility] Care at [address] [place] [address] Cristela Doll NP COPD exacerbation (HCC) (Primary Dx); Viral URI with cough 12/23/2024 Nurse Triage [facility] [address] [phone] Sekou Trevino MD 12/22/2024 Plan of Care Documentation [facility] - [place] [address] 12/22/2024 1:00 PM LATHER APPRENTICE Therapy [facility] [place] [address] Jose Loco, [place] Recurrent falls; Muscular deconditioning 12/01/2024 Telephone [facility] [address] [address] Sekou Trevino MD Appointment (Care Table Cover Folder contacted patient regarding recent ED visit at [facility] on 11/29 for COPD exacerbation.) 12/01/2024 [facility] ED Outreach [address] [address] Elizabeth Ortiz MA 11/30/2024 Telephone [facility] [address] [phone] Sekou Trevino MD Appointment Request 11/29/2024 7:56 PM LATHER APPRENTICE - 11/30/2024 12:32 AM LATHER APPRENTICE Emergency [facility] Emergency Department [address] [place] [address] COPD exacerbation (HCC) (Primary Dx) Discharge Disposition: Discharge to home or self care 11/29/2024 Telephone [facility] [address] [address] Sekou Trevino MD 11/25/2024 2:30 PM LATHER APPRENTICE Office Visit [facility] [address] [address] Sekou Trevino MD Chronic respiratory failure with hypoxia (CMS/HCC) (HCC) (Primary Dx); Recurrent falls; Muscular deconditioning; Chest pain, unspecified type; Paroxysmal atrial fibrillation (CMS/HCC) (HCC); Atypical chest pain 11/18/2024 Telephone [facility] [address] [phone] Sekou Trevino MD 11/16/2024 Telephone [facility] [place] [address] [place] [address] Sekou Trevino MD 11/12/2024 11:12 AM LATHER APPRENTICE - 11/16/2024 4:04 PM LATHER APPRENTICE Hospital Encounter [facility] IMU 1 [place] [address] Pancho Javier MD Nations, DO Teresa Guzman John Albert Jr., MD Bross, Enedina Khan MD Pneumonia due to infectious organism, unspecified laterality, unspecified part of lung (Primary Dx); COPD exacerbation (HCC); Acute respiratory failure with hypoxia and hypercarbia (CMS/HCC) (HCC); Atypical chest pain; Chronic diastolic CHF (congestive heart failure) (CMS/HCC) (HCC); Persistent atrial fibrillation (HCC); Coronary artery disease involving [place] coronary artery of [place] heart without angina pectoris; Primary hypertension; Anxiety; Mixed hyperlipidemia; Postlaminectomy syndrome, lumbar; Chronic pain syndrome; Cigarette smoker Discharge Disposition: Discharge to home or self care 11/12/2024 11:00 AM LATHER APPRENTICE - 11/12/2024 11:59 PM LATHER APPRENTICE Hospital Encounter [facility] Emergency, Room R Discharge Disposition: Discharge to home or self care 11/05/2024 [facility] ED Outreach [facility] Organization [address] [place] [address] Elizabeth Ortiz MA 11/04/2024 2:00 PM LATHER APPRENTICE Office Visit [facility] Pulmonary at [address] [place] [phone] Jarrett Marrero MD Chronic diastolic heart failure (HCC) (Primary Dx); COPD exacerbation (HCC); Pulmonary hypertension (HCC); Chronic respiratory failure with hypoxia (CMS/HCC) (HCC); Nicotine dependence, cigarettes, uncomplicated 11/03/2024 Telephone [facility] Pulmonary at [address] [place] [phone] Mara Reddy MA testing (PFT) 11/03/2024 [facility] ED Outreach [facility] Accountable Care Organization [address] [place] [address] Elizabeth Ortiz MA 11/02/2024 Home Care Visit [address] [place] [address] Ita Aparicio PTA CASE COMMUNICATION 11/02/2024 Home Care Visit [address] [place] [address] Sarai Hi, PT PT VIRTUAL OASIS DISCHARGE 11/02/2024 6:03 PM LATHER APPRENTICE - 11/02/2024 7:23 PM LATHER APPRENTICE Emergency [facility] Emergency Department 1 [place] [address] Gabriel Enciso MD COPD exacerbation (HCC) (Primary Dx) Discharge Disposition: Discharge to home or self care 10/31/2024 Home Care Visit [address] [place] [address] Angela Lorenzana, [facility] CASE COMMUNICATION 10/28/2024 Telephone [facility] [address] [phone] Sekou Trevino MD Wheelchair 10/27/2024 Plan of Care Documentation [address] [place] [address] 10/27/2024 12:15 PM LATHER APPRENTICE Home Care Visit [address] [place] [address] Sarai Hi, PT PT OASIS RESUMPTION OF CARE 10/27/2024 4:00 PM LATHER APPRENTICE Office Visit [facility] [address] [phone] Sekou Trevino MD Medicare annual wellness visit, subsequent (Primary Dx); Other spondylosis with radiculopathy, lumbar region; Impaired mobility and activities of daily living; Radiculopathy, lumbosacral region; Scoliosis of thoracolumbar spine, unspecified scoliosis type; Gastroesophageal reflux disease without esophagitis; Centrilobular emphysema (HCC); Benign essential hypertension; Persistent atrial fibrillation (HCC); Chronic idiopathic constipation 10/22/2024 Telephone [facility] [place] [address] [place] [address] Shanell Mota RN Medical Question/Miscellane ous 10/20/2024 6:53 PM LATHER APPRENTICE - 10/22/2024 1:46 PM LATHER APPRENTICE Hospital Encounter [facility] Acute Medicine 1 [place] [address] Gabriel Enciso MD Petters, Ekanga Sunday, MD Kim, Eileen H., MD Abdominal pain (Primary Dx); Colitis; Acute on chronic diastolic heart failure (CMS/HCC) (HCC) Discharge Disposition: Discharge to home or self care 10/20/2024 Home Care Visit [address] [place] [address] Angela Lorenzana LCSW COMMISSIONER PUBLIC WORKS DISCIPLINE DISCHARGE 10/20/2024 Home Care Visit [address] [place] [address] Sarai Hi, PT PT OASIS TRANSFER W/OUT DC 10/20/2024 Telephone [facility] [place] [address] [facility] [address] [place] [phone] Ayla Boucher MA 10/20/2024 12:00 PM LATHER APPRENTICE Home Care Visit [address] [place] [address] Angela Lorenzana LCSW COMMISSIONER [employer] INITIAL EVAL 10/19/2024 Home Care Visit [address] [place] [address] Sarai Hi, PT CARE CONFERENCE 10/18/2024 Home Care Visit [address] [place] [address] Grisel Garzon, RN NURSE MED RECON FOR THERAPY 10/18/2024 Telephone [facility] at [place] [address] [facility] [address] [place] [phone] Betty Lewis MA 10/16/2024 Home Care Visit [address] [place] [address] Grisel Garzon, RN NURSE MED RECON FOR THERAPY 10/15/2024 2:25 PM LATHER APPRENTICE - 10/15/2024 4:47 PM LATHER APPRENTICE Emergency [facility] Emergency Department 1 [place] [address] Gabriel Enciso MD Abdominal pain (Primary Dx); Diverticulitis of large intestine without perforation or abscess without bleeding Discharge Disposition: Discharge to home or self care 10/15/2024 Home Care Visit [address] [place] [address] Gayathri Bueno RN NURSE MED RECON FOR THERAPY 10/14/2024 Home Care Visit [address] [place] [address] Lai Haddad RN NURSE MED RECON FOR THERAPY 10/14/2024 Plan of Care Documentation [address] [place] [address] 10/13/2024 [facility]phone [facility] [address] [phone] Sekou Trevino MD 10/13/2024 ACO Quality [facility]able Care Organization [address] [place] [address] Randa Morris, [place] 10/13/2024 1:30 PM LATHER APPRENTICE Home Care Visit [address] [place] [address] Ingrid Shane, PT PT OASIS START OF CARE 10/12/2024 Nurse Triage [facility] [place] [address] [place] [phone] Sekou Trevino MD 10/12/2024 Home Care Visit [address] [place] [address] Ingrid Shane, PT TELEPHONE ENCOUNTER 10/08/2024 Telephone [facility] [address] [place] [address] Antonieta Comer, RN 10/08/2024 Telephone [facility] [address] [place] [address] Antonieta Comer, RN 10/08/2024 Telephone [facility] [address] [place] [address] Antonieta Comer, RN 10/08/2024 Telephone [facility] [address] [place] [address] Antonieta Comer, RN 10/08/2024 Telephone [facility] [address] [place] [address] Antonieta Comer, RN 10/08/2024 Telephone [facility] [address] [place] [address] Antonieta Comer, RN 10/08/2024 Telephone [facility] [address] [place] [address] Antonieta Comer, RN 10/08/2024 Telephone [facility] [address] [place] [address] Antonieta Comer, RN 10/07/2024 Telephone [facility] [address] [phone] Sekou Trevino MD Medical Question/Miscellane ous 10/07/2024 Telephone [facility] [address] [place] [address] Antonieta Comer, RN 10/07/2024 Telephone [facility] [address] [place] [address] Antoineta Comer, RN 10/06/2024 Telephone [facility] [address] [place] [address] Antonieta Comer RN 10/06/2024 Telephone [facility] [address] [place] [address] Antonieta Comer RN 10/06/2024 Telephone [facility] [address] [place] [address] Antonieta Comer RN 10/05/2024 9:15 AM LATHER APPRENTICE Office Visit [facility] [address] [phone] eSkou Trevino MD Recurrent falls while walking (Primary Dx); Gait abnormality; COPD exacerbation (HCC); Other spondylosis with radiculopathy, lumbar region from Last 3 Months Allergies Active Allergy Reactions Criticality Noted Date [...] 1 capsule (145 mcg total) by mouth city wellness coordinator before breakfast 90 capsule 3 024 [...] BY MOUTH EVERY DAY 90 tablet 3 12/09/2 024 Active isosorbide mononitrate ER (IMDUR) 30 mg [...] FOR NAUSEA OR VOMITING. 20 tablet 1 Active diazePAM (VALIUM) 5 mg tabletIndications :Anxiety [...] 11/15/2024 Assessment & Plan (12/02/2024 2:22 PM LATHER APPRENTICE): Not well controlled, patient reports some chest pain today, epigastric region, pressure and lower sternum that does not radiate First episodes since hospitalization Given chronic concerns, EKG performed today COPD exacerbation 11/15/2024 Chronic diastolic CHF (congestive heart failure) ([facility]) 11/12/2024 Acute respiratory failure wi th hypoxia and hypercarbia ([facility]) 11/12/2024 Abdominal pain 10/20/2024 BMI 29.0-29.9,adult 07/08/2024 [...] 07/08/2024 Assessment & Plan (12/02/2024 2:21 PM LATHER APPRENTICE): Exacerbation requiring increased oxygen requirements Using new [...] 03/26/2024 Assessment & Plan (11/02/2024 4:17 PM LATHER APPRENTICE): Not well controlled; daughter helps with bathing walking and dressing Secondary to chronic pain Fall with recommendations per pain management Assessment & Plan (07/08/2024 4:28 PM CDT): Chronic. Follows with pain management. Plan: Management pain management. Continue chronic pain control regimen of Minot, Robaxin, fentanyl and Valium. Assessment & Plan (03/26/2024 12:35 PM CDT): Presents for evaluation for Hoveround PMD Has been having increasing impaired mobility Increased falls Paroxysmal atrial fibrillation (CMS/HCC) 024 Assessment & Plan (12/02/2024 2:22 PM LATHER APPRENTICE): Heart rate at target, no episodes of [...] to 6.25 mg b.i.d.. Moderate protein-calorie malnutrition ([facility]) 03/15/2024 Edema, unspecified type 03/14/2024 Medication care plan discussed with patient 06/2024 Assessment & Plan (02/23/2024 12:17 PM CDT): Discussed orders for patient's Minot with her Patient states that pharmacy is only giving her 84 pills; order is for 126 tablets Order shown to patient in chart and showed pharmacy verification States she will talk to pharmacy Acute on chronic diastolic heart failure ([facility]) 01/13/2024 Assessment & Plan (07/08/2024 [...] antibiotics Assessment & Plan (01/02/2024 2:07 PM LATHER APPRENTICE): Bilateral feet; stopped with 2 days of Augmentin left Amoxicillin and Doxycycline sent to pharmacy Fluconazole sent for antibiotic induced yeast infection Persistent atrial fibrillation 12/06/2023 Assessment & Plan (11/02/2024 4:18 PM LATHER APPRENTICE): Stable, well controlled, rate controlled Continue Eliquis 5 mg b.i.d., diltiazem 120 mg t.i.d. Assessment & Plan (07/08/2024 4:42 PM CDT): Chronic. Presently rate controlled in the office. Patient with dosage confusion today. Plan: Continue Eliquis 5 mg b.i.d.. Continue Cardizem 120 mg t.i.d.. Will reduce Coreg to 6.25 mg b.i.d.. Assessment & Plan (12/18/2023 4:47 PM LATHER APPRENTICE): Stable, appears to be in atrial fibrillation still; likely triggered by RSV virus Patient has discontinued Eliquis due to excessive bleeding and bruising Continue ASA 81 mg daily, continue diltiazem 120 mg t.i.d. Changing skin lesion 11/14/2023 Assessment & Plan (11/14/2023 4:23 PM LATHER APPRENTICE): Lesion on nose; patient states that it has grown Has popped in the past Also has lesion on left ear she would like addressed Disorder of biliary tract 09/29/2023 Spasm of sphincter of Oddi 09/29/2023 Spinal stenosis of lumbar re gion with neurogenic claudication 06/17/2023 Assessment & Plan (12/18/2023 4:48 PM LATHER APPRENTICE): Not well controlled; continues to have pain; difficulty with walking concern for possible confusion from opiate, have resolved off briefly while in hospital Continue fentanyl patch every 3 days, hydrocodone p.r.n. Radiculopathy, lumbosacral region 06/17/2023 Assessment & Plan (11/02/2024 4:17 PM LATHER APPRENTICE): Not well controlled, continues to have significant [...] 02/07/2021 Assessment & Plan (11/02/2024 4:16 PM LATHER APPRENTICE): Not well controlled; patient has chronic back pain secondary to scoliosis, would recommend evaluation by pain management given patient's mix of long-term opiate therapy in short-term medications Assessment & Plan (10/17/2024 4:24 PM LATHER APPRENTICE): Not well controlled, continues to have significant low back pain, may be engaging in recurrent falls due to possible neurogenic claudication Continue fentanyl patches, hydrocodone p.r.n. for breakthrough pain Assessment & Plan (03/25/2023 2:15 PM CDT): Continues to have significant lumbar pain; has failed 3 previous surgeries, continue with current pain management, [employer] reviewed Refer to spinal surgery for further [...] all medications, having worsening pain Reviewed prior [employer] records; medications refilled at appropriate intervals; no evidence of overuse or diversion Continue Duragesic 25 micrograms/hour, every 72 hours; hydrocodone 2 tablets q.i.d. p.r.n. for severe pain Will refer to pain medicine to assess for other treatment options Gastroesophageal reflux disease without esophagi tis 01/01/2021 Assessment & Plan (11/02/2024 4:17 PM LATHER APPRENTICE): Stable, well controlled; no major issues at this time Continue pantoprazole 40 mg daily Assessment & Plan (07/08/2024 4:30 PM CDT): Chronic. Asymptomatic. Plan: Continue Protonix 40 mg daily. Assessment & Plan (01/01/2021 3:30 PM LATHER APPRENTICE): Patient is doing well with Protonix so [...] was unremarkable. She had EGD 09/2019 at [facility] that was also unremarkable. Will schedule colonoscopy [...] 04/24/2020 Assessment & Plan (11/02/2024 4:19 PM LATHER APPRENTICE): Not well controlled, continues to have significant [...] daily. Assessment & Plan (01/01/2021 3:29 PM LATHER APPRENTICE): Discussed with the patient use MiraLax daily or as needed. Assessment & Plan (09/21/2020 12:46 PM LATHER APPRENTICE): -Continue Linzess 145mcg daily. Assessment & Plan [...] 04/24/2020 Assessment & Plan (09/21/2020 12:47 PM LATHER APPRENTICE): -History of retained stone and ERCP which [...] 04/24/2020 Assessment & Plan (09/21/2020 12:47 PM LATHER APPRENTICE): -Occasional episodes. Continue pantoprazole daily. Assessment & [...] 04/24/2020 Assessment & Plan (09/21/2020 12:48 PM LATHER APPRENTICE): -Continue pantoprazole daily. Assessment & Plan (06/05/2020 [...] 06/15/2019 Assessment & Plan (09/21/2020 12:46 PM LATHER APPRENTICE): -Pt has chronic RUQ pain. This has [...] was able to schedule the patient at [facility], this is the hospital a ileus and with at this time. Patient was advised to check with the primary care physician office or seek a gastroenterology consultation from our neighbor [facility] with likely can accept her insurance card the. Hx of adenomatous colonic polyps 06/15/2019 Assessment & Plan (06/15/2019 4:58 PM CDT): Last colonoscopy according to [facility] records was and 2006. In 2010 she [...] smoking. Assessment & Plan (01/01/2021 3:31 PM LATHER APPRENTICE): Still having residual symptoms of diverticulitis. Start doxycycline 100 mg twice daily for 7 days. Will plan for colonoscopy in February. Discussed with the patient diet. Patient was given prescription for Vicodin for pain from diverticulitis. Centrilobular emphysema 05/09/2014 Assessment & Plan (11/02/2024 4:18 PM LATHER APPRENTICE): Does not use oxygen all the time, needed after RSV infection Continue oxygen therapy as needed Continue to work complete cessation Continue [employer] Assessment & Plan (10/17/2024 4:23 PM LATHER APPRENTICE): No major improvement in breathing, continues to [...] when performing ADLs Oxygen at 2L via [place] Pulmonology appt upcoming Assessment & Plan (02/23/2024 12:18 PM CDT): Chronic, generally controlled Continues to smoke Upcoming appt with Pulmonology 04/01 Continue Duo-neb and albuterol as needed Assessment & Plan (01/26/2024 3:58 PM CDT): Stable, generally controlled She is cutting back on smoking Appt with pulmonology in March Assessment & Plan (12/18/2023 4:47 PM LATHER APPRENTICE): Stable, generally well controlled, no dyspnea; continues to have cough Patient is stops smoking Lungs are clear to auscultation Continue DuoNebs p.r.n. Assessment & Plan (11/14/2023 4:22 PM LATHER APPRENTICE): Not currently well controlled Duoneb nebulizers as needed Assessment & Plan (08/06/2023 11:32 AM CDT): Currently stable Albuterol inhaler prn Chronic pain 01/01/2012 Depression 02/15/2011 Adrenal neoplasm 04/09/2010 Overview (08/08/2022): Note: Unchanged Lumbago 04/09/2010 Primary hypertension 12/14/2009 Assessment & Plan (11/02/2024 4:18 PM LATHER APPRENTICE): Stable, well controlled, blood pressure at goal [...] (09/20/2020): Added automatically from request for surgery [id number] BMI 33.0-33.9,adult 04/24/2020 05/19/20 24 Sepsis 01/07/2018 01/02/2024 UTI (urinary tract infection) 01/07/2018 01/02/2024 Well adult 04/24/2015 01/02/2024 Overview (02/20/2017): Healthy adult Immunizations Immunization Administration Dates Next Due Hep A, Adult 10/23/2001,04/10/2001 Influenza, Unspecified 11/25/2024(Deferr ed: Patient Refused),11/18/2024(Deferred: Patient Refused),10/27/2024(Deferred: Patient Refused),10/05/2024(Deferred: Patient Refused),02/16/2024(Deferred: Patient Refused),09/18/2023(Deferred: Patient Refused),09/12/2023(Deferred: Patient Refused),09/12/2023(Deferred: Patient Refused),08/25/2023(Deferred: Patient Refused),09/12/2022(Deferred: Patient Refused),08/17/2022(Deferred: Patient Refused),07/18/2022(Deferred: Patient Refused) MMR 05/10/2015,05/02/2015,04/10/2001 Pneumococcal Conjugate PCV 13 11/17/2017 Pneumococcal Conjugate Pcv20 05/19/2024 Pneumococcal Polysaccharide PPV23 11/27/2017 Td, adsorbed 07/11/2000 Tdap 05/02/2015 Social History Tobacco Use Types Packs/Day Years [...] materials from doctor or pharmacy Often 11/02/2024 [facility] Utilities Answer Date Recorded In the past 12 months has th e electric, gas, oil, or water company threatened to shut off services in your [...] often do you attend chur ch or yazidism services? More than 4 times per year 10/21/2024 Do you belong to any clubs o r organizations such as latter-day groups, unions, fraternal or athletic groups, or [...] place to sleep or slept in a senior care (including now)? No 03/15/2024 Housing Stability Vital Sign Answer Anil e Recorded In the last 12 months, was t here a time when you were not able to pay the mortgage or rent on time? No 10/21/2024 In the past 12 months, how m any times have you moved where you were living? 0 10/21/2024 At any time in the past 12 m [facility], were you homeless or living in a senior care (including now)? 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 Not on file Not on file N ot on file Last Filed Vital Signs Vital Sign Reading Time Taken Comments Blood Pressure 122/74 01/04/2025 11:16 AM LATHER APPRENTICE Pulse 85 01/04/2025 11:16 AM LATHER APPRENTICE Temperature 36.5 C (97.7 F) 01/04/2025 11:16 AM LATHER APPRENTICE Respiratory Rate 24 01/04/2025 11:16 AM LATHER APPRENTICE Oxygen Saturation 98% 01/04/2025 11:16 AM LATHER APPRENTICE Inhaled Oxygen Concentration - - Weight 79.8 kg (176 lb) 01/04/2025 11:16 AM LATHER APPRENTICE Height 167.6 cm (5' 6 ) 01/04/2025 11:16 AM LATHER APPRENTICE Body Mass Index 28.41 01/04/2025 11:16 AM LATHER APPRENTICE Plan of Treatment Not on file Medical Devices Explanted Type Area Iron Handler Device Identifier Shelf Expiration Date Model / Serial / Lot [employer] 6572 Pineda Flexi-Stent 7fr 5cm Small Pigtail Flexible .035in Stent - [id number] Implanted:Qty : 1 on 10/18/2019 by Manuel Ingram MD at [facility] Explanted:Qty : 1 on 10/20/2019 by Manuel Ingram MD at [facility] Stent N/A: Pancreas [employer] 08/16/2024 [id number] / / [id number] [employer]an [id number] Drifting Viabil 10mm 8.5fr 6cm 200cm Fully Covered Self Expand Pull - [id number] - [id number] Implanted:Qty : 1 on 10/18/2019 by Manuel Ingram MD at [facility] Explanted:Qty : 1 on 10/20/2019 by Manuel Ingram MD at [facility] Stent N/A: Bile Duct [employer]an 06/15/2022 [id number] / [id number] / Procedures Procedure Name Priority Date/Time Associated Diagnosis Comments POCT RAPID RSV Routine 12/23/2024 4:51 PM LATHER APPRENTICE Viral URI with cough POC INFLUENZA A/B, COVID-19 ANTIGEN Routine 12/23/2024 4:51 PM LATHER APPRENTICE Viral URI with cough PA ECG ROUTINE ECG W/LEAST 12 LDS W/I&R Routine 12/02/2024 2:23 PM LATHER APPRENTICE Atypical chest pain BLOOD GAS, VENOUS STAT 11/29/2024 9:3 2 PM LATHER APPRENTICE TROPONIN T HIGH-SENSITIVITY 6-HOUR Timed 11/29/2024 9:32 PM LATHER APPRENTICE PRO B-TYPE NATRIURETIC PEPTIDE STAT 11/29/2024 8:41 PM LATHER APPRENTICE TROPONIN T HIGH-SENSITIVITY 4-HR Timed 11/29/2024 8:41 PM LATHER APPRENTICE EGFR STAT 11/29/2024 4:10 PM LATHER APPRENTICE DIFFERENTIAL AUTO STAT 11/29/2024 4:1 0 PM LATHER APPRENTICE TROPONIN T HIGH-SENSITIVITY SERIES (BASELINE, 2HR, 4HR, 6HR) STAT 11/29/2024 4:10 PM LATHER APPRENTICE CBC WITH AUTO DIFFERENTIAL STAT 11/29/2024 4:10 PM LATHER APPRENTICE COMPREHENSIVE METABOLIC PANEL STAT 11/29/2024 4:10 PM LATHER APPRENTICE INFLUENZA A/B, RSV, AND COVID-19 PCR Routine 11/29/2024 4:10 PM LATHER APPRENTICE XR CHEST 1 VIEW ED 11/29/2024 3:17 PM LATHER APPRENTICE ECG 12-LEAD STAT 11/29/2024 2:55 PM LATHER APPRENTICE ECG 12-LEAD Routine 11/25/2024 2:24 PM LATHER APPRENTICE Chest pain, unspecified type EGFR Routine 11/16/2024 9:10 AM LATHER APPRENTICE MANUAL DIFFERENTIAL Routine 11/16/2024 9 :10 AM LATHER APPRENTICE BASIC METABOLIC PANEL Routine 11/16/2024 9:10 AM LATHER APPRENTICE MAGNESIUM Routine 11/16/2024 9:10 AM LATHER APPRENTICE CBC WITH AUTO DIFFERENTIAL Routine 11/16/2024 9:10 AM LATHER APPRENTICE TROPONIN T HIGH-SENSITIVITY 6-HOUR Timed 11/15/2024 9:36 PM LATHER APPRENTICE TROPONIN T HIGH-SENSITIVITY 4-HR Timed 11/15/2024 7:53 PM LATHER APPRENTICE TROPONIN T HIGH-SENSITIVITY 2-HOUR Timed 11/15/2024 5:45 PM LATHER APPRENTICE TROPONIN T HIGH-SENSITIVITY SERIES (BASELINE, 2HR, 4HR, 6HR) STAT 11/15/2024 3:31 PM LATHER APPRENTICE ECG 12-LEAD Routine 11/15/2024 2:42 PM LATHER APPRENTICE XR CHEST 1 VIEW IP Routine 11/15/2024 2:15 PM LATHER APPRENTICE EGFR Routine 11/15/2024 7:15 AM LATHER APPRENTICE DIFFERENTIAL AUTO Routine 11/15/2024 7:1 5 AM LATHER APPRENTICE BASIC METABOLIC PANEL Routine 11/15/2024 7:15 AM LATHER APPRENTICE MAGNESIUM Routine 11/15/2024 7:15 AM LATHER APPRENTICE CBC WITH AUTO DIFFERENTIAL Routine 11/15/2024 7:15 AM LATHER APPRENTICE CARBOXYHEMOGLOBIN, VENOUS Routine 11/14/2024 11:00 AM LATHER APPRENTICE EGFR STAT 11/14/2024 8:36 AM LATHER APPRENTICE PRO B-TYPE NATRIURETIC PEPTIDE Routine 11/14/2024 8:36 AM LATHER APPRENTICE DIFFERENTIAL AUTO Routine 11/14/2024 8:3 6 AM LATHER APPRENTICE BASIC METABOLIC PANEL STAT 11/14/2024 8:36 AM LATHER APPRENTICE MAGNESIUM Routine 11/14/2024 8:36 AM LATHER APPRENTICE CBC WITH AUTO DIFFERENTIAL Routine 11/14/2024 8:36 AM LATHER APPRENTICE FENTANYL CONFIRMATION, MS URINE Routine 11/13/2024 11:48 PM LATHER APPRENTICE DRUGS OF ABUSE SCREEN, URINE WITH REFLEX CONFIRMATION Routine 11/13/2024 11:48 PM LATHER APPRENTICE TROPONIN T HIGH-SENSITIVITY Routine 11/13/2024 6:17 PM LATHER APPRENTICE XR CHEST 1 VIEW IP Routine 11/13/2024 5:09 PM LATHER APPRENTICE ECG 12-LEAD Routine 11/13/2024 4:54 PM LATHER APPRENTICE BLOOD GAS, ARTERIAL STAT 11/13/2024 4 :52 PM LATHER APPRENTICE PROCALCITONIN Routine 11/13/2024 12:36 PM LATHER APPRENTICE BLOOD CULTURE Routine 11/13/2024 8:15 AM LATHER APPRENTICE BLOOD CULTURE Routine 11/13/2024 8:14 AM LATHER APPRENTICE EGFR Routine 11/13/2024 3:50 AM LATHER APPRENTICE DIFFERENTIAL AUTO Routine 11/13/2024 3:5 0 AM LATHER APPRENTICE MAGNESIUM Routine 11/13/2024 3:50 AM LATHER APPRENTICE COMPREHENSIVE METABOLIC PANEL Routine 11/13/2024 3:50 AM LATHER APPRENTICE CBC WITH AUTO DIFFERENTIAL Routine 11/13/2024 3:50 AM LATHER APPRENTICE PROCALCITONIN Routine 11/13/2024 3:50 AM LATHER APPRENTICE LEGIONELLA ANTIGEN, URINE Routine 11/13/2024 3:25 AM LATHER APPRENTICE STREP PNEUMONIAE AG, URINE Routine 11/13/2024 3:25 AM LATHER APPRENTICE TROPONIN T HIGH-SENSITIVITY 6-HOUR Timed 11/12/2024 5:33 PM LATHER APPRENTICE TROPONIN T HIGH-SENSITIVITY 4-HR Timed 11/12/2024 3:13 PM LATHER APPRENTICE URINALYSIS, MICROSCOPIC ONLY STAT 11/12/2024 2:08 PM LATHER APPRENTICE URINE CULTURE STAT 11/12/2024 2:08 PM LATHER APPRENTICE URINALYSIS AND REFLEX TO MICROSCOPIC AND CULTURE STAT 11/12/2024 2:08 PM LATHER APPRENTICE PA CRITICAL CARE ILL/INJURED PATIENT INIT 30-74 MIN Routine 11/12/2024 1:57 PM LATHER APPRENTICE BLOOD GAS, VENOUS STAT 11/12/2024 1:1 4 PM LATHER APPRENTICE TROPONIN T HIGH-SENSITIVITY 2-HOUR Timed 11/12/2024 12:56 PM LATHER APPRENTICE BLOOD CULTURE STAT 11/12/2024 12:11 PM LATHER APPRENTICE BLOOD CULTURE STAT 11/12/2024 12:11 PM LATHER APPRENTICE XR CHEST 1 VIEW ED 11/12/2024 11:30 AM LATHER APPRENTICE EGFR STAT 11/12/2024 11:23 AM LATHER APPRENTICE DIFFERENTIAL AUTO STAT 11/12/2024 11: 23 AM LATHER APPRENTICE BLOOD GAS, VENOUS STAT 11/12/2024 11: 23 AM LATHER APPRENTICE SEPSIS LACTATE WITH REFLEX STAT 11/12/2024 11:23 AM LATHER APPRENTICE TROPONIN T HIGH-SENSITIVITY SERIES (BASELINE, 2HR, 4HR, 6HR) Routine 11/12/2024 11:23 AM LATHER APPRENTICE PROTIME-INR STAT 11/12/2024 11:23 AM LATHER APPRENTICE PRO B-TYPE NATRIURETIC PEPTIDE STAT 11/12/2024 11:23 AM LATHER APPRENTICE MAGNESIUM Routine 11/12/2024 11:23 AM LATHER APPRENTICE APTT STAT 11/12/2024 11:23 AM LATHER APPRENTICE COMPREHENSIVE METABOLIC PANEL STAT 11/12/2024 11:23 AM LATHER APPRENTICE CBC WITH AUTO DIFFERENTIAL STAT 11/12/2024 11:23 AM LATHER APPRENTICE INFLUENZA A/B, RSV, AND COVID-19 PCR Routine 11/12/2024 11:23 AM LATHER APPRENTICE ECG 12-LEAD Routine 11/12/2024 11:18 AM LATHER APPRENTICE TROPONIN T HIGH-SENSITIVITY 2-HOUR Timed 11/02/2024 6:33 PM LATHER APPRENTICE EGFR STAT 11/02/2024 4:10 PM LATHER APPRENTICE DIFFERENTIAL AUTO STAT 11/02/2024 4:1 0 PM LATHER APPRENTICE TROPONIN T HIGH-SENSITIVITY SERIES (BASELINE, 2HR, 4HR, 6HR) STAT 11/02/2024 4:10 PM LATHER APPRENTICE CBC WITH AUTO DIFFERENTIAL STAT 11/02/2024 4:10 PM LATHER APPRENTICE COMPREHENSIVE METABOLIC PANEL STAT 11/02/2024 4:10 PM LATHER APPRENTICE XR CHEST 1 VIEW ED 11/02/2024 2:48 PM LATHER APPRENTICE ECG 12-LEAD STAT 11/02/2024 2:43 PM LATHER APPRENTICE EGFR Routine 10/22/2024 3:08 AM LATHER APPRENTICE DIFFERENTIAL AUTO Routine 10/22/2024 3:0 8 AM LATHER APPRENTICE PHOSPHORUS Routine 10/22/2024 3:08 AM LATHER APPRENTICE MAGNESIUM Routine 10/22/2024 3:08 AM LATHER APPRENTICE BASIC METABOLIC PANEL Routine 10/22/2024 3:08 AM LATHER APPRENTICE CBC WITH AUTO DIFFERENTIAL Routine 10/22/2024 3:08 AM LATHER APPRENTICE EGFR Routine 10/21/2024 6:38 AM LATHER APPRENTICE DIFFERENTIAL AUTO Routine 10/21/2024 6:3 8 AM LATHER APPRENTICE CBC WITH AUTO DIFFERENTIAL Routine 10/21/2024 6:38 AM LATHER APPRENTICE BASIC METABOLIC PANEL Routine 10/21/2024 6:38 AM LATHER APPRENTICE INFLUENZA A/B, RSV, AND COVID-19 PCR Routine 10/20/2024 9:[address] ABDOMEN PELVIS WO CONTRAST ED 10/20/2024 8:06 PM LATHER APPRENTICE URINALYSIS, MICROSCOPIC ONLY STAT 10/20/2024 7:46 PM LATHER APPRENTICE URINALYSIS AND REFLEX TO MICROSCOPIC AND CULTURE STAT 10/20/2024 7:46 PM LATHER APPRENTICE EGFR STAT 10/20/2024 5:43 PM LATHER APPRENTICE DIFFERENTIAL AUTO STAT 10/20/2024 5:4 3 PM LATHER APPRENTICE LIPASE STAT 10/20/2024 5:43 PM LATHER APPRENTICE COMPREHENSIVE METABOLIC PANEL STAT 10/20/2024 5:43 PM LATHER APPRENTICE CBC WITH AUTO DIFFERENTIAL STAT 10/20/2024 5:43 PM LATHER APPRENTICE EGFR STAT 10/15/2024 3:33 PM LATHER APPRENTICE DIFFERENTIAL AUTO STAT 10/15/2024 3: 33 PM LATHER APPRENTICE CBC WITH AUTO DIFFERENTIAL STAT 10/15/2024 3:33 PM LATHER APPRENTICE COMPREHENSIVE METABOLIC PANEL STAT 10/15/2024 3:[address] ABDOMEN PELVIS WO CONTRAST ED 10/15/2024 3:07 PM LATHER APPRENTICE COLONOSCOPY 09/10/2021 1:54 PM CDT from Last 3 Months or Most Recently Relevant to Health Maintenance Results * POC Influenza A/B, COVID-19 antigen (12/23/2024 4:51 PM LATHER APPRENTICE) [facility] Influenza A Ag, POC Negative Negative [facility] Influenza B Ag, POC Negative Negative [facility] COVID-19 Ag POC Presumptive Negative Presumptive Negative, Invalid [facility] Nasal 12/23/2024 4:51 PM LATHER APPRENTICE Cristela Doll SENIOR MANAGER [employer] POINT OF CARE TEST ORDERABLES Final Result [facility] [address] [place] [address] * POCT rapid RSV (12/23/2024 4:51 PM LATHER APPRENTICE) [facility] Rapid RSV, POC Negative Negative Lot Number [id number] QC Control Line Acceptable Swab 12/23/2024 4:51 PM LATHER APPRENTICE Cristela Doll SENIOR MANAGER [employer] POINT OF CARE TEST ORDERABLES Final Result * PA ECG ROUTINE ECG W/LEAST 12 LDS W/I&R (12/02/2024 2:23 PM LATHER APPRENTICE) Narrative Sekou Trevino MD - 12/02/2024 2:23 PM LATHER APPRENTICE Sekou Trevino MD 12/02/2024 2:25 PM EKG [...] Troponin T high-sensitivity 6-hour (11/29/2024 9:32 PM LATHER APPRENTICE) Trop T hs 14 <=14 ng/L Comment: Interpretive Data For further hscTnT resources including the diagnostic algorithm and an aid in interpretation, copy and paste this link: https://nrl.testcatalog.org/show/hsTrop Current Interpretive Data last revised 2020. Trop T hs delta -2 ng/L [facility] ([place]) Trop T hs interp Insignificant [facility] ([place]) Blood 11/29/2024 9:32 PM LATHER APPRENTICE 11/29/2024 9:35 PM LATHER APPRENTICE us Demetris Ocampo MD LAB BLOOD ORDERABLES Final R esult [facility] [address] [facility] [place] [address] * (ABNORMAL) Blood gas, venous (11/29/2024 9:32 PM LATHER APPRENTICE) pH, Venous 7.38 7.32 - 7.43 PCO2, Venous 51(H) 40 - 50 mmHg [facility]) PO2, Venous 41 mmHg [facility] ([place]) HCO3 Venous, Calculated 29 20 - 30 mmol/L [facility] [place] BE, venous 4 mmol/L [facility]) Comment: Interpretive Data No Reference Range Established Current Interpretive Data was last revised on 2018. Blood 11/29/2024 9:32 PM LATHER APPRENTICE 11/29/2024 9:35 PM LATHER APPRENTICE Alice ROBERTSON LAB BLOOD ORDERABLES Jaquelin l Result [facility] ([place]) [address] [facility] [place] [address] * Troponin T high-sensitivity 4-hour (11/29/2024 8:41 PM LATHER APPRENTICE) Trop T hs 12 <=14 ng/L Comment: Interpretive Data For further hscTnT resources including the diagnostic algorithm and an aid in interpretation, copy and paste this link: https://nrl.testcatalog.org/show/hsTrop Current Interpretive Data last revised 2020. Trop T hs delta -4 ng/L [facility] ([place]) Trop T hs interp Insignificant [facility]) Blood 11/29/2024 8:41 PM LATHER APPRENTICE 11/29/2024 9:28 PM LATHER APPRENTICE Demetris Ocampo MD LAB BLOOD ORDERABLES Final R esult [facility] ([place]) 1 [facility] [email or web address] [address] * (ABNORMAL) Pro B-type natriuretic peptide (11/29/2024 8:41 PM LATHER APPRENTICE) NT-proBNP 3,550(H) <=300 pg/mL Comment: Interpretive Comments: [...] Revised Date: 2018. Blood 11/29/2024 8:41 PM LATHER APPRENTICE 11/29/2024 9:28 PM LATHER APPRENTICE Alice ROBERTSON LAB BLOOD ORDERABLES Jaquelin l Result Performing Organization Address City/[facility]/ZIP Co de Phone Number [facility] [place]) [address] [facility] [place] [address] * (ABNORMAL) Troponin T high-sensitivity series (baseline, 2hr, 4hr, 6hr) (11/29/2024 4:10 PM LATHER APPRENTICE) Trop T hs 16(H) <=14 ng/L Comment: Interpretive Data For further hscTnT resources including the diagnostic algorithm and an aid in interpretation, copy and paste this link: https://nrl.testcatalog.org/show/hsTrop Current Interpretive Data last revised 2020. Blood 11/29/2024 4:10 PM LATHER APPRENTICE 11/29/2024 4:20 PM LATHER APPRENTICE us Demetris Ocampo MD LAB BLOOD ORDERABLES Final R esult Performing Organization Address [facility]/ZIP Co de Phone Number [facility] [place]) [address] [facility] [place] [address] * Influenza A/B, RSV, and COVID-19 PCR Nasopharyngeal (11/29/2024 4:10 PM LATHER APPRENTICE) COVID-19 RNA Negative Negative Influenza A RNA Negative Negative [facility]) Influenza B RNA Negative Negative [facility] ([place]) RSV RNA Negative Negative [facility] ([place]) Comment: Interpretive data: Testing performed by [facility]. This test is performed using the Accredible Xpert Xpress CoV-2/Flu/RSV plus assay. This is a multiplex, real- time reverse transcriptase PCR assay intended for the qualitative detection of nucleic acid from SARS-CoV-2, influenza A, influenza B, and respiratory syncytial virus. This assay has been cleared by the [place] Food and Drug administration. The performance characteristics have been verified by the [facility]. Results must be considered in the clinical context, and a negative result does not rule out infection. Interpretive Data last revised 2023 Nasopharyngeal 11/29/2024 4: 10 PM LATHER APPRENTICE 11/29/2024 4:20 PM LATHER APPRENTICE Narrative [facility] ([place]) - 11/29/2024 5:11 PM LATHER APPRENTICE Is the Patient experiencing symptoms consistent with COVID?->Yes Demetris Ocampo MD LAB MICROBIOLOGY - GENERAL O RDERABLES Final Result [facility] ([place]) [address] [facility] Department [place] [address] * eGFR (11/29/2024 4:10 PM LATHER APPRENTICE) eGFR >90 >=60 mL/min/1. 73 m2 Comment: [...] last reviewed 2021. Blood 11/29/2024 4:10 PM LATHER APPRENTICE 11/29/2024 4:20 PM LATHER APPRENTICE us Demetris Ocampo MD LAB BLOOD ORDERABLES Final R esult [facility] ([place]) [address] [facility] Department [place] [address] * (ABNORMAL) Differential, auto (11/29/2024 4:10 PM LATHER APPRENTICE) Neutrophil abs 8.8(H) 1.5 - 6.5 K/cumm [...] Neutrophil pct 79.6 % [facility] ([place]) Comment: Interpretive Data Percent cell count reference [...] revised on 2018. Basophil pct 0.5 % [facility] ([place]) Comment: Interpretive Data Percent cell count reference ranges are not reported, since discordance with absolute values may lead to misinterpretation of CBC data. Current Interpretive Data was last revised on 2018. Blood 11/29/2024 4:10 PM LATHER APPRENTICE 11/29/2024 4:20 PM LATHER APPRENTICE Demetris Ocampo MD LAB BLOOD ORDERABLES Final R esult [facility] ([place]) [address] [facility] Department [place] [address] * (ABNORMAL) CBC with auto differential (11/29/2024 4:10 PM LATHER APPRENTICE) WBC 11.1(H) 3.8 - 9.9 K/cumm Hgb 13.4 11.9 - 15.5 g/dL [facility]) Hct 42.0 35.6 - 45.5 % [facility]) Plt 242 150 - 400 K/cumm [facility] ([place]) MPV 9.4 9.1 - 12.3 fL [facility] RBC 4.09 3.90 - 5.20 M/cumm [facility]) MCV 102.7(H) 81.3 - 96.4 fL [facility] ([place]) MCH 32.8 27.1 - 33.3 pg [facility]) MCHC 31.9(L) 32.3 - 35.7 g/dL [facility]) RDW CV 14.9 11.1 - 14.9 % [facility]) RDW SD 56.5(H) 35.7 - 48.1 fL [facility]) NRBC abs 0.00 0.00 - 0.01 K/cumm [facility]) Blood 11/29/2024 4:10 PM LATHER APPRENTICE 11/29/2024 4:20 PM LATHER APPRENTICE Demetris Ocampo MD LAB BLOOD ORDERABLES Final R esult [facility] [address] [facility] Department [place] [address] * (ABNORMAL) Comprehensive metabolic panel (11/29/2024 4:10 PM LATHER APPRENTICE) Sodium 140 135 - 145 mmol/L Potassium, pl 4.8 3.3 - 4.9 mmol/L [facility] ([place]) Comment:Slightly Hemolyzed S pecimen. Results may be affected. Chloride 102 97 - 110 mmol/L [facility] CO2 27 22 - 32 mmol/L [facility] Anion gap 11 2 - 15 mmol/L [facility] BUN 11 6 - 25 mg/dL [facility] ([place]) Creatinine 0.69 0.60 - 1.10 mg/dL [facility]) Glucose 97 70 - 199 mg/dL [facility]) Comment: Interpretive Data [...] Slightly Hemolyzed Specimen Blood 11/29/2024 4:10 PM LATHER APPRENTICE 11/29/2024 4:20 PM LATHER APPRENTICE Demetris Ocampo MD LAB BLOOD ORDERABLES Final R esult [facility] ([place]) [address] [facility] Department [place] [address] * XR Chest 1 Vw Portable (if patient condition/safety warrant portable) (11/29/2024 3:17 PM LATHER APPRENTICE) Anatomical Region Laterality Modality Body, Chest N/A Computed Radiogr aphy 11/29/2024 3:33 PM LATHER APPRENTICE Narrative 11/29/2024 3:35 PM LATHER APPRENTICE EXAM DESCRIPTION: XR CHEST 1 VIEW REASON [...] Francis Reno M.D. KR: PINA Report ID: [id number] Reading Location: [place] [address] Procedure Note Francis Reno MD - 11/29/2024 [...] Francis Reno M.D. KR: PINA Report ID: [id number] Reading Location: [place] [address] Demetris Ocampo MD IMG XR PROCEDURES Final Resu lt * ECG 12 lead (11/29/2024 2:55 PM LATHER APPRENTICE) 11/29/2024 2:55 PM LATHER APPRENTICE Narrative [facility] - 11/29/2024 3:30 PM LATHER APPRENTICE Vent Rate: 66 bpm RR Interval: 900 msec PA Interval: 0 msec QRS Duration: 77 msec QT Interval: 371 msec QTC Interval: 385 msec P-R-T [place]: [address] - 79 - 36 degrees IMPRESSION: ATRIAL FIBRILLATION ANTEROSEPTAL MYOCARDIAL INFARCTION , OF INDETERMINATE AGE [40+ ms Q WAVE IN V1- V4] ABNORMAL ECG NO CHANGE FROM PREVIOUS TRACING NOTED Electronically Signed By: Myles Madrigal MD us Demetris Ocampo MD ECG ORDERABLES Final Result [facility] * ECG 12 lead (11/25/2024 2:24 PM LATHER APPRENTICE) us Sekou Trevino MD ECG ORDERABLES Final Res ult * eGFR (11/16/2024 9:10 AM LATHER APPRENTICE) eGFR >90 >=60 mL/min/1. 73 m2 Comment: [...] last reviewed 2021. Blood 11/16/2024 9:10 AM LATHER APPRENTICE 11/16/2024 10:13 AM LATHER APPRENTICE us Rahul Moore Jr., MD LAB BLOOD ORDERABLE S Final Result [facility] ([place]) [address] [facility] [place] [address] * (ABNORMAL) CBC with auto differential (11/16/2024 9:10 AM LATHER APPRENTICE) WBC 16.2(H) 3.8 - 9.9 K/cumm Hgb [...] [facility]) Blood 11/16/2024 9:10 AM LATHER APPRENTICE 11/16/2024 10:13 AM LATHER APPRENTICE us Luis Cho MD LAB BLOOD ORDERABLES Final Resu lt [facility] ([place]) [address] [facility] Department [place] [address] * (ABNORMAL) Manual Differential (11/16/2024 9:10 AM LATHER APPRENTICE) Differential Manual Cells Counted 100 [facility] [...] [facility] ([place]) Blood 11/16/2024 9:10 AM LATHER APPRENTICE 11/16/2024 10:13 AM LATHER APPRENTICE us Luis Cho MD LAB BLOOD ORDERABLES Final Resu lt Performing Organization Address City/[facility]/ZIP Co de Phone Number [facility] ([place]) [address] [facility] Department [place] [address] * Magnesium (11/16/2024 9:10 AM LATHER APPRENTICE) Magnesium 2.3 1.4 - 2.5 mg/dL Blood 11/16/2024 9:10 AM LATHER APPRENTICE 11/16/2024 10:13 AM LATHER APPRENTICE Luis Cho MD LAB BLOOD ORDERABLES Final Resu lt [facility] ([place]) [address] [facility] [place] [address] * (ABNORMAL) Basic metabolic panel (11/16/2024 9:10 AM LATHER APPRENTICE) Pathologist [facility] Sodium 136 135 - 145 mmol/L Potassium, pl 4.2 3.3 - 4.9 mmol/L [facility] ([place]) Chloride 93(L) 97 - 110 mmol/L [facility] ([place]) CO2 30 22 - 32 mmol/L [facility] ([place]) Anion gap 13 2 - 15 mmol/L [facility] ([place]) BUN 21 6 - 25 mg/dL [facility] ([place]) Creatinine 0.72 0.60 - 1.10 mg/dL [facility] ([place]) Glucose 189 70 - 199 mg/dL [facility] ([place]) Comment: Interpretive Data Fasting glucose >/= [...] 2022. Calcium 8.9 8.5 - 10.3 mg/dL [facility] Blood 11/16/2024 9:10 AM LATHER APPRENTICE 11/16/2024 10:13 AM LATHER APPRENTICE us Rahul Moore Jr., MD LAB BLOOD ORDERABLE S Final Result [facility] ([place]) [address] [facility] Department [place] [address] * Troponin T high-sensitivity 6-hour (11/15/2024 9:36 PM LATHER APPRENTICE) Pathologist [facility] Trop T hs 14 <=14 ng/L Comment: Interpretive Data For further hscTnT resources including the diagnostic algorithm and an aid in interpretation, copy and paste this link: https://nrl.[email or web address]/show/hsTrop Current Interpretive Data last revised 2020. Trop T hs delta -3 ng/L [facility] ([place]) Trop T hs interp Insignificant [facility] ([place]) Blood 11/15/2024 9:36 PM LATHER APPRENTICE 11/15/2024 9:38 PM LATHER APPRENTICE us Rahul Moore Jr., MD LAB BLOOD ORDERABLE S Final Result Performing Organization Address [facility] de Phone Number [facility] ([place]) [address] [facility] [place] [address] * Troponin T high-sensitivity 4-hour (11/15/2024 7:53 PM LATHER APPRENTICE) Trop T hs 13 <=14 ng/L Comment: Interpretive Data For further hscTnT resources including the diagnostic algorithm and an aid in interpretation, copy and paste this link: https://nrl.[email or web address]/show/hsTrop Current Interpretive Data last revised 2020. Trop T hs delta -4 ng/L [facility] ([place]) Trop T hs interp Insignificant [facility] ([place]) Blood 11/15/2024 7:53 PM LATHER APPRENTICE 11/15/2024 8:01 PM LATHER APPRENTICE us Rahul Moore Jr., MD LAB BLOOD ORDERABLE S Final Result Performing Organization Address [facility] Co de Phone Number [facility] ([place]) [address] [facility] [place] [address] * (ABNORMAL) Troponin T high-sensitivity 2-hour (11/15/2024 5:45 PM LATHER APPRENTICE) Trop T hs 15(H) <=14 ng/L Comment: Interpretive Data For further hscTnT resources including the diagnostic algorithm and an aid in interpretation, copy and paste this link: https://nrl.[email or web address]/show/hsTrop Current Interpretive Data last revised 2020. Trop T hs delta -2 ng/L [facility] ([place]) Trop T hs interp Insignificant [facility] ([place]) Blood 11/15/2024 5:45 PM LATHER APPRENTICE 11/15/2024 7:13 PM LATHER APPRENTICE Rahul Moore Jr., MD LAB BLOOD ORDERABLE S Final Result Performing Organization Address [facility] Co de Phone Number ADA TREVINO ([place]) [address] [facility] [email or web address] [address] * (ABNORMAL) Troponin T high-sensitivity series (baseline, 2hr, 4hr, 6hr) (11/15/2024 3:31 PM LATHER APPRENTICE) Trop T hs 17(H) <=14 ng/L Comment: Interpretive Data For further hscTnT resources including the diagnostic algorithm and an aid in interpretation, copy and paste this link: [email or web address] Current Interpretive Data last revised 2020. Blood 11/15/2024 3:31 PM LATHER APPRENTICE 11/15/2024 4:29 PM LATHER APPRENTICE us Rahul Moore Jr., MD LAB BLOOD ORDERABLE S Final Result Performing Organization Address [facility] Co de Phone Number ADA TREVINO ([place]) [address] [facility] [place] [address] * ECG 12 lead (11/15/2024 2:42 PM LATHER APPRENTICE) 11/15/2024 2:42 PM LATHER APPRENTICE Narrative [facility] - 11/15/2024 3:51 PM LATHER APPRENTICE Vent Rate: 69 bpm RR Interval: 864 msec PA Interval: 0 msec QRS Duration: 101 msec QT Interval: 391 msec QTC Interval: 410 msec P-R-T [place]: [id number] - 69 - 26 degrees IMPRESSION: ATRIAL FIBRILLATION ABNORMAL RHYTHM ECG NO CHANGE FROM PREVIOUS TRACING NOTED Electronically Signed By: Myles Madrigal MD us Rahul Moore Jr., MD ECG ORDERABLES Fin al Result [facility] * XR CHEST 1 VIEW PORTABLE (11/15/2024 2:15 PM LATHER APPRENTICE) Anatomical Region Laterality Modality Body, Chest N/A Computed Radiogr aphy 11/15/2024 4:50 PM LATHER APPRENTICE Narrative 11/15/2024 4:53 PM LATHER APPRENTICE EXAM DESCRIPTION: XR CHEST 1 VIEW REASON [...] Francis Reno M.D. KR: PINA Report ID: [id number] Reading Location: [id number] Procedure Note Francis Reno MD - 11/15/2024 [...] Francis Reno M.D. KR: PINA Report ID: [id number] Reading Location: [id number] us Rahul Moore Jr., MD IMG XR PROCEDURES F inal Result * eGFR (11/15/2024 7:15 AM LATHER APPRENTICE) eGFR >90 >=60 mL/min/1. 73 m2 Comment: [...] last reviewed 2021. Blood 11/15/2024 7:15 AM LATHER APPRENTICE 11/15/2024 8:13 AM LATHER APPRENTICE us Rahul Moore Jr., MD LAB BLOOD ORDERABLE S Final Result [facility] 1 [facility] Department of Laboratories [place], [place] [id number] * (ABNORMAL) Differential, auto (11/15/2024 7:15 AM LATHER APPRENTICE) Neutrophil abs 18.0(H) 1.5 - 6.5 K/cumm Imm gran abs 0.2(H) 0.0 - 0.1 K/cumm [facility] ([place]) Lymphocyte abs 1.6 0.8 - 3.3 K/cumm [facility] ([place]) Monocyte abs 0.9(H) 0.2 - 0.8 K/cumm [...] 2018. Basophil pct 0.1 % [facility] ([place]) Comment: Interpretive Data Percent cell count reference ranges are not reported, since discordance with absolute values may lead to misinterpretation of CBC data. Current Interpretive Data was last revised on 2018. Blood 11/15/2024 7:15 AM LATHER APPRENTICE 11/15/2024 8:13 AM LATHER APPRENTICE us Luis Cho MD LAB BLOOD ORDERABLES Final Resu lt [facility] ([place] 1 [facility] [place] [address] * (ABNORMAL) CBC with auto differential (11/15/2024 7:15 AM LATHER APPRENTICE) WBC 20.7(H) 3.8 - 9.9 K/cumm Hgb [...] [facility] ([place]) Blood 11/15/2024 7:15 AM LATHER APPRENTICE 11/15/2024 8:13 AM LATHER APPRENTICE Luis Cho MD LAB BLOOD ORDERABLES Final Resu lt [facility] ([place]) 1 [facility] [place] [address] * Magnesium (11/15/2024 7:15 AM LATHER APPRENTICE) Pathologist [facility] Magnesium 2.2 1.4 - 2.5 mg/dL Blood 11/15/2024 7:15 AM LATHER APPRENTICE 11/15/2024 8:13 AM LATHER APPRENTICE Luis Cho MD LAB BLOOD ORDERABLES Final Resu lt [facility] ([place]) 1 [facility] Department [place] [address] * (ABNORMAL) Basic metabolic panel (11/15/2024 7:15 AM LATHER APPRENTICE) Pathologist [facility] Sodium 136 135 - 145 mmol/L Potassium, pl 4.0 3.3 - 4.9 mmol/L [facility] ([place]) Chloride 94(L) 97 - 110 mmol/L [facility] ([place]) CO2 30 22 - 32 mmol/L [facility] ([place]) Anion gap 12 2 - 15 mmol/L [facility] ([place]) BUN 22 6 - 25 mg/dL [facility] ([place]) Creatinine 0.71 0.60 - 1.10 mg/dL [facility] ([place]) Glucose 131 70 - 199 mg/dL [facility] ([place]) Comment: Interpretive Data Fasting glucose >/= [...] 2022. Calcium 9.0 8.5 - 10.3 mg/dL [facility] ([place]) Blood 11/15/2024 7:15 AM LATHER APPRENTICE 11/15/2024 8:13 AM LATHER APPRENTICE us Rahul Moore Jr., MD LAB BLOOD ORDERABLE S Final Result [facility] ([place]) 1 [facility] [place] [address] * Carboxyhemoglobin, venous (11/14/2024 11:00 AM LATHER APPRENTICE) Pathologist [facility] Carboxyhemoglob in, venous 2.0 0.0 - 2.9 % Comment:Non-Smokers: <3.0%; Smokers <9.0% Blood 11/14/2024 11:0 0 AM LATHER APPRENTICE 11/14/2024 11:15 AM LATHER APPRENTICE us Rahul Moore Jr., MD LAB BLOOD ORDERABLE S Final Result Performing Organization Address City/[facility]/ZIP Co de Phone Number [facility] ([place]) [address] [place] [address] [place] [address] * eGFR (11/14/2024 8:36 AM LATHER APPRENTICE) eGFR >90 >=60 mL/min/1. 73 m2 Comment: [...] last reviewed 2021. Blood 11/14/2024 8:36 AM LATHER APPRENTICE 11/14/2024 9:23 AM LATHER APPRENTICE us Rahul Moore Jr., MD LAB BLOOD ORDERABLE S Final Result Performing Organization Address City/[facility]/ZIP Co de Phone Number [facility] ([place]) 1 [facility] [place] [address] * (ABNORMAL) Differential, auto (11/14/2024 8:36 AM LATHER APPRENTICE) Neutrophil abs 20.1(H) 1.5 - 6.5 K/cumm [...] Imm gran pct 0.6 % [facility] ([place]) Comment: Interpretive Data Percent cell [...] revised on 2018. Blood 11/14/2024 8:36 AM LATHER APPRENTICE 11/14/2024 9:23 AM LATHER APPRENTICE us Luis Cho MD LAB BLOOD ORDERABLES Final Resu lt [facility] [place] 1 [facility] Department of Laboratories [place], [place] [id number] * (ABNORMAL) Pro B-type natriuretic peptide (11/14/2024 8:36 AM LATHER APPRENTICE) NT-proBNP 4,002(H) <=300 pg/mL Comment: Interpretive Comments: [...] Revised Date: 2018. Blood 11/14/2024 8:36 AM LATHER APPRENTICE 11/14/2024 10:33 AM LATHER APPRENTICE us Rahul Moore Jr., MD LAB BLOOD ORDERABLE S Final Result [facility] ([place]) 1 [facility] [place] [address] * (ABNORMAL) CBC with auto differential (11/14/2024 8:36 AM LATHER APPRENTICE) WBC 22.2(H) 3.8 - 9.9 K/cumm Hgb [...] [facility] ([place]) Blood 11/14/2024 8:36 AM LATHER APPRENTICE 11/14/2024 9:23 AM LATHER APPRENTICE us Luis Cho MD LAB BLOOD ORDERABLES Final Resu lt [facility] ([place]) 1 [facility] [place] [address] * Magnesium (11/14/2024 8:36 AM LATHER APPRENTICE) Magnesium 2.2 1.4 - 2.5 mg/dL Blood 11/14/2024 8:36 AM LATHER APPRENTICE 11/14/2024 9:23 AM LATHER APPRENTICE us Luis Cho MD LAB BLOOD ORDERABLES Final Resu lt [facility] ([place]) 1 [facility] Department [place] [address] * Basic metabolic panel (11/14/2024 8:36 AM LATHER APPRENTICE) Sodium 138 135 - 145 mmol/L Potassium, pl 3.7 3.3 - 4.9 mmol/L [facility] ([place]) Chloride 97 97 - 110 mmol/L [facility] ([place]) CO2 30 22 - 32 mmol/L [facility] ([place]) Anion gap 11 2 - 15 mmol/L [facility] ([place]) BUN 20 6 - 25 mg/dL [facility] ([place]) Creatinine 0.69 0.60 - 1.10 mg/dL [facility] ([place]) Glucose 148 70 - 199 mg/dL [facility] ([place] [...] [facility] ([place]) Blood 11/14/2024 8:36 AM LATHER APPRENTICE 11/14/2024 9:23 AM LATHER APPRENTICE us Rahul Moore Jr., MD LAB BLOOD ORDERABLE S Final Result [facility] ([place]) 1 [facility] Department [place] [address] * (ABNORMAL) Fentanyl Confirmation, Urine (11/13/2024 11:48 PM LATHER APPRENTICE) Fentanyl Conf, Ur Confirmed Positive(A) Cutoff 0.3ng/mL Comment:Testing performed by : [facility], [address] [place]., [address] Acetylfentanyl Conf, Ur Does Not Confirm Cutoff 1 ng/mL [facility] ([place]) Comment:Testing performed by : [facility], [address] [place]., [address] Acrylfentanyl Conf, Ur Does Not Confirm Cutoff 1 ng/mL [facility] ([place]) Comment:Testing performed by : [facility], [address] [place]., [address] Furanylfentanyl Conf, Ur Does Not Confirm Cutoff 1 ng/mL [facility] ([place]) Comment:Testing performed by : [facility], [address] [place]., [address] Fentanyl Metabolite (Norfentanyl) Conf, Ur Confirmed Positive(A) CutOff 5 ng/mL [facility] ([place]) Comment:Testing performed by : [facility], [address] [place]., [address] Xylazine MS Does Not Confirm Cutoff 1 [...] needed. Performance characteristics were determined by the [facility] in a manner consistent with CLIA requirement and has not been cleared or approved by the U.S. Food and Drug Administration. Current interpretive data was last revised 2021. Testing performed by: [facility], [address] [place]., [address] Urine 11/13/2024 11:4 8 PM LATHER APPRENTICE 11/14/2024 7:45 PM LATHER APPRENTICE us Rahul Moore Jr., MD LAB URINE ORDERABLE S Final Result [facility] ([place]) 1 [facility] Department [place] [address] * (ABNORMAL) Drugs of Abuse Screen, Urine with Reflex Confirmation (11/13/2024 11:48 PM LATHER APPRENTICE) Amphetamine, ur Not Detected CutOff 500ng/mL Comment: Interpretive Data - Amphetamines: Samples containing greater than 500 ng/mL d-methamphetamine or other cross-reacting amphetamine compounds are reported as positive. Amphetamine immunoassays are subject to significant false positive rates due to cross-reactivity of non-amphetamine drugs. Confirmatory testing required for definitive results. Current Interpretive Data was last reviewed 2023. Barbiturates, ur Not Detected CutOff 200ng/mL [facility] ([place]) Comment: Interpretive Data - Barbiturates: [...] Phencyclidine, ur Not Detected CutOff 25 ng/mL [facility] ([place]) Comment: Interpretive Data - Phencyclidine: [...] on 2018. Urine 11/13/2024 11:4 8 PM LATHER APPRENTICE 11/14/2024 12:08 AM LATHER APPRENTICE Narrative [facility] ([place]) - 11/14/2024 12:29 AM LATHER APPRENTICE Drug of Abuse screening is performed by immunoassay for medical purposes only. This is not to be used for Pain Management purposes. If Detected, confirmation testing will be performed for Amphetamines, Cocaine, Fentanyl, Methadone, Opiates, Oxycodone or Phencyclidine. Rahul Moore Jr., MD LAB URINE ORDERABLE S Final Result Performing Organization Address [facility] de Phone Number [facility] ([place]) [address] [facility] [place] [address] * (ABNORMAL) Troponin T high-sensitivity (11/13/2024 6:17 PM LATHER APPRENTICE) Trop T hs 16(H) <=14 ng/L Comment: Interpretive Data For further hscTnT resources including the diagnostic algorithm and an aid in interpretation, copy and paste this link: https://nrl.testcatalog.org/show/hsTrop Current Interpretive Data last revised 2020. Blood 11/13/2024 6:17 PM LATHER APPRENTICE 11/13/2024 7:15 PM LATHER APPRENTICE us Rahul Moore Jr., MD LAB BLOOD ORDERABLE S Final Result Performing Organization Address [facility] de Phone Number [facility] ([place]) [address] [facility] [place] [address] * XR CHEST 1 VIEW PORTABLE (11/13/2024 5:09 PM LATHER APPRENTICE) Anatomical Region Laterality Modality Body, Chest N/A Computed Radiogr aphy 11/13/2024 6:58 PM LATHER APPRENTICE Narrative 11/13/2024 7:00 PM LATHER APPRENTICE EXAM DESCRIPTION: XR CHEST 1 VIEW REASON [...] Francis Deleon M.D. KT: MENG Report ID: [id number] Reading Location: [place] [address] Procedure Note Francis Deleon MD - 11/13/2024 [...] Francis Deleon M.D. KT: MENG Report ID: [id number] Reading Location: [place] [address] Rahul Moore Jr., MD IMG XR PROCEDURES F inal Result * ECG 12 lead (11/13/2024 4:54 PM LATHER APPRENTICE) 11/13/2024 4:54 PM LATHER APPRENTICE Narrative [facility] - 11/15/2024 10:04 AM LATHER APPRENTICE Vent Rate: 87 bpm RR Interval: 687 msec PA Interval: 0 msec QRS Duration: 108 msec QT Interval: 387 msec QTC Interval: 431 msec P-R-T [place]: [address] - 36 - 33 degrees IMPRESSION: ATRIAL FIBRILLATION ABNORMAL RHYTHM ECG Compared to prior EKG heart rate decreased Electronically Signed By: Soren Strickland MD [facility] us Rahul Moore Jr., MD ECG ORDERABLES Fin al Result [facility] * (ABNORMAL) Blood gas, arterial (11/13/2024 4:52 PM LATHER APPRENTICE) pH, Art 7.51(H) 7.35 - 7.45 PCO2, [...] 95 % [facility] ([place]) Blood 11/13/2024 4:5 2 PM LATHER APPRENTICE 11/13/2024 4:57 PM LATHER APPRENTICE us Devika Mullins MD LAB BLOOD ORDERABLES Jaquelin l Result Performing Organization Address City/[facility]/ZIP Co de Phone Number [facility] ([place]) 1 [facility] [place] [address] * Procalcitonin (11/13/2024 12:36 PM LATHER APPRENTICE) Procalcitonin 0.05 <=0.25 ng/mL Comment:Testing performed by : [facility], [facility], [place]., [address] Blood 11/13/2024 12:3 6 PM LATHER APPRENTICE 11/13/2024 7:33 PM LATHER APPRENTICE us Rahul Moore Jr., MD LAB BLOOD ORDERABLE S Final Result [facility] ([place]) 1 [facility] Department [place] [address] * Blood culture Blood (11/13/2024 8:15 AM LATHER APPRENTICE) Report Final Report: No growth Comment:Testing performed by : [facility], 1 [place] [place] [address] Blood 11/13/2024 8:15 AM LATHER APPRENTICE 11/13/2024 12:31 PM LATHER APPRENTICE Narrative [facility] ([place]) - 11/17/2024 4:00 PM LATHER APPRENTICE From a different site than #1. Collection->Peripheral [...] be performed for organism identification using the imchael ePlex blood culture identification panel for gram positive (BCID-GP) and gram negative (BCID-GN) organisms. This nucleic acid amplification test detects microbial DNA in positive blood culture broth. This assay has been cleared by the [place] Food and Drug Administration and its performance characteristics have been verified by the [facility]. For questions about this culture, contact the Microbiology Laboratory at [phone]. Interpretive data was last revised on 24. Luis Cho MD LAB MICROBIOLOGY - GENERAL [place] Final Result [facility] ([place]) 1 [facility] Department [place] [address] * Blood culture Blood (11/13/2024 8:14 AM LATHER APPRENTICE) Report Final Report: No growth Comment:Testing performed by : [facility], 1 [facility], [place]., [address] Blood 11/13/2024 8:14 AM LATHER APPRENTICE 11/13/2024 12:31 PM LATHER APPRENTICE Narrative [facility] ([place]) - 11/17/2024 4:00 PM LATHER APPRENTICE Collection->Peripheral 1. Blood cultures are incubated for [...] performance characteristics have been verified by the [facility]. For questions about this culture, contact the Microbiology Laboratory at [phone]. Interpretive data was last revised on 24. Luis Cho MD LAB [facility]BIOLOGY - [facility]AL [facility] Final Result [facility] ([place]) 1 [facility] Department of Laboratories [place], [place] [id number] * eGFR (11/13/2024 3:50 AM LATHER APPRENTICE) eGFR >90 >=60 mL/min/1. 73 m2 Comment: [...] last reviewed 2021. Blood 11/13/2024 3:50 AM LATHER APPRENTICE 11/13/2024 6:17 AM LATHER APPRENTICE us Luis Cho MD LAB BLOOD ORDERABLES Final Resu lt [facility] ([place]) 1 [facility] [place] [address] * (ABNORMAL) Differential, auto (11/13/2024 3:50 AM LATHER APPRENTICE) Neutrophil abs 16.1(H) 1.5 - 6.5 K/cumm [...] revised on 2018. Blood 11/13/2024 3:50 AM LATHER APPRENTICE 11/13/2024 6:17 AM LATHER APPRENTICE us Luis Cho MD LAB BLOOD ORDERABLES Final Resu lt [facility] ([place]) 1 [facility] Department [place] [address] * Procalcitonin (11/13/2024 3:50 AM LATHER APPRENTICE) Procalcitonin <0.05 <=0.25 ng/mL Comment:Testing performed by : [facility], [address] [facility], [place]., [address] Blood 11/13/2024 3:50 AM LATHER APPRENTICE 11/13/2024 2:52 PM LATHER APPRENTICE us Luis Cho MD LAB BLOOD ORDERABLES Final Resu lt [facility] ([place]) 1 [facility] Department [place] [address] * (ABNORMAL) CBC with auto differential (11/13/2024 3:50 AM LATHER APPRENTICE) Pathologist [facility] WBC 17.9(H) 3.8 - 9.9 K/cumm Hgb [...] [facility] ([place]) Blood 11/13/2024 3:50 AM LATHER APPRENTICE 11/13/2024 6:17 AM LATHER APPRENTICE us Luis Cho MD LAB BLOOD ORDERABLES Final Resu lt [facility] ([place]) 1 [facility] Department [place] [address] * Magnesium (11/13/2024 3:50 AM LATHER APPRENTICE) [facility] Magnesium 2.3 1.4 - 2.5 mg/dL Blood 11/13/2024 3:50 AM LATHER APPRENTICE 11/13/2024 6:17 AM LATHER APPRENTICE Luis Cho MD LAB BLOOD ORDERABLES Final Resu lt [facility] ([place]) 1 [facility] Department [place] [address] * Comprehensive metabolic panel (11/13/2024 3:50 AM LATHER APPRENTICE) Sodium 140 135 - 145 mmol/L Potassium, [...] ([place]) Glucose 114 70 - 199 mg/dL [facility] ([place]) [...] [facility] ([place]) Blood 11/13/2024 3:50 AM LATHER APPRENTICE 11/13/2024 6:17 AM LATHER APPRENTICE Luis Cho MD LAB BLOOD ORDERABLES Final Resu lt Performing Organization Address City/[facility]/ZIP Co de Phone Number [facility] [place] [address] [facility] [place] [address] * Strep pneumoniae antigen, urine Urine (11/13/2024 3:25 AM LATHER APPRENTICE) S. pneumoniae Ag Negative Negative Comment: Interpretive [...] last revised on 2023 Testing performed by: [facility], [address] [place] [address]., [address] Urine 11/13/2024 3:25 AM LATHER APPRENTICE 11/16/2024 9:45 AM LATHER APPRENTICE Luis Cho MD LAB MICROBIOLOGY - GENERAL ORDE ROGER Final Result Performing Organization Address [facility] de Phone Number [facility] ([place]) [address] [place] [address] * Legionella antigen Urine (11/13/2024 3:25 AM LATHER APPRENTICE) Legionella Ag Negative Negative Comment: Interpretive Data This test detects only Legionella pneumophila serogroup 1 antigen. Current interpretive data was last revised on 2020. Testing performed by: [facility], [address] [place] [address], [place]., [address] Urine 11/13/2024 3:25 AM LATHER APPRENTICE 11/13/2024 1:21 PM LATHER APPRENTICE Luis Cho MD LAB MICROBIOLOGY - GENERAL [place] Final Result Performing Organization Address City/[facility] Co de Phone Number [facility] ([place]) 1 [facility] [place] [address] * (ABNORMAL) Troponin T high-sensitivity 6-hour (11/12/2024 5:33 PM LATHER APPRENTICE) Trop T hs 21(H) <=14 ng/L Comment: Interpretive Data For further hscTnT resources including the diagnostic algorithm and an aid in interpretation, copy and paste this link: https://nrl.[employer].org/show/hsTrop Current Interpretive Data last revised 2020. Trop T hs delta 5 ng/L [facility] ([place]) Trop T hs interp Equivocal [facility] ([place]) Blood 11/12/2024 5:33 PM LATHER APPRENTICE 11/12/2024 5:54 PM LATHER APPRENTICE Pancho Javier MD LAB BLOOD ORDERABLES Final R esult Performing Organization Address City/[facility] Co de Phone Number [facility] ([place]) [address] [place] [address] * (ABNORMAL) Troponin T high-sensitivity 4-hour (11/12/2024 3:13 PM LATHER APPRENTICE) Trop T hs 23(H) <=14 ng/L Comment: Interpretive Data For further hscTnT resources including the diagnostic algorithm and an aid in interpretation, copy and paste this link: https://nrl.[employer].org/show/hsTrop Current Interpretive Data last revised 2020. Trop T hs delta 7 ng/L [facility] ([place]) Trop T hs interp Equivocal [facility] ([place]) Blood 11/12/2024 3:13 PM LATHER APPRENTICE 11/12/2024 3:18 PM LATHER APPRENTICE Pancho Javier MD LAB BLOOD ORDERABLES Final R esult Performing Organization Address City/[facility]/ZIP Co de Phone Number [facility] ([place]) [address] [place] [address] * (ABNORMAL) Urinalysis reflex to microscopic and culture Urine (11/12/2024 2:08 PM LATHER APPRENTICE) Color, ur Straw Yellow Clarity, ur Turbid(A) [...] tendency for uric acid stone formation. Source: [facility] [place] Current Interpretive Data was last revised on [...] [facility] ([place]) Urine 11/12/2024 2:08 PM LATHER APPRENTICE 11/12/2024 2:12 PM LATHER APPRENTICE Narrative [facility] ([place]) - 11/12/2024 2:19 PM LATHER APPRENTICE If patient unable to urinate, straight cath us Pancho Javier MD LAB MICROBIOLOGY - GENERAL O RDERABLES Final Result [facility] ([place]) 1 [facility] Department [place] [address] * (ABNORMAL) Urinalysis, microscopic only (11/12/2024 2:08 PM LATHER APPRENTICE) WBC, ur 11-20(A) 0 - 5 /HPF RBC, ur 0-2 0 - 2 /HPF [facility] ([place]) Epithelial cells, squamous, ur 1-5 0 - 5 /HPF [facility]) Bacteria, ur 2+(A) [facility] ([place]) Mucous, ur Present(A) [facility] ([place]) Culture Reflex Comment Reflex to urine culture will be performed. [facility] ([place]) Urine 11/12/2024 2:08 PM LATHER APPRENTICE 11/12/2024 2:12 PM LATHER APPRENTICE us Pancho Javier MD LAB URINE ORDERABLES Final R esult [facility] ([place]) 1 [facility] [place] [address] * Urine culture Urine (11/12/2024 2:08 PM LATHER APPRENTICE) Report Final Report: Less than 100,000 colonies/mL (clinically insignificant growth based on current clinical standards) Comment:Testing performed by : [facility], 1 [facility], [place]., [address] Organism (CLINICALLY INSIGNIFICANT GROWTH [facility] ([place]) Urine 11/12/2024 2:08 PM LATHER APPRENTICE 11/12/2024 8:03 PM LATHER APPRENTICE Narrative [facility] ([place]) - 11/13/2024 9:39 PM LATHER APPRENTICE Urine culture reflexed based upon urinalysis results. Testing performed by [facility] ([phone]) us Pancho Javier MD LAB MICROBIOLOGY - GENERAL O RDERABLES Final Result [facility] ([place]) 1 [facility] [place] [address] * PA CRITICAL CARE ILL/INJURED PATIENT INIT 30-74 MIN (11/12/2024 1:57 PM LATHER APPRENTICE) Narrative Pancho Javier MD - 11/12/2024 1:57 PM LATHER APPRENTICE Pancho Javier MD 11/12/2024 1:57 PM Critical [...] (ABNORMAL) Blood gas, venous (11/12/2024 1:14 PM LATHER APPRENTICE) pH, Venous 7.37 7.32 - 7.43 PCO2, Venous 52(H) 40 - 50 mmHg [facility] ([place]) PO2, Venous 56 mmHg [facility] ([place]) Comment: Interpretive Data No reference range established. Current interpretive data was last revised 2018. HCO3 Venous, Calculated 30 20 - 30 mmol/L [facility] ([place]) BE, venous 4 mmol/L [facility] ([place]) Comment: Interpretive Data No Reference Range Established Current Interpretive Data was last revised on 2018. Blood 11/12/2024 1:14 PM LATHER APPRENTICE 11/12/2024 1:18 PM LATHER APPRENTICE us Pancho Javier MD LAB BLOOD ORDERABLES Final R esult [facility] ([place] 1 [facility] [place] [address] * (ABNORMAL) Troponin T high-sensitivity 2-hour (11/12/2024 12:56 PM LATHER APPRENTICE) Trop T hs 24(H) <=14 ng/L Comment: Interpretive Data For further hscTnT resources including the diagnostic algorithm and an aid in interpretation, copy and paste this link: https://nrl.testcatalog.org/show/hsTrop Current Interpretive Data last revised 2020. Trop T hs delta 8 ng/L [facility] ([place]) Trop T hs interp Equivocal [facility] ([place]) Blood 11/12/2024 12:5 6 PM LATHER APPRENTICE 11/12/2024 1:01 PM LATHER APPRENTICE Pancho Javier MD LAB BLOOD ORDERABLES Final R esult [facility] ([place]) 1 [facility] Department [place] [address] * Blood culture Blood (11/12/2024 12:11 PM LATHER APPRENTICE) Report Final Report: No growth Comment:Testing performed by : [facility], [address] [place]., [address] Blood 11/12/2024 12:1 1 PM LATHER APPRENTICE 11/12/2024 2:36 PM LATHER APPRENTICE Narrative [facility] ([place]) - 11/16/2024 4:00 PM LATHER APPRENTICE Received only aerobic blood culture bottle 1. [...] performance characteristics have been verified by the [facility]. For questions about this culture, contact the Microbiology Laboratory at [phone]. Interpretive data was last revised on 24. us Pancho Javier MD LAB MICROBIOLOGY - GENERAL O RDERABLES Final Result [facility] ([place]) 1 [facility] [place] [address] * (ABNORMAL) Blood culture Blood (11/12/2024 12:11 PM LATHER APPRENTICE) Direct Specimen Exam Molecular Analysis: Staphylococcus species [...] Korina Castelan MLT Comment:Testing performed by : [facility], [address] [place] [address]., [address] Direct Specimen Exam Stain: Gram Positive Cocci in clusters Time to culture positivity (aerobic media): 14.1 hours Notification of: Gram Positive Cocci in clusters called to and read back by: Yasmin Doan MLT [phone] on 11/13/2024 06:08:56 by: Awilda Oden MT Test result called to and read back by Angeli Yi on 11/13/2024 06:14:00 by Yasmin TREVINO ([place]) Comment:Testing performed by : [facility], [address] [place] [address]., [id number] Report Final Report: Staphylococcus hominis Single blood culture positive for this microorganism. Isolate is a possible contaminant. If a similar isolate is recovered from a second blood culture collected within 3 days of this culture, both will be evaluated and, if determined to be the same species, antimicrobial susceptibility testing will be performed. (.) ADA TREVINO ([place]) Comment:Testing performed by : [facility], [address] [facility], [place]., [address] Organism STAPHYLOCOCCUS HOMINIS ADA TREVINO ([place]) Blood 11/12/2024 12:1 1 PM LATHER APPRENTICE 11/12/2024 2:36 PM LATHER APPRENTICE Narrative ADA TREVINO ([place]) - 11/18/2024 11:56 AM LATHER APPRENTICE 1. Blood cultures are incubated for 4 [...] performance characteristics have been verified by the [facility]. For questions about this culture, contact the Microbiology Laboratory at [phone]. Interpretive data was last revised on 24. Pancho Javier MD LAB MICROBIOLOGY - GENERAL O RDERABLES Final Result ADA TREVINO ([place]) 1 [facility] Department [place] [address] * XR Chest 1 Vw Portable (if patient condition/safety warrant portable) (11/12/2024 11:30 AM LATHER APPRENTICE) Anatomical Region Laterality Modality Body, Chest N/A Computed Radiogr aphy 11/12/2024 11:5 6 AM LATHER APPRENTICE Narrative 11/12/2024 11:57 AM LATHER APPRENTICE EXAM DESCRIPTION: XR CHEST 1 VIEW REASON [...] Richard Posadas M.D. MJ: VEL Report ID: [id number] Reading Location: [place] [address] Procedure Note Richard Posadas MD - 11/12/2024 [...] Richard Posadas M.D. MJ: VEL Report ID: [id number] Reading Location: [place] [address] Pancho Javier MD IMG XR PROCEDURES Final Resu lt * (ABNORMAL) Troponin T high-sensitivity series (baseline, 2hr, 4hr, 6hr) (11/12/2024 11:23 AM LATHER APPRENTICE) Pathologist [facility] Trop T hs 16(H) <=14 ng/L Comment: Interpretive Data For further hscTnT resources including the diagnostic algorithm and an aid in interpretation, copy and paste this link: https://nrl.testcatalog.org/show/hsTrop Current Interpretive Data last revised 2020. Blood 11/12/2024 11:2 3 AM LATHER APPRENTICE 11/12/2024 11:27 AM LATHER APPRENTICE Pancho Javier MD LAB BLOOD ORDERABLES Final R esult ADA TREVINO ([place]) 1 [facility] Department [place] [address] * Influenza A/B, RSV, and COVID-19 PCR Nasopharyngeal (11/12/2024 11:23 AM LATHER APPRENTICE) [facility] COVID-19 RNA Negative Negative Influenza A RNA Negative Negative [facility] ([place]) Influenza B RNA Negative Negative [facility] ([place]) RSV RNA Negative Negative [facility] ([place]) Comment: Interpretive data: Testing performed by [facility]. This test is performed using the Accredible Xpert Xpress CoV-2/Flu/RSV plus assay. This is a multiplex, real- time reverse transcriptase PCR assay intended for the qualitative detection of nucleic acid from SARS-CoV-2, influenza A, influenza B, and respiratory syncytial virus. This assay has been cleared by the [place] Food and Drug administration. The performance characteristics have been verified by the [facility]. Results must be considered in the clinical context, and a negative result does not rule out infection. Interpretive Data last revised 2023 Nasopharyngeal 11/12/2024 11 :23 AM LATHER APPRENTICE 11/12/2024 11:27 AM LATHER APPRENTICE Narrative [facility] ([place]) - 11/12/2024 12:25 PM LATHER APPRENTICE Is the Patient experiencing symptoms consistent with COVID?->Yes Pancho Javier MD LAB MICROBIOLOGY - GENERAL O RDERABLES Final Result Performing Organization Address City/[facility]/ZIP Co de Phone Number ADA [facility] ([place]) 1 [facility] [place] [address] * Sepsis Lactate w/ Reflex (11/12/2024 11:23 AM LATHER APPRENTICE) Pathologist [facility] Sepsis Lactate 1.9 0.7 - 2.0 mmol/L Blood 11/12/2024 11:2 3 AM LATHER APPRENTICE 11/12/2024 11:29 AM LATHER APPRENTICE Pancho Javier MD LAB BLOOD ORDERABLES Final R esult ADA TREVINO ([place]) 1 [place] [address] * eGFR (11/12/2024 11:23 AM LATHER APPRENTICE) eGFR 90 >=60 mL/min/1. 73 m2 Comment: [...] reviewed 2021. Blood 11/12/2024 11:2 3 AM LATHER APPRENTICE 11/12/2024 11:27 AM LATHER APPRENTICE Pancho Javier MD LAB BLOOD ORDERABLES Final R esult [facility] ([place]) 1 [facility] Department [place] [address] * (ABNORMAL) Differential, auto (11/12/2024 11:23 AM LATHER APPRENTICE) Neutrophil abs 12.7(H) 1.5 - 6.5 K/cumm [...] on 2018. Blood 11/12/2024 11:2 3 AM LATHER APPRENTICE 11/12/2024 11:27 AM LATHER APPRENTICE Pancho Javier MD LAB BLOOD ORDERABLES Final R esult ADA URIEL ([place]) 1 [facility] Department [place] [address] * (ABNORMAL) Pro B-type natriuretic peptide (11/12/2024 11:23 AM LATHER APPRENTICE) NT-proBNP 3,182(H) <=300 pg/mL Comment: Interpretive Comments: [...] Date: 2018. Blood 11/12/2024 11:2 3 AM LATHER APPRENTICE 11/12/2024 11:27 AM LATHER APPRENTICE us Pancho Javier MD LAB BLOOD ORDERABLES Final R esult [facility] ([place]) 1 [facility] Department [place] [address] * (ABNORMAL) CBC with auto differential (11/12/2024 11:23 AM LATHER APPRENTICE) WBC 16.4(H) 3.8 - 9.9 K/cumm Hgb 14.5 11.9 - 15.5 g/dL [facility] ([place]) Hct 45.7(H) 35.6 - 45.5 % [facility] ([place]) Plt 268 150 - 400 K/cumm [facility] ([place]) MPV 9.5 9.1 - 12.3 fL [facility] ([place]) RBC 4.46 3.90 - 5.20 M/cumm [facility] ([place]) MCV 102.5(H) 81.3 - 96.4 fL [facility] ([place]) MCH 32.5 27.1 - 33.3 pg ADA TREVINO ([place]) MCHC 31.7(L) 32.3 - 35.7 g/dL [facility] ([place]) RDW CV 14.5 11.1 - 14.9 % [facility] ([place]) RDW SD 55.1(H) 35.7 - 48.1 fL [facility] ([place]) NRBC abs 0.00 0.00 - 0.01 K/cumm ADA TREVINO ([place]) Blood 11/12/2024 11:2 3 AM LATHER APPRENTICE 11/12/2024 11:27 AM LATHER APPRENTICE Pancho Javier MD LAB BLOOD ORDERABLES Final R esult Performing Organization Address City/[facility] Co de Phone Number ADA TREVINO ([place]) 1 [facility] [place] [address] * aPTT (11/12/2024 11:23 AM LATHER APPRENTICE) [facility] aPTT 32 28 - 38 sec ADA TREVINO ([place]) Comment: Interpretive Data Heparin therapeutic range: 66.0 - 100.0 seconds. Range based on correlation with therapeutic heparin activity range of 0.3 - 0.7 Units/mL. Current interpretive data was last revised on 2023. Blood 11/12/2024 11:2 3 AM LATHER APPRENTICE 11/12/2024 11:27 AM LATHER APPRENTICE Pancho Javier MD LAB BLOOD ORDERABLES Final R esult Performing Organization Address City/State/[facility] Co de Phone Number ADA [place]) 1 [facility] [place] [address] * Protime-INR (11/12/2024 11:23 AM LATHER APPRENTICE) PT 12.0 9.7 - 13.0 sec [facility] ([place]) INR 1.11 0.90 - 1.20 [facility] ([place]) Comment: Interpretive data Oral anticoagulant therapeutic ranges: Venous thromboembolism prophylaxis or treatment: 2.0-3.0 CARDIOLOGY Standard range: 2.0-3.0 High-intensity range: 2.5-3.5 Refer to indication-specific guidelines for appropriate target ranges for prosthetic heart valve replacement. Current interpretive data was last revised on 2019. Blood 11/12/2024 11:2 3 AM LATHER APPRENTICE 11/12/2024 11:27 AM LATHER APPRENTICE Pancho Javier MD LAB BLOOD ORDERABLES Final R esult Performing Organization Address City/[facility] Co de Phone Number ADA [facility] ([place]) [address] [facility] [place] [address] * (ABNORMAL) Magnesium (11/12/2024 11:23 AM LATHER APPRENTICE) Pathologist [facility] Magnesium 2.8(H) 1.4 - 2.5 mg/dL Blood 11/12/2024 11:2 3 AM LATHER APPRENTICE 11/12/2024 11:27 AM LATHER APPRENTICE Pancho Javier MD LAB BLOOD ORDERABLES Final R esult Performing Organization Address [facility] Co de Phone Number [facility] ([place]) [address] [facility] [place] [address] * (ABNORMAL) Blood gas, venous (11/12/2024 11:23 AM LATHER APPRENTICE) pH, Venous 7.30(L) 7.32 - 7.43 PCO2, Venous 67(C) 40 - 50 mmHg ADA TREVINO ([place]) Comment:Critical result call ed to and read back by GUNNER BUSTILLOS (ER) on 11/12/2024 11:33:49 LATHER APPRENTICE to ANGELI LY. PO2, Venous 34 mmHg ADA Schwartz ([place]) Comment: Interpretive Data No reference range established. Current interpretive data was last revised 2018. HCO3 Venous, Calculated 31(H) 20 - 30 mmol/L [facility] ([place]) BE, venous 3 mmol/L [facility] ([place]) Comment: Interpretive Data No Reference Range Established Current Interpretive Data was last revised on 2018. Blood 11/12/2024 11:2 3 AM LATHER APPRENTICE 11/12/2024 11:31 AM LATHER APPRENTICE us Pancho Javier MD LAB BLOOD ORDERABLES Final R esult [facility] ([place]) 1 [facility] Department [place] [address] * (ABNORMAL) Comprehensive metabolic panel (11/12/2024 11:23 AM LATHER APPRENTICE) Sodium 135 135 - 145 mmol/L Potassium, pl 4.4 3.3 - 4.9 mmol/L [facility] ([place]) Chloride 97 97 - 110 mmol/L [facility] ([place]) CO2 29 22 - 32 mmol/L [facility] ([place]) Anion gap 9 2 - 15 mmol/L [facility] ([place]) BUN 10 6 - 25 mg/dL [facility] ([place]) Creatinine 0.73 0.60 - 1.10 mg/dL [facility] ([place]) Glucose 121 70 - 199 mg/dL [facility] ([place]) [...] Hemolyzed Specimen Blood 11/12/2024 11:2 3 AM LATHER APPRENTICE 11/12/2024 11:27 AM LATHER APPRENTICE Pancho Javier MD LAB BLOOD ORDERABLES Final R esult Performing Organization Address City/[facility] Co de Phone Number [facility] ([place]) 1 [facility] Department [place] [address] * ECG 12 lead (11/12/2024 11:18 AM LATHER APPRENTICE) 11/12/2024 11:1 8 AM LATHER APPRENTICE Narrative [facility] - 11/13/2024 5:38 AM LATHER APPRENTICE Vent Rate: 120 bpm RR Interval: 496 msec PA Interval: 0 msec QRS Duration: 90 msec QT Interval: 287 msec QTC Interval: 359 msec P-R-T [place]: [id number] - 82 - 25 degrees IMPRESSION: ATRIAL FIBRILLATION WITH RAPID VENTRICULAR RESPONSE ABNORMAL RHYTHM ECG NO CHANGE FROM PREVIOUS TRACING NOTED Electronically Signed By: Myles Madrigal MD Pancho Javier MD ECG ORDERABLES Final Result Performing Organization Address [facility] Co de Phone Number [facility] [employer] [facility] * (ABNORMAL) Troponin T high-sensitivity 2-hour (11/02/2024 6:33 PM LATHER APPRENTICE) Trop T hs 19(H) <=14 ng/L Comment: Interpretive Data For further hscTnT resources including the diagnostic algorithm and an aid in interpretation, copy and paste this link: https://nrl.testcatalog.org/show/hsTrop Current Interpretive Data last revised 2020. Trop T hs delta 1 ng/L [facility] ([place]) Trop T hs interp Insignificant [facility] URI[facility] ([place]) Blood 11/02/2024 6:33 PM LATHER APPRENTICE 11/02/2024 6:37 PM LATHER APPRENTICE us Surendra Tinajero MD LAB BLOOD ORDERABLES Final Result Performing Organization Address [facility]/ZIP Co de Phone Number ADA TREVINO ([place]) 1 [facility] Department [place] [address] * (ABNORMAL) Troponin T high-sensitivity series (baseline, 2hr, 4hr, 6hr) (11/02/2024 4:10 PM LATHER APPRENTICE) Trop T hs 18(H) <=14 ng/L Comment: Interpretive Data For further hscTnT resources including the diagnostic algorithm and an aid in interpretation, copy and paste this link: https://nrl.testcatalog.org/show/hsTrop Current Interpretive Data last revised 2020. Blood 11/02/2024 4:10 PM LATHER APPRENTICE 11/02/2024 4:16 PM LATHER APPRENTICE us Gabriel Enciso MD LAB BLOOD ORDERABLES Final Res ult Performing Organization Address City/[facility]/ZIP Co de Phone Number ADA TREVINO ([place]) 1 [facility] [place] [address] * eGFR (11/02/2024 4:10 PM LATHER APPRENTICE) eGFR 73 >=60 mL/min/1. 73 m2 Comment: [...] last reviewed 2021. Blood 11/02/2024 4:10 PM LATHER APPRENTICE 11/02/2024 4:16 PM LATHER APPRENTICE us Gabriel Enciso MD LAB BLOOD ORDERABLES Final Res ult [facility] ([place]) 1 [facility] Department [place] [address] * (ABNORMAL) Differential, auto (11/02/2024 4:10 PM LATHER APPRENTICE) Neutrophil abs 11.1(H) 1.5 - 6.5 K/cumm [...] Neutrophil pct 79.3 % [facility] ([place]) Comment: Interpretive [...] revised on 2018. Blood 11/02/2024 4:10 PM LATHER APPRENTICE 11/02/2024 4:16 PM LATHER APPRENTICE us Gabriel Enciso MD LAB BLOOD ORDERABLES Final Res ult [facility] ([place]) 1 [facility] Department [place] [address] * (ABNORMAL) CBC with auto differential (11/02/2024 4:10 PM LATHER APPRENTICE) WBC 14.0(H) 3.8 - 9.9 K/cumm Hgb 14.2 11.9 - 15.5 g/dL [facility] ([place]) Hct 44.7 35.6 - 45.5 % [facility] ([place]) Plt 282 150 - 400 K/cumm [facility] ([place]) MPV 9.7 9.1 - 12.3 fL [facility] ([place]) RBC 4.34 3.90 - 5.20 M/cumm [facility] ([place]) MCV 103.0(H) 81.3 - 96.4 fL [facility] ([place]) MCH 32.7 27.1 - 33.3 pg [facility] ([place]) MCHC 31.8(L) 32.3 - 35.7 g/dL [facility] ([place]) RDW CV 14.4 11.1 - 14.9 % [facility] ([place]) RDW SD 55.0(H) 35.7 - 48.1 fL [facility] ([place]) NRBC abs 0.00 0.00 - 0.01 K/cumm [facility] ([place]) Blood 11/02/2024 4:10 PM LATHER APPRENTICE 11/02/2024 4:16 PM LATHER APPRENTICE us Gabriel Enciso MD LAB BLOOD ORDERABLES Final Res ult [facility] ([place]) 1 [facility] Department [place] [address] * (ABNORMAL) Comprehensive metabolic panel (11/02/2024 4:10 PM LATHER APPRENTICE) Sodium 139 135 - 145 mmol/L Potassium, pl 4.8 3.3 - 4.9 mmol/L [facility] ([place]) Chloride 103 97 - 110 mmol/L [facility] ([place]) CO2 26 22 - 32 mmol/L [facility] ([place]) Anion gap 10 2 - 15 mmol/L [facility] ([place]) BUN 12 6 - 25 mg/dL [facility] ([place]) Creatinine 0.87 0.60 - 1.10 mg/dL [facility] ([place]) [...] [facility] ([place]) Blood 11/02/2024 4:10 PM LATHER APPRENTICE 11/02/2024 4:16 PM LATHER APPRENTICE us Gabriel Enciso MD LAB BLOOD ORDERABLES Final Res ult [facility] ([place]) 1 [facility] Department [place] [address] * XR Chest 1 Vw Portable (if patient condition/safety warrant portable) (11/02/2024 2:48 PM LATHER APPRENTICE) Anatomical Region Laterality Modality Body, Chest N/A Computed Radiogr aphy 11/02/2024 3:23 PM LATHER APPRENTICE Narrative 11/02/2024 3:26 PM LATHER APPRENTICE EXAM DESCRIPTION: XR CHEST 1 VIEW REASON [...] Isael Oviedo M.D. AM: AM Report ID: [id number] Reading Location: [id number] Procedure Note Isael Oviedo MD - 11/02/2024 [...] Isael Oviedo M.D. AM: AM Report ID: [id number] Reading Location: [id number] Gabriel Enciso MD IMG XR PROCEDURES Final Result * ECG 12 lead (11/02/2024 2:43 PM LATHER APPRENTICE) 11/02/2024 2:43 PM LATHER APPRENTICE Narrative [facility] - 11/02/2024 3:32 PM LATHER APPRENTICE Vent Rate: 107 bpm RR Interval: 560 msec PA Interval: 0 msec QRS Duration: 75 msec QT Interval: 319 msec QTC Interval: 381 msec P-R-T [place]: [id number] - 95 - 42 degrees IMPRESSION: ATRIAL [...] Gabriel Enciso MD ECG ORDERABLES Final Result [facility] * eGFR (10/22/2024 3:08 AM LATHER APPRENTICE) eGFR 65 >=60 mL/min/1. 73 m2 Comment: [...] last reviewed 2021. Blood 10/22/2024 3:08 AM LATHER APPRENTICE 10/22/2024 4:49 AM LATHER APPRENTICE us Caryn Bianchi MD LAB BLOOD ORDERABLES Final Resu lt Performing Organization Address City/[facility]/ZIP Co de Phone Number ADA [facility] ([place]) 1 [facility] Department [place] [address] * Differential, auto (10/22/2024 3:08 AM LATHER APPRENTICE) Neutrophil abs 5.8 1.5 - 6.5 K/cumm Imm gran abs 0.0 0.0 - 0.1 K/cumm [facility] ([place]) Lymphocyte abs 2.6 0.8 - [...] revised on 2018. Blood 10/22/2024 3:08 AM LATHER APPRENTICE 10/22/2024 4:48 AM LATHER APPRENTICE us Caryn Bianchi MD LAB BLOOD ORDERABLES Final Resu lt ADA TREVINO ([place]) 1 [facility] [place] [address] * (ABNORMAL) CBC with auto differential (10/22/2024 3:08 AM LATHER APPRENTICE) WBC 9.4 3.8 - 9.9 K/cumm Hgb [...] [facility] ([place]) Blood 10/22/2024 3:08 AM LATHER APPRENTICE 10/22/2024 4:48 AM LATHER APPRENTICE Caryn Bianchi MD LAB BLOOD ORDERABLES Final Resu lt Performing Organization Address City/[facility] Co de Phone Number ADA TREVINO ([place]) 1 [facility] [place] [address] * Phosphorus (10/22/2024 3:08 AM LATHER APPRENTICE) Phosphorus, pl 3.4 2.3 - 4.5 mg/dL Blood 10/22/2024 3:08 AM LATHER APPRENTICE 10/22/2024 4:49 AM LATHER APPRENTICE aCryn Bianchi MD LAB BLOOD ORDERABLES Final Resu lt ADA TREVINO ([place]) 1 [facility] [email or web address] [address] * Magnesium (10/22/2024 3:08 AM LATHER APPRENTICE) Magnesium 2.0 1.4 - 2.5 mg/dL Blood 10/22/2024 3:08 AM LATHER APPRENTICE 10/22/2024 4:49 AM LATHER APPRENTICE Caryn Bianchi MD LAB BLOOD ORDERABLES Final Resu lt [facility] ([place]) 1 [facility] Department [place] [address] * (ABNORMAL) Basic metabolic panel (10/22/2024 3:08 AM LATHER APPRENTICE) Sodium 138 135 - 145 mmol/L Potassium, pl 3.6 3.3 - 4.9 mmol/L [facility] ([place]) Chloride 103 97 - 110 mmol/L [facility] ([place]) CO2 25 22 - 32 mmol/L [facility] ([place]) Anion gap 10 2 - 15 mmol/L [facility] ([place]) BUN 9 6 - 25 mg/dL [facility] ([place]) Creatinine 0.95 0.60 - 1.10 mg/dL [facility] ([place]) Glucose 81 70 - 199 mg/dL [facility] ([place]) [...] 2022. Calcium 8.1(L) 8.5 - 10.3 mg/dL [facility] ([place]) Blood 10/22/2024 3:08 AM LATHER APPRENTICE 10/22/2024 4:49 AM LATHER APPRENTICE Caryn Bianchi MD LAB BLOOD ORDERABLES Final Resu lt ADA TREVINO ([place]) 1 [facility] Department [place] [address] * eGFR (10/21/2024 6:38 AM LATHER APPRENTICE) eGFR 76 >=60 mL/min/1. 73 m2 Comment: [...] last reviewed 2021. Blood 10/21/2024 6:38 AM LATHER APPRENTICE 10/21/2024 7:15 AM LATHER APPRENTICE Gabriel Enciso MD LAB BLOOD ORDERABLES Final Res ult Performing Organization Address City/[facility]/ZIP Co de Phone Number ADA TREVINO ([place]) 1 [facility] Department [place] [address] * (ABNORMAL) Differential, auto (10/21/2024 6:38 AM LATHER APPRENTICE) Neutrophil abs 8.9(H) 1.5 - 6.5 K/cumm [...] revised on 2018. Blood 10/21/2024 6:38 AM LATHER APPRENTICE 10/21/2024 7:15 AM LATHER APPRENTICE us Gabriel Enciso MD LAB BLOOD ORDERABLES Final Res ult [facility] 1 [facility] Department [place] [address] * (ABNORMAL) CBC with auto differential (10/21/2024 6:38 AM LATHER APPRENTICE) WBC 12.4(H) 3.8 - 9.9 K/cumm Hgb 13.6 11.9 - 15.5 g/dL [facility] ([place]) Hct 42.0 35.6 - 45.5 % [facility] ([place]) Plt 241 150 - 400 K/cumm [facility]ER [...] [facility] ([place]) Blood 10/21/2024 6:38 AM LATHER APPRENTICE 10/21/2024 7:15 AM LATHER APPRENTICE us Gabriel Enciso MD LAB BLOOD ORDERABLES Final Res ult [facility] ([place] 1 [facility] Department [place] [address] * (ABNORMAL) Basic metabolic panel (10/21/2024 6:38 AM LATHER APPRENTICE) Sodium 138 135 - 145 mmol/L Potassium, pl 3.3 3.3 - 4.9 mmol/L [facility] ([place]) Chloride 103 97 - 110 mmol/L [facility] ([place]) CO2 28 22 - 32 mmol/L [facility] ([place]) Anion gap 7 2 - 15 mmol/L [facility] ([place]) BUN 11 6 - 25 mg/dL [facility] ([place]) Creatinine 0.84 0.60 - 1.10 mg/dL [facility] ([place]) Glucose 122 70 - 199 mg/dL [facility] ([place]) Comment: Interpretive Data Fasting glucose >/= [...] 2022. Calcium 8.1(L) 8.5 - 10.3 mg/dL [facility] ([place]) Blood 10/21/2024 6:38 AM LATHER APPRENTICE 10/21/2024 7:15 AM LATHER APPRENTICE Gabriel Enciso MD LAB BLOOD ORDERABLES Final Res ult [facility] ([place]) 1 [facility] Department [place] [address] * Influenza A/B, RSV, and COVID-19 PCR Nasopharyngeal (10/20/2024 9:52 PM LATHER APPRENTICE) COVID-19 RNA Negative Negative Influenza A RNA Negative Negative [facility] ([place]) Influenza B RNA Negative Negative [facility] ([place]) RSV RNA Negative Negative [facility] ([place]) Comment: Interpretive data: Testing performed by [facility]. This test is performed using the Accredible Xpert Xpress CoV-2/Flu/RSV plus assay. This is a multiplex, real- time reverse transcriptase PCR assay intended for the qualitative detection of nucleic acid from SARS-CoV-2, influenza A, influenza B, and respiratory syncytial virus. This assay has been cleared by the [place] Food and Drug administration. The performance characteristics have been verified by the [facility]. Results must be considered in the clinical context, and a negative result does not rule out infection. Interpretive Data last revised 2023 Nasopharyngeal 10/20/2024 9: 52 PM LATHER APPRENTICE 10/20/2024 9:58 PM LATHER APPRENTICE Narrative ADA TREVINO ([place]) - 10/20/2024 10:46 PM LATHER APPRENTICE Is the Patient experiencing symptoms consistent with COVID?->No us Susan George MD LAB MICROBIOLOGY - GENE RAL ORDERABLES Final Result ADA TREVINO ([place]) 1 [facility] Department [place] [address] * CT Abdomen Pelvis WO Contrast (10/20/2024 8:06 PM LATHER APPRENTICE) Anatomical Region Laterality Modality Body N/A Computed Tomogra phy 10/20/2024 8:23 PM LATHER APPRENTICE Narrative 10/20/2024 8:34 PM LATHER APPRENTICE EXAM DESCRIPTION: CT ABDOMEN PELVIS WO CONTRAST [...] CHEST: Moderate emphysema in the lung bases. Fnxj-[id number] cardiomegaly with coronary artery calcification. No effusion. [...] Cesar Pang M.D. AR: FATEMEH Report ID: [id number] Reading Location: [id number] Procedure Note Cesar Pang MD - 10/20/2024 [...] CHEST: Moderate emphysema in the lung bases. [id number] cardiomegaly with coronary artery calcification. No effusion. [...] Cesar Pang M.D. AR: FATEMEH Report ID: [id number] Reading Location: [id number] Gabriel Enciso MD IMG CT PROCEDURES Final Result * (ABNORMAL) Urinalysis reflex to microscopic and culture Urine (10/20/2024 7:46 PM LATHER APPRENTICE) Color, ur Yellow Yellow Clarity, ur Clear [...] tendency for uric acid stone formation. Source: [facility] [place] Current Interpretive Data was last revised on [...] [facility] ([place]) Urine 10/20/2024 7:46 PM LATHER APPRENTICE 10/20/2024 7:48 PM LATHER APPRENTICE Gabriel Enciso MD LAB MICROBIOLOGY - GENERAL ORD ERABLES Final Result [facility] ([place]) [facility] Department [place] [address] * (ABNORMAL) Urinalysis, microscopic only (10/20/2024 7:46 PM LATHER APPRENTICE) WBC, ur 0-5 0 - 5 /HPF RBC, ur 6-10(A) 0 - 2 /HPF [facility] ([place]) Epithelial cells, squamous, ur 6-10(A) 0 - 5 /HPF [facility] [facility] Bacteria, ur Trace(A) [facility] ([place]) Mucous, ur Present(A) [facility] ([place]) Hyaline casts, ur 1-5 0 - 10 /LPF [facility] ([place]) Culture Reflex Comment Reflex conditions for urine culture (WBC >10) not met. [facility] ([place]) Urine 10/20/2024 7:46 PM LATHER APPRENTICE 10/20/2024 7:48 PM LATHER APPRENTICE Gabriel Enciso MD LAB URINE ORDERABLES Final Res ult [facility] ([place] 1 [facility] Department [place] [address] * eGFR (10/20/2024 5:43 PM LATHER APPRENTICE) eGFR 63 >=60 mL/min/1. 73 m2 Comment: [...] last reviewed 2021. Blood 10/20/2024 5:43 PM LATHER APPRENTICE 10/20/2024 5:48 PM LATHER APPRENTICE us Gabriel Enciso MD LAB BLOOD ORDERABLES Final Res ult [facility] [place] 1 [facility] Department [place] [address] * (ABNORMAL) Differential, auto (10/20/2024 5:43 PM LATHER APPRENTICE) Neutrophil abs 12.4(H) 1.5 - 6.5 K/cumm [...] Neutrophil pct 82.3 % [facility] Comment: Interpretive Data Percent cell count reference ranges are not reported, since discordance with absolute values may lead to misinterpretation of CBC data. Current Interpretive Data was last revised on 2018. Imm gran pct 0.5 % [facility] ([place]) Comment: Interpretive Data Percent cell count reference ranges are not reported, since discordance with absolute values may lead to misinterpretation of CBC data. Current Interpretive Data was last revised on 2018. Lymphocyte pct 10.4 % [facility] Comment: Interpretive Data Percent cell count reference [...] revised on 2018. Blood 10/20/2024 5:43 PM LATHER APPRENTICE 10/20/2024 5:48 PM LATHER APPRENTICE us Gabriel Enciso MD LAB BLOOD ORDERABLES Final Res ult [facility] ([place]) 1 [facility] Department [place] [address] * (ABNORMAL) CBC with auto differential (10/20/2024 5:43 PM LATHER APPRENTICE) WBC 15.1(H) 3.8 - 9.9 K/cumm Hgb [...] - 0.01 K/cumm [facility] ([place]) Blood (Blood, Venous) 10/20/2024 5:43 PM LATHER APPRENTICE 10/20/2024 5:48 PM LATHER APPRENTICE Gabriel Enciso MD LAB BLOOD ORDERABLES Final Res ult [facility] ([place] 1 [facility] [place] [address] * (ABNORMAL) Lipase (10/20/2024 5:43 PM LATHER APPRENTICE) Lipase 8(L) 10 - 99 Units/L Blood (Blood, Venous) 10/20/2024 5:43 PM LATHER APPRENTICE 10/20/2024 5:48 PM LATHER APPRENTICE Gabriel Enciso MD LAB BLOOD ORDERABLES Final Res ult Performing Organization Address City/[facility]/ZIP Co de Phone Number [facility] ([place]) 1 [facility] [place] [address] * Comprehensive metabolic panel (10/20/2024 5:43 PM LATHER APPRENTICE) Pathologist [facility] Sodium 137 135 - 145 mmol/L Potassium, pl 3.9 3.3 - 4.9 mmol/L [facility] ([place]) Chloride 97 97 - 110 mmol/L [facility] ([place]) CO2 31 22 - 32 mmol/L [facility] ([place]) Anion gap 9 2 - 15 mmol/L [facility] ([place]) BUN 14 6 - 25 mg/dL [facility] ([place]) Creatinine 0.98 0.60 - 1.10 mg/dL [facility] ([place]) Glucose 104 70 - 199 mg/dL [facility] ([place]) Comment: Interpretive Data Fasting glucose >/= [...] Hemolyzed S pecimen Blood 10/20/2024 5:43 PM LATHER APPRENTICE 10/20/2024 5:48 PM LATHER APPRENTICE us Gabriel Enciso MD LAB BLOOD ORDERABLES Final Res ult [facility] ([place]) 1 [facility] Department [place] [address] * eGFR (10/15/2024 3:33 PM LATHER APPRENTICE) eGFR 68 >=60 mL/min/1. 73 m2 Comment: [...] last reviewed 2021. Blood 10/15/2024 3:33 PM LATHER APPRENTICE 10/15/2024 3:50 PM LATHER APPRENTICE us Gabriel Enciso MD LAB BLOOD ORDERABLES Final Res ult [facility] ([place] 1 [facility] Department [place] [address] * (ABNORMAL) Differential, auto (10/15/2024 3:33 PM LATHER APPRENTICE) Neutrophil abs 6.6(H) 1.5 - 6.5 K/cumm Imm gran abs 0.1 0.0 - 0.1 K/cumm [facility] ([place]) Lymphocyte abs 2.0 0.8 - 3.3 K/cumm [facility] ([place]) Monocyte abs 0.9(H) 0.2 - 0.8 K/cumm [facility] ([place]) Eosinophil abs 0.1 0.0 - 0.5 K/cumm [facility] ([place]) Basophil abs 0.0 0.0 - 0.1 K/cumm [facility] ([place]) Neutrophil pct 68.5 % [facility] ([place]) Comment: Interpretive Data Percent cell count reference ranges are not reported, since discordance with absolute values may lead to misinterpretation of CBC data. Current Interpretive Data was last revised on 2018. Imm gran pct 0.5 % [facility] Comment: Interpretive Data Percent cell count reference [...] 2018. Monocyte pct 9.2 % [facility] Comment: Interpretive Data Percent cell count reference ranges are not reported, since discordance with absolute values may lead to misinterpretation of CBC data. Current Interpretive Data was last revised on 2018. Eosinophil pct 0.8 % [facility] Comment: Interpretive Data Percent cell count reference [...] revised on 2018. Blood 10/15/2024 3:33 PM LATHER APPRENTICE 10/15/2024 3:50 PM LATHER APPRENTICE us Gabriel Enciso MD LAB BLOOD ORDERABLES Final Res ult [facility] ([place]) 1 [facility] Department [place] [address] * (ABNORMAL) CBC with auto differential (10/15/2024 3:33 PM LATHER APPRENTICE) WBC 9.6 3.8 - 9.9 K/cumm Hgb [...] [facility] ([place]) Blood 10/15/2024 3:33 PM LATHER APPRENTICE 10/15/2024 3:50 PM LATHER APPRENTICE us Gabriel Enciso MD LAB BLOOD ORDERABLES Final Res ult [facility] ([place]) 1 [facility] Department [place] [address] * (ABNORMAL) Comprehensive metabolic panel (10/15/2024 3:33 PM LATHER APPRENTICE) Sodium 136 135 - 145 mmol/L Potassium, [...] Hemolyzed S pecimen Blood 10/15/2024 3:33 PM LATHER APPRENTICE 10/15/2024 3:50 PM LATHER APPRENTICE us Gabriel Enciso MD LAB BLOOD ORDERABLES Final Res ult [facility] ([place] 1 [facility] Department [place] [address] * CT Abdomen Pelvis WO Contrast (10/15/2024 3:07 PM LATHER APPRENTICE) Anatomical Region Laterality Modality Body N/A Computed Tomogra phy 10/15/2024 3:44 PM LATHER APPRENTICE Narrative 10/15/2024 3:57 PM LATHER APPRENTICE EXAM DESCRIPTION: CT ABDOMEN PELVIS WO CONTRAST [...] Richard Posadas M.D. MJ: VEL Report ID: [id number] Reading Location: [id number] Procedure Note Richard Posadas MD - 10/15/2024 [...] Richard Posadas M.D. MJ: VEL Report ID: [id number] Reading Location: [id number] Gabriel Enciso MD IM CT PROCEDURES Final Result * COLONOSCOPY (09/10/2021 1:54 PM CDT) Anatomical Region Laterality Modality Other Narrative Procedure Note Myron Trejo MD - 09/10/2021 1:54 PM CDT [facility] Patient Name: Roberta Bruner Procedure Date: 09/10/2021 1:54 PM Date of : 1955 Admit Type: Outpatient Age: 66 Gender: Female Attending MD: Myron Trejo M.D. Room: [facility] ENDOSCOPY ROOM 1 Note Status: Finalized Patient [...] under direct vision. The Pediatric Colonoscope [id number] was introducedthrough the anus and advanced to [...] 1:54 PM Procedure Code(s): --- Professional --- 45729, Colonoscopy, flexible; with removal of tumor(s), polyp(s), or other lesion(s) by snare technique 85319, 59, Colonoscopy, flexible; with biopsy, single or multiple Diagnosis Code(s): --- Professional --- K63.5, Polyp of colon Z12.11, Encounter for screening for malignant neoplasm of colon K64.8, Other hemorrhoids K57.30, Diverticulosis of large intestine without perforation orabscess without bleeding CPT copyright 2019 [employer]. All rights reserved. The codes documented in this report are preliminary and upon supervisor cutting and sewing room reviewmay be revised to meet current compliance requirements. Recognized by the [employer] for promoting quality in endoscopy Myron Trejo MD ENDOSCOPY PROCEDURES Final Result from Last 3 Months or Most Recently Relevant to Health Maintenance Insurance [facility] Advance Directives For more information, please contact: [phone] * Full Code (Latest Code Status on [...] 3:46 AM 03/17/2024 9:08 PM Care Teams Refrigeration Service Technician Relationship Specialty Start Date End Date Sekou Trevino MD [address] [place] [address] PCP - General Family Medicine 03/06/23 Donis Butt MD [address] [address] Orthopedic Surgery 10/15/17 Richard Amaral, PT Physical Therapist Physical Therapy 10/24/17
--- OUTSIDE RECORDS SUMMARY | 2025-01-04 13:17 | XMS_ITS | Data Portability ---
Author Organization [facility], Main Office Address [address] [place] [address] Assessment No assessment recorded. Plan of Treatment Reminders Order Date Submit Date Provider Last Modified By Organization Details Last Modified Time Details Appointments None recorded. Lab None recorded. Referral pain management referral - Please call pt to schedule appt. Thank you 2022 023 [email or web address] 7 Qamar Maloney MD, [address] [facility], [address] [address], [place], [address], 08:36:20 Procedures None recorded. Surgeries None recorded. Imaging None recorded. Medication Orders cholecalcif denise (vitamin D3) 1,250 mcg (50,000 unit) capsule 2022 023 [facility] [address], [address], 3 18:53:48 methocarbam ol 750 mg tablet 2022 023 [facility] [address], [address], 3 18:53:48 dicyclomine 20 mg tablet 2022 023 [facility] [address], [address], 18:53:46 ondansetron 4 mg disintegrat ing tablet 2022 023 [facility] [address] [place], [address], 3 18:53:48 amoxicillin 875 mg tablet 2022 023 [facility] [address] In [facility], [address] [place] [address], [address], 18:53:46 pantoprazol e 40 mg tablet,karina yed release 2022 023 [facility] [address] In [facility], [address] [place] [address], [address], 18:53:47 Linzess 145 mcg capsule 2022 023 [facility] [address], [address], 18:53:48 atorvastati n 40 mg tablet 2022 023 [facility] [address] In [facility], [address] [place] [address], [address], 3 18:53:47 isosorbide mononitrate ER 30 mg tablet,exte nded release 24 hr 2022 023 [facility] [address], [address], 18:53:47 Patient TargetsNo targets recorded. Patient InstructionsNo instructions recorded. Reason for Referral Pain Management Referral for Chronic back pain greater than three months duration Please call pt to schedule appt. Thank you Referring Physician: [facility], Encounter Date: 01/30/2023 Problems Name Problem SNOMED Code Status Onset Date Resolution Date Notes Provider Name and Address Organization Details Recorded Time Enlarged uterus 441713327 Active Not Available [facility] 09:17:46 Postmenopa usal bleeding 26108344 Active Not Available [facility] 3 09:17:46 Chronic back pain greater than three months duration 094585405316 Active 2022 RAFAEL Taylor [address], [address], [place], [address] , [employer] [facility] 3 16:02:31 Urinary incontinen ce 176666777 Active 2022 RAFAEL Taylor [address], [address], [place], [address] , [employer] [facility] 3 16:10:59 Coronary arterioscl erosis 22722834 Active 2022 RAFAEL Taylor [address], [address], [place], [address] , [employer] [facility] 3 16:13:19 Cobalamin deficiency 252427089 Active 2022 RAFAEL Taylor [address], [address], [place], [address] , [employer] [facility] 3 16:15:09 Pernicious anemia 08566013 Active 2022 RAFAEL Taylor [address], [address], [place], [address] , [employer] [facility] 3 16:15:23 Abdominal pain 53725201 Active 2022 RAFAEL Taylor [address], [place], [address] , [employer] [facility] 3 16:15:48 Nausea 168697094 Active 2022 RAFAEL Taylor [address], [place], [address] , [employer] [facility] 3 16:19:28 Gastroesop hageal reflux disease without esophagiti s 898503621 Active [address], [place], [address] , [employer] [facility] 3 16:20:17 Cough 80755435 Active 2022 KELLY TaylorP [address] [facility], [address] [address], [place], [address] , [facility] [employer] [facility] 3 16:21:04 Therapeuti c opioid induced constipati on 6143237948517 02 Active 2022 KELLY TaylorP [address] [facility], [facility] [address], [place], [address] , [facility] [employer] [facility] 3 18:50:14 Problem Notes None recorded. Medical Equipment None Reported. Allergies Allergen ID Allergen Name Allergen Category Reaction Reaction Severity Criticality Documentation Date Start Date Code Code System Note Provider Name and Address Organization Details Recorded Time 94914 tramadol medicatio n rash mild Not available 01/15/2023 02222 RxNorm Not Available [facility] 3 09:22:22 17131 prednison e medicatio n respirato ry distress moderate Not available 01/15/2023 8640 RxNorm Not Available [facility] 3 09:22:22 44975 Norvasc medicatio n rash mild Not available 01/15/2023 99486 RxNorm Not Available [facility] 3 09:22:22 84092 Augmentin medicatio n other moderate Not available 01/15/2023 18067 2 RxNorm thrus h anfd yeast infec tion Not Available [facility] 3 09:22:22 Medications Name Sig Start Date Stop Date Status Note LastModified by Organization Details LastModified Time atorvastati n 40 mg tablet Take 1 tablet every day by oral route for 30 days. 2022 active Not Available Not Available Not Avai lable fentanyl 50 mcg/hr transdermal patch 1 PATCH ON THE SKIN EVERY 72 HOURS active Not Available Not Available No t Available gabapentin 600 mg tablet TAKE 1 TABLET BY MOUTH EVERY 6 HOURS FOR 30 DAYS active Not Available Not Available No t Available azithromyci n 250 mg tablet TAKE 2 TABLETS BY MOUTH TODAY, THEN TAKE 1 TABLET DAILY FOR 4 DAYS DIRECTED 01/30 completed Not Available Not Available Not Available isosorbide mononitrate ER 30 mg tablet,exte nded release 24 hr Take 1 tablet every day by oral route. active Not Available Not Available No t Available cyanocobala min (vit B-12) 1,000 mcg tablet TAKE 1 TABLET BY MOUTH EVERY DAY active Not Available Not Available No t Available hydralazine 25 mg tablet TAKE 2 TABLETS BY MOUTH THREE TIMES A DAY active Not Available Not Available No t Available metronidazo le 500 mg tablet TAKE 1 TABLET BY MOUTH THREE TIMES A DAY FOR 10 DAYS active Not Available Not Available No t Available hydrocodone 10 mg-acetamin ophen 325 mg tablet TAKE 1 TABLET BY MOUTH EVERY 4 HOURS NEEDED FOR 7 DAYS active Not Available Not Available No t Available doxycycline monohydrate 100 mg tablet TAKE 1 TABLET BY MOUTH TWICE A DAY FOR 10 DAYS active Not Available Not Available No t Available ondansetron 8 mg disintegrat ing tablet DISSOLVE 1 TAB BY MOUTH EVERY 8 HOURS NEEDED FOR NAUSEA AND VOMITING active Not Available Not Available No t Available isosorbide dinitrate 30 mg tablet TAKE 1 TABLET BY MOUTH EVERY DAY active Not Available Not Available No t Available amoxicillin 875 mg tablet TAKE 1 TABLET BY MOUTH EVERY 12 HOURS FOR 10 DAYS active Not Available Not Available No t Available methocarbam ol 750 mg tablet TAKE 1 TABLET 3 TIMES A DAY BY ORAL ROUTE. 2022 active Not Available Not Available Not Avai lable dicyclomine 20 mg tablet TAKE 1 TABLET BY MOUTH THREE TIMES A DAY 2022 active Not Available Not Available Not Avai lable pantoprazol e 40 mg tablet,karina yed release TAKE 1 TABLET BY MOUTH EVERY DAY active Not Available Not Available No t Available promethazin e 25 mg tablet 01/30 completed Not Available Not Available Not Available nitroglycer in 0.[address] BY SUBLINGUA L ROUTE EVERY 5 MINUTES active Not Available Not Available No t Available gabapentin 300 mg capsule TAKE 2 CAPSULES BY MOUTH FOUR TIMES DAILY active Not Available Not Available No t Available hydralazine 50 mg tablet TAKE 1 TABLET BY MOUTH TWICE A DAY active Not Available Not Available No t Available furosemide 20 mg tablet 01/30 completed Not Available Not Available Not Available diazepam 10 mg tablet TAKE 1 TABLET BY MOUTH EVERY DAY active Not Available Not Available No t Available albuterol sulfate HFA 90 mcg/actuati on aerosol inhaler INHALE 2 PUFFS BY MOUTH EVERY 4 HOURS NEEDED FOR WHEEZING active Not Available Not Available No t Available hydromorpho ne 4 mg tablet 01/30 completed Not Available Not Available Not Available ondansetron 4 mg disintegrat ing tablet Place 1 tablet twice a day by transling ual route for 30 days. active Not Available Not Available No t Available diazepam 5 mg tablet TAKE 1 TABLET (5 MG TOTAL) BY MOUTH DAILY. active Not Available Not Available No t Available Flovent HFA 110 mcg/actuati on aerosol inhaler 1 PUFF INHALED EVERY 12 HOURS ADMINISTE R WITH SPACER active Not Available Not Available No t Available doxycycline hyclate 100 mg tablet,karina yed release TAKE 1 TABLET BY MOUTH TWICE A DAY FOR 7 DAYS active Not Available Not Available No t Available fentanyl 2015 active Not Available Not Available Not Avai lable Valium 2015 active Not Available Not Available Not Avai lable cholecalcif denise (vitamin D3) 1,250 mcg (50,000 unit) capsule TAKE 1 CAPSULE EVERY WEEK BY ORAL ROUTE. active Not Available Not Available No t Available M-M-R II (PF) 1,000-12,50 0 TCID50/0.5 mL subcutaneou s solution active Not Available Not Available N ot Available Voltaren 1 % topical gel active Not Available Not Available Not Available Linzess 145 mcg capsule TAKE 1 CAPSULE BY MOUTH EVERY DAY 2022 active Not Available Not Available Not Avai lable naloxone 4 mg/actuatio n nasal spray PLEASE SEE ATTACHED FOR DETAILED DIRECTION S active Not Available Not Available No t Available Linzess 72 mcg capsule TAKE 1 CAPSULE BY MOUTH EVERY DAY active Not Available Not Available No t Available Vitals Date Recorded Body weight Body temperature Heart rate Oxygen saturation Oxygen saturation in Arterial blood by Pulse oximetry Body mass index (BMI) Body height Systolic blood pressure Diastolic blood pressure Provider Name and Address Organization Details Last Updated DateTime 3 39223.1 4 g 98 [degF] 60 /min 96 % 96 % 30.8 kg/m2 167.64 cm 136 mm[Hg] 82 mm[Hg] SILVER Abraham [facility] 3 15:28:09 Social History Question Answer Notes LastModified by Organizat ion Details LastModified Time Tobacco Smoking Status Former Smoker Lia Ambrosio MA null, [facility] [employer] [facility] 01/30/2023 15:32:13 What Is Your Level Of Alcohol Consumption? None [email or web address] Information not available 01/30/2023 What Is Your Level Of Caffeine Consumption? Moderate [email or web address] Information not available 01/30/2023 What Type Of Diet Are You Following? 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 No Information not available 01/30/2023 Sex: Unknown Functional Status Question Answer Note LastModified by Organization D etails LastModified Time What is your exercise level? None [email or web address] Information not available 01/30/2023 Mental Status None recorded. Family History Nothing Reported. Medical History No medical history recorded. Gynecological HistoryNo gynecological history recorded. Obstetrics History GPAL:G 0 P 0 0 0 0 Past Encounters Encounter ID Performer Location Encounter Start Date Encounter Closed Date Diagnosis/Indication Diagnosis SNOMED-CT Code Diagnosis ICD10 Code Diagnosis Note [id number] RAFAEL Taylor [facility] Primary [facility] [address] [place] [address] 01/30/2023 15:02:24 01/30/2023 16:44:35 Chronic back pain greater than three months duration 8747681964 02 G89.29 Chronic s/p back surgery x 4Will refer pt to pain management per her request. Requests referral be sent to Qamar Maloney in [place], [place].Pt advised we will not be taking over her pain medication s, or any other controlled substances . Urinary incontinence 165 565686 R32 ChronicSx may represent neurogenic bladder d/t multiple back issues/natalia geriesenco uraged q 2hr toileting, Kegel exercises. Coronary arteriosclerosis 54751970 I25.10 ChronicDis cussed need for regular exercise, increase intake of water/vege tables/fib er. Decrease the amount of greasy/fat ty/fried foods in diet. Consider taking a daily fish oil supplement .Continue atorvastat in 40mg daily Pernicious anemia 539509 09 D51.0 ChronicUnk nown statusCont inue with weekly D3 supplement Abdominal pain 26995961 R10.9 ChronicGo to ED for worsening abdominal pain, N/V/D or fever. Suspect pain may be secondary to chronic opioid-ind uced constipati on.Continu e with dicyclomin e 20mg TID PRNEncoura ged pt to f/u with GI in the near future. Therapeuti c opioid induced constipation 6338057203 60415 K59.00 T40.2X5A ChronicHig h fiber diet with whole grains, fruits and veggies. Fiber supplement with Metamucil or Citracel. Increase water, fluid intake-Rec ommend at least 6-8 8oz glasses day. Avoid straining. Continue Linzess 145mcg daily Nausea 963112149 R11.0 Patient was seen in the office today for nausea. Reviewed history regarding recent illness, medication s, symptoms, and physical exam. Studies ordered as below. Discussed plan with {{patient* family pa tient and family car egiver pat ient and caregiver} }, who expresses understand ing. Follow up as needed. Gastroesop hageal reflux disease without esophagitis 545561197 K21.9 ChronicAnt i-reflux measures reviewed: avoid spicy foods, recumbency after eating. Small meals recommende d. Take medication on empty stomach with full glass water. Cough 19220054 R05.9 Cough The patient presents {{history of chronic cough dry cough* wet cough}}. The patient's condition is {{stable* improved w orsening i mproving u nchanged}} . Based on the findings today we will {{not begin begi n* increas e decrease change di scontinue} } medication therapy. Further workup {{as below not needed at this time*}}. Reviewed symptomati c care instructio arlin, the expected course of these illnesses and explained that coughing can persist for some time. Provided precaution s for signs of worsening disease and instructio ns on contacting us if symptoms worsen. Although pt has documented allergy to augmentin, she indicates she is able to take amoxicilli n. Health Concerns Section Related Observation LastModified by Organization Detai ls LastModified Time None Recorded Concern Status LastModified by Organization Details LastModified Time None Recorded Advance Directives Directive None Recorded Payers Encounter Date Sequence Insurance Name Policy Number Policy Castanon Covered Member ID Castanon Member ID Guarantor Name 01/30/2023 1 *SELF PAY* Silver Bruner Notes Date Note Type Note Provider Name and Address Organization Details Recorded Time 01/30/2023 text/html 1. Pt in office to establish care. Previous provider retired and the person she saw after that she didn't like.2. Pt states she has had 4 failed back surgeries. Pt states that she needs a referral to pain management. Would like to see Dr. Qamar Maloney in [place], [place]. Pt states she isn't able to stand for more than 10 min w/o severe pain. Pt.3. Pt states she has SVT, bradycardia4. Pt states she just got over a virus. States she had sx for over 5 weeks and had a cxr that was ordered by most recent pcp.5. Pt states she needs a hysterectomy b/c she has fibroids. Rohan Ann, RAFAEL [address] [facility] [address], [place], [address], [facility] 01/30/2023 18:54:17 OBGyn Episode No OBEpisode recorded.
--- OUTSIDE RECORDS SUMMARY | 2025-01-04 13:18 | XMS_ITS | Encounter Summary ---
Author Organization [facility] Healthcare Address [address] [place] [address] Care Team Providers Care Plateman Name Role Phone Donis Butt MD Unavailable [phone] Richard Amaral PT Unavailable Unavaila ble Sekou Trevino MD Primary Care Provider [phone] Reason for Referral * Consultation (Routine) - Authorized Specialty Diagnoses / Procedures Referred By Janiya ramon Referred To Contact Pain Management Diagnoses Chronic back pain greater than 3 months duration Postlaminectomy syndrome, lumbar Radiculopathy, lumbosacral region Spinal stenosis of lumbar region with neurogenic claudication Sekou Trevino MD [address] [facility] [place] [address] Phone: tel: fax: [facility] [address] [place] [address] Phone: tel: fax: Referral ID Status Reason Start Date Expiration Date Visits Requested Visits Authorized [id number] Authorized Specialty Services Required 01/04/2025 02/03/2026 1 1 Question Answer Please select the performing region: [facility] [[id number]] Please select the performing department: [facility] [[id number]] # of visits: 1 HIATRY ADULT PHYSICIAN * Diagnostic Imaging (Routine) - Authorized Specialty Diagnoses / Procedures Referred By Contac t Referred To Contact Diagnoses Rib pain on left side Procedures XR Ribs Bilateral 3 Vw Sekou Trevino MD [address] [place] [address] Phone: tel: fax: External Order Referral ID Status Reason Start Date Expiration Date V isits Requested Visits Authorized [id number] Authorized 01/04/2025 02/03/2026 1 1 HIATRY ADULT PHYSICIAN Reason for Visit * Reason Comments Follow-up 4 mo follow up Fall Pt reports fall at h ome this past Friday. Pt states she fell onto a table and complains of rib pain Encounter Details Date Type Department Care Team (Late st Contact Info) Description 01/04/2025 11:15 AM PSYCHIATRY ADULT PHYSICIAN Office Visit [facility] [address] [facility] [place] [address] Sekou Trevino MD [address] [place] [address] [address] Rib pain on left side (Primary Dx); Anxiety; Chronic back pain greater than 3 months duration; Postlaminectomy syndrome, lumbar; Radiculopathy, lumbosacral region; Spinal stenosis of lumbar region with neurogenic claudication Social History Tobacco Use Types Packs/Day Years Used Date Smoking Tobacco: Every Day Cigarettes 0.2 53.1 Started: 1970 Smokeless Tobacco: Never Comments:07/06/24 Smokes 1-2 cigarettes a day Alcohol [...] materials from doctor or pharmacy Often 11/02/2024 [facility] Utilities Answer Date Recorded In the past 12 months has th e electric, gas, oil, or water [employer] threatened to shut off services in your [...] often do you attend chur ch or catholic services? 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 Not on file Not on file N ot on file documented as of this encounter Last Filed Vital Signs Vital Sign Reading Time Taken Comments Blood Pressure 122/74 01/04/2025 11:16 AM PSYCHIATRY ADULT PHYSICIAN Pulse 85 01/04/2025 11:16 AM PSYCHIATRY ADULT PHYSICIAN Temperature 36.5 C (97.7 F) 01/04/2025 11:16 AM PSYCHIATRY ADULT PHYSICIAN Respiratory Rate 24 01/04/2025 11:16 AM PSYCHIATRY ADULT PHYSICIAN Oxygen Saturation 98% 01/04/2025 11:16 AM PSYCHIATRY ADULT PHYSICIAN Inhaled Oxygen Concentration - - Weight 79.8 kg (176 lb) 01/04/2025 11:16 AM PSYCHIATRY ADULT PHYSICIAN Height 167.6 cm (5' 6 ) 01/04/2025 11:16 AM PSYCHIATRY ADULT PHYSICIAN Body Mass Index 28.41 01/04/2025 11:16 AM PSYCHIATRY ADULT PHYSICIAN documented in this encounter Ordered Prescriptions Prescription Sig Dispense Quantity Refills Last Filled Start Date End Date diazePAM (VALIUM) 5 mg tabletIndications: Anxiety Take 1 tablet (5 mg total) by mouth every 6 (six) hours as needed for anxiety 120 tablet 01/04/2025 documented in this encounter Plan of Treatment Scheduled Orders Name Type Priority Associated Diagnoses Orde r Schedule XR Ribs Bilateral 3 Vw Imaging Schedule Routine, Read Routine (OP Routine) Rib pain on left side Expected: 01/04/2025, Expires: 01/04/2026 Scheduled Referrals Name Type Priority Associated Diagnoses Orde r Schedule Ambulatory referral to Pain Management Outpatient Referral Routine Chronic back pain greater than 3 months duration Postlaminectomy syndrome, lumbar Radiculopathy, lumbosacral region Spinal stenosis of lumbar region with neurogenic claudication Expected: 01/18/2025 (Approximate), Expires: 01/04/2026 documented as of this encounter Visit Diagnoses Diagnosis Rib pain on left side- Primary Anxiety Anxiety state, unspecified Chronic back pain greater than 3 months duration Postlaminectomy syndrome, lumbar Postlaminectomy syndrome, lumbar region Radiculopathy, lumbosacral region Thoracic or lumbosacral neuritis or radiculitis, unspecified Spinal stenosis of lumbar region with neurogenic claudication documented in this encounter Discontinued Medications Medication Sig Discontinue Reason Start Date End Da te diazePAM (VALIUM) 5 mg tabletIndications:Anxiet y TAKE 1 TABLET BY MOUTH TWICE A DAY Reorder 11/08/2024 01/04/2025 documented as of this encounter Care Teams Plateman Relationship Specialty Start Date End Date Sekou Trevino MD [address] [place] [address] PCP - General Family Medicine 03/06/23 Donis Butt MD [address] [facility] [address] [place] [address] Orthopedic Surgery 10/15/17 Richard Amaral, PT Physical Therapist Physical Therapy 10/24/17 documented as of this encounter
--- OUTSIDE RECORDS SUMMARY | 2025-01-04 13:18 | XMS_ITS | Referral Summary ---
Author Organization [facility] [employer] Address [address] [facility] [place] [address] Care Team Providers Care Brick Paver Name Role Phone Surendra Burton DO Primary Care Provider [phone] Source Comments [facility] [employer]non-owned Affiliates and Associated Physician Practices is amultiple site organization consisting of ambulatory clinics and hospital sitesin [place], [place] and [place]. This disclosure is being madepursuant to the Care Everywhere program and may not contain all information available regarding this patient. Last updated 18.[facility] [employer] Allergies Active Allergy Reactions Criticality Noted Date Comments Amitriptyline Other 01/02/2017 makes brain go Amlodipine Base Swelling 01/02/2017 Atenolol Rash Medium 06/25/2019 Chlorzoxazone Nausea and/or Vomiting 06/25/2019 Ciprofloxacin Itching 07/15/2019 Clonidine Swelling 01/02/2017 Contrast-Iodinated Agents For Ct/Other Unknown 06/10/2019 Dexamethasone Nausea and/or Vomiting Medium 06/25/2019 Sulfa Drugs Bleeding,Unknown Medium 06/10/2019 Ticagrelor Other Medium 06/25/2019 Patient doesn't remember. Medications * Be aware that medications may not be up to date on this document. Alwaysverify current medications with the patient. Medication Sig Dispensed Refills Start Date End Date Status atorvastatin (LIPITOR) 10 MG tablet Take 10 mg by mouth once daily Active diphenhydrAMINE (BENADRYL) 25 MG capsule Take 25 mg by mouth Activ e docusate sodium (COLACE) 100 MG capsule Take 100 mg by mouth 8 times daily while awake Active fentaNYL (DURAGESIC) 50 MCG/HR patch Apply 1 patch to skin every 3 days Active hydrALAZINE (APRESOLINE) 25 MG tablet Take 25 mg by mouth 2 times daily Active HYDROcodone-acetamin ophen (NORCO) 10-325 MG tablet Take 2 tablets by mouth Active isosorbide dinitrate (ISORDIL) 30 MG tablet Take 30 mg by mouth once daily Active Lactulose (KRISTALOSE) 20 g Active metoprolol tartrate (LOPRESSOR) 25 MG tablet Take 12.5 mg by mouth as directed Active omeprazole (PRILOSEC) 40 MG capsule Take 40 mg by mouth once daily 02/22/2019 Active ondansetron, disintegrating, (ZOFRAN ODT) 4 MG tablet PLEASE SEE ATTACHED FOR DETAILED DIRECTIONS 0 04/19/2019 Active promethazine (PHENERGAN) 25 MG tablet Take 25 mg by mouth Activ e rivaroxaban (XARELTO) 20 MG tablet Use 20 mg as instructed once daily Active gabapentin (NEURONTIN) 600 MG tablet Take 600 mg by mouth 2 times daily Active Active Problems Problem Noted Date Diagnosed Date Chronic pain of right knee 07/15/2019 Social History Tobacco Use Types Packs/Day Years Used Date Smoking Tobacco: Some Days Smokeless Tobacco: Never Tobacco Cessation:Ready to Q uit: Yes; Counseling Given: Yes Sex and Gender Information Value Date Recorded Sex Assigned at Not on file Gender Identity Not on file Sexual Orientation Not on file Last Filed Vital Signs Vital Sign Reading Time Taken Comments Blood Pressure 120/82 07/15/2019 1:42 PM CDT Pulse 60 07/15/2019 1:42 PM CDT Temperature - - Respiratory Rate 20 07/15/2019 1:42 PM CDT Oxygen Saturation - - Inhaled Oxygen Concentration - - Weight 95.7 kg (211 lb) 07/15/2019 1:42 PM CDT Height 170.2 cm (5' 7 ) 07/15/2019 1:42 PM CDT Body Mass Index 33.05 07/15/2019 1:42 PM CDT Plan of Treatment Not on file Care Teams Brick Paver Relationship Specialty Start Date End Date Surendra Burton DO [address] [address] PCP - General 06/25/19
--- OUTSIDE RECORDS SUMMARY | 2025-01-04 13:18 | XMS_ITS | Clinical Summary ---
Author Organization [facility] [employer] Address [address] [facility] [place] [address] Care Team Providers Care Senior Project Coordinator Name Role Phone Surendra Burton DO Primary Care Provider [phone] Source Comments [facility] [employer],non-owned Affiliates and Associated Physician Practices is amultiple site organization consisting of ambulatory clinics and hospital sitesin [place], [place], [place] and [place]. This disclosure is being madepursuant to the Care Everywhere program and may not contain all information available regarding this patient. Last updated 18.[facility] [employer] Allergies Active Allergy Reactions Criticality Noted Date [...] Date Chronic pain of right knee 07/15/2019 Family History Medical History Relation Name Comments Renal Disease Father Cancer - Other Mother Relation Name Status Comments Father Mother Social History Tobacco Use Types Packs/Day Years [...] 07/15/2019 1:42 PM CDT Plan of Treatment Health Maintenance Due Date Last Done Comments BONE DENSITY TESTING 1955 COLOGUARD (AGES 45-75) - COL ON CA SCREENING 1956 COLON MONITORING 1956 COLONOSCOPY - COLON CA SCREENING 1956 CT COLONOGRAPHY - COLON CA SCREENING 1956 Colorectal Cancer Screening 1956 FIT - COLON CA SCREENING 1956 FLEX SIG - COLON CA SCREENING 1956 MAMMOGRAM 1956 HEPATITIS C SCREENING 03/14/1974 DTAP/TDAP/TD VACCINES (1 - Tdap) 1975 PNEUMOCOCCAL VACCINE 50+ (1 of 2 - PCV) 1975 ZOSTER VACCINE (1 of 2) 2006 SCREENING FOR DIABETES 06/25/2019 COVID-19 VACCINE (1 - 2023-2 5 season) 2024 INFLUENZA VACCINE (#1) 2024 DEPRESSION SCREENING 11/17/2024 MEDICARE AWV CALENDAR YEAR 2024 Respiratory Syncytial Virus (RSV) Vaccine Pt: or over 60 yrs (1 - 1-dose 75+ series) 2031 HEPATITIS B VACCINE Aged Out No longe r eligible based on patient's age to complete this topic HIB VACCINE Aged Out No longer eligi ble based on patient's age to complete this topic HPV VACCINE Aged Out No longer eligi ble based on patient's age to complete this topic MENINGOCOCCAL (Group B) VACCINE Aged Out No longer eligible based on patient's age to complete this topic MENINGOCOCCAL VACCINE Aged Out No reji neda eligible based on patient's age to complete this topic Care Teams Senior Project Coordinator Relationship Specialty Start Date End Date Surendra Burton DO [address] [facility] [address] [place] [address] PCP - General 06/25/19
--- OUTSIDE RECORDS SUMMARY | 2025-01-04 13:18 | XMS_ITS | Patient Health Summary ---
Author Organization [facility] Address [address] [facility] [place] [address] Care Team Providers Care Casino Host Name Role Phone Surendra Burton DO Primary Care Provider [phone] Note from [facility],non-owned Affiliates and Associated Physician Practices is amultiple site organization consisting of ambulatory clinics and hospital sitesin [place], [place], [place] and [place]. This disclosure is being madepursuant to the Care Everywhere program and may not contain all information available regarding this patient. Last updated 18.[facility] Allergies * Amitriptyline(Other) * Amlodipine Base(Swelling) * Atenolol(Rash) -Medium Criticality * Chlorzoxazone(Nausea and/or Vomiting) * Ciprofloxacin(Itching) * Clonidine(Swelling) * Contrast-Iodinated Agents For Ct/Other(Unknown) * Dexamethasone(Nausea and/or Vomiting) -Medium Criticality * Sulfa Drugs(Bleeding,Unknown) -Medium Criticality * Ticagrelor(Other) -Medium Criticality Medications * Be aware that medications may not be up to date on this document. Alwaysverify current medications with the patient. * atorvastatin (LIPITOR) 10 MG tablet Take 10 mg by mouth once daily * diphenhydrAMINE (BENADRYL) 25 MG capsule Take 25 mg by mouth * docusate sodium (COLACE) 100 MG capsule Take 100 mg by mouth 8 times daily while awake * fentaNYL (DURAGESIC) 50 MCG/HR patch Apply 1 patch to skin every 3 days * hydrALAZINE (APRESOLINE) 25 MG tablet Take 25 mg by mouth 2 times daily * HYDROcodone-acetaminophen (NORCO) 10-325 MG tablet Take 2 tablets by mouth * isosorbide dinitrate (ISORDIL) 30 MG tablet Take 30 mg by mouth once daily * Lactulose (KRISTALOSE) 20 g * metoprolol tartrate (LOPRESSOR) 25 MG tablet Take 12.5 mg by mouth as directed * omeprazole (PRILOSEC) 40 MG capsule(Started 02/22/2019) Take 40 mg by mouth once daily * ondansetron, disintegrating, (ZOFRAN ODT) 4 MG tablet(Started 04/19/2019) PLEASE SEE ATTACHED FOR DETAILED DIRECTIONS * promethazine (PHENERGAN) 25 MG tablet Take 25 mg by mouth * rivaroxaban (XARELTO) 20 MG tablet Use 20 mg as instructed once daily * gabapentin (NEURONTIN) 600 MG tablet Take 600 mg by mouth 2 times daily Active Problems Problem Noted Date Diagnosed Date [...] Mass Index 33.05 07/15/2019 1:42 PM CDT Procedures * MRI ABDOMEN W MRCP WO CONT W3D(Performed 08/06/2019) Performed for Abdominal pain, right upper quadrant * XR KNEE RIGHT 2VW OR LESS(Performed 07/15/2019) Performed for Chronic pain of right knee * XR KNEE RIGHT 4VW OR MORE(Performed 06/25/2019) Performed for Right knee pain, unspecified chronicity * GROSS + MICRO EXAM(Performed 02/17/2008) Results * MRI MRCP W/O CONTRAST (08/06/2019 4:31 PM CDT) Anatomical Region Laterality Modality Abdomen Magnetic Resonan ce 08/09/2019 10:2 5 AM CDT Impressions 08/09/2019 10:40 AM CDT Common bile duct measuring 7.6 mm, normal in a postcholecystectomy patient. No ductal stones are identified and there is no intrahepatic biliary dilatation. No liver mass is identified. Other incidental findings as described. Reading Radiologist: Akash Dubois MD on 08/09/2019 at 10:40 AM Narrative 08/09/2019 10:40 AM CDT MRI abdomen without contrast with MRCP 08/06/2019 INDICATION: Right upper quadrant pain. History of cholecystectomy in February. TECHNIQUE: MRI of the abdomen was performed utilizing multiple pulse sequences in multiple planes. An MRCP was constructed. FINDINGS: The liver is homogeneous in signal. There is no liver mass. There is no intrahepatic biliary dilatation. The common bile duct measured 7.6 mm in maximal diameter. This is within normal range in a postcholecystectomy patient. No filling defects are identified. The pancreatic duct is also normal in caliber. The patient is status post cholecystectomy. The pancreas is normal in signal. There is no pancreatic mass. The spleen appears normal. There is a 2.3 cm left adrenal nodule likely representing adenoma. The right adrenal gland is normal. No renal mass or hydronephrosis is seen. There is mild scoliosis of the spine. There appears to be some artifact involving the spine likely from prior surgery. The aorta and IVC are normal in caliber. There is no retroperitoneal or mesenteric adenopathy. The visualized bowel loops are unremarkable. Incidental note is made of a hernia involving fat along the left flank. Tiny pleural effusions are noted. Procedure Note Akash Dubois MD - 08/09/2019 MRI abdomen without contrast with MRCP 08/06/2019 INDICATION: Right upper quadrant pain. History of cholecystectomy in February. TECHNIQUE: MRI of the abdomen was performed utilizing multiple pulse sequences in multiple planes. An MRCP was constructed. FINDINGS: The liver is homogeneous in signal. There is no liver mass. There is no intrahepatic biliary dilatation. The common bile duct measured 7.6 mm in maximal diameter. This is within normal range in a postcholecystectomy patient. No filling defects are identified. The pancreatic duct is also normal in caliber. The patient is status post cholecystectomy. The pancreas is normal in signal. There is no pancreatic mass. The spleen appears normal. There is a 2.3 cm left adrenal nodule likely representing adenoma. The right adrenal gland is normal. No renal mass or hydronephrosis is seen. There is mild scoliosis of the spine. There appears to be some artifact involving the spine likely from prior surgery. The aorta and IVC are normal in caliber. There is no retroperitoneal or mesenteric adenopathy. The visualized bowel loops are unremarkable. Incidental note is made of a hernia involving fat along the left flank. Tiny pleural effusions are noted. IMPRESSION Common bile duct measuring 7.6 mm, normal in a postcholecystectomy patient. No ductal stones are identified and there is no intrahepatic biliary dilatation. No liver mass is identified. Other incidental findings as described. Reading Radiologist: Akash Dubois MD on 08/09/2019 at 10:40 AM Ordering Provider Unlisted MR ORDERAB LES * XR KNEE RIGHT 2VW OR LESS (07/15/2019 2:15 PM CDT) Anatomical Region Laterality Modality Lower Extremity Radiographic Meaghan ging 07/15/2019 2:18 PM CDT Impressions 07/15/2019 3:07 PM CDT Degenerative changes. Edited by Radha Allen on 07/15/2019 2:20 PM Reading Radiologist: Shane Matson MD on 07/15/2019 at 3:07 PM Narrative 07/15/2019 3:07 PM CDT RIGHT KNEE. HISTORY: Knee pain. Single AP view of the knee shows joint space loss in medial compartment with sclerosis and spur formation seen on distal femur and proximal tibia. Procedure Note Shane Matson MD - 07/15/2019 RIGHT KNEE. HISTORY: Knee pain. Single AP view of the knee shows joint space loss in medial compartment with sclerosis and spur formation seen on distal femur and proximal tibia. IMPRESSION Degenerative changes. Edited by Radha Allen on 07/15/2019 2:20 PM Reading Radiologist: Shane Matson MD on 07/15/2019 at 3:07 PM Raina Grigsby MD DIAGNOSTIC IMAG ING ORDERABLES * XR KNEE RIGHT 4VW OR MORE (06/25/2019 1:14 PM CDT) Anatomical Region Laterality Modality Lower Extremity Radiographic Meaghan ging 06/25/2019 1:48 PM CDT Impressions 06/25/2019 1:49 PM CDT IMPRESSION: Moderate osteoarthritis This report was electronically signed by KARL TREJO MD on 06/25/2019 1:49 PM . Narrative 06/25/2019 1:49 PM CDT Exam: XR KNEE RIGHT 4VW History: knee pain Comparison: None. Findings: No fracture or dislocation is present. There is tricompartmental osteoarthritis, greatest in the medial compartment with there is moderate narrowing. A small effusion is noted. Procedure Note Karl Trejo MD - 06/25/2019 Exam: XR KNEE RIGHT 4VW History: knee pain Comparison: None. Findings: No fracture or dislocation is present. There is tricompartmental osteoarthritis, greatest in the medial compartment with there ismoderate narrowing. A small effusion is noted. IMPRESSION: Moderate osteoarthritis This report was electronically signed by KARL TREJO MD on06/25/2019 1:49 PM . Maria De Jesus Merrill PA-C DIAGNOSTIC IMAG ING ORDERABLES * GROSS + MICRO EXAM (02/17/2008 3:36 PM CDT) Result CASE NUMBER [id number] Comment: ORDERING PHYSICIAN AURELIANO WEAVER SPECIMEN TYPE Intervertebral Disc-anterior lumbar Date 02/17/2008 Physician Ofelia Weaver Gross Description The specimen is received in Formalin labeled with the patient's name, Roberta Bruner, and disc material. It consists of a 5 x 4 x 3 cm aggregate of congested fragments of pink king tissue, submitted representatively in a single cassette. LW deleon Microscopic Exam Sections of the intervertebral disc reveal multiple fragments of cartilage with degenerative changes and fragments of trabecular bone containing cellular marrow with trilineage hematopoiesis. There is no evidence of malignancy. MM/na Diagnosis I. Intervertebral disc, L3-L4, L4-L5, anterior MIGUEL -- Degenerative changes MM/na Public Information Coordinator na Pathologist Justyna Bennett M.D. [place]. 02/18/2008 1104 <1> CPT code 01730 MISCELLANEOUS SAMPLES / Unknown 02/17/2008 3:36 PM CDT 02/17/2008 3:36 PM CDT Historical Provider MD LAB - PATHOLOGY/C YTOLOGY ORDERABLES Care Teams Casino Host Relationship Specialty Start Date End Date Surendra Burton DO [address] [id number] PCP - General 06/25/19
--- OUTSIDE RECORDS SUMMARY | 2025-01-04 13:18 | XMS_ITS | Clinical Summary ---
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 Name Role Phone CHAU PETERS Primary Care Provider [phone] Reason for Visit and Chief Complaint ECHOCARDIOGRAM Problems Includes: Problems addressed during this encounter and other active Problems All Visits Onset Date Resolved Date Provider Condition S tatus Chronic Obstructive Pulmonary Disease 05/09/2014 CATALINO QUIÑONES MD Active Last Documented On 4 2:47PM ; [facility] Chronic Pain 01/01/2012 CATALINO QUIÑONES MD A ctive Last Documented On 2 10:57PM ; [facility] Depression 02/15/2011 CATALINO QUIÑONES MD Act horacio Last Documented On 1 3:25PM ; [facility] Adrenal Neoplasm 04/09/2010 CATALINO QUIÑONES MD Active Last Documented On 0 11:06PM ; [facility] Note: Unchanged Lumbago 04/09/2010 CATALINO QUIÑONES MD Act horacio Last Documented On 0 3:39PM ; [facility] Backache 12/14/2009 CATALINO QUIÑONES MD Act horacio Last Documented On 1 4:28PM ; [facility] Essential Hypertension Benign 12/14/2009 CATALINO QUIÑONES MD Active Last Documented On 1 11:14PM ; [facility] Peripheral Neuropathy 12/14/2009 CATALINO FRANKEL MD Active Last Documented On 0 12:48PM ; [facility] Note: Unchanged Smoking Cigarettes 12/14/2009 CATALINO Pineda MD Active Last Documented On 0 12:48PM ; [facility] Note: Unchanged Parox Atrial Tachycardia 03/10/2009 CATALINO MENA MD Active Last Documented On 9 1:03PM ; [facility] Plan of Treatment No Plan [...] On 0 2:46PM By SEBAS JOHNSON ; [facility] Linzess 145 MCG Oral Capsule 09/28/2020 Provider: Diagnosis: Last Documented On 0 2:42PM By SEBAS JOHNSON ; [facility] Aspirin 81 MG Oral Tablet Delayed Release 09/28/2020 Provider: Diagnosis: Last Documented On 0 2:43PM By SEBAS JOHNSON ; [facility] Suspended Medications Robaxin-750 750 MG Tablet 02/15/2015 - 04/16/2015 Prov ider: CATALINO QUIÑONES MD Diagnosis: One tablet four times a day [phone] Last Documented On 5 12:54PM By ONEL NATARAJAN PA-C ; [facility] Medications Administered Includes: Administered Medications [...] ctive Last Documented On 5 4:12PM ; [facility] predniSONE Allergy 03/10/2009 Active Last Documented On 03/16/2015 4:12PM ; [facility] Note: JUST PILLS NOT SHOT Norvasc Allergy Skin Rashes / Er uption of skin, Hives / Urticaria 09/17/2011 Active Last Documented On 5 4:12PM ; [facility] Lyrica Allergy SWELLING AND NAUSEA 11/19/2010 Active Last Documented On 5 4:12PM ; [facility] Lisinopril Allergy 03/10/2009 Active Last Documented On 5 4:12PM ; [facility] Clonidine Allergy Skin Rashes / Er uption of skin, Hives / Urticaria 09/17/2011 Active Last Documented On 5 4:12PM ; [facility] Benzodiazepines Allergy 03/10/2009 Act horacio Last Documented On 5 4:12PM ; [facility] Amitriptyline HCl Allergy BRAIN FOGGY 01/01/2012 Active Last Documented On 5 4:12PM ; [facility] Insurance Includes: Active Insurance Policies Plan Name Member ID Group # Subscriber Relationship Effect horacio Dates 1 - [facility]/MED[facility]/[employer] [id number] RASHEED LEYVA Self 2 - MEDICA[employer] [place] MEDICARE SECOND [id number] RASHEED LEYVA Self Clinical Notes Includes: Clinical Notes from this encounter No Clinical Notes Recorded
== END 2025-01-04 13:02 | disposition home or self-care (01) ==
PROVIDERS: PCP Hospitalist; Visit Provider Hospitalist
DX: J98.11 Atelectasis (principal); I51.7 Cardiomegaly; R07.81 Pleurodynia
CPT/HCPCS: 71110

== ENCOUNTER 2025-05-13 18:47 | Emergency (ER) | payer MEDICARE, SELFPAY ==
[2025-05-13 19:01] VITALS: BP 139/77; PULSE 139; RESP 16; TEMP 36.6; O2SAT 100
--- NOTE | 2025-05-13 19:01 | ED.WOUNDLAC ---
HPI - Wound/Laceration General Chief Complaint: Skin/Abscess/Foreign Body Stated Complaint: Right Ankle/ Skin Sore Time Seen by Provider: 05/13/25 19:01 Source: patient Mode of arrival: ambulatory Limitations: no limitations History of Present Illness HPI narrative: 70 yo F presents with hole to my ankle. Was in hospital for 1wk approx. 1 wk ago. was not sent home with any antibiotics. just gave me this honey to put on it and i want some antibiotics. Was suppose to follow up with [facility] wound care but i dont want to go to that place. waiting to see my primary on may 18. pt requesting dressing change. all systems reviewed and negative except as noted above. Related Data Home Medications ?Medication ?Instructions ?Recorded ?Confirmed ?Last Taken ?Type mecobalamin (vitamin B12) 1,000 1,000 mcg sublingual DAILY 09/28/19 05/07/22 Unknown History mcg disintegrating tablet,sublingual nitroglycerin 0.3 mg sublingual 0.3 mg sublingual Q5M PRN Chest 11/16/19 05/07/22 Unknown History tablet Pain linaclotide 145 mcg capsule 145 mcg PO DAILY 05/31/20 05/07/22 Unknown History (Linzess) diazepam 10 mg tablet 10 mg PO BID 01/02/23 Unknown History dicyclomine 20 mg tablet 20 mg PO DAILY 01/02/23 Unknown History fentanyl 50 mcg/hr transdermal 01/02/23 Unknown History patch gabapentin 300 mg capsule mg 01/02/23 Unknown History hydralazine 25 mg tablet mg 01/02/23 Unknown History hydrocodone 10 mg-acetaminophen tablet 01/02/23 Unknown History 325 mg tablet isosorbide mononitrate 30 mg mg PO 01/02/23 Unknown History tablet,extended release 24 hr pantoprazole 40 mg tablet,delayed mg PO 01/02/23 Unknown History release atorvastatin 40 mg tablet mg 05/15/23 Unknown History ondansetron 4 mg disintegrating 4 mg PO Q6-8H PRN Nausea 05/15/23 05/15/23 Unknown History tablet albuterol sulfate 90 mcg/actuation inhalation 05/13/25 Unknown History aerosol inhaler amoxicillin 875 mg-potassium tablet 05/13/25 Unknown History clavulanate 125 mg tablet apixaban 5 mg tablet (Eliquis) mg 05/13/25 Unknown History budesonide 160 mcg-glycopyr 9 inh inhalation 05/13/25 Unknown History mcg-formot 4.8 mcg/actuation HFA inhaler (Breztri Aerosphere) carvedilol 12.5 mg tablet mg 05/13/25 Unknown History diazepam 5 mg tablet mg 05/13/25 Unknown History diltiazem HCl 240 mg mg PO 05/13/25 Unknown History capsule,extended release 24 hr, controlled fentanyl 25 mcg/hr transdermal 05/13/25 Unknown History patch furosemide 40 mg tablet mg 05/13/25 Unknown History ondansetron 8 mg disintegrating mg 05/13/25 Unknown History tablet potassium chloride 20 mEq meq PO 05/13/25 Unknown History tablet,extended release(part/cryst) spironolactone 25 mg tablet mg 05/13/25 Unknown History tiotropium bromide 2.5 inhalation 05/13/25 Unknown History mcg/actuation mist for inhalation (Spiriva Respimat) Allergies Allergy/AdvReac Type Severity Reaction Status Date / Time dexamethasone Allergy Mild SICK AND Verified 05/13/25 19:12 WEAK atenolol Allergy Unknown DROPPED Verified 05/13/25 19:12 OUT MY HEART RATE clonidine Allergy Unknown LOOKED Verified 05/13/25 19:12 LIKE A LOBSTER TURN RED lisinopril Allergy Unknown LOOK LIKE Verified 05/13/25 19:12 A LOBSTER TURN RED NSAIDS (Non-Steroidal Allergy Unknown STATES Verified 05/13/25 19:12 Anti-Inflamma MAKES HER BLEED prednisone Allergy Unknown COULDN'T Verified 05/13/25 19:12 BREATH ticagrelor Allergy Unknown Dyspnea / Verified 05/13/25 19:12 SOB amlodipine (From Norvasc) Allergy Unknown Verified 05/13/25 19:12 pseudoephedrine Allergy Unknown Verified 05/13/25 19:12 chlorzoxazone AdvReac Unknown Nausea and Verified 05/13/25 19:12 Vomiting oxymorphone AdvReac Unknown NAUSEA AND Verified 05/13/25 19:12 VOMITING Sulfa (Sulfonamide AdvReac Unknown GIVES PT A Verified 05/13/25 19:12 Antibiotics) YEAST INFECTION tramadol AdvReac Unknown NAUSEA AND Verified 05/13/25 19:12 VOMITING AMLODIPINE BESYLATE Allergy Unknown LOOKED Uncoded 05/13/25 19:12 LIKE A LOBSTER TURNED RED AMOXICILLIN TRIHYDRATE AdvReac Unknown GIVES ME Uncoded 05/13/25 19:12 YEAST INFECTION AND BLEEDS VAGINALLY POTASSIUM CLAVULANATE AdvReac Unknown YEAST Uncoded 05/13/25 19:12 INFECTION Review of Systems Review of Systems: CONSTITUTIONAL: Denies fever, chills, or sweats. EYES: Denies visual changes, redness, or discharge. ENT: Denies rhinorrhea, congestion, sore throat, or otalgia. CARDIOVASCULAR: Denies chest pain, palpitations, or edema. RESPIRATORY: Denies cough or dyspnea. GASTROINTESTINAL: Denies abdominal pain, nausea, vomiting, or diarrhea. GENITOURINARY: Denies dysuria or hematuria. SKIN: Denies rash or itching. Reports wound to right ankle MUSCULOSKELETAL: Denies back pain, joint pain, or myalgia. NEUROLOGIC: Denies headache, numbness, or weakness. PSYCHIATRIC: Denies anxiety or depression. All other systems reviewed are negative, except as documented in HPI. PMFSH Past Medical History Medical History Diverticulitis Diverticulosis FH: cholecystectomy Knee pain Low back pain Spinal stenosis Surgical History Surgical History History of cardiac cath Family History Family History Father Family history of kidney disease Grandparent Family history of obesity Cerebrovascular accident Family history of coronary artery disease Mother Family history of malignant neoplasm of breast in first degree relative Family history of malignant neoplasm Other Family history of allergic disorder Social History Social History Smoking packs per day: 0.5 Smoking cigarettes per day: 10.0 Years smoked: 40 Smoking pack-years: 20.00 Smoking status: Current every day smoker Second hand tobacco smoke exposure: Yes Smoking end date: 11/17/09 Alcohol intake: never Substance use type: does not use Comments At time of signature, agree with nursing past medical, surgical, social and family history. There is no relevant family history pertinent to the presenting complaint. Exam Narrative: GENERAL: This is a well-nourished, well-developed patient, in no apparent distress. HEAD: normocephalic, atraumatic. EYES: PERRL. Sclera clear/white. Vision is grossly intact. EARS: External ears normal NOSE: External nose normal NECK: Neck supple, non-tender without lymphadenopathy, masses or thyromegaly. CARDIOVASCULAR: Regular rate and rhythm without murmurs, gallops, or rubs. RESPIRATORY: Clear to auscultation. Breath sounds equal bilaterally. No wheezes, rales, or rhonchi. SKIN: warm, Dry, intact with no suspicious rash, good texture and turgor. healing wound to R lateral ankle approx. 1x 1cm with scab to center, no drainage, erythema to borders with mild swelling NEURO: awake, alert, and oriented to person, place and time. There were no obvious focal neurologic abnormalities. EXTREMITIES: No joint tenderness, effusion, or edema noted. Course Course Level of Care: Express Care Visit Vital Signs Vital signs: Vital Signs Temperature 36.6 C 05/13/25 19:01 Pulse Rate 139 H 05/13/25 19:01 Respiratory Rate 16 05/13/25 19:01 Blood Pressure 139/77 05/13/25 19:01 Pulse Oximetry 100 05/13/25 19:01 Oxygen Delivery Room Air 05/13/25 19:01 Temperature 36.6 C 05/13/25 19:01 Pulse Rate 139 H 05/13/25 19:01 Respiratory Rate 16 05/13/25 19:01 Blood Pressure 139/77 05/13/25 19:01 Pulse Oximetry 100 05/13/25 19:01 Oxygen Delivery Room Air 05/13/25 19:01 Reviewed MDM - Wound/Laceration MDM Narrative Medical decision making narrative: will treat wound to right ankle with cephalexin. Recommend follow-up with primary care physician for further care of wound. Discharge Plan Discharge Clinical Impression: Wound infection Patient Disposition: Home Condition: Stable Instructions: Antibiotic Form, Wound Infection (ED) Additional Instructions: Take antibiotic as prescribed until gone. Apply a dry dressing daily. Follow-up with your primary care physician for further wound care. Patient Language: [place] Prescriptions: New cephalexin 500 mg capsule 500 mg PO Q8H 7 Days Qty: 21 0RF No Action fentanyl 50 mcg/hr patch 72 hour isosorbide mononitrate 30 mg tablet extended release 24 hr PO hydralazine 25 mg tablet hydrocodone-acetaminophen 10-325 mg tablet dicyclomine 20 mg tablet 20 mg PO DAILY pantoprazole 40 mg tablet,delayed release (DR/EC) PO gabapentin 300 mg capsule diazepam 10 mg tablet 10 mg PO BID atorvastatin 40 mg tablet ondansetron 4 mg tablet,disintegrating 4 mg PO Q6-8H PRN (Reason: Nausea) furosemide 40 mg tablet carvedilol 12.5 mg tablet diltiazem HCl 240 mg capsule,ext.rel 24h degradable PO spironolactone 25 mg tablet ondansetron 8 mg tablet,disintegrating potassium chloride 20 mEq tablet,ER particles/crystals PO fentanyl 25 mcg/hr patch 72 hour albuterol sulfate 90 mcg/actuation HFA aerosol inhaler INHALATION diazepam 5 mg tablet amoxicillin-pot clavulanate 875-125 mg tablet Spiriva Respimat 2.5 mcg/actuation mist INHALATION Eliquis 5 mg tablet Breztri Aerosphere 160-9-4.8 mcg/actuation HFA aerosol inhaler INHALATION Linzess 145 mcg Capsule 145 mcg PO DAILY nitroglycerin 0.3 mg tablet, sublingual 0.3 mg SUBLINGUAL Q5M PRN (Reason: Chest Pain) mecobalamin (vitamin B12) 1,000 mcg tablet,disintegrating 1,000 mcg SUBLINGUAL DAILY Follow-up/Referrals: Uriel,MD Sekou [Primary Care Provider] - Time of Disposition: 19:09
== END 2025-05-13 19:25 | disposition home or self-care (01) ==
PROVIDERS: Emergency Provider Nurse Practitioner Family; PCP Hospitalist
DX: S91.001A Unspecified open wound, right ankle, initial encounter (principal); L08.9 Local infection of the skin and subcutaneous tissue, unspecified; Z79.899 Other long term (current) drug therapy; Z79.01 Long term (current) use of anticoagulants; F17.210 Nicotine dependence, cigarettes, uncomplicated; X58.XXXA Exposure to other specified factors, initial encounter
CPT/HCPCS: 99213; G0463